=== PATIENT | female | born 1955 | race Caucasian/White ===

== ENCOUNTER 2020-07-21 15:11 | Outpatient (REF) | payer MEDICARE, SELFPAY ==
--- NOTE | 2020-07-21 | US_ITS ---
EXAMINATION: US RETROPERITONEAL LIMITED (RENAL ONLY) CLINICAL INFORMATION: Renal stone. COMPARISON: None TECHNIQUE: Real-time imaging of the kidneys. FINDINGS: RIGHT KIDNEY: 10.3 x 4.6 x 4.4 cm (SAG x AP x TRV). The kidney is normal in size, contour, and echogenicity. Renal cortical thickness is normal. No focal parenchymal lesions or hydronephrosis. There is a nonobstructing calculus mid to lower pole measuring 6 mm in greatest dimension. LEFT KIDNEY: 9.4 x 5.0 x 5.4 cm (SAG x AP x TRV). The kidney is normal in size, contour, and echogenicity. Renal cortical thickness is normal. No focal parenchymal lesions or hydronephrosis. There is a nonobstructing calculus mid to lower pole measuring 5 mm in greatest dimension. IMPRESSION: 1. Bilateral solitary nonobstructing calculi, right 6 mm, left 5 mm. 2. No hydronephrosis or caliectasis.
== END 2020-07-21 15:12 | disposition home or self-care (01) ==
LOC: HO.US 15:11
PROVIDERS: Visit Provider Urology
DX: N20.0 Calculus of kidney (principal)
CPT/HCPCS: 76775

== ENCOUNTER → 2020-08-12 09:36 | Outpatient (BNVA) | payer MEDICARE, SELFPAY | PROVIDERS: Visit Provider Urology | DX: N20.0 Calculus of kidney (principal) | CPT/HCPCS: 99212 ==

== ENCOUNTER 2020-08-24 06:25 | Day surgery (SDC) | payer MEDICARE, SELFPAY ==
[2020-08-19 14:24] VITALS: BMI 29.8
--- NOTE | 2020-08-24 | XR_ITS ---
EXAMINATION: XR ABDOMEN KUB CLINICAL INDICATION: Stones COMPARISON: 07/21/2020 TECHNIQUE: AP view of the abdomen. FINDINGS: There is a 7 mm calcification overlying the expected region of the right renal pelvis. A 4 mm calcification overlies the lower left kidney. Bowel gas pattern is nonobstructive. Catheter tubing extends over the abdomen to the upper pelvis. Suture line noted overlying the stomach. Included lung bases are well-aerated. Degenerative changes are noted in the spine. XR/XR KUB IMPRESSION: 7 mm calcification overlying the expected region of the right renal pelvis. 4 mm calcification overlies the lower left kidney.
[2020-08-24 06:43] VITALS: BP 132/66; PULSE 68; RESP 18; TEMP 36.1; O2SAT 96
--- NOTE | 2020-08-24 08:30 | HO.ANESPROP2 ---
[facility] Past Medical History Medical History Arthritis Back pain Fibromyalgia History of traumatic head injury Hx of spinal stenosis Hydrocephalus in adult Peptic ulcer Surgical History Surgical History H/O colonoscopy Hx of cholecystectomy Hx of excision of lamina of cervical vertebra for decompression of spinal cord Hx of gastric bypass Hx of tubal ligation [employer]TING [employer] (ventriculoperitoneal) shunt status Social History Social History Are you a primary lead care manager to a significant other at home: No Do you presently have visiting nurse or other home services: No Smoking Status: Former smoker Smoking Quit Date: 2012 Use of substances other than those prescribed or required for medical reasons: No Have you been hit, kicked, punched, or otherwise hurt by someone within the past year? If so, by whom?: No Advance Directives Information Provided: No Recently lost weight without trying: No Meds Allergies Allergy/AdvReac Type Severity Reaction Status Date / Time aspartame Allergy Severe severe Verified 08/19/20 14:34 dehydration Flexeril Allergy Intermediate Shortness Uncoded 08/19/20 14:34 of Breath Home Medications Medication Instructions Recorded Confirmed Type naproxen 500 mg tablet 500 mg PO BID 08/12/20 08/19/20 History acetaminophen [Tylenol Extra 1,000 mg PO BID 08/19/20 08/19/20 History Strength] omeprazole magnesium [Prilosec OTC] 20 mg PO BEDTIME 08/19/20 08/19/20 History Exam Exam Date and Time: August 24, 2020 0830 Height,Weight and Vital Signs: Height 5 ft 4 in Weight 78.925 kg Last Vital Signs Temp 97.0 F 08/24/20 06:43 Pulse 68 08/24/20 06:43 Resp 18 08/24/20 06:43 BP 132/66 08/24/20 06:43 Pulse Ox 96 08/24/20 06:43 Airway Mallampati Class: II TM Dist: >3cm Neck ROM: Limited Heart: RRR Lungs: CTA Assessment and Plan Assessment Anesthesia Assessment: Anesthesia Plan Discussed and Chart Reviewed Final Anesthetic Review NPO: Yes ASA Class: II Final Preanesthetic Review: Consent Obtained/Reviewed and Anes Risks/Benef Reviewed Patient Risk: Intermediate Procedure Risk: Low Anesthetic Plan Anesthetic Plan: MAC: Disposition: Standard PACU
[2020-08-24] MEDS: Lactated Ringers 1,000 ML 100 ML IVCONT (08:36)
--- NOTE | 2020-08-24 09:09 | MHC.SHP ---
Pre-Procedural Eval Section B Chief Complaint: calculus of kidney Details of Present Illness: right renal stone Relevant Family History (Specify if Yes): No Relevant Social History: None Present Medications: see Short Stay Collaborative assessment Medical History: Significant History History of Previous Operations: Relevant previous surgery/procedure and date(s) Allergies: Allergies Allergy/AdvReac Type Severity Reaction Status Date / Time aspartame Allergy Severe severe Verified 08/19/20 14:34 dehydration Flexeril Allergy Intermediate Shortness Uncoded 08/19/20 14:34 of Breath Review of Systems Sugical H&P ROS: Negative: Constitution, Cardiovascular, Respiratory, Neurological, Psychiatric, Hem-Onc, Allergic/Immunologic, Gastrointestinal, Genitourinary, Musculoskeletal, Integumentary, Endocrine and Eyes/Ears/Nose/Throat Exam Surgical H&P Exam: Normal: HEENT, Normal: Heart, Normal: Lungs, Normal: Extremities, Normal: Abdomen, Normal: Skin and Normal: Neurological Plan Diagnosis/Plan: Unchanged Patient has been examined and remains a candidate for the planned procedure
--- NOTE | 2020-08-24 09:30 | PM.OP ---
Brief Operative Note Date of Service: 08/24/20 Pre-op diagnosis: right UPJ stone Post-op diagnosis: same Procedure: right ESWL Surgeon: Johnny Kyle MD Anesthesia: MAC Estimated blood loss (mL): 0 Pathology: none sent Condition: stable Disposition: same day
--- NOTE | 2020-08-24 09:31 | W.PM.OPN ---
Operative Note Operative Note Date of Service: 08/24/20 Narrative: PreOperative Diagnosis: Renal stones - RUPJ Post Operative Diagnosis: Renal stones - RUPJ Procedure: ESWL Surgeon: Dr Johnny Kyle Anesthesia: mac/sedation Indications for procedure: They understand ESWL may be a staged procedure and subsequent intervention may be required based on imaging after ESWL. They also understand there is a risk of bleeding, infection, damage to adjacent organs. Imaging is reviewed Procedure: After informed consent was verified the patient was brought to the operating room and placed in a supine position. Anesthesia was performed per protocol. Safety pause time-out was performed. Imaging was in the room and laterality confirmed. ESWL was performed. The 1st 500 shocks were performed at 60 hertz. These were performed with increasing power. Once maximum power was reached the rate was increased to 180 hertz. A total of 2500 shocks were given. Fluoroscopy showed stone disintegration. They tolerated procedure well and was transferred to the recovery area upon completion.
[2020-08-24 10:00] VITALS: BP 112/70; PULSE 69; RESP 16; TEMP 36.7; O2SAT 97
[2020-08-24 10:15] VITALS: BP 116/74; PULSE 78; RESP 20; O2SAT 99
--- NOTE | 2020-08-24 10:39 | HO.POSTANES ---
Post Anesthesia Evaluation Post Anesthesia Evaluation Vital Signs: Vital Signs Temp Pulse Resp BP Pulse Ox 08/24/20 10:15 98.1 F 78 20 116/74 99 08/24/20 10:00 98.1 F 69 16 112/70 97 08/24/20 06:43 97.0 F 68 18 132/66 96 Anesthesia: Monitored Mental Status: Awake Pain Control: Satisfactory Nausea/Vomiting: None Hydration: Adequate Anesthesia-Related Issues: No Anes. Related Issues
== END 2020-08-24 10:55 | disposition home or self-care (01) ==
PROVIDERS: PCP Internal Medicine; Visit Provider Urology
PROC: (CPT 50590; principal; 2020-08-24 08:30)
DX: N20.1 Calculus of ureter (principal); Z98.2 Presence of cerebrospinal fluid drainage device; Z87.828 Personal history of other (healed) physical injury and trauma; Z98.84 Bariatric surgery status; Z90.49 Acquired absence of other specified parts of digestive tract; Z87.891 Personal history of nicotine dependence
CPT/HCPCS: 50590; 74018; J2250; J3010

== ENCOUNTER → 2020-10-19 10:42 | Outpatient (BNVA) | payer MEDICARE, SELFPAY | PROVIDERS: PCP Internal Medicine; Visit Provider Urology | DX: Z13.89 Encounter for screening for other disorder (principal) | CPT/HCPCS: 99212; Q3014 ==

== ENCOUNTER 2020-12-21 15:11 | Outpatient (REF) | payer MEDICARE, SELFPAY ==
--- NOTE | ~2020-12-21 | US_ITS ---
EXAMINATION: US RETROPERITONEAL LIMITED (RENAL ONLY) CLINICAL INFORMATION: Renal stones. COMPARISON: Previous renal ultrasound July 2020 and KUB August 2020 TECHNIQUE: Grayscale and color imaging of the kidneys FINDINGS: RIGHT KIDNEY: 9.2 x 4 x 4.1 cm (SAG x AP x TRV). The kidney is normal in size, contour, and echogenicity. Renal cortical thickness is normal. There is a 4 mm stone in the lower pole. No focal parenchymal lesions. No hydronephrosis. LEFT KIDNEY: 10.2 x 5.2 x 5 cm (SAG x AP x TRV). The kidney is normal in size, contour, and echogenicity. Renal cortical thickness is normal. There are 3 small 3 mm stones in the mid and lower pole. There is a 1.5 cm cyst in the midpole. No hydronephrosis. US/US renal BI IMPRESSION: Bilateral renal stones. Small left renal cyst..
== END 2020-12-21 15:12 | disposition home or self-care (01) ==
LOC: HO.US 15:11
PROVIDERS: Visit Provider Urology
DX: N20.0 Calculus of kidney (principal)
CPT/HCPCS: 76775

== ENCOUNTER 2021-08-03 10:39 | Outpatient (REF) | payer MEDICARE, SELFPAY ==
[2021-08-03 12:12] LABS: Blood Urea Nitrogen 8 mg/dL (9-16); Estimated Glomerular Filt Rate > 60
== END 2021-08-03 10:40 | disposition home or self-care (01) ==
LOC: HO.LAB 10:39
PROVIDERS: PCP Internal Medicine; Visit Provider Psychiatry & Neurology Neurology
DX: G81.90 Hemiplegia, unspecified affecting unspecified side (principal); G91.9 Hydrocephalus, unspecified
CPT/HCPCS: 36415; 82565; 84520

== ENCOUNTER 2021-08-23 09:53 | Outpatient (REF) | payer MEDICARE, OTHER, SELFPAY ==
--- NOTE | ~2021-08-23 | MR_ITS ---
MRI OF THE BRAIN WITH AND WITHOUT IV CONTRAST MRI LUMBAR SPINE WITHOUT CONTRAST INDICATION: Brain shunt. Right hemisphere lesion with progressive left hemiparesis. Bilateral lower extremity radicular symptoms. COMPARISON: Lumbar spine CT 06/21/2020. TECHNIQUE: Multiplanar multisequence MR imaging of the brain was obtained without and following the administration of 8 mL of Gadavist without complication. Additionally, a noncontrast MRI of the lumbar spine is performed. FINDINGS: BRAIN MRI: Diffuse linear dural enhancement throughout the supratentorial and infratentorial compartments which can be seen in the setting of over shunting which can be clinically correlated. A right lateral approach shunt catheter terminates within the posterior aspect of the third ventricle, traversing a nonenhancing multicystic lesion extending from the right thalamus into the right midbrain. This lesion measures up to 2.5 cm AP by 2.5 cm TV by 3 cm CC. There are no parenchymal signal changes immediately adjacent to the lesion. There is an additional more posteriorly positioned ventricular shunt catheter that terminates within the posterior aspect of the lateral ventricles. There is an old right frontal approach ventricular shunt catheter tract. No pathologic enhancement intracranially. 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 There is no hydrocephalus, extra-axial surface collection, or herniation. The major flow voids at the skull base are preserved. There is no acute infarct on diffusion-weighted imaging. There is no intracranial hemorrhage on the gradient recalled echo acquisition. The craniocervical junction is normal. Osseous marrow signal intensity is homogenous. The visualized soft tissues are unremarkable. LUMBAR SPINE MRI: There is transitional anatomy. For the purposes of this report S1 is partially lumbarized, shares a rudimentary disc with S2, and is incorporated into the sacrum on the right side. There are 5 nonrib-bearing lumbar-type vertebral bodies. Please correlate with plain films prior to any percutaneous or surgical intervention. There is a rightward convex scoliotic curvature of the lumbar spine with the apex at L2. There is grade 1 anterolisthesis of L4 on L5. The vertebral body heights are maintained. There is moderate disc volume loss at L1-L2 and T12-L1. Mild disc volume loss at L3-L4. There is disc desiccation at all lumbar levels. Modic type I endplate signal changes at L3-L4. There is no additional bone marrow edema. There are no acute fractures. Conus terminates at the L1-L2 level. There is a left renal cyst. There is paraspinal muscular atrophy bilaterally. Stable appearing adrenal adenomas bilaterally. There is a fibroid uterus. L1-L2: There is an inferiorly migrating left paracentral disc extrusion that results in mass effect on the traversing left L2 nerve root within the left subarticular zone on image 9 of series 6. Background annular disc bulge and left greater than right facet arthropathy. Mild left-sided foraminal encroachment. No central canal stenosis. L2-L3: Diffuse annular disc bulge and severe bilateral facet arthropathy. No central canal stenosis. There is mild foraminal encroachment bilaterally. L3-L4: Epidural lipomatosis results in moderate to severe thecal sac effacement. A left lateral disc protrusion and facet arthropathy result in moderate to severe left foraminal stenosis with mass effect on the exiting left L3 nerve root. L4-L5: Diffuse annular disc bulge and severe bilateral facet arthropathy and ligamentum flavum thickening. Epidural lipomatosis mildly narrows the central canal. Disc osteophyte and facet arthropathy result in mild bilateral foraminal encroachment. L5-S1: Grade 1 anterolisthesis. Severe bilateral facet arthropathy. No central canal stenosis and no foraminal stenosis. MR/MR head/brain wo/w con IMPRESSION: BRAIN MRI: - Shunted ventricular system with no hydrocephalus. The more anterior shunt catheter traverses a large up to 3 cm multiloculated cystic lesion that extends from the right thalamus into the midbrain, partially effacing the upper cerebral aqueduct. Comparison to any prior studies recommended if available. There is no associated pathologic intra-axial enhancement. - Diffuse linear dural enhancement throughout the supratentorial and infratentorial compartments which can be seen in the setting of over shunting which can be clinically correlated. LUMBAR SPINE MRI: - There is transitional anatomy. For the purposes of this report S1 is partially lumbarized, shares a rudimentary disc with S2, and is incorporated into the sacrum on the right side. There are 5 nonrib-bearing lumbar-type vertebral bodies. Please correlate with plain films prior to any percutaneous or surgical intervention. - Using this counting system, at L1-L2 there is an inferiorly migrating left paracentral disc extrusion extrusion that results in mass effect on the traversing left L2 nerve root within the left subarticular zone on image 9 of series 6. - At L3-L4, epidural lipomatosis results in moderate to severe thecal sac effacement and a left lateral disc protrusion and advanced facet arthropathy result in moderate to severe left foraminal stenosis with mass effect on the exiting left L3 nerve root. - Additional degenerative changes throughout the lumbar spine as described. At L5-S1, there is grade 1 degenerative anterolisthesis in the setting of severe bilateral facet arthropathy. - Rightward convex scoliotic curvature of the lumbar spine. - There is a fibroid uterus.
--- NOTE | ~2021-08-23 | XR_ITS ---
EXAMINATION: PRE-MRI SKULL. CLINICAL INFORMATION: Evaluation 3 MRI COMPARISON: None TECHNIQUE: AP and lateral views. FINDINGS: AP and lateral views of the skull reveal there is a ventriculostomy catheter with a nonprogrammable shunt visualized. Visualized Para nasal sinuses and mastoid air cells are well-aerated. XR/XR pre mri screening IMPRESSION: There is right ventriculostomy technique catheter with a shunt placement. A nonprogrammable shunt is noted. Unremarkable calvarial appearance. The paranasal sinuses and mastoid sinuses are clear.
== END 2021-08-23 09:54 | disposition home or self-care (01) ==
LOC: HO.MRI 09:53
PROVIDERS: Visit Provider Physical Medicine & Rehabilitation
DX: G81.90 Hemiplegia, unspecified affecting unspecified side (principal); M54.16 Radiculopathy, lumbar region
CPT/HCPCS: 70553; 72148; A9585

== ENCOUNTER 2021-10-25 09:50 | Observation (INO) | payer MEDICARE, SELFPAY ==
[2021-10-25] VITALS (11 sets, daily range): BP systolic 101–129; BP diastolic 60–77; PULSE 55–80; RESP 15–20; TEMP 36.6–37; O2SAT 95–100; BMI 28.2
--- NOTE | ~2021-10-25 | CT_ITS ---
EXAMINATION: CT CHEST, ABDOMEN AND PELVIS WITH CONTRAST CLINICAL INFORMATION: Fall with with chest and abdominal pain COMPARISON: No pertinent prior studies are available for comparison. TECHNIQUE: Multidetector volumetric imaging was performed from the thoracic inlet through the pubic symphysis following administration of 85 mL of Omnipaque 350 intravenous contrast. Sagittal and coronal reformatted images were obtained on the technologist workstation. This CT examination was performed using dose optimization techniques as appropriate, variously including the following: *Automated exposure control *Adjustment of mA and/or kV according to patient size (this includes techniques or standardized protocols for targeted exams where dose is matched to indication/reason for exam; i.e. extremities or head) *Use of iterative reconstruction technique DLP: 1173 mGy-cm. FINDINGS: CHEST: Lungs: Central airways are patent. No confluent parenchymal disease is seen. No bronchial wall thickening or bronchiectasis. There are some scattered sub-4 mm densities present. Mediastinum: Heart normal size. No pericardial effusion. No thoracic aortic aneurysm or dissection. There is some mild coronary artery calcification present. No mediastinal or hilar lymphadenopathy. There is question of a subcentimeter right thyroid nodule versus streak artifact. Pleura: There is no significant effusion. No pleural mass or thickening. Chest Wall/Axilla: Unremarkable. ABDOMEN/PELVIS: Liver, Gallbladder, Biliary Tree: The liver is normal in size, shape, and attenuation. No focal hepatic lesion or biliary ductal dilatation is present. Patient appears be status post cholecystectomy. Pancreas: Unremarkable. Spleen: Unremarkable. Adrenal Glands: There is an approximately 1.7 cm maximum dimension right adrenal gland nodule. There are 2 adjacent left adrenal nodules largest measuring 1.2 x 1.5 x 1.7 cm in size. Kidneys and Ureters: There are numerous bilateral nonobstructing renal calculi present the largest within the lower pole of the left kidney measuring 1 cm in diameter with Hounsfield unit measurements of approximately 500 and lying approximately 11 cm from the posterior axillary line. No hydronephrosis or hydroureter identified. There are numerous left renal low-density lesions present consistent with cysts. Bladder: About the right bladder wall there is a 1.4 x 1.2 x 1.9 cm soft tissue mass. Gastrointestinal Tract: No dilated loops of large or small bowel are evident. No free air. There is trace free fluid seen about the pelvis. Patient status post gastric surgery. A ventriculoperitoneal shunt is noted. There is a transition in bowel loop size within the sigmoid colon and an apple core type lesion cannot be excluded versus peristalsis.. No pericolonic inflammatory change. The appendix is visualized and appears unremarkable. Abdominal Wall: No hernia is demonstrated. Lymph Nodes: Normal. Vascular: There is mild aortoiliac calcified plaque present without evidence to suggest hemodynamically significant stenosis. Portal vein present. No abdominal aortic aneurysm. Pelvic Viscera: No suspicious uterine or adnexal mass appreciated. Osseous Structures: No suspicious destructive bony lesions identified. There is scoliosis of the thoracic spine convex left and of the lumbar spine convex right to mild degree. Multilevel degenerative disc disease is present. There is facet arthropathy seen L3-S1. CT/CT abdomen pelvis w con IMPRESSION: 1.9 cm right bladder wall mass. Nephrolithiasis without evidence of obstructive uropathy as described. Left renal cyst. Bilateral adrenal gland nodules.
--- NOTE | ~2021-10-25 | CT_ITS ---
EXAMINATION: CT HEAD WITHOUT CONTRAST CLINICAL INFORMATION: Syncope and loss of consciousness. Trauma to the head and neck. COMPARISON: Previous brain MRI August 2021. TECHNIQUE: Contiguous axial imaging was performed from the skull base to vertex without intravenous administration of contrast. This CT examination was performed using dose optimization techniques as appropriate, variously including the following: *Automated exposure control *Adjustment of mA and/or kV according to patient size (this includes techniques or standardized protocols for targeted exams where dose is matched to indication/reason for exam; i.e. extremities or head) *Use of iterative reconstruction technique DLP: 685 mGy-cm FINDINGS: There is no evidence of an extra-axial collection. There is no evidence of intra-axial or extra-axial hemorrhage. There is a cystic lesion in the right thalamus. This is unchanged from previous MRI. There are 2 right-sided shunt catheters. There is a shunt catheter coursing through the right parietal lobe with tip in the posterior right lateral ventricle. There is a more anterior shunt catheter in the right frontal parietal lobe with tip projecting over the posterior third ventricle. Shunt catheters appear intact and unchanged in position from previous brain MRI. The ventricles and extra-axial CSF spaces are appropriate. No evidence of hydrocephalus and no change from previous MRI. There may be a small lacunar infarct in the right basal ganglia. There is nonspecific periventricular white matter disease. No mass, mass effect or acute infarct is seen. No skull fracture is seen. There is inflammatory change in the left maxillary sinus. The remainder of the paranasal sinuses, mastoid air cells and middle ears are clear. CT/CT head/brain wo con IMPRESSION: No acute findings. Stable position of the 2 right CUSTOMER QUALITY SPECIALIST shunt catheters. Stable appearance to the cystic lesion in the right thalamus.
--- NOTE | ~2021-10-25 | CT_ITS ---
EXAMINATION: CT CERVICAL SPINE WITHOUT CONTRAST CLINICAL INFORMATION: Syncope and loss of consciousness. Trauma to the head and neck. COMPARISON: None. TECHNIQUE: Axial images through the cervical spine without contrast. This CT examination was performed using dose optimization techniques as appropriate, variously including the following: *Automated exposure control *Adjustment of mA and/or kV according to patient size (this includes techniques or standardized protocols for targeted exams where dose is matched to indication/reason for exam; i.e. extremities or head) *Use of iterative reconstruction technique DLP: 409 mGy-cm FINDINGS: There is mild curvature of the mid cervical spine to the right. Bone alignment is otherwise normal. No acute fracture or dislocation is seen. There are right-sided C3, C4 and C5 laminotomy defects. There is postsurgical change with surgical hardware in the left C3, C4 and C5 posterior facets/anterior lamina. There is multilevel degenerative spondylosis and degenerative disc disease from C2-C3 to C6-C7. There are degenerative changes at the C1 dens articulation. Prevertebral soft tissues are normal. There are calcifications in the inferior left thyroid gland. I size criteria, imaging follow-up not indicated. There is a 5 x 10 mm nodule in the inferior right thyroid gland. There is left-sided carotid calcification. There is a right-sided SOIL SCIENTIST shunt catheter. Visualized lung apices are clear. CT/CT cervical spine wo con IMPRESSION: No acute fracture or dislocation. Postsurgical changes from C3 to C5. Multilevel degenerative changes. Fleischner guidelines were followed.
--- NOTE | 2021-10-25 10:05 | ECG_ITS ---
Test Reason : syncopal episode Blood Pressure : / mmHG Vent. Rate : 063 BPM Atrial Rate : 063 BPM P-R Int : 176 ms QRS Dur : 082 ms QT Int : 458 ms P-R-T Axes : 056 -19 014 degrees QTc Int : 468 ms Normal sinus rhythm Normal ECG No previous ECGs available Referred By: Ana Buchanan Electronically Signed By:Richard Tatum
--- NOTE | 2021-10-25 10:14 | ED.SYNCOPE ---
HPI - Syncope General Chief Complaint: Syncope Stated Complaint: syncope/dizziness Time Seen by Provider: 10/25/21 10:05 Source: patient and EMS Mode of arrival: EMS Limitations: no limitations History of Present Illness HPI narrative: This is a 66-year-old female past medical history significant for lesion in brain,hydrocephalus, fibromyalgia, scoliosis, nephrolithiasis, chronic neck pain, GERD, neuropathy presenting to the emergency department via ambulance, patient is coming from home, she lives with her , she had a syncopal episode this morning. Patient is a poor historian she tells me she does not know how long she was on the ground for, She tells me she remembers waking up in the living room, she fell onto the ground possibly hit her head, she lost consciousness she fell onto a rug. Patient is not on blood thinners. She tells me she is fine and not having any pain and she think she is good to go home. She tells me that her only complaint right now is dizziness and she is always dizzy. According to EMS syncopal episode was witnessed by her who states that patient lost consciousness for a little while, he then called 911. She denies any preceding symptoms. However, it appears as though patient is a poor historian, she is anxious to get out of here. At this time she denies chest pain, shortness of breath, fevers, chills, nausea, vomiting, abdominal pain, weakness, vision changes. MD complaint: loss of consciousness Onset (ago): hour(s) (1) Prodromal symptoms: none Witnessed: Yes - by Other ( who she lives with.) Injuries sustained associated with event: none Current symptoms: none Treatments prior to arrival: none Related Data Home Medications Medication Instructions Recorded Confirmed calcium carbonate 600 mg-vitamin 1 tab PO BID 10/25/21 10/25/21 D3 20 mcg (800 unit) chewable tablet (Caltrate 600 plus D) calcium polycarbophil 625 mg 625 mg PO BID 10/25/21 10/25/21 tablet (FiberCon) ferrous sulfate 324 mg (65 mg 324 mg PO DAILY 10/25/21 10/25/21 iron) tablet,delayed release multivitamin 1 tab PO DAILY 10/25/21 10/25/21 omeprazole magnesium 20 mg 20 mg PO DAILY@1700 10/25/21 10/25/21 tablet,delayed release (Prilosec OTC) Previous Rx's Medication Instructions Recorded naproxen 500 mg tablet 500 mg PO Q12H PRN #60 tab 09/22/21 pregabalin 225 mg capsule (Lyrica) 225 mg PO DAILY 30 Days #90 cap 10/20/21 Allergies Allergy/AdvReac Type Severity Reaction Status Date / Time aspartame Allergy Severe severe Verified 05/22/21 11:00 dehydration cyclobenzaprine Allergy Severe SOB Verified 05/22/21 11:00 [facility] Review of Systems Review of Systems: Constitutional : No Weight loss, No Fever, No Chills, No Fatigue, No Malaise ENT/Mouth : No sore throat, No Rhinorrhea Eyes: No Eye Pain, No Swelling, No Redness Cardiovascular : No Chest Pain, No SOB, No Dyspnea on Exertion, No Orthopnea, No Edema, No Palpitations Respiratory : No Cough, No Sputum, No Wheezing Gastrointestinal : No Nausea, No Vomiting, No Diarrhea, No Constipation, No abdominal Pain, No Hematochezia, No Melena Genitourinary : No Dysuria, No Urinary Frequency, No Hematuria, Musculoskeletal : No joint pain, No Myalgias, No Joint Swelling Skin : No Skin Lesions, No rash Neuro : No Weakness, No Numbness, No Dizziness, No Headache, + syncope All other systems reviewed and are negative Yes all other systems are reviewed and are negative [facility] Past Medical History Attestation statement: The following information was validated with the patient. 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 Brother No problems noted. Sister No problems noted. Son No problems noted. Daughter No problems noted. Social History Social History Housing: Assisted Living Facility Are you a primary progressive care unit registered nurse to a significant other at home: No Do you presently have visiting nurse or other home services: No Alcohol intake: never Patient Tobacco Use Status: Former Tobacco user Use of substances other than those prescribed or required for medical reasons: No Advance Directives: No Advance Directives Information Provided: Yes service: No Current occupational status: retired and disabled Physical Exam Vital Signs: Vital Signs: Last Vital Signs Temp 98.0 F 10/25/21 14:14 Pulse 55 10/25/21 16:01 Resp 19 10/25/21 16:01 BP 107/74 10/25/21 16:01 Pulse Ox 98 10/25/21 16:01 BMI result Body Mass Index 28.2 VSS, however patient noted to be slightly hypotenive. Appearance: Alert.? Oriented X3.? No acute distress.?+patient slow to respond to questions Head: Normocephalic, atraumatic, no step-offs or deformities Eyes: Pupils equal, round and reactive to light.? ENT: Pharynx normal.? Neck: Normal inspection.? Neck supple.? CVS: Normal heart rate and rhythm.? Pulses normal.? Respiratory: No respiratory distress.? Breath sounds normal.? Abdomen: Soft and +diffuse tendernss to palpation.? Skin: Skin warm and dry.? Normal skin color.? Normal skin turgor.? Extremities: No lower extremity edema.? No calf ttp. 5/5 strength to bilateral upper and lower extremities Back: No midline tenderness, no C-spine tenderness, full range of motion, no CVA tenderness bilaterally Neuro: Oriented X 3.? No motor deficit.? No sensory deficit. Course Reevaluation(s) Reevaluation #1: patient's hemoglobin and hematocrit slightly low. D-dimer less than 150 unlikely PE. No acute electrolyte abnormalities. COVID negative. Ortho static vital signs negative. Troponin less than 3.5, EKG normal sinus rhythm without acute ischemia, unlikely ACS. Will hydrate patient. Time: 11:30 Reevaluation #2: Spoke to patient's Amadeotrena in the chart who tells me that he witness this entire episode. He tells me that this occurred around 9:00 a.m., she was sitting at the chair, by the computer when she suddenly stopped responding, she was not responding to verbal or physical stimulation, he called 911. Tells me that she was like this for about 5 minutes. He tells me nothing like this has ever happened to her before. Time: 12:02 Reevaluation #3: Although labs and CT appear normal, there is concern for a cardiac arrhythmia that may have caused a syncopal episode. I discussed this case with my attending who agrees patient should stay the night for further evaluation and may require additional tests such as an echo. Will admit to hospital Time: 14:44 MDM - Syncope MDM Narrative Medical decision making narrative: 1022 66 yo F pmhx lesion in brain,hydrocephalus, fibromyalgia, scoliosis, nephrolithiasis, chronic neck pain, GERD, neuropathy presents to ED s/p syncopal episode this AM. PE patient slow to respond to question and upon abdominal palpation she reports diffuse tenderness Plan- CT chest,c-spine. chest, head/brain, labs, trop, d-dimer, ck, orthostatic vitals Medical Records Attestation: I reviewed the patient's medical records. Lab Data Attestation: I reviewed the patient's lab results. Result diagrams: 10/25/21 10:45 10/25/21 10:45 Labs: Lab Results 10/25/21 10/25/21 10/25/21 Range/Units 10:45 10:45 10:45 WBC 6.8 (4.8-10.8) X10*3/uL RBC 3.87 L (4.20-5.50) X10*6/uL Hgb 11.5 L (12.0-16.0) g/dl Hct 35.6 L (37.0-47.0) % MCV 92.0 (80.0-98.0) fL MCH 29.7 (27.0-33.0) pg MCHC 32.3 (31.0-35.0) g/dl RDW 13.0 (11.0-16.0) % Plt Count 286 (160-400) X10*3/uL MPV 10.2 (9.4-12.3) fL Immature Gran % (Auto) 0.6 H (0.0-0.4) % Neut % (Auto) 66.0 (45-73) % Lymph % (Auto) 21.5 (20-40) % [place] % (Auto) 8.2 (2-11) % Eos % (Auto) 2.7 (0-4) % Baso % (Auto) 1.0 (0-2) % Lymph # (Auto) 1.5 (1.2-4.9) X10*3/uL [place] # (Auto) 0.6 (0.1-1.2) X10*3/uL Eos # (Auto) 0.2 (0.0-0.4) X10*3/uL Baso # (Auto) 0.1 (0.0-0.2) X10*3/uL Abs Immat Gran (auto) 0.04 H (0.00-0.03) X10*3/uL Absolute Neuts (auto) 4.5 (2.0-8.3) x10*3/uL Absolute Nucleated RBC 0.000 (0.0-0.012) X10*3/uL Nucleated RBC % (auto) 0.0 (0.0-0.2) /100WBC D-Dimer High Sensitivty < 150 NG/ML Sodium 141 (135-145) mmol/L Potassium 4.9 (3.3-5.1) mmol/L Chloride 109 H (96-108) mmol/L Carbon Dioxide 26 (22-29) mmol/L Anion Gap 11 L (12-20) BUN 12 (9-16) mg/dL Creatinine 0.77 (0.5-1.4) mg/dL Estim Creat Clear Calc 77.4 Estimated GFR > 60 Random Glucose 146 H (60-115) mg/dL Calcium 9.3 (8.4-10.2) mg/dL Magnesium 1.9 (1.6-2.6) mg/dL Total Bilirubin 0.5 (0.0-1.0) mg/dL AST 12 (5-31) U/L ALT 12 (0-31) U/L Alkaline Phosphatase 84 (39-117) U/L Total Creatine Kinase (26-140) U/L Troponin I High Sens (<3.5-17.0) ng/L Total Protein 6.0 L (6.5-8.0) g/dL Albumin 3.5 (3.5-5.0) g/dL Urine Color Urine Appearance Urine pH (5.0-8.0) Ur Specific Spicer (1.005-1.025) Urine Protein (NEG-TRACE) MG/DL Urine Glucose (UA) (NEG) MG/DL Urine Ketones (NEG) MG/DL Urine Blood (NEG) Urine Nitrite (NEG) Ur Leukocyte Esterase (NEG) Urine RBC (0) /HPF Urine WBC (0-4) /HPF Ur Squamous Epith Cells /LPF Urine Bacteria COVID-19 ([facility]ONICA) (Negative) COVID-19 Clin Com 10/25/21 10/25/21 10/25/21 Range/Units 10:45 10:45 10:45 WBC (4.8-10.8) X10*3/uL RBC (4.20-5.50) X10*6/uL Hgb (12.0-16.0) g/dl Hct (37.0-47.0) % MCV (80.0-98.0) fL MCH (27.0-33.0) pg MCHC (31.0-35.0) g/dl RDW (11.0-16.0) % Plt Count (160-400) X10*3/uL MPV (9.4-12.3) fL Immature Gran % (Auto) (0.0-0.4) % Neut % (Auto) (45-73) % Lymph % (Auto) (20-40) % [place] % (Auto) (2-11) % Eos % (Auto) (0-4) % Baso % (Auto) (0-2) % Lymph # (Auto) (1.2-4.9) X10*3/uL [place] # (Auto) (0.1-1.2) X10*3/uL Eos # (Auto) (0.0-0.4) X10*3/uL Baso # (Auto) (0.0-0.2) X10*3/uL Abs Immat Gran (auto) (0.00-0.03) X10*3/uL Absolute Neuts (auto) (2.0-8.3) x10*3/uL Absolute Nucleated RBC (0.0-0.012) X10*3/uL Nucleated RBC % (auto) (0.0-0.2) /100WBC D-Dimer High Sensitivty NG/ML Sodium (135-145) mmol/L Potassium (3.3-5.1) mmol/L Chloride (96-108) mmol/L Carbon Dioxide (22-29) mmol/L Anion Gap (12-20) BUN (9-16) mg/dL Creatinine (0.5-1.4) mg/dL Estim Creat Clear Calc Estimated GFR Random Glucose (60-115) mg/dL Calcium (8.4-10.2) mg/dL Magnesium (1.6-2.6) mg/dL Total Bilirubin (0.0-1.0) mg/dL AST (5-31) U/L ALT (0-31) U/L Alkaline Phosphatase (39-117) U/L Total Creatine Kinase 22 L (26-140) U/L Troponin I High Sens < 3.5 (<3.5-17.0) ng/L Total Protein (6.5-8.0) g/dL Albumin (3.5-5.0) g/dL Urine Color Urine Appearance Urine pH (5.0-8.0) Ur Specific Sp[place] (1.005-1.025) Urine Protein (NEG-TRACE) MG/DL Urine Glucose (UA) (NEG) MG/DL Urine Ketones (NEG) MG/DL Urine Blood (NEG) Urine Nitrite (NEG) Ur Leukocyte Esterase (NEG) Urine RBC (0) /HPF Urine WBC (0-4) /HPF Ur Squamous Epith Cells /LPF Urine Bacteria COVID-19 ([facility]ONICA) Negative (Negative) COVID-19 Clin Com See Note 10/25/21 Range/Units 12:59 WBC (4.8-10.8) X10*3/uL RBC (4.20-5.50) X10*6/uL Hgb (12.0-16.0) g/dl Hct (37.0-47.0) % MCV (80.0-98.0) fL MCH (27.0-33.0) pg MCHC (31.0-35.0) g/dl RDW (11.0-16.0) % Plt Count (160-400) X10*3/uL MPV (9.4-12.3) fL Immature Gran % (Auto) (0.0-0.4) % Neut % (Auto) (45-73) % Lymph % (Auto) (20-40) % [place] % (Auto) (2-11) % Eos % (Auto) (0-4) % Baso % (Auto) (0-2) % Lymph # (Auto) (1.2-4.9) X10*3/uL [place] # (Auto) (0.1-1.2) X10*3/uL Eos # (Auto) (0.0-0.4) X10*3/uL Baso # (Auto) (0.0-0.2) X10*3/uL Abs Immat Gran (auto) (0.00-0.03) X10*3/uL Absolute Neuts (auto) (2.0-8.3) x10*3/uL Absolute Nucleated RBC (0.0-0.012) X10*3/uL Nucleated RBC % (auto) (0.0-0.2) /100WBC D-Dimer High Sensitivty NG/ML Sodium (135-145) mmol/L Potassium (3.3-5.1) mmol/L Chloride (96-108) mmol/L Carbon Dioxide (22-29) mmol/L Anion Gap (12-20) BUN (9-16) mg/dL Creatinine (0.5-1.4) mg/dL Estim Creat Clear Calc Estimated GFR Random Glucose (60-115) mg/dL Calcium (8.4-10.2) mg/dL Magnesium (1.6-2.6) mg/dL Total Bilirubin (0.0-1.0) mg/dL AST (5-31) U/L ALT (0-31) U/L Alkaline Phosphatase (39-117) U/L Total Creatine Kinase (26-140) U/L Troponin I High Sens (<3.5-17.0) ng/L Total Protein (6.5-8.0) g/dL Albumin (3.5-5.0) g/dL Urine Color YELLOW Urine Appearance CLEAR Urine pH 7.0 (5.0-8.0) Ur Specific [place] <= 1.005 (1.005-1.025) Urine Protein NEG (NEG-TRACE) MG/DL Urine Glucose (UA) NEG (NEG) MG/DL Urine Ketones NEG (NEG) MG/DL Urine Blood 1+ H (NEG) Urine Nitrite NEG (NEG) Ur Leukocyte Esterase 1+ H (NEG) Urine RBC 0-2 (0) /HPF Urine WBC 1-4 (0-4) /HPF Ur Squamous Epith Cells 1+ /LPF Urine Bacteria Not Reportable COVID-19 ([facility]ONICA) (Negative) COVID-19 Clin Com Imaging Data Cervical spine CT: Attestation: I personally reviewed and interpreted this imaging study as follows: Radiologist's impression: FINDINGS: There is mild curvature of the mid cervical spine to the right. Bone alignment is otherwise normal. No acute fracture or dislocation is seen.? There are right-sided C3, C4 and C5 laminotomy defects. There is postsurgical change with surgical hardware in the left C3, C4 and C5 posterior facets/anterior lamina. There is multilevel degenerative spondylosis and degenerative disc disease from C2-C3 to C6-C7. There are degenerative changes at the C1 dens articulation. Prevertebral soft tissues are normal. There are calcifications in the inferior left thyroid gland. I size criteria, imaging follow-up not indicated. There is a 5 x 10 mm nodule in the inferior right thyroid gland. There is left-sided carotid calcification. There is a right-sided COMMERCIAL SPECIALIST shunt catheter. Visualized lung apices are clear. CT/CT cervical spine wo con IMPRESSION: No acute fracture or dislocation. Postsurgical changes from C3 to C5. Multilevel degenerative changes. ? Fleischner guidelines were followed. CT head : Attestation: I personally reviewed and interpreted this imaging study as follows: Radiologist's impression: CT/CT head/brain wo con IMPRESSION: No acute findings. Stable position of the 2 right COMMERCIAL SPECIALIST shunt catheters. Stable appearance to the cystic lesion in the right thalamus. Ct chest abdomen and pelvis : Attestation: I personally reviewed and interpreted this imaging study as follows: Radiologist's impression: CT/CT abdomen pelvis w con IMPRESSION: 1.9 cm right bladder wall mass. ? Nephrolithiasis without evidence of obstructive uropathy as described. Left renal cyst. ? Bilateral adrenal gland nodules. ? ECG Data Attestation: I personally reviewed and interpreted this ECG as follows: ECG interpretation date: 10/25/21 ECG interpretation time: 10:18 Prior ECG tracings: available for review Interpretation: Ventricular rate of 63, OH normal, QRS normal, QT / QTC normal. EKG shows normal sinus rhythm. No ST elevations or inversions. No acute ischemia. No previous EKGs to compare with. Critical Care Time Critical Care Time Critical Care Time: No Discharge Plan Discharge Clinical Impression: Syncope, Nephrolithiasis, Bladder mass, Adrenal gland cyst Patient Disposition: Admitted As Inpatient Additional Instructions: Take your medications as prescribed. If you were prescribed antibiotics today, it is important that you take your medication to their entirety, do not skip any doses, do not finish them early. Follow-up with your primary care provider this week. Your CT scan showed a mass in your bladder, and it showed adrenal cyst which will require further evaluation. Please follow-up with your PCP, and Urology. Return to the emergency department with new or worsening symptoms. In case of emergency call 911
[2021-10-25] MEDS: 0.9 % Sodium Chloride 1,000 ML 999 ML IV (10:35)
[2021-10-25 10:51] LABS: MANUAL DIFF FLAG NO
[2021-10-25 10:55] LABS: Basophils Absolute Auto 0.1 X10*3/uL (0.0-0.2); Eosinophils Absolute Auto 0.2 X10*3/uL (0.0-0.4); Eosinophils Percent Auto 2.7 % (0-4); Hematocrit 35.6 % (37.0-47.0); Hemoglobin 11.5 g/dl (12.0-16.0); Imm Gran Abs Auto 0.04 X10*3/uL (0.00-0.03); Imm Gran Pct Auto 0.6 % (0.0-0.4); Lymphocytes Absolute Auto 1.5 X10*3/uL (1.2-4.9); Lymphocytes Percent Auto 21.5 % (20-40); Mean Corpuscular HGB Conc 32.3 g/dl (31.0-35.0); Mean Corpuscular Hemoglobin 29.7 pg (27.0-33.0); Mean Platelet Volume 10.2 fL (9.4-12.3); Monocytes Absolute Auto 0.6 X10*3/uL (0.1-1.2); Monocytes Percent Auto 8.2 % (2-11); Neutrophils Absolute Auto 4.5 x10*3/uL (2.0-8.3); Platelet Count 286 X10*3/uL (160-400); Red Blood Count 3.87 X10*6/uL (4.20-5.50); White Blood Count 6.8 X10*3/uL (4.8-10.8)
[2021-10-25 11:09] LABS: D Dimer High Sensitivity < 150 NG/ML
[2021-10-25 11:11] LABS: Alanine Aminotransferase 12 U/L (0-31); Albumin Level 3.5 g/dL (3.5-5.0); Alkaline Phosphatase 84 U/L (39-117); Anion Gap 11 (12-20); Aspartate Amino Transferase 12 U/L (5-31); Bilirubin Total 0.5 mg/dL (0.0-1.0); Blood Urea Nitrogen 12 mg/dL (9-16); COVID-19 Test Negative (Negative); Calcium 9.3 mg/dL (8.4-10.2); Carbon Dioxide 26 mmol/L (22-29); Chloride 109 mmol/L (96-108); Creatinine Clr Calc Pharmacy 77.4; Estimated Glomerular Filt Rate > 60; Glucose Random 146 mg/dL (60-115); IDNOW Serial# 9DD0AD1C; Magnesium 1.9 mg/dL (1.6-2.6); Potassium 4.9 mmol/L (3.3-5.1); Sodium 141 mmol/L (135-145)
[2021-10-25 11:27] LABS: Troponin-I High Sensitivity < 3.5 ng/L (<3.5-17.0)
[2021-10-25] MEDS: iohexoL 350 MG/ML 100 ML INFUS..BTL 85 ML IV (11:50)
[2021-10-25 13:07] LABS: Appearance Urine CLEAR; Color Urine YELLOW; Glucose Urine UA NEG (NEG); Leukocyte Esterase Urine 1+ (NEG); Nitrite Urine NEG (NEG); Specific Gravity - Urine <= 1.005 (1.005-1.025); UACC Culture Trigger YES; Urine Blood 1+ (NEG); Urine Ketones NEG (NEG); Urine Protein NEG (NEG-TRACE)
[2021-10-25 13:16] LABS: RBC Urine 0-2 /HPF (0); Squamous Epithelial Cell Urine 1+ /LPF
--- NOTE | 2021-10-25 15:35 | PHA.MEDREC ---
Pharmacy Consult ? Medication Reconciliation Pharmacy has completed the medication reconciliation.
--- NOTE | 2021-10-25 16:16 | PC.NURSE ---
RN assumed care at 1500, pt alert and oriented x4, calm and cooperative. pt denies pain at this time. Pt denies dizziness, chest pain, SOB, headache, or vision changes. IV intact flushing without issues. Vitals remain stable. Pt resting in stretcher without issues, will continue to monitor.
--- NOTE | 2021-10-25 17:06 | PM.IMHP ---
History of Present Illness Date of Service: 10/25/21 Chief Complaint: syncope 66-year-old female with multiple comorbidities including fibromyalgia, arthritis, GERD, history of hydrocephalus hasVP Shunt( follows up with Dr. Melendrez neurology), history of nephrolithiasis- she came to the hospital because of passing out. She said that she more cup this morning and make her some coffee and sit near a computer and was doing some Facebook posts when suddenly she felt everything went phipps and then suddenly she passed out and she does not recall what happened at that time. Her was present during that time, no seizures like activity noted, no tongue bite no incontinence. she was oriented okay after the episode. She denies any chart notes of breath or palpitations before or after the episode. She said that she had an episode of passing out when she was 5-year-old but since then she never had any episodes of syncope. She denies any family history of any cardiac issues or any syncopal episode. 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 Denies any new complaint of chest pain or shortness of breath or abdominal pain or fever or chills or nausea or vomiting Denies any cough Denies any weakness or numbness. ED has given admission - syncopal episode. Patient is orthostasis negative lab imaging reviewed: CBC and BMP seems fine CT head, chest, abdomen: seems like patient has stable LANGUAGE PATH shunt. bladder mass on CT abdomen Review of Systems Review of Systems: as above. [facility] Medical History Arthritis Back pain Chronic neck pain Fibromyalgia GERD without esophagitis History of traumatic head injury Hx of spinal stenosis Hydrocephalus in adult Peptic ulcer Scoliosis of thoracolumbar spine Family History Father Cancer Mother Stroke Brother No problems noted. Brother No problems noted. Sister No problems noted. Son No problems noted. Daughter No problems noted. Surgical History H/O colonoscopy History of adenoidectomy History of cervical spinal surgery Hx of cholecystectomy Hx of excision of lamina of cervical vertebra for decompression of spinal cord Hx of gastric bypass Hx of lithotripsy Hx of tubal ligation LANGUAGE PATH (ventriculoperitoneal) shunt status Social History Housing: Assisted Living Facility Are you a primary critical care physician to a significant other at home: No Do you presently have visiting nurse or other home services: No Alcohol intake: never Patient Tobacco Use Status: Former Tobacco user Use of substances other than those prescribed or required for medical reasons: No Advance Directives: No Advance Directives Information Provided: Yes service: No Current occupational status: retired and disabled Meds Allergies Allergy/AdvReac Type Severity Reaction Status Date / Time aspartame Allergy Severe severe Verified 05/22/21 11:00 dehydration cyclobenzaprine Allergy Severe SOB Verified 05/22/21 11:00 [From Flexeril] Active Medications: Current Medications Calcium Polycarbophil (Calcium Polycarbophil Tablet) tab PO BID [facility] Ferrous Sulfate (Ferrous Sulfate 324 Mg Tablet.) 324 mg PO DAILY [facility] Heparin Sodium (Porcine) (Heparin Sodium,Porcine 5,000 Unit/Ml Vial) 5,000 unit SUBCUT Q8H [facility] Lactated Ringer's (Lr) 1,000 mls @ 80 mls/hr IVCONT .[id number] [facility] Multivitamins/Vitamin C (Multivitamin Tablet) 1 tab PO DAILY [facility] Naproxen (Naproxen 500 Mg Tablet) 500 mg PO Q12H PRN PRN Reason: for pain Non-Formulary Medication (Calcium Carbonate-Vitamin D3 [Caltrate 600 Plus D]) 1 tab PO BID [facility] Omeprazole (Omeprazole 20 Mg Capsule.) 20 mg PO DAILY@1700 [facility] Pharmacy Consult (Consult Rx Perform Med Rec) 1 each MISCELLANE ONCE PRN PRN Reason: Consult order Pregabalin (Pregabalin 75 Mg Capsule) 225 mg PO DAILY [facility] Sodium Chloride (0.9 % Sodium Chloride Flush 3 Ml Syringe) 3 ml IVFLUSH QSHIFT [facility] Home Medications Medication Instructions Recorded Confirmed Last Taken Type calcium carbonate 600 mg-vitamin 1 tab PO BID 10/25/21 10/25/21 10/24/21 History D3 20 mcg (800 unit) chewable tablet (Caltrate 600 plus D) calcium polycarbophil 625 mg 625 mg PO BID 10/25/21 10/25/21 10/24/21 History tablet (FiberCon) ferrous sulfate 324 mg (65 mg 324 mg PO DAILY 0110/25/21 10/24/21 History iron) tablet,delayed release multivitamin 1 tab PO DAILY 10/25/21 10/25/21 10/24/21 History omeprazole magnesium 20 mg 20 mg PO DAILY@1700 10/25/21 10/25/21 10/24/21 History tablet,delayed release (Prilosec OTC) Physical Exam Vital Signs and Narrative: Vital Signs: Last Vital Signs Temp 98.0 F 10/25/21 14:14 Pulse 55 10/25/21 16:01 Resp 19 10/25/21 16:01 BP 107/74 10/25/21 16:01 Pulse Ox 98 10/25/21 16:01 BMI result Body Mass Index 28.2 Appearance: Alert.? Oriented X3.? not in distress.? Eyes: Pupils equal, round and reactive to light.? Sclera nonicteric.? ENT: Pharynx normal.? Moist mucous membranes. cvs: rrr, [id number] , no murmur res: clear to auscultation ,no rhonchii or wheezing abd: no rebound or guarding ,nt, bs present. ext pulses present , no cyanosis. neuro: axo3 , nonfocal, has some numbness on both upper ext(patient say going on for 1-2 years) Results Labs CBC and Chem 7: 10/25/21 10:45 10/25/21 10:45 Labs: Laboratory Results - last 24 hr 10/25/21 10/25/21 10/25/21 10:45 10:45 10:45 MCV 92.0 MCH 29.7 MCHC 32.3 RDW 13.0 Plt Count 286 MPV 10.2 Immature Gran % (Auto) 0.6 H Neut % (Auto) 66.0 Lymph % (Auto) 21.5 [place] % (Auto) 8.2 Eos % (Auto) 2.7 Baso % (Auto) 1.0 Lymph # (Auto) 1.5 [place] # (Auto) 0.6 Eos # (Auto) 0.2 Baso # (Auto) 0.1 Abs Immat Gran (auto) 0.04 H Absolute Neuts (auto) 4.5 Absolute Nucleated RBC 0.000 Nucleated RBC % (auto) 0.0 D-Dimer High Sensitivty < 150 Anion Gap 11 L Estim Creat Clear Calc 77.4 Estimated GFR > 60 Random Glucose 146 H Calcium 9.3 Magnesium 1.9 Total Bilirubin 0.5 AST 12 ALT 12 Alkaline Phosphatase 84 Total Creatine Kinase Troponin I High Sens Total Protein 6.0 L Albumin 3.5 Urine Color Urine Appearance Urine pH Ur Specific [place] Urine Protein Urine Glucose (UA) Urine Ketones Urine Blood Urine Nitrite Ur Leukocyte Esterase Urine RBC Urine WBC Ur Squamous Epith Cells Urine Bacteria COVID-19 ([facility]ONICA) COVID-19 Clin Com 10/25/21 10/25/21 10/25/21 10:45 10:45 10:45 MCV MCH MCHC RDW Plt Count MPV Immature Gran % (Auto) Neut % (Auto) Lymph % (Auto) [place] % (Auto) Eos % (Auto) Baso % (Auto) Lymph # (Auto) [place] # (Auto) Eos # (Auto) Baso # (Auto) Abs Immat Gran (auto) Absolute Neuts (auto) Absolute Nucleated RBC Nucleated RBC % (auto) D-Dimer High Sensitivty Anion Gap Estim Creat Clear Calc Estimated GFR Random Glucose Calcium Magnesium Total Bilirubin AST ALT Alkaline Phosphatase Total Creatine Kinase 22 L Troponin I High Sens < 3.5 Total Protein Albumin Urine Color Urine Appearance Urine pH Ur Specific [place] Urine Protein Urine Glucose (UA) Urine Ketones Urine Blood Urine Nitrite Ur Leukocyte Esterase Urine RBC Urine WBC Ur Squamous Epith Cells Urine Bacteria COVID-19 ([facility]ONICA) Negative COVID-19 Clin Com See Note 10/25/21 12:59 MCV MCH MCHC RDW Plt Count MPV Immature Gran % (Auto) Neut % (Auto) Lymph % (Auto) [place] % (Auto) Eos % (Auto) Baso % (Auto) Lymph # (Auto) [place] # (Auto) Eos # (Auto) Baso # (Auto) Abs Immat Gran (auto) Absolute Neuts (auto) Absolute Nucleated RBC Nucleated RBC % (auto) D-Dimer High Sensitivty Anion Gap Estim Creat Clear Calc Estimated GFR Random Glucose Calcium Magnesium Total Bilirubin AST ALT Alkaline Phosphatase Total Creatine Kinase Troponin I High Sens Total Protein Albumin Urine Color YELLOW Urine Appearance CLEAR Urine pH 7.0 Ur Specific [place] <= 1.005 Urine Protein NEG Urine Glucose (UA) NEG Urine Ketones NEG Urine Blood 1+ H Urine Nitrite NEG Ur Leukocyte Esterase 1+ H Urine RBC 0-2 Urine WBC 1-4 Ur Squamous Epith Cells 1+ Urine Bacteria Not Reportable COVID-19 ([facility]ONICA) COVID-19 Clin Com Imaging Radiologist's Impressions: Impressions Abdomen/Pelvis CT 10/25/21 12:05 IMPRESSION: 1.9 cm right bladder wall mass. Nephrolithiasis without evidence of obstructive uropathy as described. Left renal cyst. Bilateral adrenal gland nodules. Cervical Spine CT 10/25/21 12:05 IMPRESSION: No acute fracture or dislocation. Postsurgical changes from C3 to C5. Multilevel degenerative changes. Fleischner guidelines were followed. Chest CT 10/25/21 12:05 IMPRESSION: 1.9 cm right bladder wall mass. Nephrolithiasis without evidence of obstructive uropathy as described. Left renal cyst. Bilateral adrenal gland nodules. Head CT 10/25/21 12:05 IMPRESSION: No acute findings. Stable position of the 2 right LANGUAGE PATH shunt catheters. Stable appearance to the cystic lesion in the right thalamus. Assessment and Plan (1) Syncope: Status: Acute (2) Neuropathy: Status: Acute (3) GERD without esophagitis: Status: Acute 1. Syncope episode: unclear etiology- possible neurocardiogenic? patient's hemoglobin and hematocrit slightly low.? D-dimer less than 150 unlikely PE.? No acute electrolyte abnormalities.? COVID negative.? Ortho static vital signs negative.? Troponin less than 3.5, EKG normal sinus rhythm Will hydrate patient. added echo Cardio evaluation 2. Fibromyalgia/arthrirtis: continue pregabalin/Naprosyn 3. history of brain hydrocephalus status post LANGUAGE PATH shunt- seems stable shunt on ct head. also possible ch upper ext numbness [place] [facility] melendrez [place] er the patient). 4. GERD: continue omeprazole. 5. bladder mass : patient follows up with Urology for nephrolithiasis out patiently please check in a.m. with Urology patient likely will need outpatient urological workup and management. dvt prophylax: s/c heparin above management discussed with patient in detail length she understand and in agreement with the plan, time spent 70 minute. patient is full code. Quality Stroke Does the patient have a stroke diagnosis?: No VTE Prior VTE?: No VTE Risk Level:: Medical - moderate - high VTE Device Contraindication: N/A - Device Ordered VTE Drug Contraindication: N/A - Med Ordered
[2021-10-25] MEDS: Heparin Sodium,Porcine 5,000 UNIT/ML VIAL 5000 UNIT SUBCUT (17:48)
[2021-10-25] MEDS: Lactated Ringers 1,000 ML 80 ML IVCONT (17:48)
--- NOTE | 2021-10-25 20:02 | PC.NURSE ---
Pt remains alert and oriented x4, calm and cooperative. Pt denies pain. Pt ate diner tonight and tolerated well, denies N/V/D. IV intact in left AC, LR @80ml/hr running at this time without issues. Vitals stable. Report given to YEN Lynch. [facility] orders.
[2021-10-25] MEDS: Calcium + Vitamin D 250 MG TABLET 500 MG PO (20:41)
[2021-10-26 06:18] LABS: Hematocrit 33.1 % (37.0-47.0); Hemoglobin 10.7 g/dl (12.0-16.0); Mean Corpuscular HGB Conc 32.3 g/dl (31.0-35.0); Mean Corpuscular Hemoglobin 29.6 pg (27.0-33.0); Mean Corpuscular Volume 91.4 fL (80.0-98.0); Mean Platelet Volume 10.7 fL (9.4-12.3); Platelet Count 288 X10*3/uL (160-400); Red Blood Count 3.62 X10*6/uL (4.20-5.50); Red Cell Distribution Width 12.8 % (11.0-16.0); White Blood Count 7.1 X10*3/uL (4.8-10.8)
[2021-10-26] MEDS: Heparin Sodium,Porcine 5,000 UNIT/ML VIAL 5000 UNIT SUBCUT ×3 (06:23→21:37)
[2021-10-26 06:27] LABS: Anion Gap 10 (12-20); Blood Urea Nitrogen 10 mg/dL (9-16); Calcium 9.5 mg/dL (8.4-10.2); Carbon Dioxide 28 mmol/L (22-29); Chloride 108 mmol/L (96-108); Creatinine Clr Calc Pharmacy 88.9; Estimated Glomerular Filt Rate > 60; Glucose Random 103 mg/dL (60-115); Potassium 4.1 mmol/L (3.3-5.1); Sodium 142 mmol/L (135-145)
[2021-10-26] MEDS: Lactated Ringers 1,000 ML 80 ML IVCONT (07:08)
[2021-10-26 07:58] VITALS: BP 139/78; PULSE 80; RESP 19; TEMP 36.4; O2SAT 97
--- NOTE | 2021-10-26 08:04 | PC.NURSE ---
Pt A&Ox3, LCA, no complaints of pain at this time. OOB to BR with standby assist. SB on monitor in thr 50's. + pulses, no edema noted. AM care completed, ECHO at bedside at this time. Call plummer within reach, will continue to monitor.
[2021-10-26] MEDS: Pregabalin 75 MG CAPSULE 225 MG PO (09:23)
[2021-10-26] MEDS: calcium polycarbophiL TABLET 1 TAB PO ×2 (09:23→21:36)
[2021-10-26] MEDS: Calcium + Vitamin D 250 MG TABLET 500 MG PO ×2 (09:23→21:35)
[2021-10-26] MEDS: Multivitamin TABLET 1 TAB PO (09:23)
[2021-10-26] MEDS: Ferrous Sulfate 324 MG TABLET.DR PO (09:23)
--- NOTE | 2021-10-26 09:34 | PC.NURSE ---
Pt A&Ox3, no complaints of pain at this time. Pt is ambulatory with no assistance. Pt denies dizziness at this time. Appears to be NSR on the monitor. Fluids running as per MAr orders, will continue to monitor.
--- NOTE | 2021-10-26 10:30 | CA_ITS ---
Transthoracic Echocardiogram Patient (Last, First, Middle): Sudha Lyman S Gender: Female Date of : 1955 Age: 66 Procedure Date: 10/26/2021 Procedure Type: Transthoracic Echocardiogram Location: ER Height: 167.64 cm Weight: 79.38 kg BSA: 1.89 m2 Heart Rate: bpm BP: 112 / 66 mmHg Can Sterilizer: ISAIAH Jurado MD: Mallory Gan MD Symptoms: syncope Study Quality: Fair Conclusions: - Normal left ventricular size, thickness, systolic function, and wall motion. - Normal right ventricular cavity size and systolic function. - No significant valvular or pericardial pathology. Findings Left Ventricle Normal left ventricular size, thickness, systolic function, and wall motion. The visually estimated ejection fraction is between 60-65%. Diastolic function is normal for age. Right Ventricle Normal right ventricular cavity size and systolic function. Atria Both atria are normal in size. Aortic Valve Normal aortic valve structure and function. There is no aortic valve stenosis. There is no aortic valve regurgitation. Mitral Valve Normal mitral valve structure and function. There is no mitral valve regurgitation. There is no mitral valve stenosis. Pulmonic Valve Normal pulmonic valve structure and function. There is trace pulmonic valve regurgitation. Tricuspid Valve Normal tricuspid valve structure and function. There is no tricuspid valve regurgitation. Normal right atrial pressure. There is no evidence of pulmonary hypertension. Great Vessels All visible segments of the aorta are normal in size. The visualized portions of the pulmonary artery and branches are normal. Venous The inferior vena cava is normal in size and collapses greater than 50% with inspiration. Pericardium/Pleural Normal pericardial structure. There is no evidence of pericardial effusion. Prior Study Comparison No prior study available for comparison. Measurements 2D Linear Measurements IVSd: 0.88 0.6-0.9/0.6-1.0 cm LVIDd: 4.86 3.9-5.3/4.2-5.9 cm LVIDd Index: 2.57 2.4-3.2/2.2-3.1 cm/m2 LVIDs: 3.10 2.0-3.6 cm LVPWd: 0.85 0.7-1.1 cm Ao Root: 3.50 2.1-3.5 cm LA Diam: 2.80 2.7-3.8/3.0-4.0 cm LAIDs Index: 1.48 1.5-2.3 cm/m2 LV Mass: 178.26 67-162/88-224 g LV Mass Index: 94.32 43-95/49-115 g/m2 LVOT Diam: 2.20 3.0+(-)1.3 cm 2D Systolic Function EF 4C: 62.60 >55% EF 2C: 65.10 >55% EF BiP: 63.80 >55% Mitral Valve MV Pk E: 0.61 MV PK A: 0.75 MV Decel Time: 245.00 E/A: 0.80 E'Lateral: 7.62 E'Medial: 8.27 E/E' Med: 7.40 E/E' Lat: 8.00 PHT: 72.00 MVA PHT: 3.06 Decel [place]: 2.49 Aortic Valve AoV Pk Carl: 1.36 AoV Mn Carl: 1.03 AoV VTI: 0.33 AoV Pk Grad: 7.00 Aov Mn Grad: 5.00 LAMBERT Cont.VTI: 2.61 LVOT LVOT Pk Carl: 1.01 LVOT Mn Carl: 0.69 LVOT VTI: 0.23 LVOT Pk Grad: 4.00 LVOT Mn Grad: 2.00 LVOT Diam: 2.20 LVOT Area: 3.80 Diastolic Function MV Pk E: 0.61 MV Pk A: 0.75 E/A: 0.80 E'Medial: 8.27 E/E' Med: 7.40 E' Laterial: 7.62 E/E' Lat: 8.00 Right Ventricle TAPSE (mm): 2.28 TVS' Carl: 12.60 Tricuspid Valve TR Pk Carl: 2.36 TR Pk Grad: 22.00 RA Press: 3.00 RVSP: 25.00 Great Vessels Aorta Ao Root-2D: 3.50 2.0-3.7 cm Ao Asc: 3.30 2.1-3.4 cm Updated in Other Vendor System with Status of Final Richard Tatum MD electronically signed on 10/26/2021 4:00:59 PM with status of Final
--- NOTE | 2021-10-26 11:47 | P.DS_ITS ---
DS: Providers Provider Date of Service: 10/27/21 Date of admission: 10/25/21 16:55 Primary care physician: Gregory Gaming MD Consults: 10/25/21 17:04 Consult to Cardiology Routine Consulting Provider: Richard Tatum Reason for consultation: syncope Has provider been notified: No 10/25/21 17:36 Consult to Urology Routine Consulting Provider: Johnny Kyle Reason for consultation: bladder mass Has provider been notified: No DS: Diagnosis Discharge Diagnosis (1) Syncope: Status: Resolved (2) Neuropathy: (3) GERD without esophagitis: DS: Summary Hospital Course Hospital Course: Chief Complaint: syncope ? 66-year-old female with multiple comorbidities including? fibromyalgia, arthritis, GERD, history of hydrocephalus? hasVP? Shunt( follows up with Dr. Melendrez neurology), history of nephrolithiasis- she came to the hospital because of passing out. ? She said that she more cup this morning and make her some coffee and sit near a computer and was doing some Facebook posts when suddenly she felt everything went phipps and then suddenly she passed out and she does not recall what happened at that time.? Her was present during that time,? no seizures like activity noted, no tongue bite no incontinence. ?she was oriented okay after the episode.? She denies any chart notes of breath or palpitations before? or after the episode. ? She said that she had an episode of passing out when she was 5-year-old but since then she never had any episodes of syncope. She denies any family history of any cardiac issues or any syncopal episode.? 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 neurology [facility]. ? Denies any new complaint of chest pain or shortness of breath or abdominal pain or fever or chills or nausea or vomiting Denies any cough Denies any weakness or numbness. ?ED has given admission - syncopal episode. ? Patient is orthostasis negative ?lab imaging reviewed:? CBC and BMP seems fine ?CT head, chest, abdomen: ?seems like patient has stable BOLT CUTTER shunt. ?bladder mass on CT abdomen Hospital course: Patient presented with a syncopal event etiology not clear, has not had arrythmia, doesn't sound like a seziure, cardiac work work up with telemetry monitoring, ECG and cardiac troponins are negative, ortostatic BP is negative, Echo showed no regional wall motion abnormalities and normal EF., No further episodes, noted to have incdiental bladder mass and cierra adrenal nodules on CT. She will need further work up for this but can be pursuit on outpatient basis. Dr. Kyle will arrange outpatient Cystoscopy. 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 New 4d Temperature 98.0 F Career And Technology Education Teacher New 4d Pulse Rate 66 Career And Technology Education Teacher New 4d RespiratoryRespiratory Rate 18 Blood Pressure 134/80 Pulse Oximetry 96 Oxygen Delivery Me thod Room Air Const: Other: General: AO X 3, no acute distress Resp: CTA bilateral CVS: S1,S2,RRR GI: +BS, NT, no distention Skin: No rash Neuro: motor grossly intact Psych: appropriate affect DS: Data Data Completed and Pending Labs on day of discharge: Laboratory Results - last 24 hr 10/25/21 10/26/21 10/26/21 12:59 05:39 05:39 WBC 7.1 RBC 3.62 L Hgb 10.7 L Hct 33.1 L MCV 91.4 MCH 29.6 MCHC 32.3 RDW 12.8 Plt Count 288 MPV 10.7 Absolute Nucleated RBC 0.000 Nucleated RBC % (auto) 0.0 Sodium 142 Potassium 4.1 Chloride 108 Carbon Dioxide 28 Anion Gap 10 L BUN 10 Creatinine 0.67 Estim Creat Clear Calc 88.9 Estimated GFR > 60 Random Glucose 103 Calcium 9.5 Urine Color YELLOW Urine Appearance CLEAR Urine pH 7.0 Ur Specific [place] <= 1.005 Urine Protein NEG Urine Glucose (UA) NEG Urine Ketones NEG Urine Blood 1+ H Urine Nitrite NEG Ur Leukocyte Esterase 1+ H Urine RBC 0-2 Urine WBC 1-4 Ur Squamous Epith Cells 1+ Urine Bacteria Not Reportable Discharge Plan Discharge Anticipated Discharge Date/Time: 10/26/21 11:44 Patient Disposition: Home, Self-Care Discharge Diagnosis: Syncope, Bladder mass Referrals: Gregory Gaming MD [Primary Care Provider] - 1 Week Johnny Kyle MD [Physician] - 2 days Discharge Medications: Continued pregabalin [Lyrica] 225 mg capsule 225 mg PO DAILY 30 Days Qty: 90 0RF multivitamin Tablet 1 tab PO DAILY 0RF ferrous sulfate 324 mg (65 mg iron) Tablet,Delayed Release (Dr/Ec) 324 mg PO DAILY 0RF omeprazole magnesium [Prilosec OTC] 20 mg tablet,delayed release (DR/EC) 20 mg PO DAILY@1700 0RF No Action naproxen 500 mg tablet 500 mg PO Q12H PRN (Reason: for pain) Qty: 60 1RF calcium polycarbophil [FiberCon] 625 mg tablet 625 mg PO BID Qty: 60 2RF Caltrate 600 plus D 600 mg-20 mcg (800 unit) tablet,chewable 1 tab PO BID Qty: 60 2RF Discharge Orders: Discharge Order (Routine); Ordered 10/27/21 Ordered By: Darius Rivas Diet: advance to usual diet Activity on Discharge: As tolerated Stand Alone Forms: Patient Portal Discharge page Care Plan Goals: Full work up for bladder mass, adrenal nodules Health Concerns: Bladder Mass Plan of Treatment: Take your medications as prescribed. If you were prescribed antibiotics today, it is important that you take your medication to their entirety, do not skip any doses, do not finish them early. Follow-up with your primary care provider this week. Your CT scan showed a mass in your bladder, and it showed adrenal cyst which will require further evaluation. Please follow-up with your PCP, and Urology. Return to the emergency department with new or worsening symptoms. In case of emergency call 911 Assessment: As above Patient Instructions: Kidney Stones (ED), Syncope (ED), Syncope in Older Adults (ED), Bladder Biopsy (DC) Discharge Date/Time: 10/27/21 14:31
--- NOTE | 2021-10-26 12:20 | MHC.CM.PN ---
PT REPORTS SHE LIVES WITH HER AND IS INDEPENDENT WITH CARE SHE REPORTS SHE HAS A CANE SHE USES NEEDED AND NO OTHER DME PT DENIES HAVING HOME/COMMUNITY SERVICES PT REPORTS SHE HAS A HCP, COPY REQUESTED PT CONFIRMS HER PCP IS MARIA GODFREY PT REPORTS SHE IS VACCINATED AGAINST COVID-19 AND HAD THE BOOSTER OBSERVATION NOTICE DELIVERED, COPY LEFT AT BEDSIDE, ORIGINAL SENT TO [facility] CURRENT DC PLAN IS HOME WITH NO SERVICES TO TRANSPORT PT IS EXPECTED TO DC TODAY
--- NOTE | 2021-10-26 12:30 | P.CNUR_ITS ---
History of Present Illness Consult details Consult date: 10/26/21 Narrative: Sudha is a 66 yr female b/g of hydrocephalus with shut who fell at home and was admitted with mild confusion. On imaging a small lesion was seen in her bladder No history of gross hematuria Had prior intervention for renal stones CT scan with 1.5 cm right lateral side of bladder images have been reviewed Has prior smoking history Outpatient cystoscopy can be organized Review of Systems Constitutional: Constitutional: Reports as per HPI and Reports no additional constitutional complaints Cardiovascular: Cardiovascular: Reports as per HPI and Reports no additional cardiovascular complaints Respiratory: Respiratory: Reports as per HPI and Reports no additional respiratory complaints Gastrointestinal: Gastrointestinal: Reports as per HPI and Reports no additional gastrointestinal complaints Genitourinary: Genitourinary: Reports as per HPI Musculoskeletal: Musculoskeletal: Reports no additional musculoskeletal complaints and Reports as per HPI Neurologic: Reports system reviewed and no additional complaints, except as documented and Reports as per HPI PMFSH Past Medical History Medical History Arthritis Back pain Chronic neck pain Fibromyalgia GERD without esophagitis History of traumatic head injury Hx of spinal stenosis Hydrocephalus in adult Peptic ulcer Scoliosis of thoracolumbar spine Family History Family History Father Cancer Mother Stroke Brother No problems noted. Brother No problems noted. Sister No problems noted. Son No problems noted. Daughter No problems noted. 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 status Social History Social History Housing: Assisted Living Facility Are you a primary palliative care physician to a significant other at home: No Do you presently have visiting nurse or other home services: No Alcohol intake: never Patient Tobacco Use Status: Former Tobacco user Use of substances other than those prescribed or required for medical reasons: No Advance Directives: No Advance Directives Information Provided: Yes service: No Current occupational status: retired and disabled Meds Allergies Allergy/AdvReac Type Severity Reaction Status Date / Time aspartame Allergy Severe severe Verified 05/22/21 11:00 dehydration cyclobenzaprine Allergy Severe SOB Verified 05/22/21 11:00 [From Flexeril] Active Medications: Current Medications Calcium Carbonate/Cholecalciferol (Calcium + Vitamin D 250 Mg Tablet) 500 mg PO BID [facility] Last Admin: 10/26/21 09:23 Dose: 500 mg Documented by: Calcium Polycarbophil (Calcium Polycarbophil Tablet) 1 tab PO BID [facility] Last Admin: 10/26/21 09:23 Dose: 1 tab Documented by: Ferrous Sulfate (Ferrous Sulfate 324 Mg Tablet.) 324 mg PO DAILY [facility] Last Admin: 10/26/21 09:23 Dose: 324 mg Documented by: Heparin Sodium (Porcine) (Heparin Sodium,Porcine 5,000 Unit/Ml Vial) 5,000 unit SUBCUT Q8H [facility] Last Admin: 10/26/21 06:23 Dose: 5,000 unit Documented by: Lactated Ringer's (Lr) 1,000 mls @ 80 mls/hr IVCONT .[id number] [facility] Last Admin: 10/26/21 07:08 Dose: 80 mls/hr Documented by: Multivitamins/Vitamin C (Multivitamin Tablet) 1 tab PO DAILY [facility] Last Admin: 10/26/21 09:23 Dose: 1 tab Documented by: Naproxen (Naproxen 500 Mg Tablet) 500 mg PO Q12H PRN PRN Reason: for pain Omeprazole (Omeprazole 20 Mg Capsule.) 20 mg PO DAILY@1700 [facility] Pharmacy Consult (Consult Rx Perform Med Rec) 1 each MISCELLANE ONCE PRN PRN Reason: Consult order Pregabalin (Pregabalin 75 Mg Capsule) 225 mg PO DAILY [facility] Last Admin: 10/26/21 09:23 Dose: 225 mg Documented by: Sodium Chloride (0.9 % Sodium Chloride Flush 3 Ml Syringe) 3 ml IVFLUSH QSHIFT [facility] Last Admin: 10/26/21 08:04 Dose: Not Given Documented by: Home Medications Medication Instructions Recorded Confirmed Last Taken Type calcium carbonate 600 mg-vitamin 1 tab PO BID 10/25/21 10/25/21 10/24/21 History D3 20 mcg (800 unit) chewable tablet (Caltrate 600 plus D) calcium polycarbophil 625 mg 625 mg PO BID 10/25/21 10/25/2110/24/22 History tablet (FiberCon) ferrous sulfate 324 mg (65 mg 324 mg PO DAILY 10/25/21 10/25/21 10/24/21 History iron) tablet,delayed release multivitamin 1 tab PO DAILY 10/25/21 10/25/21 10/24/21 History omeprazole magnesium 20 mg 20 mg PO DAILY@1700 10/25/21 10/25/21 10/24/21 History tablet,delayed release (Prilosec OTC) Physical Exam Vital Signs: Vital Signs: Last Vital Signs Temp 97.6 F 10/26/21 07:58 Pulse 80 10/26/21 07:58 Resp 19 10/26/21 07:58 BP 139/78 10/26/21 07:58 Pulse Ox 97 10/26/21 07:58 BMI result Body Mass Index 28.2 Const: General: cooperative, healthy appearing, comfortable and no acute distress Orientation/consciousness: patient oriented x3 HENMT: Face and sinus: Yes normal facial exam Mouth: moist mucous membranes Neck: Neck: Yes normal visual inspection, Yes full ROM and Yes trachea midline Chest: Chest palpation & inspection: normal inspection of the chest Resp: Effort & Inspection: normal respiratory effort, able to speak in complete sentences and no respiratory distress GI: Inspection: Yes normal to inspection Back/Spine/Pelvis: Cervical Spine: normal cervical lordosis Thoracic/Lumbar Spine: thoracic and lumbar spine normal to inspection Skin: General skin exam: no rashes or lesions noted Neuro: General: patient oriented x3, tone normal and moves all extremities Extrem: General: Yes normal to inspection and Yes capillary refill normal Results Labs Result diagrams: 10/26/21 05:39 10/26/21 05:39 Labs: Abnormal lab results 10/25/21 10/26/21 10/26/21 Range/Units 12:59 05:39 05:39 RBC 3.62 L (4.20-5.50) X10*6/uL Hgb 10.7 L (12.0-16.0) g/dl Hct 33.1 L (37.0-47.0) % Anion Gap 10 L (12-20) Urine Blood 1+ H (NEG) Ur Leukocyte Esterase 1+ H (NEG) Short CBC 10/26/21 Range/Units 05:39 WBC 7.1 (4.8-10.8) X10*3/uL Hgb 10.7 L (12.0-16.0) g/dl Hct 33.1 L (37.0-47.0) % Plt Count 288 (160-400) X10*3/uL BMP 10/26/21 05:39 Sodium 142 Potassium 4.1 Chloride 108 Carbon Dioxide 28 BUN 10 Creatinine 0.67 Calcium 9.5 Urine 10/25/21 Range/Units 12:59 Urine Color YELLOW Urine Appearance CLEAR Urine pH 7.0 (5.0-8.0) Ur Specific [place] <= 1.005 (1.005-1.025) Urine Protein NEG (NEG-TRACE) MG/DL Urine Glucose (UA) NEG (NEG) MG/DL All other labs normal. Assessment and Plan (1) Bladder mass: Status: Acute Outpatient cystoscopy Discussed with patient Will be organized Procedures Date of Service Date of Service: 10/26/21
[2021-10-26 12:55] VITALS: BP 133/50; PULSE 64; RESP 16; TEMP 36.4; O2SAT 98
--- NOTE | 2021-10-26 14:14 | P.CONCA_ITS ---
History of Present Illness History of Present Illness Date of Service: 10/26/21 Requesting physician: Darius Rivas Chief complaint: Syncope Narrative: Pleasant 66 year female who is here for syncope. She has background history of nephrolithiasis, fibromyalgia and chronic neck pain. She was working on her computer when she started noticing which will changes and then passed out. She did not have any hot and flushed feeling before but afterwards she was feeling quite hot. No chest pain or shortness of breath. She is saying she had similar episode when she was really young. With these symptoms she came to the hospital and was admitted. Her D-dimer was negative. She said she did not eat or drink the day he passed out. PMFSH Past Medical History Medical History Arthritis Back pain Chronic neck pain Fibromyalgia GERD without esophagitis History of traumatic head injury Hx of spinal stenosis Hydrocephalus in adult Peptic ulcer Scoliosis of thoracolumbar spine Family History Family History Father Cancer Mother Stroke Brother No problems noted. Brother No problems noted. Sister No problems noted. Son No problems noted. Daughter No problems noted. 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) shunt status Social History Social History Housing: Assisted Living Facility Are you a primary director of health care marketing to a significant other at home: No Do you presently have visiting nurse or other home services: No Alcohol intake: never Patient Tobacco Use Status: Former Tobacco user Use of substances other than those prescribed or required for medical reasons: No Advance Directives: No Advance Directives Information Provided: Yes service: No Current occupational status: retired and disabled Meds Allergies Allergy/AdvReac Type Severity Reaction Status Date / Time aspartame Allergy Severe severe Verified 05/22/21 11:00 dehydration cyclobenzaprine Allergy Severe SOB Verified 05/22/21 11:00 [From Flexeril] Active Medications: Current Medications Calcium Carbonate/Cholecalciferol (Calcium + Vitamin D 250 Mg Tablet) 500 mg PO BID [facility] Last Admin: 10/26/21 09:23 Dose: 500 mg Documented by: Calcium Polycarbophil (Calcium Polycarbophil Tablet) 1 tab PO BID [facility] Last Admin: 10/26/21 09:23 Dose: 1 tab Documented by: Ferrous Sulfate (Ferrous Sulfate 324 Mg Tablet.) 324 mg PO DAILY [facility] Last Admin: 10/26/21 09:23 Dose: 324 mg Documented by: Heparin Sodium (Porcine) (Heparin Sodium,Porcine 5,000 Unit/Ml Vial) 5,000 unit SUBCUT Q8H [facility] Last Admin: 10/26/21 06:23 Dose: 5,000 unit Documented by: Lactated Ringer's (Lr) 1,000 mls @ 80 mls/hr IVCONT .[id number] [facility] Last Admin: 10/26/21 07:08 Dose: 80 mls/hr Documented by: Multivitamins/Vitamin C (Multivitamin Tablet) 1 tab PO DAILY [facility] Last Admin: 10/26/21 09:23 Dose: 1 tab Documented by: Naproxen (Naproxen 500 Mg Tablet) 500 mg PO Q12H PRN PRN Reason: for pain Omeprazole (Omeprazole 20 Mg Capsule.) 20 mg PO DAILY@1700 [facility] Pharmacy Consult (Consult Rx Perform Med Rec) 1 each MISCELLANE ONCE PRN PRN Reason: Consult order Pregabalin (Pregabalin 75 Mg Capsule) 225 mg PO DAILY [facility] Last Admin: 10/26/21 09:23 Dose: 225 mg Documented by: Sodium Chloride (0.9 % Sodium Chloride Flush 3 Ml Syringe) 3 ml IVFLUSH QSHIFT [facility] Last Admin: 10/26/21 08:04 Dose: Not Given Documented by: Home Medications Medication Instructions Recorded Confirmed Last Taken Type calcium carbonate 600 mg-vitamin 1 tab PO BID 10/25/21 10/25/21 10/24/21 History D3 20 mcg (800 unit) chewable tablet (Caltrate 600 plus D) calcium polycarbophil 625 mg 625 mg PO BID 10/25/21 10/25/21 10/24/21 History tablet (FiberCon) ferrous sulfate 324 mg (65 mg 324 mg PO DAILY 10/25/21 10/25/21 10/24/21 History iron) tablet,delayed release multivitamin 1 tab PO DAILY 10/25/21 10/25/21 10/24/21 History omeprazole magnesium 20 mg 20 mg PO DAILY@1700 10/25/21 10/25/21 10/24/21 History tablet,delayed release (Prilosec OTC) Physical Exam Vital Signs: Vital Signs: Last Vital Signs Temp 97.5 F 10/26/21 12:55 Pulse 64 10/26/21 12:55 Resp 16 10/26/21 12:55 BP 133/50 L 10/26/21 12:55 Pulse Ox 98 10/26/21 12:55 BMI result Body Mass Index 28.2 GENERAL APPEARANCE: in no acute distress, pleasant. NECK: no carotid bruit, no jugular venous distention. SKIN: no suspicious lesions, warm and dry. HEART: no murmurs, regular rate and rhythm. LUNGS: clear to auscultation bilaterally. ABDOMEN: soft, nontender. EXTREMITIES: no edema. PERIPHERAL PULSES: equal. NEUROLOGIC: No gross deficits, AAO X 3 Objective Labs and Meds Result diagrams: 10/26/21 05:39 10/26/21 05:39 Lab results: Laboratory Results - last 24 hr 10/26/21 10/26/21 05:39 05:39 WBC 7.1 RBC 3.62 L Hgb 10.7 L Hct 33.1 L MCV 91.4 MCH 29.6 MCHC 32.3 RDW 12.8 Plt Count 288 MPV 10.7 Absolute Nucleated RBC 0.000 Nucleated RBC % (auto) 0.0 Sodium 142 Potassium 4.1 Chloride 108 Carbon Dioxide 28 Anion Gap 10 L BUN 10 Creatinine 0.67 Estim Creat Clear Calc 88.9 Estimated GFR > 60 Random Glucose 103 Calcium 9.5 Assessment and Plan (1) Syncope: Status: Acute Pleasant 66 year female here for syncope. Etiology is unclear but she did not eat or drink the day she passed out. It can be related to hypovolemia and vasovagal syncope. Also she felt hot after the event. Monitor on telemetry for now. Check orthostatic vital signs. Will review echocardiogram to see if there is any obvious clinician for her presentation. Her troponin levels are normal. Thank you for allowing me to participate in the care of your patient. Please feel free to contact me if you have any questions. Procedures Date of Service Date of Service: 10/26/21
[2021-10-26 16:06] VITALS: BP 132/73; PULSE 60; RESP 18; TEMP 37.3; O2SAT 97
[2021-10-26 16:09] VITALS: BP 133/86; PULSE 65
[2021-10-26 16:10] VITALS: BP 132/89; PULSE 88
[2021-10-26] MEDS: Omeprazole 20 MG CAPSULE.DR PO (17:01)
--- NOTE | 2021-10-26 17:56 | HO.PM.IMPN ---
Subjective Subjective Date of Service: 10/27/21 Interval History: late entry note for 10/26 seen in f/u for syncope, bladder mass.. No arrythmia Review of Systems no BELL, no sob, no diszziness Physical Exam Vital Signs: Vital Signs: Selected Entries 10/26/21 12:55 Temperature 97.5 F Pulse Rate 64 Respiratory Rate 16 Blood Pressure 133/50 L Pulse Oximetry 98 Oxygen Delivery Me thod Room Air Const: Other: General: AO X 3, no acute distress Resp: CTA bilateral CVS: S1,S2,RRR GI: +BS, NT, no distention Skin: No rash Neuro: motor grossly intact Psych: appropriate affect Objective Data Active Medications Calcium Carbonate/Cholecalciferol (Calcium + Vitamin D 250 Mg Tablet) 500 mg PO BID [facility] Last Admin: 10/27/21 08:45 Dose: 500 mg Documented by: JOSEFINA Calcium Polycarbophil (Calcium Polycarbophil Tablet) 1 tab PO BID [facility] Last Admin: 10/27/21 08:53 Dose: Not Given Documented by: JOSEFINA Non-Admin Reason: pt claims she already got it. Ferrous Sulfate (Ferrous Sulfate 324 Mg Tablet.) 324 mg PO DAILY [facility] Last Admin: 10/27/21 08:44 Dose: 324 mg Documented by: JOSEFINA Heparin Sodium (Porcine) (Heparin Sodium,Porcine 5,000 Unit/Ml Vial) 5,000 unit SUBCUT Q8H [facility] Last Admin: 10/27/21 06:21 Dose: 5,000 unit Documented by: MARTÍNEZ Lactated Ringer's (Lr) 1,000 mls @ 80 mls/hr IVCONT .[id number] [facility] Last Admin: 10/27/21 06:21 Dose: 80 mls/hr Documented by: MARTÍNEZ Multivitamins/Vitamin C (Multivitamin Tablet) 1 tab PO DAILY [facility] Last Admin: 10/27/21 08:44 Dose: 1 tab Documented by: JOSEFINA Naproxen (Naproxen 500 Mg Tablet) 500 mg PO Q12H PRN PRN Reason: for pain Omeprazole (Omeprazole 20 Mg Capsule.) 20 mg PO DAILY@1700 [facility] Last Admin: 10/26/21 17:01 Dose: 20 mg Documented by: GEGE Pharmacy Consult (Consult Rx Perform Med Rec) 1 each MISCELLANE ONCE PRN PRN Reason: Consult order Pregabalin (Pregabalin 75 Mg Capsule) 225 mg PO DAILY [facility] Last Admin: 10/27/21 08:45 Dose: 225 mg Documented by: JOSEFINA Sodium Chloride (0.9 % Sodium Chloride Flush 3 Ml Syringe) 3 ml IVFLUSH QSHIFT [facility] Last Admin: 10/27/21 08:44 Dose: 3 ml Documented by: JOSEFINA Labs CBC & Chem 7: 10/26/21 05:39 10/26/21 05:39 Microbiology Microbiology Results: Microbiology 10/25/21 Unknown Urine Culture - Final Urine clean catch - Urine phipps top Assessment and Plan (1) Syncope: Status: Acute (2) Bladder mass: Status: Acute Assessment and Plan: 1. ?Syncope episode:? vasovagal vs other, no evidence of seizure, cardiac work up is negative. Orthostatic BPis negative. Echo show is unremarkable. 2.? Fibromyalgia/arthrirtis: continue pregabalin/Naprosyn 3. history of brain hydrocephalus? status post MEDICAL APPARATUS MODEL MAKER shunt- seems stable shunt on ct head. also possible ch upper ext numbness she fu with [facility]( Dr hanley as er the patient). 4. GERD: continue omeprazole. 5. bladder mass :Urology recommends outpatient work up with cysto. dvt prophylax: s/c heparin ?? a Late entry note for 10/26 Quality Stroke Does the patient have a stroke diagnosis?: No VTE Prior VTE?: No VTE Risk Level:: Medical - moderate - high VTE Device Contraindication: N/A - Device Ordered VTE Drug Contraindication: N/A - Med Ordered
--- NOTE | 2021-10-26 18:11 | PC.NURSE ---
Pt orthostatics negative. States has occasional dizziness but is only what she typically experiences at home due to her fibromyalgia. Denies pain. Oriented x4.
[2021-10-26 20:17] VITALS: BP 137/81; PULSE 65; RESP 16; TEMP 36.6; O2SAT 97
[2021-10-26] MEDS: 0.9 % Sodium Chloride Flush 3 ML SYRINGE IVFLUSH (21:44)
[2021-10-27 00:07] VITALS: BP 130/77; PULSE 65; RESP 16; TEMP 36.7; O2SAT 98
[2021-10-27] MEDS: Heparin Sodium,Porcine 5,000 UNIT/ML VIAL 5000 UNIT SUBCUT (06:21)
[2021-10-27] MEDS: Lactated Ringers 1,000 ML 80 ML IVCONT (06:21)
[2021-10-27 07:40] VITALS: BP 134/80; PULSE 66; RESP 18; TEMP 36.7; O2SAT 96
[2021-10-27] MEDS: Multivitamin TABLET 1 TAB PO (08:44)
[2021-10-27] MEDS: Ferrous Sulfate 324 MG TABLET.DR PO (08:44)
[2021-10-27] MEDS: 0.9 % Sodium Chloride Flush 3 ML SYRINGE IVFLUSH (08:44)
[2021-10-27] MEDS: Calcium + Vitamin D 250 MG TABLET 500 MG PO (08:45)
[2021-10-27] MEDS: Pregabalin 75 MG CAPSULE 225 MG PO (08:45)
--- NOTE | 2021-10-27 11:28 | PM.PNCARD ---
Subjective Subjective Date of Service: 10/27/21 <CHARISSA Jacques - Last Filed: 10/27/21 11:38> 10/27/21 <Richard Tatum MD - Last Filed: 10/27/21 19:34> Principal diagnosis: syncope <CHARISSA Jacques - Last Filed: 10/27/21 11:38> Interval history: Cardiology follow up for syncope. Seen at 0930. Today she reports feeling well. No concerning symptoms. Ambulating in room and steady on feet. Denies dizziness. No CP or sob. No heart palpitations. Hoping to go home today. <CHARISSA Jacques - Last Filed: 10/27/21 11:38> Review of Systems Review of Systems as above <CHARISSA Jacques - Last Filed: 10/27/21 11:38> Yes all other systems are reviewed and are negative <CHARISSA Jacques - Last Filed: 10/27/21 11:38> Physical Exam Vital Signs: Last Vital Signs Temp 98.0 F 10/27/21 07:40 Pulse 66 10/27/21 07:40 Resp 18 10/27/21 07:40 BP 134/80 10/27/21 07:40 Pulse Ox 96 10/27/21 07:40 BMI result Body Mass Index 28.2 <CHARISSA Jacques - Last Filed: 10/27/21 11:38> Const General: cooperative, no acute distress, alert and awake <CHARISSA Jacques - Last Filed: 10/27/21 11:38> Orientation/consciousness: patient oriented x3 <CHARISSA Jacques - Last Filed: 10/27/21 11:38> Eyes Conjunctivae: conjunctivae normal <CHARISSA Jacques - Last Filed: 10/27/21 11:38> Neck Neck: Yes normal visual inspection and Yes no JVD <CHARISSA Jacques Last Filed: 10/27/21 11:38> Carotids: carotid upstroke abnormal <CHARISSA Jacques - Last Filed: 10/27/21 11:38> Resp Effort & Inspection: normal respiratory effort, able to speak in complete sentences and not labored <Rebeca Iglesias NPC - Last Filed: 10/27/21 11:38> Auscultation: clear to auscultation bilaterally, no crackles, no rales, no rhonchi and no wheezes <Rebeca Iglesias NP-C - Last Filed: 10/27/21 11:38> Cardio Rate: regular rate <Rebeca EVONNE IglesiasC - Last Filed: 10/27/21 11:38> Rhythm: regular rhythm <Rebeca VAISHNAVI IglesiasC - Last Filed: 10/27/21 11:38> Heart sounds: S1 normal heart sound present and S2 normal heart sound present <Rebeca VAISHNAVI Iglesias - Last Filed: 10/27/21 11:38> Peripheral pulses: Peripheral pulses 2+ throughout <Rebeca VAISHNAVI IglesiasC - Last Filed: 10/27/21 11:38> GI Inspection: Yes normal to inspection <Rebeca VAISHNAVI Iglesias-C - Last Filed: 10/27/21 11:38> Neuro General: patient oriented x3 <Rebeca VAISHNAVI IglesiasC - Last Filed: 10/27/21 11:38> Extrem General: Yes normal to inspection and No edema <Rebeca VAISHNAVI Iglesias- - Last Filed: 10/27/21 11:38> Objective Labs and Meds Result diagrams: : 10/26/21 05:39 10/26/21 05:39 <Rebeca Iglesias NP- - Last Filed: 10/27/21 11:38> Progress Note: A&P Assessment and plan (1) Syncope: Status: Acute <Rebeca Iglesias NP-C - Last Filed: 10/27/21 11:38> Assessment and Plan: Admit following syncopal event. Occurred while sitting at computer. Tells me she felt it coming on . Was diaphoretic and hot afterwards. No witness seizure type activity. No hx of seizures. Does have hx of hydrocephalus and has ROOFER APPLICATOR shunts in place. CT scan of head shows stable position of 2 right ROOFER APPLICATOR shunts, no acute findings. Syncope once as child. Troponins normal. D dimer normal. Echo shows EF 60-65%, normal diastolic function, no valve abnormalities. EKG shows SR, normal ID, QRS, QTc 468ms. Labs show no significant abnormalities. Tele shows stable SR without arrythmia, pauses or significant [place], rates 50-90s. No hypotension noted. No carotid bruit on exam. This admit, has been tx with IV fluids. Event may have been vasovagal in nature. Can be discharged. We will arrange for outpt holter and cardiology follow up. <CHARISSA Jacques - Last Filed: 10/27/21 11:38> Assessment and Plan: Patient seen examined at bedside. Feeling better. No obvious cause for syncope from. Echocardiography was normal. We will arrange a Holter monitor for her as outpatient to rule out any arrhythmia. Likely diagnosis is vasovagal syncope. Thank you for allowing me to participate in the care of your patient. Please feel free to contact me if you have any questions. <Richard Tatum MD - Last Filed: 10/27/21 19:34> Fall Risk Details Current Medications: Current Medications Calcium Carbonate/Cholecalciferol (Calcium + Vitamin D 250 Mg Tablet) 500 mg PO BID [facility] Last Admin: 10/27/21 08:45 Dose: 500 mg Documented by: Calcium Polycarbophil (Calcium Polycarbophil Tablet) 1 tab PO BID [facility] Last Admin: 10/27/21 08:53 Dose: Not Given Documented by: Ferrous Sulfate (Ferrous Sulfate 324 Mg Tablet.) 324 mg PO DAILY [facility] Last Admin: 10/27/21 08:44 Dose: 324 mg Documented by: Heparin Sodium (Porcine) (Heparin Sodium,Porcine 5,000 Unit/Ml Vial) 5,000 unit SUBCUT Q8H [facility] Last Admin: 10/27/21 06:21 Dose: 5,000 unit Documented by: Lactated Ringer's (Lr) 1,000 mls @ 80 mls/hr IVCONT .[id number] [facility] Last Admin: 10/27/21 06:21 Dose: 80 mls/hr Documented by: Multivitamins/Vitamin C (Multivitamin Tablet) 1 tab PO DAILY [facility] Last Admin: 10/27/21 08:44 Dose: 1 tab Documented by: Naproxen (Naproxen 500 Mg Tablet) 500 mg PO Q12H PRN PRN Reason: for pain Omeprazole (Omeprazole 20 Mg Capsule.) 20 mg PO DAILY@1700 [facility] Last Admin: 10/26/21 17:01 Dose: 20 mg Documented by: Pharmacy Consult (Consult Rx Perform Med Rec) 1 each MISCELLANE ONCE PRN PRN Reason: Consult order Pregabalin (Pregabalin 75 Mg Capsule) 225 mg PO DAILY [facility] Last Admin: 10/27/21 08:45 Dose: 225 mg Documented by: Sodium Chloride (0.9 % Sodium Chloride Flush 3 Ml Syringe) 3 ml IVFLUSH QSHIFT [facility] Last Admin: 10/27/21 08:44 Dose: 3 ml Documented by: <CHARISSA Jacques - Last Filed: 10/27/21 11:38> Time Spent With Patient Time: Total time spent is greater than 50% in coordination of care (as documented) at patient's floor/unit and/or counseling patient: <CHARISSA Jacques - Last Filed: 10/27/21 11:38> Time with patient: 15 - 24 minutes <CHARISSA Jacques - Last Filed: 10/27/21 11:38> Progress Note: Quality Stroke Does the patient have a stroke diagnosis?: No <CHARISSA Jacques Last Filed: 10/27/21 11:38> Procedures Date of Service Date of Service: 10/27/21 <CHARISSA Jacques - Last Filed: 10/27/21 11:38>
--- NOTE | 2021-10-27 11:34 | MHC.CM.PN ---
Plan dc home today, no services needed. Lives with , needs ride home. [place] [facility] [place]. Patient and RN aware and agreeable to dc time and transportation.
[2021-10-27 12:00] VITALS: TEMP 36.6
== END 2021-10-27 14:31 | disposition home or self-care (01) ==
LOC: HO.ED 14:45 → HO.EDOVER 17:00 → HO.S3 10-26 19:29
PROVIDERS: Physician Assistant; Admitting Provider Internal Medicine; Emergency Provider Emergency Medicine Emergency Medical Services; PCP Internal Medicine; Visit Provider Internal Medicine
DX: R55 Syncope and collapse (principal); G62.9 Polyneuropathy, unspecified; K21.9 Gastro-esophageal reflux disease without esophagitis; N20.0 Calculus of kidney; N28.1 Cyst of kidney, acquired; N32.89 Other specified disorders of bladder; E27.8 Other specified disorders of adrenal gland; M79.7 Fibromyalgia; G89.29 Other chronic pain; M54.2 Cervicalgia; M41.35 Thoracogenic scoliosis, thoracolumbar region; G91.9 Hydrocephalus, unspecified; Z20.822 Contact with and (suspected) exposure to COVID-19; Z87.891 Personal history of nicotine dependence; Z98.2 Presence of cerebrospinal fluid drainage device; Z98.84 Bariatric surgery status; Z91.49 Other personal history of psychological trauma, not elsewhere classified; Z98.890 Other specified postprocedural states; Z88.8 Allergy status to other drugs, medicaments and biological substances; Z91.02 Food additives allergy status; Z79.899 Other long term (current) drug therapy
CPT/HCPCS: 36415; 70450; 71260; 72125; 74177; 80048; 80053; 81001; 82550; 83735; 84484; 85025; 85027; 85379; 87086; 87635; 93005; 93306; 96360; 96361; 96372; 99218; 99285; Q9967

== ENCOUNTER → 2021-11-15 10:57 | Outpatient (REF) | payer MEDICARE, SELFPAY ==
--- NOTE | 2021-11-15 11:02 | HM_ITS ---
Total monitoring time 3 days. Underlying rhythm is sinus. Minimum heart rate 44/Min. Maximum 135/Min. Average 66/Min. No atrial fibrillation or flutter or AV blocks or pauses. Rare supraventricular and ventricular ectopy with minimal burden. No patient events. MTDD
== END ==
LOC: HO.CARD 10:57
PROVIDERS: PCP Internal Medicine; Visit Provider Nurse Practitioner Family
DX: R55 Syncope and collapse (principal)
CPT/HCPCS: 93242

== ENCOUNTER 2021-12-01 10:53 | Outpatient (REF) | payer MEDICARE, OTHER, SELFPAY ==
[2021-12-01 15:44] LABS: Urine Cytology See Pathology rpt
== END 2021-12-01 10:54 | disposition home or self-care (01) ==
LOC: HO.LAB 10:53
PROVIDERS: PCP Internal Medicine; Visit Provider Urology
DX: N32.89 Other specified disorders of bladder (principal); C67.9 Malignant neoplasm of bladder, unspecified
CPT/HCPCS: 52000; 88112; 99202

== ENCOUNTER 2021-12-25 10:58 | Day surgery (SDC) | payer MEDICARE, SELFPAY ==
--- NOTE | 2021-12-22 13:09 | P.CONAN_ITS ---
Documented by User: Phylicia Moseley NP 12/22/21 13:17 HPI - Anesthesia Eval Consult details Narrative: 66yo F for TUR Bladder Tumor bilateral retrograde with gemcitabine DECORATING INSPECTOR shunt in situ [facility] [place] admit 10/2021 for syncope - all testing wnl, tx with fluids, thought to be vasovagal PMFSH Active Problems Active Problems: All Active Problems (Updated 12/21/21 @ 15:36 by Viji eKnt RN) Adrenal gland cyst (Acute) Syncope (Acute) Bladder cancer (Acute) Chronic neck pain (Acute) Fibromyalgia (Acute) Scoliosis of thoracolumbar spine (Acute) Past Medical History Medical History (Updated 12/21/21 @ 15:36 by Viji Kent RN) Arthritis Back pain Traylor's palsy Chronic neck pain Fibromyalgia GERD without esophagitis History of traumatic head injury Hx of spinal stenosis Hydrocephalus in adult Nephrolithiasis Neuropathy Peptic ulcer Scoliosis of thoracolumbar spine Family History Family History Father Cancer Mother Stroke Brother No problems noted. Brother No problems noted. Sister No problems noted. Son No problems noted. Daughter No problems noted. Surgical History Surgical History (Updated 12/21/21 @ 10:12 by Viji Kent RN) H/O colonoscopy History of adenoidectomy History of cervical spinal surgery Hx of cholecystectomy Hx of excision of lamina of cervical vertebra for decompression of spinal cord Hx of gastric bypass Hx of lithotripsy Hx of tubal ligation DECORATING INSPECTOR (ventriculoperitoneal) shunt status Social History Social History Housing: Assisted Living Facility Are you a primary ostomy care nurse to a significant other at home: No Do you presently have visiting nurse or other home services: No Alcohol intake: never Patient Tobacco Use Status: Former Tobacco user Tobacco use type: Cigarette Second Hand Smoke Exposure: Yes Use of substances other than those prescribed or required for medical reasons: No Are you DNR?: No Advance Directives: No Advance Directives Information Provided: Yes Recently lost weight without trying: No Nutrition Risks: No Nutritional Risk service: No Current occupational status: retired and disabled Meds Allergies Allergy/AdvReac Type Severity Reaction Status Date / Time aspartame Allergy Severe severe Verified 12/01/21 10:56 dehydration cyclobenzaprine Allergy Severe SOB Verified 12/01/21 10:56 [From Flexeril] Home Medications Medication Instructions Recorded Confirmed Last Taken Type ferrous sulfate 324 mg (65 mg 324 mg PO DAILY 10/25/21 12/21/21 10/24/21 History iron) tablet,delayed release multivitamin 1 tab PO DAILY 10/25/21 12/21/21 10/24/21 History omeprazole magnesium 20 mg 20 mg PO DAILY@1700 10/25/21 12/21/21 10/24/21 History tablet,delayed release (Prilosec OTC) Exam Exam Date and Time: December 22, 2021 1309 Pertinent Lab Results Pertinent Lab Results: Laboratory Tests 10/26/21 10/26/21 05:39 05:39 WBC 7.1 Hgb 10.7 L Hct 33.1 L Plt Count 288 Sodium 142 Potassium 4.1 Chloride 108 Carbon Dioxide 28 BUN 10 Creatinine 0.67 Narrative Narrative: CT head/brain wo con 10/2021 IMPRESSION: No acute findings. Stable position of the 2 right DECORATING INSPECTOR shunt catheters. Stable appearance to the cystic lesion in the right thalamus. Holter 11/2021 Total monitoring time 3 days.? Underlying rhythm is sinus.? Minimum heart rate 44/Min.? Maximum 135/Min.? Average 66/Min.? No atrial fibrillation or flutter or AV blocks or pauses.? Rare supraventricular and ventricular ectopy with minimal burden.? No patient events. ECHO 10/2021 Conclusions: - Normal left ventricular size, thickness, systolic function, and wall motion. ? - Normal right ventricular cavity size and systolic function.? ? - No significant valvular or pericardial pathology.? EKG 10/2021 Vent. Rate : 063 BPM ? ? Atrial Rate : 063 BPM ?? P-R Int : 176 ms? QRS Dur : 082 ms ? ? QT Int : 458 ms ? ? ? P-R-T Axes : 056 -19 014 degrees ?? QTc Int : 468 ms ? Normal sinus rhythm Normal ECG No previous ECGs available Assessment and Plan Assessment Anesthesia Assessment: Chart Reviewed Documented by User: Morgan Ho MD 12/25/21 17:08 HPI - Anesthesia Eval Consult details Narrative: 66yo F for TUR Bladder Tumor bilateral retrograde with gemcitabine DECORATING INSPECTOR shunt in situ lumbar back pain with radiation to b/l LE , LUE tingling numbness [facility] [place] admit 10/2021 for syncope - all testing wnl, tx with fluids, thought to be vasovagal PMFSH Past Medical History Medical History (Updated 12/21/21 @ 15:36 by Viji Kent, YEN) Arthritis Back pain Traylor's palsy Chronic neck pain Fibromyalgia GERD without esophagitis History of traumatic head injury Hx of spinal stenosis Hydrocephalus in adult Nephrolithiasis Neuropathy Peptic ulcer Scoliosis of thoracolumbar spine Family History Family History Father Cancer Mother Stroke Brother No problems noted. Brother No problems noted. Sister No problems noted. Son No problems noted. Daughter No problems noted. Family history of problems with anesthesia: No Surgical History Surgical History (Updated 12/21/21 @ 10:12 by Viji Kent RN) H/O colonoscopy History of adenoidectomy History of cervical spinal surgery Hx of cholecystectomy Hx of excision of lamina of cervical vertebra for decompression of spinal cord Hx of gastric bypass Hx of lithotripsy Hx of tubal ligation DECORATING INSPECTOR (ventriculoperitoneal) shunt status History of Problems with Anesthesia: No Social History Social History Housing: Assisted Living Facility Are you a primary ostomy care nurse to a significant other at home: No Do you presently have visiting nurse or other home services: No Alcohol intake: never Patient Tobacco Use Status: Former Tobacco user Tobacco use type: Cigarette Second Hand Smoke Exposure: Yes Use of substances other than those prescribed or required for medical reasons: No Are you DNR?: No Advance Directives: No Advance Directives Information Provided: Yes Recently lost weight without trying: No Nutrition Risks: No Nutritional Risk service: No Current occupational status: retired and disabled Meds Allergies Allergy/AdvReac Type Severity Reaction Status Date / Time aspartame Allergy Severe severe Verified 12/01/21 10:56 dehydration cyclobenzaprine Allergy Severe SOB Verified 12/01/21 10:56 [From Flexeril] Home Medications Medication Instructions Recorded Confirmed Last Taken Type ferrous sulfate 324 mg (65 mg 324 mg PO DAILY 10/25/21 12/21/21 10/24/21 History iron) tablet,delayed release multivitamin 1 tab PO DAILY 10/25/21 12/21/21 10/24/21 History omeprazole magnesium 20 mg 20 mg PO DAILY@1700 10/25/21 12/21/21 10/24/21 History tablet,delayed release (Prilosec OTC) Exam Airway Mallampati Class: II TM Dist: >3cm Neck ROM: Limited Loose/Missing/Broken Teeth: Yes (Chipped , poor dentation ) Heart: rrr Lungs: bl breath sounds Assessment and Plan Assessment Anesthesia Assessment: Anesthesia Plan Discussed Final Anesthetic Review Family History of Problems with Anesthesia: No History of Problems with Anesthesia: No NPO: Yes ASA Class: III Final Preanesthetic Review: Meds/Allgs Chart Reviewed, Consent Obtained/Reviewed and Anes Risks/Benef Reviewed Patient Risk: Intermediate Procedure Risk: Intermediate Anesthetic Plan Anesthetic Plan: GA Disposition: Standard PACU
[2021-12-25] VITALS (11 sets, daily range): BP systolic 111–141; BP diastolic 59–76; PULSE 53–71; RESP 16; TEMP 36.4–37.2; O2SAT 96–100; BMI 30.8
--- NOTE | ~2021-12-25 | FL_ITS ---
EXAMINATION: XR FLUOROSCOPY WITH IMAGES CLINICAL INFORMATION: Bilateral retrogrades. COMPARISON: None. TECHNIQUE: Fluoroscopy performed by Dr. Saroj Turner. Fluoroscopy time: 5.5 seconds DAP: 1.62 mGy-cm2 Images: 2 FINDINGS: Two images of bilateral retrograde pyelogram reveals contrast opacifying the kidney pelvis without any intraluminal filling defect. There is a catheter visualized within the left kidney pelvis. FL/FL guidance in OR IMPRESSION: Unremarkable right and left pyelograms performed in the OR.
[2021-12-25] MEDS: Lactated Ringers 1,000 ML 100 ML IVCONT (12:29)
--- NOTE | 2021-12-25 13:32 | MHC.SHP ---
Pre-Procedural Eval Section A Date of Service: 12/25/21 The patient is an INPATIENT: No Changes since office visit: No Cold of Flu in the past 2 weeks, No New Medical Problems, No Changes in Medication and No Patient answered all questions The History & Physical has been completed within 30 days and I have reviewed it.: Yes Section B Chief Complaint: malignant neoplasm of bladder Allergies: Allergies Allergy/AdvReac Type Severity Reaction Status Date / Time aspartame Allergy Severe severe Verified 12/01/21 10:56 dehydration cyclobenzaprine Allergy Severe SOB Verified 12/01/21 10:56 [From Flexeril] Plan Diagnosis/Plan: Unchanged ( TURBT with bilateral retrogrades and gemcitabine) I have reviewed the history and physical and performed a pertinent physical examination on my patient. No changes have occurred unless specified.
--- NOTE | 2021-12-25 14:55 | P.OP_ITS ---
Operative Note Operative Note Date of Service: 12/25/21 Narrative: PreOperative Diagnosis: bladder cancer Post Operative Diagnosis: bladder cancer Procedure: TURBT and Gemcitabine installation Surgeon: Dr Johnny Kyle Anesthesia: general Indications for procedure: presented with hematuria and CT scan showing lesion of bladder. Lesions seen during office cystoscopy. Left hand wall. Recommendation for resection, gemcitabine due to area covered and bilateral retrograde Procedure: After informed consent was verified the patient was brought to the operating room and placed in a supine position. anesthesia was administered per protocol. the patient was placed in a modified dorsal lithotomy position and prepped and draped in a sterile fashion. Safety pause time-out was performed. Antibiotics were confirmed. A 26 [place] continuous flow resectoscope was inserted per urethra. The visual obturator was used in order to minimize potential for urethral damage. both ureteric orifices seen in normal position. Cystoscope been placed. Using an open-ended catheter retrograde performed both sides. No filling defects seen. Using the resectoscope and bipolar element the lesion on the left sidewall was removed. This was approximately 5 cm in diameter. Large area of ramona vascular changes on the bladder sidewall. These were fulgurated and covered quite a large area on the left lateral sidewall by the time this was complete. Fragments were removed in be sent for pathology. At the completion of the procedure the bladder was irrigated. The cystoscope was removed. A [address]ilo catheter was inserted into the bladder. 10 cc was placed in the balloon. 2 g of gemcitabine in 100 cc of normal saline was instilled into the bladder. the flow from the catheter was left clamped. The inflow to the catheter was attached to a 3 L normal saline bag. The patient Tolerated the procedure well. They were extubated in the operating room and transferred in stable condition to the recovery area. Gemcitabine will remain in the bladder for 1 hour. At the completion of 1 hour the clamp will be removed. The gemcitabine will be allowed to egress to the urine collection bag. The 3 L bag of normal saline will be run at maximum rate through the bladder in order to dilute any residual gemcitabine. The Camilo c atheter will then be removed. Pathology: Bladder tumor Drains: Camilo catheter for drainage should to be removed
== END 2021-12-25 18:22 | disposition home or self-care (01) ==
PROVIDERS: PCP Internal Medicine; Visit Provider Urology
PROC: 0TBB8ZZ Excision of Bladder, Via Natural or Artificial Opening Endoscopic (ICD-10-PCS; CPT 52235; principal; 2021-12-25 13:10)
DX: C67.9 Malignant neoplasm of bladder, unspecified (principal); N20.0 Calculus of kidney; K27.9 Peptic ulcer, site unspecified, unspecified as acute or chronic, without hemorrhage or perforation; G91.2 (Idiopathic) normal pressure hydrocephalus; Z98.2 Presence of cerebrospinal fluid drainage device; Z79.899 Other long term (current) drug therapy; Z98.84 Bariatric surgery status; Z90.49 Acquired absence of other specified parts of digestive tract; Z98.890 Other specified postprocedural states; Z88.8 Allergy status to other drugs, medicaments and biological substances; Z87.891 Personal history of nicotine dependence
CPT/HCPCS: 52235; 51720; 88307; J1956; J2405; J3010; J9201; Q9967

== ENCOUNTER → 2022-01-03 10:38 | Outpatient (BNVA) | payer MEDICARE, SELFPAY | PROVIDERS: PCP Internal Medicine; Visit Provider Urology | DX: C67.9 Malignant neoplasm of bladder, unspecified (principal) | CPT/HCPCS: Q3014 ==

== ENCOUNTER 2022-02-05 08:34 | Outpatient (RCR) | payer MEDICARE, OTHER, SELFPAY | END 2022-04-12 14:37 | disposition home or self-care (01) | LOC: HO.WCC 08:34 | PROVIDERS: PCP Internal Medicine; Visit Provider Physician Assistant | DX: S71.101D Unspecified open wound, right thigh, subsequent encounter (principal); S31.104D Unspecified open wound of abdominal wall, left lower quadrant without penetration into peritoneal cavity, subsequent encounter; S31.819D Unspecified open wound of right buttock, subsequent encounter; L73.2 Hidradenitis suppurativa; Z79.2 Long term (current) use of antibiotics; Z79.899 Other long term (current) drug therapy | CPT/HCPCS: 99212; 99213; 99214 ==

== ENCOUNTER → 2022-03-22 09:36 | Outpatient (BNVA) | payer MEDICARE, OTHER, SELFPAY | PROVIDERS: PCP Internal Medicine; Visit Provider Urology | DX: C67.9 Malignant neoplasm of bladder, unspecified (principal) | CPT/HCPCS: Q3014 ==

== ENCOUNTER 2022-03-27 11:29 | Outpatient (REF) | payer MEDICARE, OTHER, SELFPAY ==
[2022-03-27 11:51] LABS: MANUAL DIFF FLAG NO
[2022-03-27 12:11] LABS: Basophils Absolute Auto 0.1 X10*3/uL (0.0-0.2); Basophils Percent Auto 1.1 % (0-2); Eosinophils Absolute Auto 0.3 X10*3/uL (0.0-0.4); Hematocrit 40.5 % (37.0-47.0); Hemoglobin 13.4 g/dl (12.0-16.0); Imm Gran Abs Auto 0.03 X10*3/uL (0.00-0.03); Imm Gran Pct Auto 0.4 % (0.0-0.4); Lymphocytes Absolute Auto 2.8 X10*3/uL (1.2-4.9); Lymphocytes Percent Auto 33.7 % (20-40); Mean Corpuscular HGB Conc 33.1 g/dl (31.0-35.0); Mean Corpuscular Hemoglobin 31.2 pg (27.0-33.0); Mean Corpuscular Volume 94.2 fL (80.0-98.0); Mean Platelet Volume 10.5 fL (9.4-12.3); Monocytes Absolute Auto 0.8 X10*3/uL (0.1-1.2); Monocytes Percent Auto 9.6 % (2-11); Neutrophils Absolute Auto 4.3 x10*3/uL (2.0-8.3); Neutrophils Percent Auto 51.2 % (45-73); Platelet Count 324 X10*3/uL (160-400); Red Cell Distribution Width 16.1 % (11.0-16.0); White Blood Count 8.3 X10*3/uL (4.8-10.8)
[2022-03-27 12:25] LABS: Appearance Urine CLEAR; Color Urine YELLOW; Glucose Urine UA NEG (NEG); Leukocyte Esterase Urine 3+ (NEG); Nitrite Urine NEG (NEG); Specific Gravity - Urine <= 1.005 (1.005-1.025); UACC Culture Trigger YES; Urine Blood 3+ (NEG); Urine Ketones NEG (NEG); Urine Protein NEG (NEG-TRACE)
[2022-03-27 12:44] LABS: Bacteria Urine 1+ /LPF; Squamous Epithelial Cell Urine 2+ /LPF
[2022-03-27 13:00] LABS: Erythrocyte Sedimentation Rate 14 MM/HR (0-20); TSH reflex Free T4 2.26 uIU/mL (0.32-4.0); Vitamin D 25-OH Total 48.5 ng/mL (>30)
[2022-03-27 13:44] LABS: Alanine Aminotransferase 9 U/L (0-31); Albumin Level 4.5 g/dL (3.5-5.0); Alkaline Phosphatase 78 U/L (39-117); Anion Gap 16 (12-20); Aspartate Amino Transferase 12 U/L (5-31); Bilirubin Total 0.5 mg/dL (0.0-1.0); Blood Urea Nitrogen 12 mg/dL (9-16); C Reactive Protein 0.07 mg/dL (< or = 0.50); Calcium 10.1 mg/dL (8.4-10.2); Carbon Dioxide 24 mmol/L (22-29); Chloride 105 mmol/L (96-108); Estimated Glomerular Filt Rate > 60; Glucose Random 97 mg/dL (60-115); Potassium 4.3 mmol/L (3.3-5.1); Sodium 141 mmol/L (135-145); Total Protein 7.4 g/dL (6.5-8.0)
[2022-03-27 13:46] LABS: Estimated Average Glucose 114 mg/dL; Hemoglobin A1c % 5.6 %
== END 2022-03-27 11:30 | disposition home or self-care (01) ==
LOC: HO.LAB 11:29
PROVIDERS: PCP Internal Medicine; Visit Provider Internal Medicine
DX: L02.215 Cutaneous abscess of perineum (principal); E55.9 Vitamin D deficiency, unspecified; R73.9 Hyperglycemia, unspecified; R82.71 Bacteriuria; B95.2 Enterococcus as the cause of diseases classified elsewhere
CPT/HCPCS: 36415; 80053; 81001; 82306; 83036; 84443; 85025; 85652; 86140; 87086; 87088; 87186

== ENCOUNTER 2022-06-15 13:06 | Outpatient (REF) | payer MEDICARE, SELFPAY ==
--- NOTE | ~2022-06-15 | MM_ITS ---
EXAMINATION: MM SCREENING DIGITAL BREAST TOMOSYNTHESIS, BILATERAL CLINICAL INFORMATION: Screening. Asymptomatic. The lifetime risk of breast cancer based on the Tyrer-Cuzick Model is 8%. COMPARISON: Outside mammography: 04/15/2020, 09/06/2015, 08/20/2014 ([facility]) TECHNIQUE: Digital breast tomosynthesis is performed in both the craniocaudal and mediolateral oblique views along with computer-aided detection (CAD). Synthesized 2D images are generated from the tomosynthesis. FINDINGS: There are scattered areas of fibroglandular density (ACR BI-RADS breast composition Category b). There are no significant masses, abnormal calcifications, or other abnormalities. No developing density or architectural abnormality. Again, there are numerous bilateral scattered punctate round calcifications in each breast, more numerous on the left. The number and distribution is similar to prior studies. Incidental benign coarse rim calcifications again seen mid lower inner right breast. The axilla and skin contours are unremarkable. MM/MM tomosynthesis screening BI IMPRESSION: No significant changes from prior outside studies. ASSESSMENT: BI-RADS 2: Benign RECOMMENDATION: Routine annual mammography screening. This patient's information was entered into a reminder system with a target due date for their next mammogram.
--- NOTE | ~2022-06-15 | MM_ITS ---
EXAMINATION: BONE DENSITOMETRY CLINICAL INDICATION: Menopause. COMPARISON: None (current study represents initial baseline exam). TECHNIQUE: Using a [employer] DXA System (software version: 13.1) manufactured by [employer], dual-energy x-ray absorptiometry was performed of the lumbar spine and left hip. The images are of good technical quality. Summary results are attached. FINDINGS: AP SPINE L1-L4: BMD 1.166 g/cm2, Z-score 1.0, T-score -0.1, normal. LEFT FEMUR, NECK: BMD 0.602 g/cm2, Z-score -1.9, T-score -3.1, osteoporosis. LEFT FEMUR, TOTAL: BMD 0.689 g/cm2, Z-score -1.6, T-score -2.5, osteoporosis. IDENTIFIED RISK FACTORS: Menopause. HISTORY OF FRACTURE: None listed. MEDICATIONS: Calcium supplements or multivitamin, vitamin D. MM/XR DEXA axial skeleton IMPRESSION: 1. DIAGNOSIS: Osteoporosis based on the lowest T-score value of -3.1 in the femoral neck applying World Health Organization criteria. 2. 10-YEAR FRACTURE RISK PREDICTION, FRAX: According to the guidelines, FRAX calculation should only be performed on patients in the osteopenia bone density category. Therefore, FRAX was not performed on this patient. 3. Treatment Recommendations: NOF guidelines recommend consideration for treatment in postmenopausal women and men age 50 and older presenting with the following: -A hip or vertebral (clinical or morphometric) fracture. -T-score less than or equal to -2.5 at the femoral neck or spine after appropriate evaluation to exclude secondary causes. -Low bone mass at the hip or spine and a 10-year fracture probability by FRAX of greater than or equal to 3% for hip fracture or greater than or equal to 20% for major osteoporotic fracture based on the [place] adapted WHO algorithm. 4. Other Recommendations: All treatment decisions require clinical judgment and consideration of individual patient factors, including patient preferences, comorbidities, previous drug use, risk factors not captured in the FRAX model (e.g. frailty, falls, vitamin D deficiency, increased bone turnover, interval significant decline in bone density) and possible under or overestimation of fracture risk by FRAX. Additional medical evaluation for secondary cause of low bone mineral density may be appropriate. FUTURE SCAN RECOMMENDATION: People with diagnosed cases of osteoporosis or at high risk for fracture should have regular bone mineral density tests. For patients eligible for Medicare, routine testing is allowed once every 2 years. The testing frequency can be increased to one year for patients who have rapidly progressing disease, those who are receiving or discontinuing medical therapy to restore bone mass, or have additional risk factors.
== END 2022-06-15 13:07 | disposition home or self-care (01) ==
LOC: HO.MAMMO 13:06
PROVIDERS: PCP Internal Medicine; Visit Provider Obstetrics & Gynecology
DX: Z12.31 Encounter for screening mammogram for malignant neoplasm of breast (principal); Z13.820 Encounter for screening for osteoporosis; Z78.0 Asymptomatic menopausal state
CPT/HCPCS: 77063; 77067; 77080

== ENCOUNTER 2022-06-26 14:26 | Outpatient (REF) | payer MEDICARE, SELFPAY ==
[2022-06-26 16:06] LABS: Urine Cytology See Pathology rpt
== END 2022-06-26 14:27 | disposition home or self-care (01) ==
LOC: HO.LAB 14:26
PROVIDERS: Visit Provider Urology
DX: C67.9 Malignant neoplasm of bladder, unspecified (principal); R32 Unspecified urinary incontinence
CPT/HCPCS: 52000; 88112; 99212

== ENCOUNTER → 2022-07-11 09:41 | Outpatient (BNVA) | payer MEDICARE, SELFPAY | PROVIDERS: PCP Internal Medicine; Visit Provider Obstetrics & Gynecology | DX: M81.0 Age-related osteoporosis without current pathological fracture (principal) | CPT/HCPCS: 99212 ==

== ENCOUNTER 2022-07-19 12:04 | Outpatient (REF) | payer MEDICARE, SELFPAY ==
[2022-07-19 12:18] LABS: MANUAL DIFF FLAG NO
[2022-07-19 12:50] LABS: Basophils Absolute Auto 0.1 X10*3/uL (0.0-0.2); Basophils Percent Auto 0.9 % (0-2); Eosinophils Absolute Auto 0.3 X10*3/uL (0.0-0.4); Eosinophils Percent Auto 3.5 % (0-4); Hematocrit 38.1 % (37.0-47.0); Hemoglobin 12.5 g/dl (12.0-16.0); Imm Gran Abs Auto 0.03 X10*3/uL (0.00-0.03); Imm Gran Pct Auto 0.3 % (0.0-0.4); Lymphocytes Absolute Auto 2.6 X10*3/uL (1.2-4.9); Lymphocytes Percent Auto 28.9 % (20-40); Mean Corpuscular HGB Conc 32.8 g/dl (31.0-35.0); Mean Corpuscular Hemoglobin 30.5 pg (27.0-33.0); Mean Corpuscular Volume 92.9 fL (80.0-98.0); Mean Platelet Volume 10.1 fL (9.4-12.3); Monocytes Absolute Auto 0.8 X10*3/uL (0.1-1.2); Monocytes Percent Auto 9.4 % (2-11); Neutrophils Absolute Auto 5.1 x10*3/uL (2.0-8.3); Platelet Count 353 X10*3/uL (160-400); Red Cell Distribution Width 12.9 % (11.0-16.0); White Blood Count 8.9 X10*3/uL (4.8-10.8)
[2022-07-19 13:02] LABS: INTERNATIONAL NORM RATIO 1.1 (0.9-1.1); Prothrombin Time 12.5 SEC (10.0-13.1)
[2022-07-19 13:04] LABS: Partial Thromboplastin Time 31.9 SEC (26.0-36.4)
[2022-07-19 13:31] LABS: Appearance Urine Cloudy; Color Urine Dark Yellow; Glucose Urine UA Negative (Negative); Leukocyte Esterase Urine Moderate (2+) (Negative); Nitrite Urine Negative (Negative); PH 5.5 (5.0-9.0); UMIC TRIGGER UACC YES; Urine Blood Large (3+) (Negative); Urine Ketones Negative (Negative); Urine Protein 30 (1+) mg/dL (Neg-Trace)
[2022-07-19 13:34] LABS: Alanine Aminotransferase 9 U/L (0-31); Alkaline Phosphatase 87 U/L (39-117); Anion Gap 15 (12-20); Aspartate Amino Transferase 13 U/L (5-31); Bilirubin Total 0.3 mg/dL (0.0-1.0); Blood Urea Nitrogen 12 mg/dL (9-16); Calcium 8.8 mg/dL (8.4-10.2); Carbon Dioxide 24 mmol/L (22-29); Chloride 105 mmol/L (96-108); Estimated Glomerular Filt Rate > 60; Glucose Random 80 mg/dL (60-115); Potassium 4.4 mmol/L (3.3-5.1); Sodium 140 mmol/L (135-145); Total Protein 6.7 g/dL (6.5-8.0)
[2022-07-19 13:35] LABS: Bacteria Urine 2+ (None Seen); Hyaline Casts Urine 0-2 /LPF (0-2); RBC Urine >20 /HPF (0-2); Squamous Epithelial Cell Urine >20 /HPF (0-2); UACC Culture Trigger YES; WBC Urine >50 /HPF (0-5)
[2022-07-19 13:47] LABS: TSH reflex Free T4 1.56 uIU/mL (0.32-4.0); Vitamin D 25-OH Total 43.8 ng/mL (>30)
== END 2022-07-19 12:05 | disposition home or self-care (01) ==
LOC: HO.LAB 12:04
PROVIDERS: PCP Internal Medicine; Visit Provider Internal Medicine
DX: Z01.818 Encounter for other preprocedural examination (principal); E78.00 Pure hypercholesterolemia, unspecified; E55.9 Vitamin D deficiency, unspecified
CPT/HCPCS: 36415; 80053; 81001; 82306; 84443; 85025; 85610; 85730; 87086

== ENCOUNTER 2022-08-06 07:10 | Day surgery (SDC) | payer MEDICARE, SELFPAY ==
[2022-07-31 20:03] VITALS: BMI 32.2
[2022-08-06 08:03] VITALS: BP 147/77; PULSE 72; RESP 18; TEMP 36.8; O2SAT 97; BMI 32.2
[2022-08-06] MEDS: levoFLOXacin 500 MG TABLET PO (08:37)
--- NOTE | 2022-08-06 08:37 | P.CONAN_ITS ---
HPI - Anesthesia Eval Consult details Narrative: Bladder cyst PMFSH Active Problems Active Problems: All Active Problems (Updated 07/31/22 @ 20:02 by Nita Leos RN) Adrenal gland cyst (Acute) Syncope (Acute) Bladder cancer (Acute) Suppurative hidradenitis (Acute) Perineal abscess (Acute) Pruritus (Acute) Well woman exam (Acute) Menopause (Acute) Osteoporosis (Acute) Preoperative examination (Acute) Obesity (BMI 30-39.9) (Acute) Chronic neck pain (Acute) Fibromyalgia (Acute) Scoliosis of thoracolumbar spine (Acute) Past Medical History Medical History Arthritis Back pain Traylor's palsy Bladder cancer Chronic neck pain Fibromyalgia GERD without esophagitis History of traumatic head injury Hx of spinal stenosis Hydrocephalus in adult Nephrolithiasis Neuropathy Obesity (BMI 30-39.9) Peptic ulcer Scoliosis of thoracolumbar spine Family History Family History Father Cancer Mother Stroke Brother No problems noted. Brother No problems noted. Sister No problems noted. Son No problems noted. Daughter No problems noted. 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 History of Problems with Anesthesia: No Social History Social History Housing: Assisted Living Facility Are you a primary home care provider to a significant other at home: No Do you presently have visiting nurse or other home services: No Alcohol intake: never Patient Tobacco Use Status: Former Tobacco user Tobacco use type: Cigarette Second Hand Smoke Exposure: Yes Use of substances other than those prescribed or required for medical reasons: No Are you DNR?: No Advance Directives: No Advance Directives Information Provided: Yes Advance Directives on File: No Recently lost weight without trying: No Nutrition Risks: No Nutritional Risk service: No Current occupational status: retired and disabled Cognitive needs: Yes (cane) Hearing needs: Yes Vision needs: Yes Meds Allergies Allergy/AdvReac Type Severity Reaction Status Date / Time aspartame Allergy Severe severe Verified 07/19/22 11:44 dehydration cyclobenzaprine Allergy Severe SOB Verified 07/19/22 11:44 [From Flexeril] Home Medications Medication Instructions Recorded Confirmed Last Taken Type ferrous sulfate 324 mg (65 mg 324 mg PO BID 10/25/21 07/31/22 10/24/21 History iron) tablet,delayed release multivitamin 1 tab PO DAILY 10/25/21 07/31/22 10/24/21 History omeprazole 20 mg capsule,delayed 20 mg PO DAILY 06/26/22 07/31/22 Unknown History release Exam Exam Date and Time: August 06, 2022 0837 Height,Weight and Vital Signs: Height 5 ft 4 in Weight 85.275 kg Last Vital Signs Temp 98.3 F 08/06/22 08:03 Pulse 72 08/06/22 08:03 Resp 18 08/06/22 08:03 BP 147/77 H 08/06/22 08:03 Pulse Ox 97 08/06/22 08:03 O2 Del Method 08/06/22 08:03 Airway Mallampati Class: II TM Dist: >3cm Neck ROM: Full Loose/Missing/Broken Teeth: No (poor dentition) Heart: [id number] Lungs: cta b/l Assessment and Plan Assessment Anesthesia Assessment: Anesthesia Plan Discussed and Chart Reviewed Final Anesthetic Review Family History of Problems with Anesthesia: No History of Problems with Anesthesia: No NPO: Yes ASA Class: III Final Preanesthetic Review: No Changes in Pt Med Stat, Meds/Allgs Chart Reviewed, Consent Obtained/Reviewed and Anes Risks/Benef Reviewed Patient Risk: Intermediate Procedure Risk: Intermediate Assessment/Block/Sedation in SS: Assess/Block/Sedation-SS Anesthetic Plan Anesthetic Plan: GA, MAC: and Agree w/ Assess. and Plan Disposition: Standard PACU
--- NOTE | 2022-08-06 09:01 | MHC.SHP ---
Pre-Procedural Eval Section A Date of Service: 08/06/22 The patient is an INPATIENT: No Changes since office visit: No Cold of Flu in the past 2 weeks, No New Medical Problems, No Changes in Medication and No Patient answered all questions The History & Physical has been completed within 30 days and I have reviewed it.: No Section B Chief Complaint: Malignant neoplasm of bladder, unspecified Details of Present Illness: Nonhealing area within bladder needs fulguration and biopsy Relevant Social History: None Present Medications: see Short Stay Collaborative assessment Medical History: No relevant PMH History of Previous Operations: Relevant previous surgery/procedure and date(s) Allergies: Allergies Allergy/AdvReac Type Severity Reaction Status Date / Time aspartame Allergy Severe severe Verified 07/19/22 11:44 dehydration cyclobenzaprine Allergy Severe SOB Verified 07/19/22 11:44 [From Flexeril] Review of Systems Sugical H&P ROS: Negative: Constitution, Cardiovascular, Respiratory, Neurological, Psychiatric, Hem-Onc, Allergic/Immunologic, Gastrointestinal, Genitourinary, Musculoskeletal, Integumentary, Endocrine and Eyes/Ears/Nose/Throat Exam Surgical H&P Exam: Normal: HEENT, Normal: Heart, Normal: Lungs, Normal: Extremities, Normal: Abdomen, Normal: Skin and Normal: Neurological Plan Diagnosis/Plan: Unchanged (cysto, bladder biopsy, fulgeration with gemcitabine) I have reviewed the history and physical and performed a pertinent physical examination on my patient. No changes have occurred unless specified.
--- NOTE | 2022-08-06 10:00 | P.OP_ITS ---
Operative Note Operative Note Date of Service: 08/06/22 Narrative: PreOperative Diagnosis: bladder cancer Post Operative Diagnosis: bladder cancer Procedure: Bladder biopsy and fulguration with Gemcitabine installation Surgeon: Dr Johnny Kyle Anesthesia: general Indications for procedure: Nonhealing area on right side bladder wall during follow-up cystoscopy in office Procedure: After informed consent was verified the patient was brought to the operating room and placed in a supine position. Anesthesia was administered per protocol. The patient was placed in a modified dorsal lithotomy position and prepped and draped in a sterile fashion. Safety pause time-out was performed. Antibiotics were confirmed. A 24 Faroese cystoscope was inserted per urethra. A nonhealing area on the right bladder sidewall was seen. Biopsy was attempted however scarring meant that mucosa was not easy to retrieved. The area was fulgurated +1 cm around. At the completion of the procedure the bladder was irrigated. The cystoscope was removed. A [address] Camilo catheter was inserted into the bladder. 10 cc was placed in the balloon. 2 g of gemcitabine in 100 cc of normal saline was instilled into the bladder. The flow from the catheter was left clamped. The inflow to the catheter was attached to a 3 L normal saline bag. The patient tolerated the procedure well. They were extubated in the operating room and transferred in stable condition to the recovery area. Gemcitabine will remain in the bladder for 1 hour. At the completion of 1 hour the clamp will be removed. The gemcitabine will be allowed to egress to the urine collection bag. The 3 L bag of normal saline will be run at maximum rate through the bladder in order to dilute any residual gemcitabine. The Camilo catheter will then be removed. Pathology: None Drains: As above 3 way Camilo catheter
[2022-08-06 10:10] VITALS: BP 114/71; PULSE 55; RESP 16; TEMP 36.7; O2SAT 97
[2022-08-06 10:25] VITALS: BP 145/74; PULSE 51; RESP 16; O2SAT 98
[2022-08-06] MEDS: Phenazopyridine HCL 100 MG TABLET PO (10:34)
[2022-08-06] MEDS: Acetaminophen 325 MG TABLET 650 MG PO (10:35)
[2022-08-06 10:40] VITALS: BP 134/72; PULSE 52; RESP 16; O2SAT 98
[2022-08-06 10:55] VITALS: BP 129/73; PULSE 55; RESP 18; O2SAT 98
[2022-08-06 12:00] VITALS: BP 137/61; PULSE 59; RESP 16; TEMP 36.5; O2SAT 99
== END 2022-08-06 13:15 | disposition home or self-care (01) ==
PROVIDERS: PCP Internal Medicine; Visit Provider Urology
PROC: (CPT 52204; principal; 2022-08-06 09:00)
DX: C67.9 Malignant neoplasm of bladder, unspecified (principal); G91.2 (Idiopathic) normal pressure hydrocephalus; M79.7 Fibromyalgia; Z87.820 Personal history of traumatic brain injury; Z79.899 Other long term (current) drug therapy; Z79.1 Long term (current) use of non-steroidal anti-inflammatories (NSAID); Z88.8 Allergy status to other drugs, medicaments and biological substances; Z87.442 Personal history of urinary calculi; Z90.49 Acquired absence of other specified parts of digestive tract; Z98.84 Bariatric surgery status; Z98.2 Presence of cerebrospinal fluid drainage device; Z87.891 Personal history of nicotine dependence
CPT/HCPCS: 52204; 51720; J9201

== ENCOUNTER 2022-08-21 10:32 | Outpatient (AMB) | payer MEDICARE, SELFPAY ==
--- NOTE | 2022-08-20 09:33 | MHC.OFFVIS ---
Intake Intake Visit Reasons: Bladder biopsy results Intake Note: Patient is Present for Telephone Bladder biopsy Follow Up Urology Medication: none Blood Thinner: none Service Advocate Contact Required: No Allergies aspartame Allergy (Severe, Verified 08/13/23 13:43) severe dehydration cyclobenzaprine [From Flexeril] Allergy (Severe, Verified 08/13/23 13:43) SOB nickel Adverse Reaction (Verified 08/13/23 13:43) Blister HPI HPI Comments History of Present Illness Details Sudha is a pleasant female. She is a patient of Dr. Bermudez. She is seen for the following urologic conditions - bladder cancer Follow-up from bladder biopsy Stable Planned cystoscopy followup Bladder Cancer TURBT 12/26 high-grade T1 Bladder mass seen on CT imaging November 2021 History of hematuria Significant smoking history greater than 40 year pack per day No exposure to chemicals Interventions - 12/26 TURBT high-grade T1, 07/28 bladder biopsy fulguration with gemcitabine Immunotherapy - 12/26 induction 6 weeks - Boost 03/28, Urinary incontinence Background of normal pressure hydrocephalus Shunt in place She needs to contact her treating neurologist as the shunt appears to be ineffective at this point in time [facility] Medical History Constipation Sleep apnea Abscess Bladder cancer Obesity (BMI 30-39.9) Traylor's palsy Neuropathy GERD without esophagitis Chronic neck pain Scoliosis of thoracolumbar spine Arthritis Back pain Hx of spinal stenosis Peptic ulcer Fibromyalgia Hydrocephalus in adult History of traumatic head injury Nephrolithiasis Surgical History Hx of cystoscopy History of cervical spinal surgery History of adenoidectomy Hx of lithotripsy Hx of tubal ligation Hx of excision of lamina of cervical vertebra for decompression of spinal cord Hx of cholecystectomy H/O colonoscopy Hx of gastric bypass 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 Brother No problems noted. Sister No problems noted. Son No problems noted. Daughter No problems noted. Paternal Grandmother Colon cancer Social History Housing: Assisted Living Facility Are you a primary child care lead teacher to a significant other at home: No Do you presently have visiting nurse or other home services: No Alcohol intake: never Patient Tobacco Use Status: Former Tobacco user Tobacco use type: Cigarette Second Hand Smoke Exposure: Yes Advance Directives Date on File: 06/04/23 service: No Current occupational status: retired and disabled Cognitive needs: Yes (cane) Hearing needs: Yes Vision needs: Yes Female Reproductive History Menstrual Age of Menarche: 15 Review of Systems Const Denies chills and Denies fever(s) Card Reports no additional complaints and Denies syncope Resp Denies cough GI Denies abdominal pain and Denies heartburn Reports as per HPI and Denies change in libido Neuro Denies syncope Psych Denies change in libido Endo Denies change in libido Physical Exam Const General: cooperative, healthy appearing, comfortable and no acute distress Orientation/consciousness: patient oriented x3 HEENT Face and sinus: Yes normal facial exam Mouth: moist mucous membranes Neck Neck: Yes normal visual inspection, Yes full ROM and Yes trachea midline Chest Chest palpation & inspection: normal inspection of the chest Resp Effort & Inspection: normal respiratory effort, able to speak in complete sentences and no respiratory distress GI Inspection: Yes normal to inspection Back/Spine/Pelvis Cervical Spine: normal cervical lordosis Thoracic/Lumbar Spine: thoracic and lumbar spine normal to inspection Skin General skin exam: no rashes or lesions noted Neuro General: patient oriented x3, gait normal, tone normal and moves all extremities Extrem General: Yes normal to inspection and Yes capillary refill normal Assessment & Plan Assessment & Plan (1) Overactive bladder: Code(s): N32.81 - Overactive bladder (2) Bladder cancer: Comment: TURBT 12/26 high-grade superficial bladder cancer; started immunotherapy induction 6 weeks in 12/2021; immunotherapy boost in 03/2022 Code(s): C67.9 - Malignant neoplasm of bladder, unspecified Qualifiers: Bladder location: lateral wall Qualified Code(s): C67.2 - Malignant neoplasm of lateral wall of bladder Plan 6m f/u Patient Instructions: Imaging studies, laboratory and physical exam results were discussed and reviewed in detail. No major barriers to patient understanding were identified. An opportunity to ask questions regarding the treatment plan was provided. All questions were answered. The patient expressed understanding and agreement with the above treatment plan. The patient is aware they should contact our office by phone for worsening of their current condition or the appearance of new urologic symptoms. Compliance is encouraged with any medications and followup testing that is ordered. It is a privilege to participate in the urologic care of your patient. If you have any questions or concerns regarding treatment for the above conditions, or other urologic issues, please do not hesitate to contact me. The office telephone contact is [phone]. This note is constructed using voice recognition software. While every effort has been made to ensure accuracy professional application designer errors may have been included. Yours sincerely, Dr Johnny Kyle MD, [facility] - Urology Providers of Expert, Compassionate Care for the Genitourinary System Telehealth Telehealth Location of provider rendering services: practice address Location of patient: address on file Patient Identification confirmed using: Name, : Yes Telehealth method: voice only Patient verbally consented to treatment: Yes Patient verbally consented to billing insurance company: Yes Patient informed of any privacy concerns related to visit: Yes Coding Level of Care Code Est Pt Level 3 (81034) Diagnoses Overactive bladder N32.81 Malignant neoplasm of lateral wall of urinary bladder C67.2 Bladder location: lateral wall
== END 2022-08-21 11:56 | disposition home or self-care (01) ==
LOC: HO.HUSH 10:32
PROVIDERS: PCP Internal Medicine; Visit Provider Urology
DX: N32.81 Overactive bladder (principal); C67.2 Malignant neoplasm of lateral wall of bladder
CPT/HCPCS: 99213; 99499

== ENCOUNTER → 2022-08-21 10:32 | Outpatient (BNVA) | payer MEDICARE, SELFPAY | PROVIDERS: PCP Internal Medicine; Visit Provider Urology | DX: N32.81 Overactive bladder (principal); C67.2 Malignant neoplasm of lateral wall of bladder | CPT/HCPCS: 99212 ==

== ENCOUNTER 2022-11-22 11:15 | Outpatient (REF) | payer MEDICARE, SELFPAY | END 2022-11-22 11:16 | disposition home or self-care (01) | LOC: HO.LAB 11:15 | PROVIDERS: PCP Internal Medicine; Visit Provider Urology | DX: C67.2 Malignant neoplasm of lateral wall of bladder (principal); R32 Unspecified urinary incontinence | CPT/HCPCS: 52000; 99212 ==

== ENCOUNTER 2022-11-28 09:40 | Outpatient (REF) | payer MEDICARE, SELFPAY | END 2022-11-28 09:41 | disposition home or self-care (01) | LOC: HO.10HDL 09:40 | PROVIDERS: Visit Provider Urology | DX: Z13.89 Encounter for screening for other disorder (principal) ==

== ENCOUNTER 2022-12-05 09:01 | Outpatient (REF) | payer MEDICARE, SELFPAY | END 2022-12-05 09:02 | disposition home or self-care (01) | LOC: HO.10HDLNP 09:01 | PROVIDERS: Visit Provider Urology | DX: Z13.89 Encounter for screening for other disorder (principal) ==

== ENCOUNTER 2022-12-14 12:35 | Outpatient (REF) | payer MEDICARE, SELFPAY ==
--- NOTE | ~2022-12-14 | US_ITS ---
EXAMINATION: US RETROPERITONEAL LIMITED (RENAL ONLY) CLINICAL INFORMATION: Malignant neoplasm of the lateral wall of bladder. COMPARISON: CT chest, abdomen and pelvis with contrast 10/25/2021. Ultrasound retroperitoneal limited (renal only) 12/21/2020. X-ray abdomen KUB 08/24/2020. Ultrasound retroperitoneal limited (renal only) 07/21/2020. TECHNIQUE: Real-time imaging of the kidneys. FINDINGS: RIGHT KIDNEY: 9.6 x 3.5 x 4.4 cm (SAG x AP x TRV). The kidney is normal in size, contour, and echogenicity. Renal cortical thickness is normal. No focal parenchymal lesions or hydronephrosis. Nonobstructing stones measuring up to 4 mm. LEFT KIDNEY: 9.7 x 5.2 x 4.4 cm (SAG x AP x TRV). The kidney is normal in size, contour, and echogenicity. Renal cortical thickness is normal. No hydronephrosis. Nonobstructing stones measuring up to 5 mm. Benign-appearing 1.0 cm cyst. Followup imaging is not routinely recommended for benign appearing cysts. US/US renal BI IMPRESSION: Bilateral nonobstructing nephrolithiasis. No hydronephrosis.
== END 2022-12-14 12:36 | disposition home or self-care (01) ==
LOC: HO.US 12:35
PROVIDERS: PCP Internal Medicine; Visit Provider Urology
DX: C67.2 Malignant neoplasm of lateral wall of bladder (principal)
CPT/HCPCS: 76775

== ENCOUNTER 2022-12-17 10:19 | Outpatient (REF) | payer MEDICARE, SELFPAY | END 2022-12-17 10:20 | disposition home or self-care (01) | LOC: HO.10HDL 10:19 | PROVIDERS: Visit Provider Urology | DX: Z13.89 Encounter for screening for other disorder (principal) ==

== ENCOUNTER 2022-12-20 11:24 | Outpatient (REF) | payer MEDICARE, SELFPAY | END 2022-12-20 11:25 | disposition home or self-care (01) | LOC: HO.10HDLNP 11:24 | PROVIDERS: Visit Provider Urology | DX: C67.9 Malignant neoplasm of bladder, unspecified (principal) | CPT/HCPCS: 88121 ==

== ENCOUNTER → 2022-12-24 12:50 | Outpatient (BNVA) | payer MEDICARE, SELFPAY | PROVIDERS: PCP Internal Medicine; Visit Provider Nurse Practitioner Family | DX: M47.816 Spondylosis without myelopathy or radiculopathy, lumbar region (principal); M54.50 Low back pain, unspecified; M79.605 Pain in left leg; M81.0 Age-related osteoporosis without current pathological fracture; M79.7 Fibromyalgia; M41.9 Scoliosis, unspecified; M53.3 Sacrococcygeal disorders, not elsewhere classified | CPT/HCPCS: 99202 ==

== ENCOUNTER 2022-12-25 10:29 | Outpatient (REF) | payer MEDICARE, SELFPAY ==
--- NOTE | ~2022-12-25 | XR_ITS ---
EXAMINATION: XR HIP BILATERAL WITH PELVIS XR LUMBAR SPINE CLINICAL INFORMATION: Sacrococcygeal disorder and pain. COMPARISON: CT abdomen/pelvis from 10/25/2021. TECHNIQUE: Lumbar spine, 6 views (including lateral flexion and extension views) Pelvis AP view Left hip 2 views and right hip 2 views FINDINGS: LUMBAR SPINE: Chronic dextroscoliosis of the visualized degenerated lower thoracic and lumbar spine with apex of curvature at L3. The lumbar vertebral body heights are maintained. No acute compression fractures. No evidence of pars interarticularis defects. No instability on flexion or extension. There is multilevel facet osteoarthritis and 0.3 cm of chronic grade 1 anterolisthesis of L4 on L5. Also, findings include chronic mild degenerative right lateral listhesis of L3 with respect to L4 within the scoliotic spine. Mild and moderate multilevel discovertebral degenerative change of the lumbar spine. The visualized distal ventriculoperitoneal shunt tubing is intact with its tip located in the pelvis. Bowel gas pattern is normal. Atherosclerotic calcification of the abdominal aorta without radiographic evidence of aneurysm. PELVIS AND HIPS: Pelvic bones and proximal femurs are intact. The articular cartilage space of each hip is maintained. Mild subchondral cystic change of the superolateral right acetabulum. No evidence of any significant degenerative or inflammatory arthropathy at either hip. No focal lytic or osteoblastic lesion. XR/XR hip BI w PEL1V IMPRESSION: * No acute abnormalities in the lumbosacral spine or pelvis compared to 10/25/2021. * No evidence of lumbar spine instability on flexion and extension views. No fractures within the dextroscoliotic, degenerated lumbar spine.
--- NOTE | ~2022-12-25 | XR_ITS ---
EXAMINATION: XR HIP BILATERAL WITH PELVIS XR LUMBAR SPINE CLINICAL INFORMATION: Sacrococcygeal disorder and pain. COMPARISON: CT abdomen/pelvis from 10/25/2021. TECHNIQUE: Lumbar spine, 6 views (including lateral flexion and extension views) Pelvis AP view Left hip 2 views and right hip 2 views FINDINGS: LUMBAR SPINE: Chronic dextroscoliosis of the visualized degenerated lower thoracic and lumbar spine with apex of curvature at L3. The lumbar vertebral body heights are maintained. No acute compression fractures. No evidence of pars interarticularis defects. No instability on flexion or extension. There is multilevel facet osteoarthritis and 0.3 cm of chronic grade 1 anterolisthesis of L4 on L5. Also, findings include chronic mild degenerative right lateral listhesis of L3 with respect to L4 within the scoliotic spine. Mild and moderate multilevel discovertebral degenerative change of the lumbar spine. The visualized distal ventriculoperitoneal shunt tubing is intact with its tip located in the pelvis. Bowel gas pattern is normal. Atherosclerotic calcification of the abdominal aorta without radiographic evidence of aneurysm. PELVIS AND HIPS: Pelvic bones and proximal femurs are intact. The articular cartilage space of each hip is maintained. Mild subchondral cystic change of the superolateral right acetabulum. No evidence of any significant degenerative or inflammatory arthropathy at either hip. No focal lytic or osteoblastic lesion. XR/XR lumbar spine 6V w bending IMPRESSION: * No acute abnormalities in the lumbosacral spine or pelvis compared to 10/25/2021. * No evidence of lumbar spine instability on flexion and extension views. No fractures within the dextroscoliotic, degenerated lumbar spine.
== END 2022-12-25 10:30 | disposition home or self-care (01) ==
LOC: HO.XRAY 10:29
PROVIDERS: PCP Internal Medicine; Visit Provider Nurse Practitioner Family
DX: M53.3 Sacrococcygeal disorders, not elsewhere classified (principal); M54.50 Low back pain, unspecified; M79.605 Pain in left leg; M47.816 Spondylosis without myelopathy or radiculopathy, lumbar region; M81.0 Age-related osteoporosis without current pathological fracture; M41.9 Scoliosis, unspecified
CPT/HCPCS: 72114; 73521

== ENCOUNTER 2022-12-31 09:57 | Outpatient (REF) | payer MEDICARE, SELFPAY ==
--- NOTE | ~2022-12-31 | XR_ITS ---
EXAMINATION: XR ABDOMEN KUB CLINICAL INDICATION: Follow-up renal stones. COMPARISON: None available. TECHNIQUE: AP view of the abdomen. FINDINGS: There is scattered stool and gas seen throughout the colon without any significant distention. There is no organomegaly. There are punctate radiopaque density in the upper pole right kidney question stones or calcification. There is a ventriculoperitoneal shunt with its tip in the right lower quadrant. There is mild S-shaped scoliosis of thoracolumbar spine.. XR/XR KUB IMPRESSION: 1. Mild constipation. 2. Punctate radiopaque density upper pole right kidney likely stones or calcification. 3. Mild S-shaped scoliosis of thoracolumbar spine.
== END 2022-12-31 09:58 | disposition home or self-care (01) ==
LOC: HO.XRAY 09:57
PROVIDERS: Visit Provider Urology
DX: N20.0 Calculus of kidney (principal)
CPT/HCPCS: 74018

== ENCOUNTER → 2023-01-03 12:35 | Outpatient (BNVA) | payer MEDICARE, SELFPAY | PROVIDERS: PCP Internal Medicine; Visit Provider Urology | DX: Z71.2 Person consulting for explanation of examination or test findings (principal); N20.0 Calculus of kidney; C67.2 Malignant neoplasm of lateral wall of bladder | CPT/HCPCS: 51798; 99212 ==

== ENCOUNTER 2023-02-05 06:01 | Outpatient (REF) | payer MEDICARE, SELFPAY ==
--- NOTE | ~2023-02-05 | FL_ITS ---
EXAMINATION: XR FLUOROSCOPY WITH IMAGES CLINICAL INFORMATION: Spondylosis without myelopathy or radiculopathy, lumbar region COMPARISON: None available. TECHNIQUE: Fluoroscopy Supervised By: Dr. Félix Barbour. Fluoroscopy Time: 0.5. Cumulative Dose: 7.4 mGy. DAP: 0.1 mGycm2. Images: 2. FINDINGS: Images demonstrate contrast injection adjacent to 2 bilateral lower vertebral bodies and needle on the right. FL/FL guidance in treatment room IMPRESSION: Fluoroscopy guidance for pain management procedure.
== END 2023-02-05 06:02 | disposition home or self-care (01) ==
LOC: CF 06:01
PROVIDERS: Visit Provider Anesthesiology
DX: M47.816 Spondylosis without myelopathy or radiculopathy, lumbar region (principal); M41.9 Scoliosis, unspecified; M54.50 Low back pain, unspecified; M53.3 Sacrococcygeal disorders, not elsewhere classified; M79.605 Pain in left leg; M81.0 Age-related osteoporosis without current pathological fracture; M79.7 Fibromyalgia
CPT/HCPCS: 64493; 64494; J2795

== ENCOUNTER → 2023-02-12 10:15 | Outpatient (BNVA) | payer MEDICARE, SELFPAY | PROVIDERS: PCP Internal Medicine; Visit Provider Nurse Practitioner Family | DX: M47.816 Spondylosis without myelopathy or radiculopathy, lumbar region (principal); M54.50 Low back pain, unspecified; M81.0 Age-related osteoporosis without current pathological fracture; M79.7 Fibromyalgia; M41.35 Thoracogenic scoliosis, thoracolumbar region; M53.3 Sacrococcygeal disorders, not elsewhere classified; M51.36 Other intervertebral disc degeneration, lumbar region; G91.3 Post-traumatic hydrocephalus, unspecified; Z98.2 Presence of cerebrospinal fluid drainage device | CPT/HCPCS: 99212 ==

== ENCOUNTER 2023-02-27 12:46 | Outpatient (AMB) | payer MEDICARE, SELFPAY ==
--- NOTE | 2023-02-27 12:52 | MHC.OFFVIS ---
Intake Intake Visit Reasons: 3 month follow up stones Intake Note: Patient is present for Cysto Urology Medications: Vitamin B6 Blood Thinner: none Director Of Slot Operations Required: No Accompanied by: Self / Same As Patient Allergies aspartame Allergy (Severe, Verified 05/06/23 15:28) severe dehydration cyclobenzaprine [From Flexeril] Allergy (Severe, Verified 05/06/23 15:28) SOB HPI HPI Comments History of Present Illness Details Sudha is a 67-year-old female who is here for three month cystoscopy surveillance for her history of bladder cancer and is also followed for kidney stone. 02/27/23-- Sudha is a 67 year old female. Significant smoking history greater than 40 year pack per day. PMH - normal pressure hydrocephalus, prior shunt followed by neurologist. h/o Kidney stones. She is seen for h/o bladder cancer, s/p cysto/TURBT 12/25/2021; path: superficial high grade urothelial carcinoma, no muscularis propria identified. Last outpatient cystoscopy fulguration was with Dr. Kyle 08/06/2022, I reviewed operative note, gemcitabine was administered. The patient has right kidney stone about 4 mm and left kidney stone about 5 mm. Denies taking aspirin or any blood thinners. Evaluation today-- blood: negative, leukocytes:?15 Christina/uL. Consent to perform cystoscopy procedure was obtained. Cystoscopy findings-- Mild trabeculations. No suspicious bladder lesion visualized. --------LV--01/03/2023--Sudha is a 67-year-old female who presents to the clinic for discussion of KUB and renal US results ordered for kidney stones. -----Office visit?11/22/2022-- here for surveillance office cystoscopy. Findings: no recurrent bladder lesions visualized. Previous Interventions: 12/25/21 cysto-TURBT high-grade T1, 08/06/22 bladder fulguration with gemcitabine Immunotherapy Bladder instillations- 12/2021 induction 6 weeks; - Boost 03/2022. Renal US results reviewed?12/14/2022-- Bilateral nonobstructing nephrolithiasis. Right kidney: largest stone is of 4 mm, Left kidney: largest stone is of 5 mm. Kidneys: WNL. Plan: b/L renal calcuil h/o Superficial high grade urothelial carcinoma, s/p Intravesical immunotherapy. Cont surveillance cystoscopy in 3 months Left ESWL discussed I have discussed treatment with Left ESWL, discussed risks including but not limited to, blood in the urine, bruising to the skin, bleeding, possible need for another procedure if a stone fragment obstructs the ureter while passing, possible need to repeat procedure if stone is not completely fragmented. 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 Brother No problems noted. Sister No problems noted. Son No problems noted. Daughter No problems noted. Social History Housing: Assisted Living Facility Are you a primary nurse behavioral health care to a significant other at home: No Do you presently have visiting nurse or other home services: No Alcohol intake: never Patient Tobacco Use Status: Former Tobacco user Tobacco use type: Cigarette Second Hand Smoke Exposure: Yes service: No Current occupational status: retired and disabled Cognitive needs: Yes (cane) Hearing needs: Yes Vision needs: Yes Female Reproductive History Menstrual Age of Menarche: 15 Review of Systems Const Reports no additional complaints Eyes Reports no additional complaints ENT Reports no additional complaints Card Denies dyspnea Resp Denies cough and Denies dyspnea GI Reports no additional complaints Reports no additional complaints Musc Reports no additional complaints Skin/Breast Denies rash and Denies unusual bruising Neuro Reports no additional complaints Psych Reports no additional complaints Endo Reports no additional complaints Aleksandar/Lymph Reports no additional complaints Aller/Immun Reports no additional complaints Physical Exam Const General: cooperative and no acute distress Orientation/consciousness: patient oriented x3 Limitations: ambulation with cane HEENT Head: Yes normal to inspection, Yes normocephalic and Yes atraumatic Eyes Conjunctivae: conjunctivae normal Neck Neck: Yes normal visual inspection and Yes trachea midline Chest Chest palpation & inspection: normal inspection of the chest Resp Effort & Inspection: normal respiratory effort Cardio Rate: regular rate GI Inspection: Yes normal to inspection Skin General skin exam: no rashes or lesions noted Neuro General: patient oriented x3 Psych Appearance: grossly normal Office Procedures Cystoscopy Consent Discussed risk and benefit or proposed procedure with the patient. Information consent for procedure given to the patient. Discussed technical aspects, risks, benefits and alternatives in full. Addressed all of the patient's questions and concerns regarding the procedure. The patient demonstrated knowledge and understanding. They wish to proceed with this procedure. Preparation The patient was prepped in the usual manner. A sales engineer account manager was present and in the room. Genitalia was prepped with betadine solution in a sterile manner. Lidocaine Jelly 2% was placed into the urethra and 16Fr flexible Olympus cystoscope was inserted into the meatus after adequate lubrication. Procedure Time out per protocol performed. Bladder Inspection Bladder Inspection: The bladder was inspected in its entirety with utilization retroflexion displaying: Tumor(s): no recurrent bladder lesions visualized Trabeculation: Mild Mucosal Erthema: N/A Orifices: normal shape and position Urethra: normal Cystoscopy findings: WNL, no suspicious bladder lesions visualized [id number] Procedure code (CPT) selection complete Office Meds lidocaine HCl Performing Provider: Jamie Garcia MD Administered by: Mari Dunbar RN on 02/27/23 13:26 Dose Route Admin Location Lot Number Expiration Date [employer] 10 mL intra-urethral naproxen Performing Provider: Jamie Garcia MD Administered by: Mari Dunbar RN on 02/27/23 13:26 Dose Route Admin Location Lot Number Expiration Date [employer] 500 mg PO ciprofloxacin HCl Performing Provider: Jamie Garcia MD Administered by: Mari Dunbar RN on 02/27/23 13:26 Dose Route Admin Location Lot Number Expiration Date [employer] 500 mg PO Results AMB Urinalysis, Automated UA Leukoctes 15 Christina/uL Last Edit by Meseret Price on 02/27/23 13:23 UA Nitrite Negative Last Edit by Meseret Price on 02/27/23 13:23 UA Urobilinogen 0.2 mg/dL Last Edit by Meseret Price on 02/27/23 13:23 UA Protein 0 mg/dL Last Edit by Meseret Price on 02/27/23 13:23 UA pH 6.0 Last Edit by Meseret Price on 02/27/23 13:23 UA Blood 0 Daron/uL Last Edit by Meseret Price on 02/27/23 13:23 UA Specific [place] 1.015 Last Edit by Meseret Price on 02/27/23 13:23 UA Ketone Negative Last Edit by Meseret Price on 02/27/23 13:23 UA Bilirubin 0 mg/dL Last Edit by Meseret Price on 02/27/23 13:23 UA Glucose 0 mg/dL Last Edit by Meseret Price on 02/27/23 13:23 Results Reviewed Results Reviewed: Laboratory Last Values Urine pH (Auto) 6.0 02/27/23 13:11 Specific [place] (Auto) 1.015 02/27/23 13:11 Urine Protein (Auto) 0 mg/dL 02/27/23 13:11 Glucose (UA)(Auto) 0 mg/dL 02/27/23 13:11 Urine Ketones (Auto) Negative 02/27/23 13:11 Urine Blood (Auto) 0 Daron/uL 02/27/23 13:11 Urine Nitrite (Auto) Negative 02/27/23 13:11 Urine Bilirubin (Auto) 0 mg/dL 02/27/23 13:11 Urine Urobilinogen (Auto) 0.2 mg/dL 02/27/23 13:11 Leukocyte Esterase (Auto) 15 Christina/uL 02/27/23 13:11 Assessment & Plan Assessment & Plan (1) Bilateral kidney stones: Code(s): N20.0 - Calculus of kidney (2) Bladder cancer: Code(s): C67.9 - Malignant neoplasm of bladder, unspecified Plan Left ESWL discussed to be scheduled. Follow-up after 3 months for surveillance cystoscopy. Orders: Orders FISH Bladder Cancer 02/27/23 C67.9 - Malignant neoplasm of bladder, unspecified AMB Cystoscopy 02/27/23 C67.9 - Malignant neoplasm of bladder, unspecified AMB Urinalysis Automated 02/27/23 Z13.9 - Encounter for screening, unspecified Patient Instructions: The patient had an opportunity to ask questions regarding treatment plan. All questions were answered. Imaging, Laboratory studies and physical exam results were discussed and reviewed in detail. No major barriers to understanding were identified. The patient expressed understanding and agreement with the above treatment plan. The patient is aware they should contact our office by phone for worsening of their current condition or the appearance of new symptoms. Compliance is encouraged with any medications and followup testing that is ordered. It is a privilege to be allowed the opportunity to participate in the urologic care of your patient. If you have any questions or concerns regarding treatment for the above conditions please do not hesitate to contact me. The office telephone contact is [phone]. This note is constructed in part using voice recognition software. While every effort has been made to ensure accuracy porter sample case errors may have been included. Yours sincerely, Jamie Garcia MD Coding Level of Care Code Est Pt Level 3 (85866) Diagnoses Bilateral kidney stones N20.0 Bladder cancer C67.9 CPT Codes Cystoscopy - CPT: 19393-[id number] ([id number])
== END 2023-02-27 13:56 | disposition home or self-care (01) ==
PROVIDERS: PCP Internal Medicine; Visit Provider Urology
DX: N20.0 Calculus of kidney (principal); C67.9 Malignant neoplasm of bladder, unspecified
CPT/HCPCS: 52000; 99213

== ENCOUNTER 2023-02-27 12:46 | Outpatient (REF) | payer MEDICARE, SELFPAY | END 2023-02-27 12:47 | disposition home or self-care (01) | LOC: HO.LAB 12:46 | PROVIDERS: PCP Internal Medicine; Visit Provider Urology | DX: C67.9 Malignant neoplasm of bladder, unspecified (principal); N20.0 Calculus of kidney | CPT/HCPCS: 52000; 88121; 99212 ==

== ENCOUNTER 2023-03-15 13:24 | Outpatient (REF) | payer MEDICARE, SELFPAY ==
--- NOTE | ~2023-03-15 | MR_ITS ---
MR LUMBAR SPINE WITHOUT CONTRAST CLINICAL INFORMATION: Low back pain. COMPARISON: Lumbar spine MRI 08/23/2021. TECHNIQUE: MRI of the lumbar spine was obtained using routine sequences without contrast. FINDINGS: There is transitional anatomy. Same counting system is used as the prior report. For the purposes of this report S1 is partially lumbarized, shares a rudimentary disc with S2, and is incorporated into the sacrum on the right side. There are 5 nonrib-bearing lumbar-type vertebral bodies. Please correlate with plain films prior to any percutaneous or surgical intervention. There is a stable appearing rightward convex scoliotic curvature of the lumbar spine with the apex at L2 and the partially imaged leftward convex scoliotic curvature of the thoracic spine. Grade 1 retrolisthesis of L1 on L2 and L2 on L3. There is grade 1 anterolisthesis of L5 and S1. The vertebral body heights are maintained. There is moderate disc volume loss at L1-L2 and T12-L1. Mild disc volume loss at L3-L4. There is disc desiccation at all lumbar levels. Modic type I endplate signal changes at L2-L3 and L3-L4. There is no additional bone marrow edema. There are no acute fractures. Conus terminates at the L1-L2 level. There is a left renal cyst. There is paraspinal muscular atrophy bilaterally. Stable appearing adrenal adenomas bilaterally. There is a fibroid uterus. L1-L2: Grade 1 retrolisthesis. Stable left paracentral disc extrusion resulting in mass effect on the traversing left L2 nerve root within the left subarticular zone. Background annular disc bulge and left greater then right facet arthropathy. Stable mild left-sided foraminal encroachment. No central canal nor right foraminal stenosis. L2-L3: Diffuse annular disc bulge the superimposed shallow central disc protrusion and a right lateral disc osteophyte protrusion. The central canal remains patent and there is mild foraminal encroachment bilaterally. L3-L4: Significant epidural lipomatosis resulting in similar moderate to severe thecal sac effacement. Left lateral disc protrusion and facet arthropathy result in similar moderate to severe left foraminal stenosis with mass effect on the exiting left L3 nerve root. L4-L5: Diffuse annular disc bulge and severe bilateral facet arthropathy and ligamentum flavum thickening. Epidural lipomatosis results in mild narrowing of the central canal. Disc osteophyte and facet arthropathy result in mild bilateral foraminal encroachment. Findings unchanged. L5-S1: Slight grade 1 anterolisthesis. Diffuse annular disc bulge and severe bilateral facet arthropathy and ligamentum flavum thickening. Mild bilateral foraminal encroachment. MR/MR lumbar spine wo con IMPRESSION: - There is transitional anatomy. For the purposes of this report S1 is partially lumbarized, shares a rudimentary disc with S2, and is incorporated into the sacrum on the right side. There are 5 nonrib-bearing lumbar-type vertebral bodies. Please correlate with plain films prior to any percutaneous or surgical intervention. - At L1-L2 there is a stable inferiorly migrating left paracentral disc extrusion extrusion that results in mass effect on the traversing left L2 nerve root within the left subarticular zone on image 9 of series 6. - At L3-L4, epidural lipomatosis results in stable moderate to severe thecal sac effacement and a left lateral disc protrusion and advanced facet arthropathy result in moderate to severe left foraminal stenosis with unchanged mass effect on the exiting left L3 nerve root. - Additional degenerative changes throughout the lumbar spine remain stable as described. At L5-S1, there is grade 1 degenerative anterolisthesis in the setting of severe bilateral facet arthropathy. - Rightward convex scoliotic curvature of the lumbar spine and partially imaged leftward convex scoliotic curvature of the lumbar spine.
== END 2023-03-15 13:25 | disposition home or self-care (01) ==
LOC: HO.MRI 13:24
PROVIDERS: PCP Internal Medicine; Visit Provider Nurse Practitioner Family
DX: M41.9 Scoliosis, unspecified (principal); M47.816 Spondylosis without myelopathy or radiculopathy, lumbar region; M51.36 Other intervertebral disc degeneration, lumbar region
CPT/HCPCS: 72148

== ENCOUNTER 2023-03-19 14:21 | Emergency (ER) | payer MEDICARE, SELFPAY ==
--- NOTE | ~2023-03-19 | XR_ITS ---
EXAMINATION: XR LUMBOSACRAL SPINE CLINICAL INFORMATION: Lower back pain COMPARISON: Lumbar spine 03/15/2023 TECHNIQUE: Three views of the lumbosacral spine. FINDINGS: There is transitional anatomy. Same counting system as used on MRI scan of 03/15/2023. For the purposes of this report, S1 is partially lumbarized, shows a right ovarian disc with S2 and is incorporated into the sacrum on the right side. There are 5 nonrib-bearing lumbar-type vertebral bodies. There is a stable appearing rightward convex scoliotic curve with the apex at L2 and partially imaged leftward convex scoliotic curve of the thoracic spine. The height of vertebral bodies is well-maintained. There is grade 1 retrolisthesis of L1 on L2 and L2 on L3. There is grade 1 anterolisthesis of L5 on S1. There is moderate disc space narrowing at L1-L2 and T12-L1. There is left-sided disc height loss seen at L1-L2, L2-L3 and L3-L4. There is marked degenerative facet joint disease at L4-L5 and L5-S1. Tubing projects over the abdomen. XR/XR lumbar spine 2-3V IMPRESSION: 1. Transitional anatomy. For the purposes of this report, S1 is partially lumbarized. 2. Stable appearing scoliosis. 3. Multilevel degenerative disc disease and marked degenerative facet joint disease. 4. Multilevel spondylolisthesis.
--- NOTE | ~2023-03-19 | CT_ITS ---
Examination: CT brain and CT cervical spine without IV contrast. CLINICAL INDICATION: Head strike and neck pain. COMPARISON: CT brain 10/25/2021 and MRI brain 08/23/2021. TECHNIQUE: 5 mm thin axial and reformatted 2 minutes thin sagittal and coronal images of brain were obtained without contrast. Subsequently axial 3 mm thin and reformatted 2 mm thin sagittal and coronal images of cervical spine were obtained. DLP 1011. This CT examination was performed using dose optimization technique as appropriate, variously including the following: Automated exposure control Adjustment of MA and/or KV according to patient size(this includes techniques or standardized protocols for targeted exams where dose is matched to indication/reason for exam; extremities or head. Use of iterative reconstruction techniques. FINDINGS: BRAIN: There is no acute intra-axial, extra-axial bleed, masses or midline shift shift. There is no acute infarction in evolution or edema. There is bilobed cyst in the right thalamus at the entry point of the ventricular peritoneal shunt with its tip in the left lateral ventricle. A second slightly posterior and cephalad located shunt catheter from the right parietal region extends barely into the right lateral ventricle. Bone windows reveal no calvarial abnormality. There are 2 right calvarial shunt catheters. Bilateral frontal sinuses and mastoid air cells are well-aerated. No scalp soft tissue abnormality seen. CERVICAL SPINE: There is reversal of cervical lordosis. The vertebral heights and alignment is normal. There is loss of C3-C4, C4-C5, C5-C6, C6/C7 and C7-T1 disc heights with large bridging osteophytes at the C4-C5 and a C5-C6 disc levels. The craniovertebral junction and the C1-C2 alignment is normal. There is moderate left C4-C5 facet joint arthropathy and hypertrophy. Right laminectomy changes are seen at C3, C4 and C5 vertebra. No spinal canal stenosis, underlying disc bulge or herniation seen. Small radiopaque metallic foreign body seen within the left C5 and, C4 and C3 facet joint. The prevertebral and paravertebral soft tissues are normal. The airways widely patent. Thyroid lobes are symmetric and normal. The lung apices are clear. CT/CT cervical spine wo IV con IMPRESSION: No acute intracranial process seen. The findings are stable compared to CT brain 10/25/2021. Mild straightening of cervical lordosis with degenerative disc changes and moderate bridging osteophytes are described above. No visible acute fracture, dislocation or subluxation seen. No aggressive lytic or sclerotic process seen.
[2023-03-19 14:31] VITALS: BP 127/68; PULSE 66; RESP 14; TEMP 36.9; O2SAT 96; BMI 30.8
--- NOTE | 2023-03-19 14:51 | ED.FALL ---
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 She states that she has had left-sided weakness since 2006 and that sometimes her left leg gives out . She states that this occurred today and caused her to fall onto her hands and knees. She denies head strike or loss of consciousness. She states that after her fall she has had 6/10 pain in her neck as well as her left lower back. She denies additional symptoms including headache, dizziness, lightheadedness, numbness or tingling, confusion, fever, chills, chest pain, palpitations, shortness of breath, abdominal pain, nausea, vomiting , urinary/ bowel incontinence/retention, saddle paresthesias, weakness. Related Data Home Medications Medication Instructions Recorded Confirmed multivitamin 1 tab PO DAILY 10/25/21 01/03/23 mecobalamin (vitamin B12) 1,000 1,000 mcg sublingual DAILY 02/27/23 mcg disintegrating tablet,sublingual Previous Rx's Medication Instructions Recorded calcium carbonate 600 mg-vitamin 1 tab PO BID #60 tabs 11/03/21 D3 20 mcg (800 unit) chewable tablet (Caltrate 600 plus D) alendronate 70 mg tablet 70 mg PO QWEEK #14 tabs 07/11/22 lidocaine 5 % topical patch 1 patch topical DAILY pain 30 days 12/24/22 #30 ea pyridoxine (vitamin B6) 100 mg 100 mg PO DAILY #90 tabs 01/03/23 tablet gabapentin 600 mg tablet 600 mg PO BEDTIME back pain 90 02/13/23 days #90 tabs trazodone 100 mg tablet 100 mg PO BEDTIME PRN sleep 30 02/25/23 days #30 tabs lidocaine 5 % topical patch 1 patch topical DAILY PRN pain #15 03/19/23 ea Allergies Allergy/AdvReac Type Severity Reaction Status Date / Time aspartame Allergy Severe severe Verified 02/27/23 12:57 dehydration cyclobenzaprine Allergy Severe SOB Verified 02/27/23 12:57 [From Flexeril] Review of Systems Review of Systems: Constitutional : No Weight loss, No Fever, No Chills, No Fatigue, No Malaise Cardiovascular : No Chest Pain, No SOB, No Dyspnea on Exertion, No Orthopnea, No Edema, No Palpitations Respiratory : No Cough, No Sputum, No Wheezing Gastrointestinal : No Nausea, No Vomiting, No Diarrhea, No Constipation, No abdominal Pain, No Hematochezia, No Melena Genitourinary : No Dysuria, No Urinary Frequency, No Hematuria, Musculoskeletal : + joint pain, + Myalgias, No Joint Swelling, + back pain Skin : No Skin Lesions, No rash Neuro : + Weakness, No Numbness, No Dizziness, No Headache Psych : No Anxiety/Panic, No Depression All other systems reviewed and are negative Yes all other systems are reviewed and are negative COUNT INCLUDES [facility] Past Medical History Attestation statement: The following information was validated with the patient. Source: old records reviewed and nursing notes reviewed Medical History Arthritis Back pain Traylor's palsy Bladder cancer Chronic neck pain Fibromyalgia GERD without esophagitis History of traumatic head injury Hx of spinal stenosis Hydrocephalus Hydrocephalus in adult Nephrolithiasis Neuropathy Obesity (BMI 30-39.9) Peptic ulcer Scoliosis of thoracolumbar spine Surgical History H/O colonoscopy History of adenoidectomy History of cervical spinal surgery Hx of cholecystectomy Hx of excision of lamina of cervical vertebra for decompression of spinal cord Hx of gastric bypass Hx of lithotripsy Hx of tubal ligation 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 Brother No problems noted. Sister No problems noted. Son No problems noted. Daughter No problems noted. Social History Social History Housing: Assisted Living Facility Are you a primary critical care specialist to a significant other at home: No Do you presently have visiting nurse or other home services: No Alcohol intake: never Patient Tobacco Use Status: Former Tobacco user Tobacco use type: Cigarette Second Hand Smoke Exposure: Yes Advance Directives: No service: No Current occupational status: retired and disabled Cognitive needs: Yes (cane) Hearing needs: Yes Vision needs: Yes Physical Exam Vital Signs: Vital Signs: Last Vital Signs Temp 98.5 F 03/19/23 14:31 Pulse 66 03/19/23 14:31 Resp 14 03/19/23 14:31 BP 127/68 03/19/23 14:31 Pulse Ox 96 03/19/23 14:31 O2 Del Method Room Air 03/19/23 14:31 BMI result Body Mass Index 30.8 vital signs stable Appearance: Alert.? Oriented X3.? No acute distress.? Head: Normocephalic, atraumatic, no step-offs or deformities Eyes: Pupils equal, round and reactive to light.? Neck: Surgical incision site present. No midline tenderness. Mild tenderness to palpation of paraspinous muscles in cervical spine.? Neck supple.? CVS: Normal heart rate and rhythm.? Pulses normal.? Respiratory: No respiratory distress.? Breath sounds normal.? Abdomen: Soft and nontender.? Skin: Skin warm and dry.? Normal skin color.? Normal skin turgor.? Extremities: No lower extremity edema.? No calf ttp. 5/5 strength to bilateral upper and lower extremities Back: No midline tenderness, full range of motion, no CVA tenderness bilaterally. Minor tenderness to palpation of left-sided lumbar paraspinous muscles. Neuro: Oriented X 3.? No motor deficit.? No sensory deficit. CN 2-12 intact . Ambulating with steady gait normal coordination. No saddle paresthesias. Normal [id number], [id number], negative Romberg and pronator drift Course Reevaluation(s) Reevaluation #1: x-rays of lumbar spine with S1 partially lumbar eyes, stable appearing scoliosis. Multilevel degenerative disc disease and marked degenerative facet joint disease. Spondylolisthesis. Head CT and cervical spine pending. Patient is feeling better she is ambulatory she says the pain medication really helped. Time: 16:16 Reevaluation #2: no acute intracranial process seen. Mild straightening of cervical lordosis with degenerative disc disease and moderate bridging osteophytes . No acute fractures or dislocations. Patient feels much better will be discharged home. Educated patient on diagnosis and treatment plan, answered all question, patient verbalizes understanding. At this time patient will be discharged home, advised to return with new or worsening symptoms. Educated on worrisome signs and symptoms and when to return. At this time I feel comfortable discharge home. Time: 16:49 Medications Administered Discontinued Medications Generic Name Dose Route Start Last Admin Trade Name Yenifer PRN Reason Stop Dose Admin Acetaminophen 975 mg 03/19/23 15:12 03/19/23 15:26 Acetaminophen 325 Mg Tablet PO 03/19/23 15:13 975 mg ONCE ONE Administration Lidocaine 2 patch 03/19/23 15:12 03/19/23 15:25 Lidocaine 4 % Patch Adh..Patch TRANSDERMA 03/19/23 15:13 2 patch ONCE ONE Administration Protocol Medical Decision Making Medical Decision Making [facility] Narrative: 1535 Patient is a 68 year old female presenting with pain in her neck and left lower back 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 Physical exam significant for mild tenderness to palpation of cervical paraspinous muscles as well as tenderness to palpation of left lumbar paraspinous muscles. No midline tenderness. No focal neuro deficits. Differential diagnosis includes most likely musculoskeletal sprain/strain of cervical and lumbar paraspinous muscles. Unlikely fracture, compression fracture, dislocation as patient has no midline tenderness. Low concern for cauda equina, disc herniation, stroke, posterior stroke, intracranial hemorrhage or lesions. Plan imaging. Differential Diagnosis Differential Diagnoses: The differential diagnosis associated with the presentation includes Differential diagnosis includes most likely musculoskeletal sprain/strain of cervical and lumbar paraspinous muscles. Unlikely fracture, compression fracture, dislocation as patient has no midline tenderness. Low concern for cauda equina, disc herniation, stroke, posterior stroke, intracranial hemorrhage or lesions. Admission/Observation Consideration of admission/observation: Escalation of care including admission/observation considered unlikely Independent Interpretation I performed an independent interpretation of an: Plain X-Ray and CT Scan Radiology Impression Discussion of test interpretation with radiology: I have reviewed the radiologist's reading. External Record Review External record reviewed: Inpatient record, Office record, Outpatient record, Prior outpatient labs, Prior outpatient radiology, Primary care record and Outside ED record Core Measures AMI core measures followed: Yes Measure exclusions: not indicated Critical Care Time Critical Care Time Critical Care Time: No Discharge Plan Discharge Clinical Impression: Neck pain, Lumbar back pain Patient Disposition: Home, Self-Care Instructions: Low Back Strain (ED), Acute Low Back Pain (ED), Acute Neck Pain (ED) Additional Instructions: Take your medications as prescribed. If you were prescribed antibiotics today, it is important that you take your medication to their entirety, do not skip any doses, do not finish them early. Follow-up with your primary care provider this week. Return to the emergency department with new or worsening symptoms. Such as fevers, chills, chest pain, shortness of breath, nausea, vomiting, dizziness, headache, vision changes, lethargy In case of emergency call 911 XR/XR lumbar spine 2-3V IMPRESSION: 1.? Transitional anatomy. For the purposes of this report, S1 is partially lumbarized. 2.? Stable appearing scoliosis. 3.? Multilevel degenerative disc disease and marked degenerative facet joint disease. 4.? Multilevel spondylolisthesis. CT/CT cervical spine wo IV con IMPRESSION: No acute intracranial process seen. ? The findings are stable compared to CT brain 10/25/2021. ? Mild straightening of cervical lordosis with degenerative disc changes and moderate bridging osteophytes are described above. No visible acute fracture, dislocation or subluxation seen. No aggressive lytic or sclerotic process seen. ? ? Prescriptions: New lidocaine 5 % adhesive patch,medicated 1 patch topical DAILY PRN (Reason: pain) Qty: 15 0RF Rx Instructions: leave on most painful area for up to 12 hrs No Action Caltrate 600 plus D 600 mg-20 mcg (800 unit) tablet,chewable 1 tab PO BID Qty: 60 2RF gabapentin 600 mg tablet 600 mg PO BEDTIME 90 Days Qty: 90 0RF trazodone 100 mg tablet 100 mg PO BEDTIME PRN (Reason: sleep) 30 Days Qty: 30 1RF multivitamin Tablet 1 tab PO DAILY lidocaine 5 % adhesive patch,medicated 1 patch topical DAILY 30 Days Qty: 30 0RF mecobalamin (vitamin B12) 1,000 mcg tablet,disintegrating 1,000 mcg sublingual DAILY Rx Instructions: place tablet under tongue and allow to dissolve for at least30 secs before swallowing alendronate 70 mg tablet 70 mg PO QWEEK Qty: 14 3RF pyridoxine (vitamin B6) 100 mg tablet 100 mg PO DAILY Qty: 90 3RF Referrals: [facility] [Provider Group] - 2 days Gregory Gaming MD [Primary Care Provider] - 2 days
[2023-03-19] MEDS: Lidocaine 4 % Patch ADH..PATCH 2 PATCH TRANSDERMA (15:25)
[2023-03-19] MEDS: Acetaminophen 325 MG TABLET 975 MG PO (15:26)
--- NOTE | 2023-03-19 16:13 | MHC.EDTECH ---
patient ambulated to the bathroom with no difficulties
== END 2023-03-19 17:04 | disposition home or self-care (01) ==
PROVIDERS: Emergency Provider Emergency Medicine; PCP Internal Medicine
DX: M54.2 Cervicalgia (principal); M54.50 Low back pain, unspecified; R51.9 Headache, unspecified; Z79.899 Other long term (current) drug therapy
CPT/HCPCS: 70450; 72100; 72125; 99284

== ENCOUNTER → 2023-03-21 13:15 | Outpatient (BNVA) | payer MEDICARE, SELFPAY | PROVIDERS: PCP Internal Medicine; Visit Provider Nurse Practitioner Family | DX: M51.36 Other intervertebral disc degeneration, lumbar region (principal); M54.50 Low back pain, unspecified; M79.605 Pain in left leg; M48.062 Spinal stenosis, lumbar region with neurogenic claudication; M79.7 Fibromyalgia; M41.9 Scoliosis, unspecified; M53.3 Sacrococcygeal disorders, not elsewhere classified; G91.3 Post-traumatic hydrocephalus, unspecified | CPT/HCPCS: 99212 ==

== ENCOUNTER → 2023-03-22 14:11 | Outpatient (BNVA) | payer MEDICARE, SELFPAY | PROVIDERS: PCP Internal Medicine; Visit Provider Physician Assistant | DX: M48.062 Spinal stenosis, lumbar region with neurogenic claudication (principal) | CPT/HCPCS: 99202 ==

== ENCOUNTER 2023-03-26 12:41 | Outpatient (REF) | payer MEDICARE, SELFPAY ==
--- NOTE | ~2023-03-26 | CT_ITS ---
EXAMINATION: CT HEAD WITHOUT CONTRAST CLINICAL INFORMATION: Follow up hydrocephalus. COMPARISON: 03/19/2023 CT brain. TECHNIQUE: Contiguous axial imaging was performed from the skull base to vertex without intravenous administration of contrast. This CT examination was performed using dose optimization techniques as appropriate, variously including the following: *Automated exposure control *Adjustment of mA and/or kV according to patient size (this includes techniques or standardized protocols for targeted exams where dose is matched to indication/reason for exam; i.e. extremities or head) *Use of iterative reconstruction technique DLP: 751 mGy-cm FINDINGS: Followup study demonstrating no significant overall change in the appearance of the ventricular system since the previous exam. No hydrocephalus. Shunt tubes traversing the right cerebral hemisphere are unchanged in position and appearance. Previously noted bilobed cystic structure in the region of the right thalamus is again noted measuring 3.1 x 1.6 x 2.5 cm maximum dimensions similar in appearance to the previous study. Cystic lesion appears to partially involve the superior tectum and sylvian aqueduct. No intracranial hemorrhage, extra-axial fluid collection, significant space-occupying process or mass effect. Small focus of right frontal encephalomalacia near the convexity adjacent to a alfonso hole craniostomy unchanged in appearance. Small focus of cavitation anterior to the right caudate head is similar to the previous exam. No acute intracranial process. Maloney-white matter interface is preserved. Multiple right-sided alfonso hole craniostomies are unchanged in appearance. The visualized airspaces are unopacified. CT/CT head/brain wo IV con IMPRESSION: 1. No significant change in the appearance of the ventricular system since the previous exam. No hydrocephalus. 2. Stable appearance to the cystic lesion in the region of the right thalamus. 3. Small foci of encephalomalacia in the right frontal lobe and anterior to the right caudate head unchanged in appearance. 4. Multiple right-sided alfonso hole craniostomies unchanged in appearance. 5. No intracranial hemorrhage or extra-axial fluid collection.
== END 2023-03-26 12:42 | disposition home or self-care (01) ==
LOC: HO.CT 12:41
PROVIDERS: PCP Internal Medicine; Visit Provider Psychiatry & Neurology Neurology
DX: G91.9 Hydrocephalus, unspecified (principal)
CPT/HCPCS: 70450

== ENCOUNTER → 2023-04-04 13:01 | Outpatient (BNVA) | payer MEDICARE, SELFPAY | PROVIDERS: PCP Internal Medicine; Visit Provider Nurse Practitioner Family | DX: M48.062 Spinal stenosis, lumbar region with neurogenic claudication (principal); M51.36 Other intervertebral disc degeneration, lumbar region; M47.816 Spondylosis without myelopathy or radiculopathy, lumbar region; M81.0 Age-related osteoporosis without current pathological fracture; M79.7 Fibromyalgia; M41.35 Thoracogenic scoliosis, thoracolumbar region; M96.1 Postlaminectomy syndrome, not elsewhere classified; D17.79 Benign lipomatous neoplasm of other sites; C67.9 Malignant neoplasm of bladder, unspecified | CPT/HCPCS: 99212 ==

== ENCOUNTER 2023-04-12 14:11 | Outpatient (AMB) | payer MEDICARE, SELFPAY ==
--- NOTE | 2023-04-12 14:16 | MHC.PC.OV ---
Vital Signs 04/12/23 14:17 Height 5 ft 4 in Weight 175 lb BMI 30.0 BP 110/68 Blood Pressure Location Lt brachial Position Sitting Pulse 68 Pulse Source Pulse Oximeter Temp Source Skin Pulse Oximetry (%) 97 Oxygen Delivery Method Room Air Intake Visit Reasons: 4M. F/U-Back Pain/Osteoporosis/Bladder/Neuropathy Intake Note: Patient is here to follow up on 4 months Drum Puller Required: No Allergies aspartame Allergy (Severe, Verified 04/12/23 14:27) severe dehydration cyclobenzaprine [From Flexeril] Allergy (Severe, Verified 04/12/23 14:27) SOB Medication List - Last Reconciled 04/12/23 by KAYODE Eric alendronate 70 mg PO QWEEK back brace As directed calcium carbonate-vitamin D3 600 mg-20 mcg (800 unit) (Caltrate 600 plus D) 1 tab PO BID gabapentin 600 mg PO BEDTIME 90 days lidocaine 5% 1 patch topical DAILY PRN lidocaine 5% 1 patch topical DAILY 30 days mecobalamin (vitamin B12) 1,000 mcg sublingual DAILY multivitamin 1 tab PO DAILY pyridoxine (vitamin B6) 100 mg PO DAILY trazodone 100 mg PO BEDTIME PRN 30 days Tobacco use date assessed: 04/12/23 Fall risk assessment: 1 Fall in past year Last assessed Fall Risk: 04/12/23 HPI 4M. F/U-Back Pain/Osteoporosis/Bladder/Neuropathy HPI Details Patient is a 68-year-old female who presents today for a routine follow-up. Patient of Dr. Gaming. Medical history significant for scoliosis of thoracolumbar spine, fibromyalgia, chronic neck pain, obesity, osteoporosis, bladder cancer-followed by [facility], low back pain, bilateral kidney stones-followed by [facility], spinal stenosis lumbar region with neurogenic claudication-followed by [facility]. Patient reports that she will be possibly having a surgery on her lower back by Neurosurgery. Patient reports chronic numbness and tingling in her hands. She reports that low back pain radiate to bilateral lower extremity. Patient reports that she is on gabapentin 600 mg at bedtime for her pain, she also reports that she has been increasing her gabapentin by herself and she takes extra 300 mg in the morning half tablet of 600 mg tablet - reports this somewhat manages her pain better. She reports that Tylenol is not helping her at all. Patient denies shortness of breath or chest pain. No changes in bowel/bladder. She ambulates with a cane. 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 Brother No problems noted. Sister No problems noted. Son No problems noted. Daughter No problems noted. Social History Housing: Assisted Living Facility Are you a primary acute care nurse practitioner to a significant other at home: No Do you presently have visiting nurse or other home services: No Alcohol intake: never Patient Tobacco Use Status: Former Tobacco user Tobacco use type: Cigarette Second Hand Smoke Exposure: Yes service: No Current occupational status: retired and disabled Cognitive needs: Yes (cane) Hearing needs: Yes Vision needs: Yes Female Reproductive History Menstrual Age of Menarche: 15 Questionnaire Thrive Questionnaire Date Thrive assessed: 11/19/22 AUDIT C Alcohol Use Questionnaire (AUDIT-C) 1. How often do you have a drink containing alcohol?: Never 3. How often do you have six or more drinks on one occasion?: Never Total Score: 0 Score Reviewed/Action Taken: No ALEX-7 AMB Questionnaire ALEX-7 Date ALEX - 7 assessed: 11/19/22 Source: Developed by Drs. Moe Arnold, Vernell Martinez, Skyler Moyer and colleagues, with an educational kindra from [employer]. Review of Systems Const Denies body aches, Denies chills, Denies fever(s) and Denies headache(s) Eyes Denies change in vision ENT Denies dizziness, Denies otalgia, Denies headache(s), Denies nasal discharge, Denies sinus pain and Denies sore throat Card Denies chest pain, Denies edema, Denies lightheadedness and Denies dyspnea Resp Denies cough and Denies dyspnea GI Denies constipation, Denies diarrhea, Denies nausea and Denies vomiting Denies dysuria Musc Reports as per HPI, Reports back pain, Denies myalgias, Reports numbness and Reports tingling Skin/Breast Denies rash Neuro Denies dizziness, Denies headache(s), Reports numbness and Reports tingling Physical exam (Primary Care) Vital Signs: Last Vital Signs Pulse 68 04/12/23 14:17 BP 110/68 04/12/23 14:17 Pulse Ox 97 04/12/23 14:17 Oxygen Delivery Method Room Air 04/12/23 14:17 BMI result Body Mass Index 30.0 Tobacco/Smoking Status: Tobacco use Status Tobacco use date assessed 04/12/23 04/12/23 14:21 Patient Tobacco Use Status Former Tobacco user 04/12/23 14:21 Tobacco use type Cigarette 04/12/23 14:21 Thrive Assessment: Date of Thrive Assessment Date Thrive assessed 11/19/22 04/12/23 14:21 Const Other: Ambulates with a cane General: cooperative and no acute distress Orientation/consciousness: patient oriented x3 HENMT Head: Yes normocephalic and Yes atraumatic Face and sinus: Yes sinuses nontender Mouth: oropharynx normal and moist mucous membranes Throat: Yes posterior oropharynx normal Eyes General: appearance normal, both eyes and all related structures Pupils: Equal, round and reactive pupils present Neck Neck: Yes normal visual inspection and Yes full ROM Resp Effort & Inspection: normal respiratory effort and able to speak in complete sentences Auscultation: clear to auscultation bilaterally, no crackles, no rales, no rhonchi and no wheezes Cardio Rate: regular rate Rhythm: regular rhythm Heart sounds: S1 normal heart sound present and S2 normal heart sound present GI Palpation (GI): Soft to palpation, not firm, nontender, no guarding and not rigid Auscultation: normal bowel sounds General: No CVA tenderness Back/Spine/Pelvis Back: No CVA tenderness Thoracic/Lumbar Spine: pain with thoraco-lumbar ROM, paraspinal muscle tenderness (Bilateral lumbar aspect), No thoracic spinal tenderness and No lumbar spinal tenderness Skin General skin exam: no rashes or lesions noted Neuro General: patient oriented x3 Cranial nerves: Yes Equal, round and reactive pupils present Gait exam (Neuro): Normal gait present Extrem General: Yes full ROM and No edema Assessment and Plan Assessment & Plan (1) Spinal stenosis, lumbar region with neurogenic claudication: Code(s): M48.062 - Spinal stenosis, lumbar region with neurogenic claudication Plan: Continue to follow-up with [facility] Patient is to continue gabapentin 600 mg at bedtime, also will provide patient with gabapentin 300 mg in the in morning for better management of back pain Continue lidocaine patch daily as needed (2) Bilateral kidney stones: Code(s): N20.0 - Calculus of kidney Plan: Continue to follow-up with [facility] as scheduled (3) Hydrocephalus: Code(s): G91.9 - Hydrocephalus, unspecified Qualifiers: Hydrocephalus type: post-traumatic Qualified Code(s): G91.3 - Post-traumatic hydrocephalus, unspecified Plan: Continue to follow-up with neurology Dr. Melendrez, status post AV shunt (4) Bladder cancer: Comment: TURBT 12/26 high-grade superficial bladder cancer; started immunotherapy induction 6 weeks in 12/2021; immunotherapy boost in 03/2022 Code(s): C67.9 - Malignant neoplasm of bladder, unspecified Qualifiers: Bladder location: lateral wall Qualified Code(s): C67.2 - Malignant neoplasm of lateral wall of bladder Plan: Continue to follow-up with [facility] as scheduled (5) Osteoporosis: Code(s): M81.0 - Age-related osteoporosis without current pathological fracture Plan: Patient is on alendronate weekly which is prescribed by gynecology, also she is on calcium and vitamin-D (6) Fibromyalgia: Code(s): M79.7 - Fibromyalgia Plan: Patient is to continue gabapentin 600 mg at bedtime, also will provide patient with gabapentin 300 mg in the in morning for better management of back pain (7) Insomnia: Code(s): G47.00 - Insomnia, unspecified Plan: Reinforced sleep hygiene Continue trazodone 100 mg at bedtime as needed Plan Follow-up with PCP in 4 months or sooner as needed Medications: New gabapentin 300 mg PO DAILY 30 caps 0RF M51.36 - Other intervertebral disc degeneration, lumbar region, M79.7 - Fibromyalgia Refilled trazodone 100 mg PO BEDTIME 30 days PRN 30 tabs 1RF sleep Coding Level of Care Code Est Pt Level 4 (14597) Diagnoses Spinal stenosis, lumbar region with neurogenic claudication M48.062 Bilateral kidney stones N20.0 Hydrocephalus G91.3 Hydrocephalus type: post-traumatic Bladder cancer C67.2 Bladder location: lateral wall Osteoporosis M81.0 Fibromyalgia M79.7 Insomnia G47.00
[2023-04-12 14:17] VITALS: BP 110/68; PULSE 68; O2SAT 97
== END 2023-04-12 14:43 | disposition home or self-care (01) ==
PROVIDERS: PCP Internal Medicine; Visit Provider Nurse Practitioner Family
DX: M48.062 Spinal stenosis, lumbar region with neurogenic claudication (principal); N20.0 Calculus of kidney; G91.3 Post-traumatic hydrocephalus, unspecified; C67.2 Malignant neoplasm of lateral wall of bladder; M81.0 Age-related osteoporosis without current pathological fracture; M79.7 Fibromyalgia; G47.00 Insomnia, unspecified
CPT/HCPCS: 99214

== ENCOUNTER 2023-05-01 12:46 | Outpatient (AMB) | payer MEDICARE, SELFPAY ==
--- NOTE | 2023-05-01 13:24 | A.SPINEOV_ITS ---
Intake Intake Visit Reasons: follow up to discuss sx Intake Note: Ms. Lyman is here today to discuss surgery. MRI done @ [facility] [place]. Wire Spiral Binder Required: No Allergies aspartame Allergy (Severe, Verified 04/12/23 14:27) severe dehydration cyclobenzaprine [From Flexeril] Allergy (Severe, Verified 04/12/23 14:27) SOB Assessment & Plan Assessment & Plan (1) Spinal stenosis, lumbar region with neurogenic claudication: Code(s): M48.062 - Spinal stenosis, lumbar region with neurogenic claudication (2) Scoliosis of thoracolumbar spine: Code(s): M41.9 - Scoliosis, unspecified Qualifiers: Scoliosis type: unspecified scoliosis Qualified Code(s): M41.9 - Scoliosis, unspecified Plan Dear colleague, On May 01, 2023, I saw for a preoperative evaluation Sudha Lyman. She was previously seen by beck Barajas and complaining of severe right-sided back pain. Imaging reviewed a lumbar degenerative scoliosis. She is treated for osteopenia/osteoporosis. She comes in today to discuss surgery. Looking at her x-ray, I think a minimally invasive correction of the scoliosis is possible as far as her bone quality concerns. Preferably, I would do an three-level oblique lateral lumbar interbody fusion to correct scoliosis. 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 She will call my office with the result. I spent 20 minutes in this consult to describe the surgery and explained possible complications, including hardware failure. Do not hesitate to call me with any questions or concerns. Darrion yS MD, PhD Spine Fellowship Trained Neurosurgeon Director, [facility] Coding Level of Care Code Est Pt Level 2 (71380) Diagnoses Spinal stenosis, lumbar region with neurogenic claudication M48.062 Scoliosis of thoracolumbar spine M41.9 Scoliosis type: unspecified scoliosis
== END 2023-05-01 13:41 | disposition home or self-care (01) ==
PROVIDERS: PCP Internal Medicine; Visit Provider Neurological Surgery
DX: M48.062 Spinal stenosis, lumbar region with neurogenic claudication (principal); M41.9 Scoliosis, unspecified
CPT/HCPCS: 99212

== ENCOUNTER → 2023-05-01 12:46 | Outpatient (BNVA) | payer MEDICARE, SELFPAY | PROVIDERS: PCP Internal Medicine; Visit Provider Neurological Surgery | DX: M48.062 Spinal stenosis, lumbar region with neurogenic claudication (principal); M41.9 Scoliosis, unspecified | CPT/HCPCS: 99212 ==

== ENCOUNTER 2023-05-06 15:14 | Outpatient (AMB) | payer MEDICARE, SELFPAY ==
--- NOTE | 2023-05-06 15:16 | MHC.OFFVIS ---
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 No complaints. Last Pap/HPV? 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 q.d. was calcium/vitamin 1200 mg/600 international inuits PFS Medical History Arthritis Back pain Traylor's palsy Bladder cancer Chronic neck pain Fibromyalgia GERD without esophagitis History of traumatic head injury Hx of spinal stenosis Hydrocephalus Hydrocephalus in adult Nephrolithiasis Neuropathy Obesity (BMI 30-39.9) Peptic ulcer Scoliosis of thoracolumbar spine Surgical History H/O colonoscopy History of adenoidectomy History of cervical spinal surgery Hx of cholecystectomy Hx of excision of lamina of cervical vertebra for decompression of spinal cord Hx of gastric bypass Hx of lithotripsy Hx of tubal ligation 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 Brother No problems noted. Sister No problems noted. Son No problems noted. Daughter No problems noted. Social History Housing: Assisted Living Facility Are you a primary primary care sales representative to a significant other at home: No Do you presently have visiting nurse or other home services: No Alcohol intake: never Patient Tobacco Use Status: Former Tobacco user Tobacco use type: Cigarette Second Hand Smoke Exposure: Yes service: No Current occupational status: retired and disabled Cognitive needs: Yes (cane) Hearing needs: Yes Vision needs: Yes Female Reproductive History Menstrual Age of Menarche: 15 control method: permanent sterilization Permanent Sterilization: BTL Total pregnancies: 3 Full term: 2 Number of Living Children: 2 Ab induced: 1 Date of Mammogram: 06/15/22 Review of Systems Const All systems reviewed & are unremarkable except as noted in HPI and below Card Reports as per HPI Resp Reports as per HPI GI Reports as per HPI and Reports no additional complaints Reports as per HPI Physical Exam Vital Signs: Last Vital Signs BP 102/60 05/06/23 15:23 BMI result Body Mass Index 30.6 Const General: cooperative, healthy appearing and comfortable Chest Chest palpation & inspection: normal inspection of the chest and normal palpation of entire chest wall Breast/axilla inspection: normal inspection of the breasts and normal inspection of the axillae Breast/axilla palpation: normal palpation of the breasts, normal palpation of the axillae and no axillary lymphadenopathy Resp Effort & Inspection: normal respiratory effort Auscultation: clear to auscultation bilaterally Percussion: percussion normal Cardio Palpation: normal PMI Rate: regular rate Rhythm: regular rhythm Heart sounds: no murmurs and no rubs Peripheral pulses: Peripheral pulses 2+ throughout GI Inspection: Yes normal to inspection Palpation (GI): Soft to palpation, nontender, no guarding, not rigid and No hepatosplenomegaly present Percussion: Yes normal to percussion Auscultation: normal bowel sounds Rectal Exam - Female: deferred General: Yes bladder normal to palpation External Female Exam: No lesion Speculum Exam - Vagina: normal appearance of the vagina, normal palpation, normal vaginal discharge and not erythematous Speculum Exam - Cervix: normal appearance of the cervix and normal palpation Bimanual exam- vagina & uterus: normal bimanual exam, normal palpation, uterine size normal, bladder normal to palpation, consistency normal and normal palpation Bimanual Exam- Adnexa, other: normal adnexae, no masses and no tenderness Assessment & Plan Assessment & Plan (1) Well woman exam: Code(s): Z01.419 - Encounter for gynecological examination (general) (routine) without abnormal findings Plan: Co testing done since that is not a recent core testing results available. Counseled the patient about the recommended dietary allowance of 1200 mg of Calcium & 800 IU of vitamin D, recommend to stay on alendronate 70 mg p.o. q.week. Mammogram ordered, referred her for screening colonoscopy done. Will order DEXA scan next year . The patient was instructed to perform monthly self-breast exams and to schedule an annual exam in a year; all questions answered and the patient verbalized understanding. Orders: Referrals Gastroenterology Referral Z12.11 - Encounter for screening for malignant neoplasm of colon Coding Level of Care Code Est Pt Prev Care >65y(62913) Diagnoses Well woman exam Z01.419
[2023-05-06 15:23] VITALS: BP 102/60; BMI 30.6
== END 2023-05-06 15:52 | disposition home or self-care (01) ==
LOC: HO.HWS 15:14
PROVIDERS: PCP Internal Medicine; Visit Provider Obstetrics & Gynecology
DX: Z01.419 Encounter for gynecological examination (general) (routine) without abnormal findings (principal)
CPT/HCPCS: 99397

== ENCOUNTER 2023-05-06 15:14 | Outpatient (REF) | payer MEDICARE, SELFPAY ==
[2023-05-14 06:34] LABS: HPV mRNA E6/E7 rflx Not Detected (Not Detected)
== END 2023-05-06 15:15 | disposition home or self-care (01) ==
LOC: HO.LNP 15:14
PROVIDERS: Advanced Practice Midwife; PCP Internal Medicine; Visit Provider Obstetrics & Gynecology
DX: Z01.419 Encounter for gynecological examination (general) (routine) without abnormal findings (principal); Z11.51 Encounter for screening for human papillomavirus (HPV)
CPT/HCPCS: 87624; 88142

== ENCOUNTER 2023-05-31 12:37 | Outpatient (AMB) | payer MEDICARE, SELFPAY ==
--- NOTE | 2023-05-31 12:33 | A.OFFVIS_ITS ---
Intake Intake Visit Reasons: 3 month cysto/H&P Intake Note: Patient presents today for a CYSTOSCOPY Procedure: Meds: Vitamin B6 Allergies to Antibiotic: No Known Allergies Blood Thinner: None Urinalysis test clear for Cysto Disposible Uro-G Cystoscope Cannula: Lot: [id number] Exp: 02/08/2025 Special Delivery Clerk Required: No Accompanied by: Significant Other Allergies aspartame Allergy (Severe, Verified 05/31/23 12:44) severe dehydration cyclobenzaprine [From Flexeril] Allergy (Severe, Verified 05/31/23 12:44) SOB nickel Adverse Reaction (Verified 06/12/23 06:50) Blister HPI HPI Comments History of Present Illness Details Sudha is a 68-year-old female who presents today to the office for a cystoscopy procedure. 05/31/2023? Sudha is followed for history of bladder cancer and presents today for cyst oscopy. She was last seen by me on 02/27/2023 for bilateral kidney stones. She was advised to continue vitamin B6 100 mg daily at that time. Left ESWL was discussed to be scheduled, and was advised to follow-up after 3 months for surveillance Cystoscopy at that time. She has a history of bladder cancer. She is a status post Cystoscopy/TURBT done on 12/25/2021. She is not taking any medications for bladder control. She states that she was diagnosed with bladder infection when she was a kid. She denies any hematuria. I needed to catheterize to obtain urine, as she was not able to collect urine specimen when she voided. Cystoscopy procedure: Consent was obtained to perform cystoscopy procedure. Office cystoscopy was performed today. The patient was provided naproxen 500 mg, 2 % lidocaine jelly, and Macrobid 100 mg x 1 dose pre-procedure today. Cystoscopy findings: within normal limits; no suspicious bladder lesions were visualized. Review of charts: Last visit: 02/27/2023? PMH - normal pressure hydrocephalus, prior shunt followed by neurologist. h/o Kidney stones. She is seen for h/o bladder cancer, s/p cysto/TURBT 12/25/2021; path: superficial high grade urothelial carcinoma, no muscularis propria identified. Last outpatient cystoscopy fulguration was with Dr. Kyle 08/06/2022, I reviewed operative note, gemcitabine was administered. The patient has right kidney stone about 4 mm and left kidney stone about 5 mm. Denies taking aspirin or any blood thinners. Evaluation today-- blood: negative, leukocytes: 15 Christina/uL. Consent to perform cystoscopy procedure was obtained. Cystoscopy findings-- Mild trabeculations. No suspicious bladder lesion visualized.? --------LV--01/03/2023--Sudha is a 67-year -old female who presents to the clinic for discussion of KUB and renal US results ordered for kidney stones. ?-----Office visit?11/22/2022-- here for surveillance office cystoscopy.? Findings:? no recurrent bladder lesions visualized. Previous Interventions: 12/25/21? cysto-TURBT high-grade T1, 08/06/22 bladder? fulguration with gemci tabine Immunotherapy Bladder instillations- 12/2021 induction 6 weeks; - Boost 03/2022. Renal US results reviewed?12/14/2022-- Bilateral nonobstructing nephrolithiasis. Right kidney: largest stone is of 4 mm, Left kidney: largest stone is of 5 mm. Kidneys: WNL. 05/31/2023: Plan: CAT scan of the abdomen/pelvis stone protocol prior was ordered. Will try her on Myrbetriq 25 mg daily. Cont vit b 6 Follow up office Cystoscopy in 4 months. [facility] Medical History (Updated 06/12/23 @ 09:17 by Jamie Garcia MD) Sleep apnea Abscess Bladder cancer Obesity (BMI 30-39.9) Traylor's palsy Neuropathy GERD without esophagitis Chronic neck pain Scoliosis of thoracolumbar spine Arthritis Back pain Hx of spinal stenosis Peptic ulcer Fibromyalgia Hydrocephalus in adult History of traumatic head injury Nephrolithiasis Surgical History (Updated 06/07/23 @ 13:54 by Viji Kent RN) Hx of cystoscopy History of cervical spinal surgery History of adenoidectomy Hx of lithotripsy Hx of tubal ligation Hx of excision of lamina of cervical vertebra for decompression of spinal cord Hx of cholecystectomy H/O colonoscopy Hx of gastric bypass 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 Brother No problems noted. Sister No problems noted. Son No problems noted. Daughter No problems noted. Social History Housing: Assisted Living Facility Are you a primary care analyst to a significant other at home: No Do you presently have visiting nurse or other home services: No Alcohol intake: never Patient Tobacco Use Status: Former Tobacco user Tobacco use type: Cigarette Second Hand Smoke Exposure: Yes Advance Directives Date on File: 06/04/23 service: No Current occupational status: retired and disabled Cognitive needs: Yes (cane) Hearing needs: Yes Vision needs: Yes Female Reproductive History Menstrual Age of Menarche: 15 Office Procedures Bladder/Catheter Procedure Details: Under sterile technique a 14 [place] catheter was passed transurethrally, 25 mL urine drained [id number] Bladder Catheter Procedure code (CPT) selection complete Results AMB Urinalysis, Automated UA Leukoctes 0 Christina/uL Last Edit by Fannie Lema CMA on 05/31/23 13:20 UA Nitrite Negative Last Edit by Fannie Lema CMA on 05/31/23 13:20 UA Urobilinogen 0.2 mg/dL Last Edit by Fannie Lema CMA on 05/31/23 13:2 0 UA Protein 0 mg/dL Last Edit by Fannie Lema CMA on 05/31/23 13:20 UA pH 6.0 Last Edit by Fannie Lema CMA on 05/31/23 13:20 UA Blood 0 Daron/uL Last Edit by Fannie Lema CMA on 05/31/23 13:20 UA Specific [place] 1.010 Last Edit by Fanine Lema CMA on 05/31/23 13: 20 UA Ketone Negative Last Edit by Fannie Lema CMA on 05/31/23 13:20 UA Bilirubin 0 mg/dL Last Edit by Fannie Lema, RACHEL on 05/31/23 13:20 UA Glucose 0 mg/dL Last Edit by Fannie Lema, RACHEL on 05/31/23 13:20 Results Reviewed Results Reviewed: Laboratory Last Values Urine pH (Auto) 6.0 05/31/23 12:45 Specific [place] (Auto) 1.010 05/31/23 12:45 Urine Protein (Auto) 0 mg/dL 05/31/23 12:45 Glucose (UA)(Auto) 0 mg/dL 05/31/23 12:45 Urine Ketones (Auto) Negative 05/31/23 12:45 Urine Blood (Auto) 0 Daron/uL 05/31/23 12:45 Urine Nitrite (Auto) Negative 05/31/23 12:45 Urine Bilirubin (Auto) 0 mg/dL 05/31/23 12:45 Urine Urobilinogen (Auto) 0.2 mg/dL 05/31/23 12:45 Leukocyte Esterase (Auto) 0 Christina/uL 05/31/23 12:45 Assessment & Plan Assessment & Plan (1) Bilateral kidney stones: Code(s): N20.0 - Calculus of kidney (2) Bladder cancer: Code(s): C67.9 - Malignant neoplasm of bladder, unspecified (3) Urge incontinence of urine: Code(s): N39.41 - Urge incontinence (4) Personal history of bladder cancer: Code(s): Z85.51 - Personal history of malignant neoplasm of bladder Plan CAT scan of the abdomen/pelvis stone protocol prior was ordered. Will try her on Myrbetriq 25 mg daily. Cont Vit b6 Follow up office Cystoscopy in 4 months. Orders: Orders AMB Bladder/Catheter Procedure 05/31/23 R39.15 - Urgency of urination, Z85.51 - Personal history of malignant neoplasm of bladder Urine Cytology 05/31/23 N39.41 - Urge incontinence, Z85.51 - Personal history of malignant neoplasm of bladder AMB Urinalysis Automated 05/31/23 Z13.9 - Encounter for screening, unspecified Medications: New mirabegron ER (Myrbetriq) 25 mg PO DAILY 90 tabs 1RF Patient Instructions: The patient had an opportunity to ask questions regarding treatment plan. All questions were answered. Imaging, Laboratory studies and physical exam results were discussed and reviewed in detail. No major barriers to understanding were identified. The patient expressed understanding and agreement with the above treatment plan.? ? ? The patient is aware they should contact our office by phone for worsening of their current condition or the appearance of new symptoms. Compliance is encouraged with any medications and followup testing that is ordered.? ? ? It is a privilege to be allowed the opportunity to participate in the urologic care of your patient. If you have any questions or concerns regarding treatment for the above conditions please do not hesitate to contact me. The office telephone contact is [phone].? ? ? This note is constructed in part using voice recognition software. While every effort has been made to ensure accuracy computational biologist errors may have been included.? ? ? Yours sincerely,? ? ? Jamie Garcia MD? Coding Level of Care Code Est Pt Level 3 (71377) Diagnoses Bilateral kidney stones N20.0 Bladder cancer C67.9 Urge incontinence of urine N39.41 Personal history of bladder cancer Z85.51 CPT Codes Cystoscopy - CPT: 40205-Jphrmazdwa ([id number]) Bladder/Catheter Procedure - CPT: 02265-Wqrtuv Bladder Catheter ([id number]) Cystoscopy Consent Discussed risk and benefit or proposed procedure with the patient. Information consent for procedure given to the patient. Discussed technical aspects, risks, benefits and alternatives in full. Addressed all of the patient's questions and concerns regarding the procedure. The patient demonstrated knowledge and understanding. They wish to proceed with this procedure. Preparation The patient was prepped in the usual manner. A market research assistant was present and in the room. Genitalia was prepped with betadine solution in a sterile manner. Lidocaine Jelly 2% was placed into the urethra and 16Fr flexible Olympus cystoscope was inserted into the meatus after adequate lubrication. Procedure Time out per protocol performed. Bladder Inspection Bladder Inspection: The bladder was inspected in its entirety with utilization retroflexion displaying: Tumor(s): none visualized Trabeculation: N/A Mucosal Erthema: N/A Orifices: normal shape and position Urethra: normal Cystoscopy findings: WNL, no suspicious bladder lesions visualized [id number] DISPOSABLE SCOPE URO-G FLEXIBLE SCOPE Procedure code (CPT) selection complete
== END 2023-05-31 13:39 | disposition home or self-care (01) ==
PROVIDERS: PCP Internal Medicine; Visit Provider Urology
DX: N39.41 Urge incontinence (principal); N20.0 Calculus of kidney; Z85.51 Personal history of malignant neoplasm of bladder
CPT/HCPCS: 52000; 99213

== ENCOUNTER 2023-05-31 12:37 | Outpatient (REF) | payer MEDICARE, SELFPAY ==
[2023-05-31 16:28] LABS: Urine Cytology See Pathology rpt
== END 2023-05-31 12:38 | disposition home or self-care (01) ==
LOC: HO.LAB 12:37
PROVIDERS: Visit Provider Urology
DX: N39.41 Urge incontinence (principal); N20.0 Calculus of kidney; C67.9 Malignant neoplasm of bladder, unspecified; Z85.51 Personal history of malignant neoplasm of bladder
CPT/HCPCS: 52000; 81003; 88112; 99212

== ENCOUNTER 2023-06-04 10:10 | Emergency (ER) | payer MEDICARE, SELFPAY ==
--- NOTE | ~2023-06-04 | XR_ITS ---
EXAMINATION: XR KNEE, LEFT CLINICAL INFORMATION: Left knee pain. COMPARISON: None available. TECHNIQUE: 4 views of the left knee. FINDINGS: Mild medial compartment joint space narrowing. Small tricompartmental marginal osteophytes. No osseous erosion. No fracture or dislocation. No significant joint effusion. No abnormal soft tissue calcification. XR/XR knee LT 4V IMPRESSION: Mild tricompartmental osteoarthritis.
[2023-06-04 10:20] VITALS: BP 113/63; PULSE 67; RESP 16; TEMP 37.3; O2SAT 99; BMI 30.1
--- NOTE | 2023-06-04 12:24 | ED.LOWEXIN ---
HPI - Extremity Injury (Lower) General Chief Complaint: Extremity Injury, Lower Stated Complaint: L knee pain Time Seen by Provider: 06/04/23 11:26 Source: patient and RN notes reviewed Mode of arrival: ambulatory Limitations: no limitations History of Present Illness HPI Narrative: This is a 68-year-old female, with a past medical history of chronic neck pain, fibromyalgia, scoliosis, arthritis, spinal stenosis presenting to the emergency department with complaints of left knee pain since yesterday. Patient denies any recent trauma injury or falls. She states that while she has ambulating her left knee feels like it is going to give out on her. She reports that she is not feeling safe at home given her unsteadiness on her feet. She denies history of left knee pain. Of note, patient has had left-sided weakness since 2006 and often times her left leg gives out her medical records. Patient denies any fevers, chills, headaches, dizziness, lightheadedness, numbness or tingling, fevers, chills, chest pain, shortness breath, palpitations, abdominal pain, nausea vomiting or diarrhea. She has chronic back inner also unchanged. No other complaints or concerns at this time. Onset (ago): day(s) Place: home Severity: moderate Relieving factors: nothing Exacerbating factors: weight bearing and movement Associated symptoms: able to partially bear weight Other symptoms: none Related Data Home Medications Medication Instructions Recorded Confirmed multivitamin 1 tab PO DAILY 10/25/21 04/12/23 mecobalamin (vitamin B12) 1,000 1,000 mcg sublingual DAILY 02/27/23 04/12/23 mcg disintegrating tablet,sublingual Previous Rx's Medication Instructions Recorded calcium carbonate 600 mg-vitamin 1 tab PO BID #60 tabs 11/03/21 D3 20 mcg (800 unit) chewable tablet (Caltrate 600 plus D) alendronate 70 mg tablet 70 mg PO QWEEK #14 tabs 07/11/22 lidocaine 5 % topical patch 1 patch topical DAILY pain 30 days 12/24/22 #30 ea pyridoxine (vitamin B6) 100 mg 100 mg PO DAILY #90 tabs 01/03/23 tablet lidocaine 5 % topical patch 1 patch topical DAILY PRN pain #15 03/19/23 ea back brace #1 ea 03/21/23 trazodone 100 mg tablet 100 mg PO BEDTIME PRN sleep 30 04/30/23 days #30 tabs gabapentin 300 mg capsule 300 mg PO TID 30 days #90 caps 05/06/23 gabapentin 600 mg tablet 600 mg PO BEDTIME back pain 90 05/06/23 days #90 tabs mirabegron 25 mg tablet,extended 25 mg PO DAILY #90 tabs 05/31/23 release 24 hr (Myrbetriq) Allergies Allergy/AdvReac Type Severity Reaction Status Date / Time aspartame Allergy Severe severe Verified 05/31/23 12:44 dehydration cyclobenzaprine Allergy Severe SOB Verified 05/31/23 12:44 [From Flexeril] Review of Systems Review of Systems: Yes all other systems are reviewed and are negative Constitutional: Constitutional: Reports as per [facility] Past Medical History Medical History Arthritis Back pain Traylor's palsy Bladder cancer Chronic neck pain Fibromyalgia GERD without esophagitis History of traumatic head injury Hx of spinal stenosis Hydrocephalus Hydrocephalus in adult Nephrolithiasis Neuropathy Obesity (BMI 30-39.9) Peptic ulcer Scoliosis of thoracolumbar spine Surgical History H/O colonoscopy History of adenoidectomy History of cervical spinal surgery Hx of cholecystectomy Hx of excision of lamina of cervical vertebra for decompression of spinal cord Hx of gastric bypass Hx of lithotripsy Hx of tubal ligation 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 Brother No problems noted. Sister No problems noted. Son No problems noted. Daughter No problems noted. Social History Social History Housing: Assisted Living Facility Are you a primary reproductive healthcare assistant to a significant other at home: No Do you presently have visiting nurse or other home services: No Alcohol intake: never Patient Tobacco Use Status: Former Tobacco user Tobacco use type: Cigarette Second Hand Smoke Exposure: Yes Advance Directives: No Advance Directives Information Provided: Yes service: No Current occupational status: retired and disabled Cognitive needs: Yes (cane) Hearing needs: Yes Vision needs: Yes Physical Exam Vital Signs: Vital Signs: Last Vital Signs Temp 99.1 F 06/04/23 10:20 Pulse 67 06/04/23 13:11 Resp 16 06/04/23 10:20 BP 113/63 06/04/23 13:11 Pulse Ox 99 06/04/23 13:11 O2 Del Method Room Air 06/04/23 10:20 BMI result Body Mass Index 30.1 Const: General: cooperative, comfortable and no acute distress Orientation/consciousness: patient oriented x3 Limitations: no limitations HEENT: Head: Yes normal to inspection, Yes normocephalic and Yes atraumatic Ears: hearing grossly normal bilaterally General nose exam: Normal external nose present Face and sinus: Yes normal facial exam Mouth: Normal oral and palatal mucosa present, oropharynx normal and moist mucous membranes Throat: Yes posterior oropharynx normal Eyes: General: appearance normal, both eyes and all related structures Eyelids: Yes eyelids normal Conjunctivae: conjunctivae normal Sclerae: sclerae normal Pupils: Equal, round and reactive pupils present EOM: EOMs intact bilaterally Neck: Neck: Yes normal visual inspection, Yes full ROM and Yes no lymphadenopathy Lymphatic: no lymphadenopathy noted Chest: Chest palpation & inspection: normal inspection of the chest Resp: Effort & Inspection: normal respiratory effort and able to speak in complete sentences Auscultation: clear to auscultation bilaterally, no crackles, no rales, no rhonchi and no wheezes Cardio: Rate: regular rate Rhythm: regular rhythm Heart sounds: S1 normal heart sound present and S2 normal heart sound present GI: Inspection: Yes normal to inspection Skin: General skin exam: no rashes or lesions noted Trauma: no lacerations or abrasions Wounds: no wounds Neuro: General: patient oriented x3 and moves all extremities Cranial nerves: Yes Equal, round and reactive pupils present Extrem: Other: Left knee without any tenderness palpation throughout entire knee joint. No calf pain or swelling. Tenderness to palpation with varus and valgus strain. Negative anterior drawer test. No crepitus or overlying erythema or edema noted. General: Yes normal to inspection Right upper extremity: normal to inspection Left upper extremity: normal to inspection Right lower extremity: normal to inspection Left lower extremity: normal to inspection Course Reevaluation(s) Reevaluation #1: X-ray reveals mild tri compartmental osteoarthritis. There is no fractures noted. Patient was seen and evaluated by Physical therapy and recommends at home physical therapy. This was arranged with the assistance of Case Management. Discussed today's visit with patient and at bedside. Answered all questions. Patient understands and agrees with plan. I also gave her a referral to Orthopedics for follow-up. Given return precautions if any new or worsening symptoms occur. Patient understands and agrees with plan. Patient stable for discharge. Time: 13:47 Medical Decision Making Medical Decision Making MDM Narrative: This is a 68-year-old female presenting to the emergency department with complaints of left knee pain since yesterday. No trauma or injury. Reports that she is feeling very unstable and feels as though her knees going to give out on her. She is feeling unsafe at home given the symptoms. On arrival, all vital signs within normal limits. Patient has full range of motion of the knee, mild tenderness with varus and valgus strain. Differential diagnosis these include septic arthritis-unlikely given full range of motion, osteoarthritis, knee strain, ligamentous injury. Plan: Left knee x-ray, patient requesting physical therapy evaluation given unsteadiness on her feet. Differential Diagnosis Differential Diagnoses: The differential diagnosis associated with the presentation includes See above Independent Interpretation I performed an independent interpretation of an: Plain X-Ray Interpretation: EXAMINATION: XR KNEE, LEFT CLINICAL INFORMATION: Left knee pain.? COMPARISON: None available.? TECHNIQUE: 4 views of the left knee. FINDINGS: Mild medial compartment joint space narrowing. Small tricompartmental marginal osteophytes. No osseous erosion. No fracture or dislocation. No significant joint effusion. No abnormal soft tissue calcification.? XR/XR knee LT 4V IMPRESSION: Mild tricompartmental osteoarthritis. Dictated By: Perez Davies MD Discharge Plan Discharge Clinical Impression: Arthritis of knee, left Patient Disposition: Home, Self-Care Instructions: Osteoarthritis (ED) Additional Instructions: Your left knee x-ray shows arthritis. Please follow-up with case management and physical therapy as advised today. You may rest, use ice, or heat, gentle range of motion may also help with your symptoms. Tylenol can help with pain if you have any pain. If any new or worsening symptoms occur please return for re-evaluation. You may follow-up with Orthopedics, I am leaving your referral. You have to call to make an appointment. Prescriptions: No Action Caltrate 600 plus D 600 mg-20 mcg (800 unit) tablet,chewable 1 tab PO BID Qty: 60 2RF trazodone 100 mg tablet 100 mg PO BEDTIME PRN (Reason: sleep) 30 Days Qty: 30 1RF gabapentin 600 mg tablet 600 mg PO BEDTIME 90 Days Qty: 90 0RF gabapentin 300 mg capsule 300 mg PO TID 30 Days Qty: 90 0RF multivitamin Tablet 1 tab PO DAILY lidocaine 5 % adhesive patch,medicated 1 patch topical DAILY PRN (Reason: pain) Qty: 15 0RF Rx Instructions: leave on most painful area for up to 12 hrs lidocaine 5 % adhesive patch,medicated 1 patch topical DAILY 30 Days Qty: 30 0RF mecobalamin (vitamin B12) 1,000 mcg tablet,disintegrating 1,000 mcg sublingual DAILY Rx Instructions: place tablet under tongue and allow to dissolve for at least30 secs before swallowing alendronate 70 mg tablet 70 mg PO QWEEK Qty: 14 3RF pyridoxine (vitamin B6) 100 mg tablet 100 mg PO DAILY Qty: 90 3RF Myrbetriq 25 mg tablet extended release 24 hr 25 mg PO DAILY Qty: 90 1RF (DME) back brace Misc See Rx Instructions .Route Qty: 1 0RF Rx Instructions: As directed Referrals: [facility] [place] [facility] [Provider Group]
[2023-06-04 13:11] VITALS: BP 113/63; PULSE 67; O2SAT 99
--- NOTE | 2023-06-04 13:40 | PC.NURSE ---
aox4. wheelchair-standby pivot assist x1 well. l knee pain. no other sx noted at this time. pt saw PT. no distress. +CSM
--- NOTE | 2023-06-04 13:54 | MHC.CM.ED ---
Recevied case management consult from [facility]. Patient came to the ER with knee pain. Work up essentially negative. Physical therapy eval completed. Home therapy is recommended. Met with patient in regards to discharge planning. Patient lives with her , Amadeo, ambulates with a cane and had no services prior to coming to the hospital. PCP verified. HCP completed, signed and witnessed. Original given to patient. Copy placed in chart. Original given to patient. Patient agreeable to referral to [facility]. Referral made via [facility]. [facility] will transport patient home. Lia SHORT aware. Continue to monitor for d/c needs.
== END 2023-06-04 13:58 | disposition home or self-care (01) ==
PROVIDERS: Emergency Provider Student in an Organized Health Care Education/Training Program; PCP Internal Medicine
DX: M17.12 Unilateral primary osteoarthritis, left knee (principal); R26.81 Unsteadiness on feet
CPT/HCPCS: 73564; 97161; 99284

== ENCOUNTER 2023-06-12 06:32 | Day surgery (SDC) | payer MEDICARE, SELFPAY ==
[2023-06-07 14:00] VITALS: BMI 30.6
--- NOTE | 2023-06-11 09:08 | HO.ANESPROP2 ---
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1997 [facility] Active Problems Active Problems: All Active Problems (Updated 06/07/23 @ 13:48 by Viji Kent, RN) Adrenal gland cyst (Acute) Syncope (Acute) Bladder cancer (Acute) Suppurative hidradenitis (Acute) Perineal abscess (Acute) Pruritus (Acute) Well woman exam (Acute) Menopause (Acute) Osteoporosis (Acute) Preoperative examination (Acute) Low back pain (Acute) Hydrocephalus (Acute) Lumbar spondylosis (Acute) Low back pain radiating to left lower extremity (Acute) Sacroiliac joint pain (Acute) Bilateral kidney stones (Acute) Lumbar degenerative disc disease (Acute) Spinal stenosis, lumbar region with neurogenic claudication (Acute) Cerumen impaction (Acute) Epidural lipomatosis (Acute) Insomnia (Acute) Well woman exam (Acute) Urgency of urination (Acute) Personal history of bladder cancer (Acute) Urge incontinence of urine (Acute) Bladder cancer (Acute) Obesity (BMI 30-39.9) (Acute) Chronic neck pain (Acute) Fibromyalgia (Acute) Scoliosis of thoracolumbar spine (Acute) Past Medical History Medical History (Updated 06/12/23 @ 06:54 by Brianna Ireland RN) Abscess Arthritis Back pain Traylor's palsy Bladder cancer Chronic neck pain Fibromyalgia GERD without esophagitis History of traumatic head injury Hx of spinal stenosis Hydrocephalus in adult Nephrolithiasis Neuropathy Obesity (BMI 30-39.9) Peptic ulcer Scoliosis of thoracolumbar spine Sleep apnea Family History Family History Father Cancer Mother Stroke Brother No problems noted. Brother No problems noted. Sister No problems noted. Son No problems noted. Daughter No problems noted. 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 History of Problems with Anesthesia: No Social History Social History Housing: Assisted Living Facility Are you a primary child care centre manager to a significant other at home: No Do you presently have visiting nurse or other home services: No Alcohol intake: never Patient Tobacco Use Status: Former Tobacco user Tobacco use type: Cigarette Second Hand Smoke Exposure: Yes Use of substances other than those prescribed or required for medical reasons: No Advance Directives: No Advance Directives Information Provided: Yes Advance Directives Date on File: 06/04/23 service: No Current occupational status: retired and disabled Cognitive needs: Yes (cane) Hearing needs: Yes Vision needs: Yes Meds Allergies Allergy/AdvReac Type Severity Reaction Status Date / Time aspartame Allergy Severe severe Verified 05/31/23 12:44 dehydration cyclobenzaprine Allergy Severe SOB Verified 05/31/23 12:44 [From Flexeril] nickel AdvReac Blister Verified 06/12/23 06:50 Home Medications Medication Instructions Recorded Confirmed Last Taken Type multivitamin 1 tab PO DAILY 10/25/21 06/07/23 06/12/23 History mecobalamin (vitamin B12) 1,000 1,000 mcg sublingual DAILY 02/27/23 06/07/23 Unknown History mcg disintegrating tablet,sublingual Exam Exam Date and Time: June 11, 2023 0908 Height,Weight and Vital Signs: Height 5 ft 4 in Weight 80.739 kg Narrative Narrative: ECHO 2021 Conclusions: - Normal left ventricular size, thickness, systolic function, and wall motion. ? - Normal right ventricular cavity size and systolic function.? ? - No significant valvular or pericardial pathology.? ?? Assessment and Plan Assessment Anesthesia Assessment: Chart Reviewed Final Anesthetic Review Family History of Problems with Anesthesia: No History of Problems with Anesthesia: No Documented by User: Thomas Martin MD 06/12/23 07:45 [facility] Active Problems Active Problems: [place] Active Problems (Updated 06/07/23 @ 13:48 by Viji Kent, RN) Adrenal gland cyst (Acute) Syncope (Acute) Bladder cancer (Acute) Suppurative hidradenitis (Acute) Perineal abscess (Acute) Pruritus (Acute) Well woman exam (Acute) Menopause (Acute) Osteoporosis (Acute) Preoperative examination (Acute) Low back pain (Acute) Hydrocephalus (Acute) Lumbar spondylosis (Acute) Low back pain radiating to left lower extremity (Acute) Sacroiliac joint pain (Acute) Bilateral kidney stones (Acute) Lumbar degenerative disc disease (Acute) Spinal stenosis, lumbar region with neurogenic claudication (Acute) Cerumen impaction (Acute) Epidural lipomatosis (Acute) Insomnia (Acute) Well woman exam (Acute) Urgency of urination (Acute) Personal history of bladder cancer (Acute) Urge incontinence of urine (Acute) Bladder cancer (Acute) Obesity (BMI 30-39.9) (Acute) Chronic neck pain (Acute) Fibromyalgia (Acute) Scoliosis of thoracolumbar spine (Acute) Past Medical History Medical History (Updated 06/12/23 @ 06:54 by Brianna Ireland RN) Abscess Arthritis Back pain Traylor's palsy Bladder cancer Chronic neck pain Fibromyalgia GERD without esophagitis History of traumatic head injury Hx of spinal stenosis Hydrocephalus in adult Nephrolithiasis Neuropathy Obesity (BMI 30-39.9) Peptic ulcer Scoliosis of thoracolumbar spine Sleep apnea Functional capacity: uses cane/walker Family History Family History Father Cancer Mother Stroke Brother No problems noted. Brother No problems noted. Sister No problems noted. Son No problems noted. Daughter No problems noted. 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 Social History Social History Housing: Assisted Living Facility Are you a primary child care centre manager to a significant other at home: No Do you presently have visiting nurse or other home services: No Alcohol intake: never Patient Tobacco Use Status: Former Tobacco user Tobacco use type: Cigarette Second Hand Smoke Exposure: Yes Use of substances other than those prescribed or required for medical reasons: No Advance Directives: No Advance Directives Information Provided: Yes Advance Directives Date on File: 06/04/23 service: No Current occupational status: retired and disabled Cognitive needs: Yes (cane) Hearing needs: Yes Vision needs: Yes Meds Allergies Allergy/AdvReac Type Severity Reaction Status Date / Time aspartame Allergy Severe severe Verified 05/31/23 12:44 dehydration cyclobenzaprine Allergy Severe SOB Verified 05/31/23 12:44 [From Flexeril] nickel AdvReac Blister Verified 06/12/23 06:50 Home Medications Medication Instructions Recorded Confirmed Last Taken Type multivitamin 1 tab PO DAILY 10/25/21 06/07/23 06/12/23 History mecobalamin (vitamin B12) 1,000 1,000 mcg sublingual DAILY 02/27/23 06/07/23 Unknown History mcg disintegrating tablet,sublingual Exam Airway Mallampati Class: II TM Dist: <=3cm Neck ROM: Full Loose/Missing/Broken Teeth: No Heart: ok Lungs: ok Assessment and Plan Assessment Anesthesia Assessment: Anesthesia Plan Discussed Final Anesthetic Review NPO: Yes ASA Class: III Final Preanesthetic Review: No Changes in Pt Med Stat, Meds/Allgs Chart Reviewed, Consent Obtained/Reviewed and Anes Risks/Benef Reviewed Patient Risk: Intermediate Procedure Risk: Low Anesthetic Plan Anesthetic Plan: MAC: and Agree w/ Assess. and Plan Disposition: Standard PACU
--- NOTE | ~2023-06-12 | XR_ITS ---
EXAMINATION: XR ABDOMEN KUB CLINICAL INDICATION: Left kidney stone. Pre-ESWL. COMPARISON: None available. TECHNIQUE: AP view of the abdomen. FINDINGS: The bowel gas pattern is nonspecific without any evidence of obstruction. There are small radiopaque calculi seen overlying the midpole left kidney. However, the visualization of kidneys is suboptimal due to overlying gas. There is a ventriculoperitoneal shunt catheter with its tip in mid abdomen. There is no organomegaly. There is a moderate S-shaped scoliosis of the dorsolumbar spine. There is moderate L5-S1 facet joint arthropathy. The SI joints are symmetrical. The soft tissues are normal. XR/XR KUB IMPRESSION: Moderate S-shaped scoliosis of the dorsolumbar spine.
[2023-06-12 07:07] VITALS: BP 124/83; PULSE 67; RESP 16; TEMP 36.6; O2SAT 97
[2023-06-12] MEDS: Lactated Ringers 1,000 ML 100 ML IVCONT (07:14)
[2023-06-12 09:06] VITALS: BP 120/62; PULSE 55; RESP 16; TEMP 36.6; O2SAT 97
--- NOTE | 2023-06-12 09:08 | W.PM.OPN ---
Operative Note Operative Note Date of Service: 06/12/23 Narrative: PreOperative Diagnosis:? ? Left Renal calculi Post Operative Diagnosis:? Left Renal calculi Procedure:?Left? ESWL Surgeon:?Dr Jamie Garcia Anesthesia:? MAC Indications for procedure: The patient understands ESWL may be a staged procedure and subsequent intervention may be required based on imaging after ESWL.? They also understand? there is a risk of bleeding to the kidney, infection, damage to adjacent organs, and stone migration following the procedure. On Fluoroscopy there were multiple left kidney stones visualized the largest noted in the left renal pelvis - Imaging 13 mm left renal pelvis stone Procedure: After informed consent was verified the patient was brought to the operating room and placed in a supine position.? IV sedation was performed per protocol. Safety pause time-out was performed. Imaging was displayed in the room and laterality confirmed. ESWL was performed.?The stone was visualized on both fluoroscopy and ultrasound.? Shockwave lithotripsy was performed, the first 300 shocks at 60 hertz.? A pause for 3 minutes.? A total of 2500 shocks to a maximum of power of 18 with a maximum rate of 120 hertz.? Some fragmentation of the stone was appreciated. The patient tolerated the procedure well and was transferred to the recovery area upon completion. Complications: None
[2023-06-12 09:29] VITALS: BP 136/73; PULSE 52; RESP 16; TEMP 36.7; O2SAT 99
== END 2023-06-12 09:45 | disposition home or self-care (01) ==
PROVIDERS: PCP Internal Medicine; Visit Provider Urology
PROC: (CPT 50590; principal; 2023-06-12 08:20)
DX: N20.0 Calculus of kidney (principal); Z87.442 Personal history of urinary calculi; Z85.51 Personal history of malignant neoplasm of bladder; N32.89 Other specified disorders of bladder; G51.0 Bell's palsy; G62.9 Polyneuropathy, unspecified; G91.9 Hydrocephalus, unspecified; Z87.828 Personal history of other (healed) physical injury and trauma; Z98.2 Presence of cerebrospinal fluid drainage device; Z79.899 Other long term (current) drug therapy; Z88.8 Allergy status to other drugs, medicaments and biological substances; Z98.84 Bariatric surgery status; Z98.890 Other specified postprocedural states; Z90.49 Acquired absence of other specified parts of digestive tract; Z87.891 Personal history of nicotine dependence
CPT/HCPCS: 50590; 74018; J0131; J0690; J1940; J3010

== ENCOUNTER → 2023-06-12 06:32 | Outpatient (BNV) | payer MEDICARE, SELFPAY | PROVIDERS: PCP Internal Medicine; Visit Provider Urology | DX: N20.0 Calculus of kidney (principal) | CPT/HCPCS: 50590 ==

== ENCOUNTER 2023-06-20 12:25 | Outpatient (REF) | payer MEDICARE, SELFPAY ==
--- NOTE | ~2023-06-20 | MM_ITS ---
EXAMINATION: MM SCREENING DIGITAL BREAST TOMOSYNTHESIS, BILATERAL CLINICAL INFORMATION: Screening. Asymptomatic. COMPARISON: Mammography: This study is compared with prior exams dating back to 2015. TECHNIQUE: Digital breast tomosynthesis is performed in both the craniocaudal and mediolateral oblique views along with computer-aided detection (CAD). Synthesized 2D images are generated from the tomosynthesis. FINDINGS: There are scattered areas of fibroglandular density (ACR BI-RADS breast composition Category b). There are no significant masses, abnormal calcifications, or other abnormalities. There are 2, coarse, benign calcifications at the lower inner quadrant of the right breast. MM/MM tomosynthesis screening BI IMPRESSION: No mammographic evidence of malignancy. ASSESSMENT: BI-RADS BI-RADS 2 - Benign Findings RECOMMENDATION: Routine annual mammography screening. 1 year F/U This examination should not preclude the clinical evaluation of a suspicious palpable abnormality. This patient's information was entered into a reminder system with a target due date for their next mammogram.
== END 2023-06-20 12:26 | disposition home or self-care (01) ==
LOC: HO.MAMMO 12:25
PROVIDERS: PCP Internal Medicine; Visit Provider Internal Medicine
DX: Z12.31 Encounter for screening mammogram for malignant neoplasm of breast (principal)
CPT/HCPCS: 77063; 77067

== ENCOUNTER → 2023-06-20 12:45 | Outpatient (BNV) | payer MEDICARE, SELFPAY | PROVIDERS: PCP Internal Medicine; Visit Provider Radiology Diagnostic Radiology | DX: Z12.31 Encounter for screening mammogram for malignant neoplasm of breast (principal) | CPT/HCPCS: 77063; 77067 ==

== ENCOUNTER → 2023-07-09 11:19 | Outpatient (BNVA) | payer MEDICARE, SELFPAY | PROVIDERS: PCP Internal Medicine; Visit Provider Nurse Practitioner Family ==

== ENCOUNTER 2023-08-05 10:57 | Outpatient (REF) | payer MEDICARE, SELFPAY ==
--- NOTE | ~2023-08-05 | CT_ITS ---
EXAMINATION: CT ABDOMEN AND PELVIS WITHOUT CONTRAST CLINICAL INFORMATION: Malignant neoplasm of bladder COMPARISON: CT abdomen from 10/25/2021 TECHNIQUE: Multidetector volumetric imaging was performed from the superior aspect of the liver through the pubic symphysis. Sagittal and coronal reformatted images were obtained on the technologist's workstation. This CT examination was performed using dose optimization techniques as appropriate, variously including the following: *Automated exposure control *Adjustment of mA and/or kV according to patient size (this includes techniques or standardized protocols for targeted exams where dose is matched to indication/reason for exam; i.e. extremities or head) *Use of iterative reconstruction technique DLP: 572 mGy-cm FINDINGS: LUNG BASES: The visualized lung bases are unremarkable. LIVER, GALLBLADDER, AND BILIARY TREE: The liver is normal in size, shape, and attenuation. No focal hepatic lesion or biliary ductal dilatation is present. The gallbladder is surgically absent PANCREAS: Mild atrophy of the pancreas. SPLEEN: Unremarkable. ADRENAL GLANDS: Redemonstration of fat attenuating nodular focus in the right adrenal glands measuring up to 1.6 cm, stable. Nodular focus in the lateral limb of the left adrenal gland demonstrating fat attenuation measuring up to 1.2 cm. Adrenal nodules of any size exhibiting a CT density of =<10 HU are overwhelmingly likely to represent lipid rich benign adenomas for which no follow-up imaging is recommended. KIDNEYS AND URETERS: Right-sided nephrolithiasis measuring up to 5 mm without hydronephrosis. Left-sided nephrolithiasis measuring up to 7 mm without hydronephrosis. Left renal cystic focus along the anterior aspect of the interpolar/upper pole region measuring up to 1.7 cm, not requiring follow-up. BLADDER: Urinary bladder is decompressed. Previously identified soft tissue mass along the right intraluminal urinary bladder is not definitively visualized though evaluation is limited without intravenous contrast. GASTROINTESTINAL TRACT: Small to moderate hiatal hernia with postsurgical changes of the gastroesophageal junction and stomach. The small and large bowel are unremarkable. The appendix is unremarkable. ABDOMINAL WALL: No significant hernia is appreciated. Ventriculoperitoneal shunt catheter redemonstrated. LYMPH NODES: Normal. VASCULAR: Unremarkable. PELVIC VISCERA: Unremarkable. Trace free fluid in the pelvis potentially secondary to OVEN PRESS TENDER shunt catheter. OSSEOUS STRUCTURES: S-shaped rotatory curvature of the thoracolumbar spine. Osteopenia. Multilevel degenerative changes of the thoracolumbar spine. CT/CT abdomen pelvis wo IV con IMPRESSION: 1. No acute process of the abdomen or pelvis identified. 2. Previously identified soft tissue mass along the right intraluminal urinary bladder is not definitively visualized though evaluation is limited without intravenous contrast. 3. Redemonstration of fat attenuating nodular focus in the right adrenal gland measuring up to 1.6 cm, stable. Nodular focus in the lateral limb of the left adrenal gland demonstrating fat attenuation measuring up to 1.2 cm. Adrenal nodules of any size exhibiting a CT density of = <10 HU are overwhelmingly likely to represent lipid rich benign adenomas for which no follow-up imaging is recommended. 4. Bilateral nephrolithiasis without hydronephrosis. 5. Small to moderate hiatal hernia with postsurgical changes of the gastroesophageal junction and stomach. 6. Osteopenia.
== END 2023-08-05 10:58 | disposition home or self-care (01) ==
LOC: HO.CT 10:57
PROVIDERS: PCP Internal Medicine; Visit Provider Urology
DX: Z85.51 Personal history of malignant neoplasm of bladder (principal)
CPT/HCPCS: 74176

== ENCOUNTER 2023-08-13 13:12 | Outpatient (AMB) | payer MEDICARE, SELFPAY ==
[2023-08-13 13:20] VITALS: BP 138/88; PULSE 50; O2SAT 98; BMI 30.9
--- NOTE | 2023-08-13 13:20 | A.OFFPC_ITS ---
Vital Signs 08/13/23 13:20 Height 5 ft 4 in Weight 180 lb 2 oz BMI 30.9 BP 138/88 Blood Pressure Location Lt brachial Position Sitting Pulse 50 Pulse Source Pulse Oximeter Pulse Oximetry (%) 98 Oxygen Delivery Method Room Air Intake Visit Reasons: back pain Replenishment Buyer Required: No Accompanied by: Self / Same As Patient Allergies aspartame Allergy (Severe, Verified 08/13/23 13:43) severe dehydration cyclobenzaprine [From Flexeril] Allergy (Severe, Verified 08/13/23 13:43) SOB nickel Adverse Reaction (Verified 08/13/23 13:43) Blister Medication List - Last Reconciled 08/13/23 by Gregory Gaming MD alendronate 70 mg PO QWEEK back brace As directed calcium carbonate-vitamin D3 600 mg-20 mcg (800 unit) (Caltrate 600 plus D) 1 tab PO BID gabapentin 300 mg PO TID 30 days mecobalamin (vitamin B12) 1,000 mcg sublingual DAILY mirabegron ER (Myrbetriq) 25 mg PO DAILY multivitamin 1 tab PO DAILY polyethylene glycol 3350 (Miralax) 238 grams PO ONCE pyridoxine (vitamin B6) 100 mg PO DAILY trazodone 100 mg PO BEDTIME PRN 30 days Tobacco use date assessed: 04/12/23 Fall risk assessment: No Falls in past year Last assessed Fall Risk: 08/13/23 Dental Screening Dental Screen Date: 08/13/23 Did you have a dental visit in the last 12 months?: Yes Did you have a dental problem in the last 6 months where you did not have access to dental care?: No Was dental information given to patient?: Patient has dentist HPI back pain HPI Details Patient comes in today for her follow up visit States that she has been feeling very wobbly lately and has been using her walker often when she is moving around - finds that this is helping a lot Relates some loss of appetite lately but states that she is now again eating okay Was seen by GI last month for consultation and is currently just awaiting scheduling for colonoscopy Still has chronic low back pain but states that her current Rx, especially her Gabapentin, is helping a lot States that she also continues to experience recurrent dizziness but otherwise, she feels okay; denies any headaches Denies any chest pains, no increased SOB No nausea/vomiting, no abdominal pain No change in bowel habits noted [facility], [facility] Medical History (Updated 08/14/23 @ 04:12 by Gregory Gaming MD) Constipation Sleep apnea Abscess Bladder cancer Obesity (BMI 30-39.9) Traylor's palsy Neuropathy GERD without esophagitis Chronic neck pain Scoliosis of thoracolumbar spine Arthritis Back pain Hx of spinal stenosis Peptic ulcer Fibromyalgia Hydrocephalus in adult History of traumatic head injury Nephrolithiasis Surgical History Hx of cystoscopy History of cervical spinal surgery History of adenoidectomy Hx of lithotripsy Hx of tubal ligation Hx of excision of lamina of cervical vertebra for decompression of spinal cord Hx of cholecystectomy H/O colonoscopy 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 Brother No problems noted. Sister No problems noted. Son No problems noted. Daughter No problems noted. Paternal Grandmother Colon cancer Social History Housing: Assisted Living Facility Are you a primary rn managed care to a significant other at home: No Do you presently have visiting nurse or other home services: No Alcohol intake: never Patient Tobacco Use Status: Former Tobacco user Tobacco use type: Cigarette Second Hand Smoke Exposure: Yes Advance Directives Date on File: 06/04/23 service: No Current occupational status: retired and disabled Cognitive needs: Yes (cane) Hearing needs: Yes Vision needs: Yes Female Reproductive History Menstrual Age of Menarche: 15 Questionnaire Thrive Questionnaire Date Thrive assessed: 11/19/22 ALEX-7 AMB Questionnaire ALEX-7 Date ALEX - 7 assessed: 11/19/22 Source: Developed by Drs. Moe Arnold, Vernell Martinez, Skyler Moyer and colleagues, with an educational kindra from [employer]. Review of Systems Const Reports fatigue, Denies fever(s) and Denies headache(s) ENT Denies dysphagia, Reports dizziness (recurrent), Denies otalgia, Denies headache(s), Denies odynophagia and Denies sore throat Card Denies chest pain, Denies palpitations and Denies dyspnea Resp Denies cough and Denies dyspnea GI Denies abdominal pain, Denies constipation, Denies dysphagia, Denies heartburn, Denies diarrhea, Denies nausea, Denies odynophagia and Denies vomiting Denies hematuria, Denies difficulty voiding, Denies nocturia, Denies dysuria and Reports urinary urgency (at times) Musc Reports back pain (over the lower back - chronic) Skin/Breast Denies rash Neuro Reports dizziness (recurrent) and Denies headache(s) Endo Reports fatigue and Denies palpitations Physical exam (Primary Care) Vital Signs: Last Vital Signs Pulse 50 08/13/23 13:20 BP 138/88 08/13/23 13:20 Pulse Ox 98 08/13/23 13:20 Oxygen Delivery Method Room Air 08/13/23 13:20 BMI result Body Mass Index 30.9 Tobacco/Smoking Status: Tobacco use Status Tobacco use date assessed 04/12/23 08/13/23 13:28 Patient Tobacco Use Status Former Tobacco user 08/13/23 13:28 Tobacco use type Cigarette 08/13/23 13:28 Thrive Assessment: Date of Thrive Assessment Date Thrive assessed 11/19/22 08/13/23 13:28 Const General: no acute distress and alert Limitations: ambulation with walker HENMT Ears: TM's normal bilaterally and EAC's normal Throat: Yes posterior oropharynx normal and Yes tonsils normal (no TP congestion) Neck Neck: Yes no lymphadenopathy Thyroid: Thyroid normal Resp Auscultation: clear to auscultation bilaterally, no rales and no wheezes Cardio Rate: regular rate Rhythm: regular rhythm Heart sounds: no murmurs GI Palpation (GI): Soft to palpation and nontender Auscultation: normal bowel sounds Back/Spine/Pelvis Cervical Spine: Cervical spine tenderness Thoracic/Lumbar Spine: lumbar spinal tenderness Extrem General: Yes no clubbing, cyanosis or edema Assessment and Plan Assessment & Plan (1) Bladder cancer: Comment: TURBT 12/26 high-grade superficial bladder cancer; started immunotherapy induction 6 weeks in 12/2021; immunotherapy boost in 03/2022 Code(s): C67.9 - Malignant neoplasm of bladder, unspecified Qualifiers: Bladder location: lateral wall Qualified Code(s): C67.2 - Malignant neoplasm of lateral wall of bladder Plan: S/P repeat cystoscopy and biopsy with fulguration and intravesical Gemcitabine instillation on 08/06/2022 after cystoscopy done in 06/2022 revealed a poorly healing area with some evidence of superficial recurrence of bladder cancer on the right side bladder wall Follow up with urology as scheduled for continuing surveillance (2) Chronic neck pain: Comment: S/P TBI and whiplash injury in the early ; Tx w/fluid drainage in 1993 & [employer] shunt in 1998 Code(s): M54.2 - Cervicalgia; G89.29 - Other chronic pain Plan: Continues to experience chronic neck pain - was reportedly advised by neurosurgery a couple of years ago that there is nothing else to offer her in terms of surgical Tx or management (3) Low back pain: Code(s): M54.50 - Low back pain, unspecified Qualifiers: Chronicity: chronic Back pain laterality: midline Sciatica presence: unspecified whether sciatica present Qualified Code(s): M54.50 - Low back pain, unspecified; G89.29 - Other chronic pain Plan: Reinforced activity and weight-lifting restrictions Continue Gabapentin 300 mg TID Follow up with pain management as scheduled (4) Fibromyalgia: Code(s): M79.7 - Fibromyalgia Plan: Was on Pregabalin (switched from Gabapentin by [facility] a few years ago) but has weaned herself off the medication recently and has not noticed any change in her symptoms since coming off the medication Went back on Gabapentin and felt that it is helping better - is currently on Gabapentin 100 mg TID Follow up with [facility] as scheduled Encouraged again to try to stay active and exercise regularly to help manage her symptoms better but patient's activity level is significantly limited by her chronic neck and lower back issue (5) Scoliosis of thoracolumbar spine: Code(s): M41.9 - Scoliosis, unspecified Qualifiers: Scoliosis type: unspecified scoliosis Qualified Code(s): M41.9 - Scoliosis, unspecified Plan: Continue Naproxen 500 mg BID with food PRN for pain (6) Hydrocephalus: Code(s): G91.9 - Hydrocephalus, unspecified Qualifiers: Hydrocephalus type: post-traumatic Qualified Code(s): G91.3 - Post- traumatic hydrocephalus, unspecified Plan: S/P [employer]IST[employer] shunting Follow up with neurology (Dr. Melendrez) as scheduled (7) Osteoporosis: Code(s): M81.0 - Age-related osteoporosis without current pathological fracture Qualifiers: Osteoporosis type: age-related Presence of current pathological fracture: without current pathological fracture Qualified Code(s): M81.0 - Age- related osteoporosis without current pathological fracture Plan: Continue Alendronate 70 mg once a week Continue Caltrate 600 plus D BID Fall precautions reinforced Will repeat BMD for follow up Will also have patient recheck her labs DEE for follow-up as it has been over 2 years now since she had any labs done (8) GERD without esophagitis: Code(s): K21.9 - Gastro-esophageal reflux disease without esophagitis Plan: Dietary restrictions reinforced Continue Omeprazole 20 mg QD PRN (9) Constipation: Code(s): K59.00 - Constipation, unspecified Qualifiers: Constipation type: unspecified constipation type Qualified Code(s): K59.00 - Constipation, unspecified Plan: Reinforced increased oral fluids and dietary fiber Continue Miralax 17 gm QD (10) Renal calculi: Code(s): N20.0 - Calculus of kidney Plan: Follow up with urology as scheduled (11) Overactive bladder: Code(s): N32.81 - Overactive bladder Plan: Continue Myrbetriq ER 25 mg QD Follow up with urology as scheduled (12) Insomnia: Code(s): G47.00 - Insomnia, unspecified Qualifiers: Insomnia type: unspecified Qualified Code(s): G47.00 - Insomnia, unspecified Plan: Reinforced sleep hygiene Continue Trazodone 100 mg Q HS PRN (13) Obesity (BMI 30-39.9): Code(s): E66.9 - Obesity, unspecified Plan: Reinforced diet/lose weight; exercise is not realistic given her chronic pain - states that her activity tolerance is very limited Plan Follow-up in 4 months Orders: Orders Complete Blood Count Auto Diff 08/13/23 M51.36 - Other intervertebral disc degeneration, lumbar region, R55 - Syncope and collapse Comprehensive [place]. Panel Fast 08/13/23 E78.00 - Pure hypercholesterolemia, unspecified, M51.36 - Other intervertebral disc degeneration, lumbar region, R55 - Syncope and collapse UA CC w/rflx Micro + Cult 08/13/23 R30.0 - Dysuria Vitamin D 25-OH Total 08/13/23 E55.9 - Vitamin D deficiency, unspecified Vitamin B12 and Folate 08/13/23 E53.8 - Deficiency of other specified B group vitamins Erythrocyte Sedimentation Rate 08/13/23 M51.36 - Other intervertebral disc degeneration, lumbar region, M79.7 - Fibromyalgia XR DEXA axial skeleton 08/13/23 Z78.0 - Asymptomatic menopausal state Lipid Panel 08/13/23 E78.00 - Pure hypercholesterolemia, unspecified TSH reflex Free T4 08/13/23 E78.00 - Pure hypercholesterolemia, unspecified, M51.36 - Other intervertebral disc degeneration, lumbar region, R55 - Syncope and collapse Medications: Refilled trazodone 100 mg PO BEDTIME 30 days PRN 30 tabs 1RF sleep Coding Level of Care Code Est Pt Level 4 (22748) Diagnoses Malignant neoplasm of lateral wall of urinary bladder C67.2 Bladder location: lateral wall Chronic neck pain M54.2; G89.29 Chronic midline low back pain, unspecified whether sciatica present M54.50; G89.29 Chronicity: chronic Back pain laterality: midline Sciatica presence: unspecified whether sciatica present Fibromyalgia M79.7 Scoliosis of thoracolumbar spine, unspecified scoliosis type M41.9 Scoliosis type: unspecified scoliosis 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
== END 2023-08-13 13:55 | disposition home or self-care (01) ==
PROVIDERS: PCP Internal Medicine; Visit Provider Internal Medicine
DX: C67.2 Malignant neoplasm of lateral wall of bladder (principal); G91.3 Post-traumatic hydrocephalus, unspecified; M54.2 Cervicalgia; G89.29 Other chronic pain; M54.50 Low back pain, unspecified; M79.7 Fibromyalgia; M41.9 Scoliosis, unspecified; M81.0 Age-related osteoporosis without current pathological fracture; K21.9 Gastro-esophageal reflux disease without esophagitis; K59.00 Constipation, unspecified; N20.0 Calculus of kidney; E66.9 Obesity, unspecified
CPT/HCPCS: 99214

== ENCOUNTER 2023-08-23 09:21 | Outpatient (REF) | payer MEDICARE, SELFPAY ==
[2023-08-23 10:38] LABS: MANUAL DIFF FLAG NO
[2023-08-23 10:40] LABS: Appearance Urine Clear; Color Urine Yellow; Glucose Urine UA Negative (Negative); Leukocyte Esterase Urine Moderate (2+) (Negative); Nitrite Urine Negative (Negative); Specific Gravity - Urine 1.015 (1.005-1.025); UMIC TRIGGER UACC YES; Urine Blood Negative (Negative); Urine Ketones Negative (Negative); Urine Protein Negative (Neg-Trace)
[2023-08-23 10:43] LABS: Basophils Absolute Auto 0.1 X10*3/uL (0.0-0.2); Basophils Percent Auto 1.3 % (0-2); Eosinophils Absolute Auto 0.4 X10*3/uL (0.0-0.4); Eosinophils Percent Auto 4.5 % (0-4); Hematocrit 39.5 % (37.0-47.0); Hemoglobin 12.7 g/dl (12.0-16.0); Imm Gran Abs Auto 0.03 X10*3/uL (0.00-0.03); Imm Gran Pct Auto 0.4 % (0.0-0.4); Lymphocytes Absolute Auto 2.4 X10*3/uL (1.2-4.9); Lymphocytes Percent Auto 30.3 % (20-40); Mean Corpuscular HGB Conc 32.2 g/dl (31.0-35.0); Mean Corpuscular Hemoglobin 29.2 pg (27.0-33.0); Mean Corpuscular Volume 90.8 fL (80.0-98.0); Mean Platelet Volume 9.6 fL (9.4-12.3); Monocytes Absolute Auto 0.9 X10*3/uL (0.1-1.2); Neutrophils Absolute Auto 4.1 x10*3/uL (2.0-8.3); Neutrophils Percent Auto 52.5 % (45-73); Platelet Count 342 X10*3/uL (160-400); Red Blood Count 4.35 X10*6/uL (4.20-5.50); White Blood Count 7.8 X10*3/uL (4.8-10.8)
[2023-08-23 10:49] LABS: Bacteria Urine None Seen (None Seen); Hyaline Casts Urine 0-2 /LPF (0-2); RBC Urine 0-2 /HPF (0-2); UACC Culture Trigger YES
[2023-08-23 11:11] LABS: Alanine Aminotransferase 10 U/L (0-31); Albumin Level 3.9 g/dL (3.5-5.0); Alkaline Phosphatase 65 U/L (39-117); Anion Gap 10 (12-20); Aspartate Amino Transferase 13 U/L (5-31); Bilirubin Total 0.4 mg/dL (0.0-1.0); Blood Urea Nitrogen 10 mg/dL (9-16); Calcium 9.3 mg/dL (8.4-10.2); Carbon Dioxide 30 mmol/L (22-29); Chloride 103 mmol/L (96-108); Cholesterol 196 mg/dL (<200); Estimated Glomerular Filt Rate > 60; Glucose Fasting 98 mg/dL (60-99); HDL Cholesterol 48 mg/dL (>40); LDL Cholesterol Calculated 121 mg/dL (<100); Potassium 4.3 mmol/L (3.3-5.1); Sodium 139 mmol/L (135-145); Triglycerides 136 mg/dL (<150)
[2023-08-23 11:16] LABS: Erythrocyte Sedimentation Rate 32 MM/HR (0-20); TSH reflex Free T4 0.85 uIU/mL (0.32-4.0); Vitamin D 25-OH Total 106.1 ng/mL (>30)
[2023-08-23 11:28] LABS: Folate 13.7 ng/mL (> or = 4.0); Vitamin B12 > 2000 pg/mL (200-900)
== END 2023-08-23 09:22 | disposition home or self-care (01) ==
LOC: HO.10HDL 09:21
PROVIDERS: Visit Provider Internal Medicine
DX: E78.00 Pure hypercholesterolemia, unspecified (principal); M51.36 Other intervertebral disc degeneration, lumbar region; E55.9 Vitamin D deficiency, unspecified; M79.7 Fibromyalgia; E53.8 Deficiency of other specified B group vitamins; R55 Syncope and collapse; R82.90 Unspecified abnormal findings in urine
CPT/HCPCS: 36415; 80053; 80061; 81001; 82306; 82607; 82746; 84443; 85025; 85652; 87086

== ENCOUNTER 2023-10-09 10:13 | Outpatient (AMB) | payer MEDICARE, SELFPAY ==
--- NOTE | 2023-10-09 10:43 | MHC.OFFVIS ---
Intake Vital Signs 10/09/23 10:46 Height 5 ft 4 in Weight 178 lb 9.191 oz BMI 30.6 BP 124/82 Intake Visit Reasons: Bone problems Allergies aspartame Allergy (Severe, Verified 08/13/23 13:43) severe dehydration cyclobenzaprine [From Flexeril] Allergy (Severe, Verified 08/13/23 13:43) SOB nickel Adverse Reaction (Verified 08/13/23 13:43) Blister HPI HPI Comments History of Present Illness Details Presenting complaining of decreased libido associated with vaginal dryness and dyspareunia with no other associated problems, no pelvic pain , no urinary or GI symptoms PFSH Medical History Constipation Sleep apnea Abscess Bladder cancer Obesity (BMI 30-39.9) Traylor's palsy Neuropathy GERD without esophagitis Chronic neck pain Scoliosis of thoracolumbar spine Arthritis Back pain Hx of spinal stenosis Peptic ulcer Fibromyalgia Hydrocephalus in adult History of traumatic head injury Nephrolithiasis Surgical History Hx of cystoscopy History of cervical spinal surgery History of adenoidectomy Hx of lithotripsy Hx of tubal ligation Hx of excision of lamina of cervical vertebra for decompression of spinal cord Hx of cholecystectomy H/O colonoscopy Hx of gastric bypass [employer]UR[employer] (ventriculoperitoneal) shunt status Family History Father Cancer Mother Stroke Brother No problems noted. Brother No problems noted. Sister No problems noted. Son No problems noted. Daughter No problems noted. Paternal Grandmother Colon cancer Social History Housing: Assisted Living Facility Are you a primary healthcare management to a significant other at home: No Do you presently have visiting nurse or other home services: No Alcohol intake: never Patient Tobacco Use Status: Former Tobacco user Tobacco use type: Cigarette Second Hand Smoke Exposure: Yes Advance Directives Date on File: 06/04/23 service: No Current occupational status: retired and disabled Cognitive needs: Yes (cane) Hearing needs: Yes Vision needs: Yes Female Reproductive History Menstrual Age of Menarche: 15 Review of Systems Const All systems reviewed & are unremarkable except as noted in HPI and below Physical Exam Vital Signs: Last Vital Signs BP 124/82 10/09/23 10:46 BMI result Body Mass Index 30.6 General: Yes no CVA tenderness External Female Exam: normal external appearance and normal appearance of the urethra Speculum Exam - Vagina: normal palpation, no lesions, no masses and other (Atrophic vaginitis) Speculum Exam - Cervix: normal appearance of the cervix, normal palpation, no lesions, no masses and nontender Bimanual exam- vagina & uterus: normal bimanual exam, normal palpation, uterine size normal, normal palpation, uterine shape normal, No Cervical tenderness present and non-tender Bimanual Exam- Adnexa, other: normal adnexae Back/Spine/Pelvis Back: no CVA tenderness Assessment & Plan Assessment & Plan (1) Atrophic vaginitis: Code(s): N95.2 - Postmenopausal atrophic vaginitis Plan: Discussed with the patient the finding on pelvic exam showing atrophic vaginitis, discussed the patient options of treatment to improve vaginal irritation during intercourse including KY jelly versus estrogen vaginal cream treatment. All pros and cons risks benefits of each were discussed with the patient, the patient would like to proceed with KY jelly. All questions answered, the patient verbalized understanding Coding Level of Care Code Est Pt Level 3 (95256) Diagnoses Atrophic vaginitis N95.2
[2023-10-09 10:46] VITALS: BP 124/82; BMI 30.6
== END 2023-10-09 11:53 | disposition home or self-care (01) ==
LOC: HO.HWS 10:13
PROVIDERS: PCP Internal Medicine; Visit Provider Obstetrics & Gynecology
DX: N95.2 Postmenopausal atrophic vaginitis (principal)
CPT/HCPCS: 99213

== ENCOUNTER → 2023-10-09 10:13 | Outpatient (BNVA) | payer MEDICARE, SELFPAY | PROVIDERS: PCP Internal Medicine; Visit Provider Obstetrics & Gynecology | DX: N95.2 Postmenopausal atrophic vaginitis (principal) | CPT/HCPCS: 99212 ==

== ENCOUNTER 2023-11-22 14:11 | Outpatient (AMB) | payer MEDICARE, SELFPAY ==
--- NOTE | 2023-11-22 14:23 | A.OFFVIS_ITS ---
Intake Intake Visit Reasons: cysto/CT Intake Note: Patient presents today for a CYSTOSCOPY Procedure: Meds: Myrbetriq & Vitamin b6 Allergies to Antibiotic: No Known Allergies Blood Thinner: None Urinalysis test clear for Cysto? YES Disposable Uro-V Cystoscope Cannula: Lot: [id number] Exp: 09/17/2025 Allergies aspartame Allergy (Severe, Verified 12/23/23 12:56) severe dehydration cyclobenzaprine [From Flexeril] Allergy (Severe, Verified 12/23/23 12:56) SOB nickel Adverse Reaction (Verified 12/23/23 12:56) Blister HPI HPI Comments History of Present Illness Details Sudha is a 68-year-old female who presents today to the office for a cystoscopy procedure. She has OAB and was started on Myrbetriq which she states is helping, she is also followed for kidney stones 11/22/23- here for surveillance cystoscop y. Denies any new urinary symptoms Exam- Inner thigh- Hydraadenits, the patient states wound will leak fluid intermittently. She states she was referred to the wound clinic in the past. Cystoscopy findings: within normal limits; no suspicious bladder lesions were visualized. I reviewed CT scan 08/05/23 Right-sided nephrolithiasis measuring up to 5 mm without hydronephrosis. Left-sided nephrolithiasis measuring up to 7 mm Review of chart: 05/31/2023? Sudha is followed for history of bladder cancer and presents today for cystoscopy. She was last seen by me on 02/27/2023 for bilateral kidney stones. She was advised to continue vitamin B6 100 mg daily at that time. Left ESWL was discussed to be scheduled, and was advised to follow-up after 3 months for surveillance Cystoscopy at that time. She has a history of bladder cancer. She is a status post Cystoscopy/TURBT done on 12/25/2021. She is not taking any medications for bladder control. She states that she was diagnosed with bladder infection when she was a kid. She denies any hematuria. I needed to catheterize to obtain urine, as she was not able to collect urine specimen when she voided. Cystoscopy procedure: Consent was obtained to perform cystoscopy procedure. Office cystoscopy was performed today. The patient was provided naproxen 500 mg, 2 % lidocaine jelly, and Macrobid 100 mg x 1 dose pre-procedure today. Cystoscopy findings: within normal limits; no suspicious bladder lesions were visualized. 02/27/2023? PMH - normal pressure hydrocephalus, prior shunt followed by neurologist. h/o Kidney stones. She is seen for h/o bladder cancer, s/p cysto/TURBT 12/25/2021; path: superficial high grade urothelial carcinoma, no muscularis propria identified. Last outpatient cystoscopy fulguration was with Dr. Kyle 08/06/2022, I reviewed operative note, gemcitabine was administered. The patient has right kidney stone about 4 mm and left kidney stone about 5 mm. Denies taking aspirin or any blood thinners. Evaluation today-- blood: negative, leukocytes: 15 Christina/uL. Consent to perform cystoscopy procedure was obtained. Cystoscopy findings-- Mild trabeculations. No suspicious bladder lesion visualized.? --------LV--01/03/2023--Sudha is a 67-year -old female who presents to the clinic for discussion of KUB and renal US results ordered for kidney stones. ?-----Office visit?11/22/2022-- here for surveillance office cystoscopy.? Findings:? no recurrent bladder lesions visualized. Previous Interventions: 12/25/21? cysto-TURBT high-grade T1, 08/06/22 bladder? fulguration with gemci tabine Immunotherapy Bladder instillations- 12/2021 induction 6 weeks; - Boost 03/2022. Renal US results reviewed?12/14/2022-- Bilateral nonobstructing nephrolithiasis. Right kidney: largest stone is of 4 mm, Left kidney: largest stone is of 5 mm. Kidneys: WNL. 11/22/23: Plan: Cont Myrbetriq 25 mg daily. Cont vit b 6 Monitor kidney stones urine for cytology Follow up office Cystoscopy in 5 months. Referral to wound clinic [facility] Medical History (Updated 12/23/23 @ 13:09 by Jodi Hinkle [facility]) Diverticulosis Constipation Sleep apnea Abscess Bladder cancer Obesity (BMI 30-39.9) Traylro's palsy Neuropathy GERD without esophagitis Chronic neck pain Scoliosis of thoracolumbar spine Arthritis Back pain Hx of spinal stenosis Peptic ulcer Fibromyalgia Hydrocephalus in adult History of traumatic head injury Nephrolithiasis Surgical History Hx of cystoscopy History of cervical spinal surgery History of adenoidectomy Hx of lithotripsy Hx of tubal ligation Hx of excision of lamina of cervical vertebra for decompression of spinal cord Hx of cholecystectomy H/O colonoscopy Hx of gastric bypass 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 Brother No problems noted. Sister No problems noted. Son No problems noted. Daughter No problems noted. Paternal Grandmother Colon cancer Social History Housing: Assisted Living Facility Are you a primary hearing healthcare practitioner to a significant other at home: No Do you presently have visiting nurse or other home services: No Alcohol intake: never Patient Tobacco Use Status: Former Tobacco user Quit Date: 2013 Tobacco use type: Cigarette e-Cigarette/Vaping Use: Never Used Second Hand Smoke Exposure: Yes Advance Directives Date on File: 06/04/23 service: No Current occupational status: retired and disabled Cognitive needs: Yes (cane) Hearing needs: Yes (hearing aide) Vision needs: Yes (glasses) Female Reproductive History Menstrual Age of Menarche: 15 Review of Systems Const Reports no additional complaints Eyes Reports no additional complaints ENT Reports no additional complaints Card Denies dyspnea Resp Denies cough and Denies dyspnea GI Reports no additional complaints Reports no additional complaints Musc Reports no additional complaints Skin/Breast Denies rash and Denies unusual bruising Neuro Reports no additional complaints Psych Reports no additional complaints Endo Reports no additional complaints Aleksandar/Lymph Reports no additional complaints Aller/Immun Reports no additional complaints Physical Exam Const General: cooperative, healthy appearing and no acute distress Orientation/consciousness: patient oriented x3 HEENT Head: Yes normal to inspection, Yes normocephalic and Yes atraumatic Eyes Conjunctivae: conjunctivae normal Neck Neck: Yes normal visual inspection and Yes trachea midline Chest Chest palpation & inspection: normal inspection of the chest Resp Effort & Inspection: normal respiratory effort Cardio Rate: regular rate GI Inspection: Yes normal to inspection Speculum Exam - Vagina: vagina atrophic Skin Other: Inner Thigh skin changes suggestive of hydraadenits Neuro General: patient oriented x3 Psych Appearance: grossly normal Office Procedures Cystoscopy Consent Discussed risk and benefit or proposed procedure with the patient. Information consent for procedure given to the patient. Discussed technical aspects, risks, benefits and alternatives in full. Addressed all of the patient's questions and concerns regarding the procedure. The patient demonstrated knowledge and understanding. They wish to proceed with this procedure. Preparation The patient was prepped in the usual manner. A television production technician was present and in the room. Genitalia was prepped with betadine solution in a sterile manner. Lidocaine Jelly 2% was placed into the urethra and 16Fr flexible Olympus cystoscope was inserted into the meatus after adequate lubrication. Procedure Time out per protocol performed. Bladder Inspection Bladder Inspection: The bladder was inspected in its entirety with utilization retroflexion display ing: Tumor(s): no recurrent lesions visualized Trabeculation: N/A Mucosal Erthema: N/A Orifices: normal shape and position Urethra: normal Cystoscopy findings: no suspicious bladder lesions visualized [id number] DISPOSABLE SCOPE URO-G FLEXIBLE SCOPE Procedure code (CPT) selection complete Office Meds lidocaine HCl 2 % mucosal jelly in applicator Performing Provider: Jamie Garcia MD Performing Location: [facility] [place] [place] [facility] Administered by: Mike Barron LPN on 11/22/23 15:09 Dose Route Admin Location Dispensed Lot Number Expiration Date ND Events Administrative Assistant 10 mL intra-urethral 20 mL naproxen 500 mg tablet Performing Provider: Jamie Garcia MD Performing Location: [facility] [place] [place] [facility] Administered by: Mike Barron LPN on 11/22/23 15:09 Dose Route Admin Location Dispensed Lot Number Expiration Date ND Events Administrative Assistant 500 mg PO 1 tab ciprofloxacin HCl 500 mg tablet Performing Provider: Jamie Garcia MD Performing Location: [facility] [place] [place] [facility] Administered by: Mike Barron LPN on 11/22/23 15:09 Dose Route Admin Location Dispensed Lot Number Expiration Date ND Events Administrative Assistant 500 mg PO 1 tab Results AMB Urinalysis, Automated UA Leukoctes 15 Christina/uL Last Edit by SALLY Williamson on 11/22/23 15:04 UA Nitrite Negative Last Edit by Adore Gomez Stella on 11/22/23 15:04 UA Urobilinogen 0.2 mg/dL Last Edit by Adore Gomez A on 11/22/23 15:0 4 UA Protein 15 mg/dL Last Edit by Adore Gomez Stlela on 11/22/23 15:04 UA pH 5.5 Last Edit by Adore Gomez A on 11/22/23 15:04 UA Blood 200 Daron/uL Last Edit by Adore Gomez Stella on 11/22/23 15:04 3+ Adore Gomez 11/22/23 15:04 UA Specific [place] 1.030 Last Edit by Adore Gomez Stella on 11/22/23 15: 04 UA Ketone Negative Last Edit by Adore Gomez Stella on 11/22/23 15:04 UA Bilirubin 0 mg/dL Last Edit by Adore Gomez Stella on 11/22/23 15:04 UA Glucose 0 mg/dL Last Edit by Adore Gomez Stella on 11/22/23 15:04 Results Reviewed Results Reviewed: Laboratory Last Values Urine pH (Auto) 5.5 11/22/23 14:25 Specific [place] (Auto) 1.030 11/22/23 14:25 Urine Protein (Auto) 15 mg/dL 11/22/23 14:25 Glucose (UA)(Auto) 0 mg/dL 11/22/23 14:25 Urine Ketones (Auto) Negative 11/22/23 14:25 Urine Blood (Auto) 200 Daron/uL 11/22/23 14:25 Urine Nitrite (Auto) Negative 11/22/23 14:25 Urine Bilirubin (Auto) 0 mg/dL 11/22/23 14:25 Urine Urobilinogen (Auto) 0.2 mg/dL 11/22/23 14:25 Leukocyte Esterase (Auto) 15 Christina/uL 11/22/23 14:25 Date of Service: 08/05/23 EXAMINATION: CT ABDOMEN AND PELVIS WITHOUT CONTRAST CLINICAL INFORMATION: Malignant neoplasm of bladder COMPARISON: CT abdomen from 10/25/2021 TECHNIQUE: Multidetector volumetric imaging was performed from the superior aspect of the liver through the pubic symphysis. Sagittal and coronal reformatted images were obtained on the technologist's workstation. This CT examination was performed using dose optimization techniques as appropriate, variously including the following: *Automated exposure control *Adjustment of mA and/or kV according to patient size (this includes techniques or standardized protocols for targeted exams where dose is matched to indication/reason for exam; i.e. extremities or head) *Use of iterative reconstruction technique DLP: 572 mGy-cm FINDINGS: LUNG BASES: The visualized lung bases are unremarkable. LIVER, GALLBLADDER, AND BILIARY TREE: The liver is normal in size, shape, and attenuation. No focal hepatic lesion or biliary ductal dilatation is present. The gallbladder is surgically absent PANCREAS: Mild atrophy of the pancreas. SPLEEN: Unremarkable. ADRENAL GLANDS: Redemonstration of fat attenuating nodular focus in the right adrenal glands measuring up to 1.6 cm, stable. Nodular focus in the lateral limb of the left adrenal gland demonstrating fat attenuation measuring up to 1.2 cm. Adrenal nodules of any size exhibiting a CT density of =<10 HU are overwhelmingly likely to represent lipid rich benign adenomas for which no follow-up imaging is recommended. KIDNEYS AND URETERS: Right-sided nephrolithiasis measuring up to 5 mm without hydronephrosis. Left-sided nephrolithiasis measuring up to 7 mm without hydronephrosis. Left renal cystic focus along the anterior aspect of the interpolar/upper pole region measuring up to 1.7 cm, not requiring follow-up. BLADDER: Urinary bladder is decompressed. Previously identified soft tissue mass along the right intraluminal urinary bladder is not definitively visualized though evaluation is limited without intravenous contrast. GASTROINTESTINAL TRACT: Small to moderate hiatal hernia with postsurgical changes of the gastroesophageal junction and stomach. The small and large bowel are unremarkable. The appendix is unremarkable. ABDOMINAL WALL: No significant hernia is appreciated. Ventriculoperitoneal shunt catheter redemonstrated. LYMPH NODES: Normal. VASCULAR: Unremarkable. PELVIC VISCERA: Unremarkable. Trace free fluid in the pelvis potentially secondary to COMPLAINT ANALYST shunt catheter. OSSEOUS STRUCTURES: S-shaped rotatory curvature of the thoracolumbar spine. Osteopenia. Multilevel degenerative changes of the thoracolumbar spine. IMPRESSION: 1. No acute process of the abdomen or pelvis identified. 2. Previously identified soft tissue mass along the right intraluminal urinary bladder is not definitively visualized though evaluation is limited without intravenous contrast. 3. Redemonstration of fat attenuating nodular focus in the right adrenal gland measuring up to 1.6 cm, stable. Nodular focus in the lateral limb of the left adrenal gland demonstrating fat attenuation measuring up to 1.2 cm. Adrenal nodules of any size exhibiting a CT density of = <10 HU are overwhelmingly likely to represent lipid rich benign adenomas for which no follow-up imaging is recommended. 4. Bilateral nephrolithiasis without hydronephrosis. 5. Small to moderate hiatal hernia with postsurgical changes of the gastroesophageal junction and stomach. 6. Osteopenia. Assessment & Plan Assessment & Plan (1) Bilateral kidney stones: Code(s): N20.0 - Calculus of kidney (2) Bladder cancer: Code(s): C67.9 - Malignant neoplasm of bladder, unspecified (3) Urge incontinence of urine: Code(s): N39.41 - Urge incontinence (4) Personal history of bladder cancer: Code(s): Z85.51 - Personal history of malignant neoplasm of bladder (5) Overactive bladder: Code(s): N32.81 - Overactive bladder (6) Hydradenitis: Code(s): L73.2 - Hidradenitis suppurativa Plan Cont Myrbetriq 25 mg daily. Cont vit b 6 Monitor kidney stones urine for cytology Follow up office Cystoscopy in 5 months. Referral to wound clinic Orders: Orders AMB Urinalysis Automated 11/22/23 Z13.9 - Encounter for screening, unspecified AMB Cystoscopy 11/22/23 N32.81 - Overactive bladder, C67.9 - Malignant neoplasm of bladder, unspecified Urine Cytology 11/22/23 C67.9 - Malignant neoplasm of bladder, unspecified Coding Level of Care Code Est Pt Level 4 (13541) Diagnoses Bilateral kidney stones N20.0 Bladder cancer C67.9 Urge incontinence of urine N39.41 Personal history of bladder cancer Z85.51 Overactive bladder N32.81 Hydradenitis L73.2 CPT Codes Cystoscopy - CPT: 19782-[id number] ([id number])
== END 2023-11-22 15:42 | disposition home or self-care (01) ==
PROVIDERS: PCP Internal Medicine; Visit Provider Urology
DX: N20.0 Calculus of kidney (principal); C67.9 Malignant neoplasm of bladder, unspecified; N39.41 Urge incontinence; Z85.51 Personal history of malignant neoplasm of bladder; N32.81 Overactive bladder; L73.2 Hidradenitis suppurativa
CPT/HCPCS: 52000; 99214

== ENCOUNTER 2023-11-22 14:11 | Outpatient (REF) | payer MEDICARE, SELFPAY ==
[2023-11-22 18:03] LABS: Urine Cytology See Pathology rpt
== END 2023-11-22 14:12 | disposition home or self-care (01) ==
LOC: HO.LAB 14:11
PROVIDERS: PCP Internal Medicine; Visit Provider Urology
DX: C67.9 Malignant neoplasm of bladder, unspecified (principal); N39.41 Urge incontinence; N32.81 Overactive bladder; L73.2 Hidradenitis suppurativa; Z87.442 Personal history of urinary calculi; Z79.899 Other long term (current) drug therapy
CPT/HCPCS: 52000; 81003; 88112; 99212

== ENCOUNTER 2023-12-09 12:04 | Day surgery (SDC) | payer MEDICARE, SELFPAY ==
--- NOTE | 2023-12-06 12:06 | P.CONAN_ITS ---
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 [facility] Active Problems Active Problems: All Active Problems (Updated 11/22/23 @ 15:46 by Jamie Garcia MD) Hydradenitis (Acute) Atrophic vaginitis (Acute) Overactive bladder (Acute) Constipation (Acute) Renal calculi (Acute) Nephrolithiasis (Acute) Kidney stone on left side (Acute) Adrenal gland cyst (Acute) Syncope (Acute) Bladder cancer (Acute) Suppurative hidradenitis (Acute) Perineal abscess (Acute) Pruritus (Acute) Well woman exam (Acute) Menopause (Acute) Osteoporosis (Acute) Preoperative examination (Acute) Low back pain (Acute) Hydrocephalus (Acute) Lumbar spondylosis (Acute) Low back pain radiating to left lower extremity (Acute) Sacroiliac joint pain (Acute) Bilateral kidney stones (Acute) Lumbar degenerative disc disease (Acute) Spinal stenosis, lumbar region with neurogenic claudication (Acute) Cerumen impaction (Acute) Epidural lipomatosis (Acute) Insomnia (Acute) Well woman exam (Acute) Urgency of urination (Acute) Personal history of bladder cancer (Acute) Urge incontinence of urine (Acute) Bladder cancer (Acute) Obesity (BMI 30-39.9) (Acute) Chronic neck pain (Acute) Fibromyalgia (Acute) Scoliosis of thoracolumbar spine (Acute) Past Medical History Medical History Constipation Sleep apnea Abscess Bladder cancer Obesity (BMI 30-39.9) Traylor's palsy Neuropathy GERD without esophagitis Chronic neck pain Scoliosis of thoracolumbar spine Arthritis Back pain Hx of spinal stenosis Peptic ulcer Fibromyalgia Hydrocephalus in adult History of traumatic head injury Nephrolithiasis Family History Family History Father Cancer Mother Stroke Brother No problems noted. Brother No problems noted. Sister No problems noted. Son No problems noted. Daughter No problems noted. 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 TEACHER (ventriculoperitoneal) shunt status History of Problems with Anesthesia: No Social History Social History Housing: Assisted Living Facility Are you a primary career placement services counselor to a significant other at home: No Do you presently have visiting nurse or other home services: No Alcohol intake: never Patient Tobacco Use Status: Former Tobacco user Tobacco use type: Cigarette Second Hand Smoke Exposure: Yes Advance Directives: No Advance Directives Information Provided: Yes Advance Directives Date on File: 06/04/23 service: No Current occupational status: retired and disabled Cognitive needs: Yes (cane) Hearing needs: Yes Vision needs: Yes Meds Allergies Allergy/AdvReac Type Severity Reaction Status Date / Time aspartame Allergy Severe severe Verified 12/09/23 13:23 dehydration cyclobenzaprine Allergy Severe SOB Verified 12/09/23 13:23 [From Flexeril] nickel AdvReac Blister Verified 12/09/23 13:23 Home Medications Medication Instructions Recorded Confirmed Last Taken Type multivitamin 1 tab PO DAILY 10/25/21 08/13/23 06/12/23 History mecobalamin (vitamin B12) 1,000 1,000 mcg sublingual DAILY 02/27/23 08/13/23 Unknown History mcg disintegrating tablet,sublingual Exam Pertinent Lab Results Pertinent Lab Results: Laboratory Tests 08/23/23 09:30 WBC 7.8 Hgb 12.7 Hct 39.5 Plt Count 342 Sodium 139 Potassium 4.3 Chloride 103 Carbon Dioxide 30 H BUN 10 Creatinine 0.72 Assessment and Plan Assessment Anesthesia Assessment: Chart Reviewed Final Anesthetic Review Family History of Problems with Anesthesia: No History of Problems with Anesthesia: No Documented by User: Shahida Bustillo MD 12/09/23 13:40 [facility] Past Medical History Medical History Constipation Sleep apnea Abscess Bladder cancer Obesity (BMI 30-39.9) Traylor's palsy Neuropathy GERD without esophagitis Chronic neck pain Scoliosis of thoracolumbar spine Arthritis Back pain Hx of spinal stenosis Peptic ulcer Fibromyalgia Hydrocephalus in adult History of traumatic head injury Nephrolithiasis Family History Family History Father Cancer Mother Stroke Brother No problems noted. Brother No problems noted. Sister No problems noted. Son No problems noted. Daughter No problems noted. Paternal Grandmother Colon cancer Surgical History Surgical History Hx of cystoscopy History of cervical spinal surgery History of adenoidectomy Hx of lithotripsy Hx of tubal ligation Hx of excision of lamina of cervical vertebra for decompression of spinal cord Hx of cholecystectomy H/O colonoscopy Hx of gastric bypass RECREATION THERAPY AIDES TEACHER (ventriculoperitoneal) shunt status Social History Social History Housing: Assisted Living Facility Are you a primary career placement services counselor to a significant other at home: No Do you presently have visiting nurse or other home services: No Alcohol intake: never Patient Tobacco Use Status: Former Tobacco user Tobacco use type: Cigarette Second Hand Smoke Exposure: Yes Advance Directives: No Advance Directives Information Provided: Yes Advance Directives Date on File: 06/04/23 service: No Current occupational status: retired and disabled Cognitive needs: Yes (cane) Hearing needs: Yes Vision needs: Yes Meds Allergies Allergy/AdvReac Type Severity Reaction Status Date / Time aspartame Allergy Severe severe Verified 12/09/23 13:23 dehydration cyclobenzaprine Allergy Severe SOB Verified 12/09/23 13:23 [From Flexeril] nickel AdvReac Blister Verified 12/09/23 13:23 Home Medications Medication Instructions Recorded Confirmed Last Taken Type multivitamin 1 tab PO DAILY 10/25/21 08/13/23 06/12/23 History mecobalamin (vitamin B12) 1,000 1,000 mcg sublingual DAILY 02/27/23 08/13/23 Unknown History mcg disintegrating tablet,sublingual Exam Airway Mallampati Class: II TM Dist: >3cm Neck ROM: Full Heart: rrr Lungs: cta Assessment and Plan Assessment Anesthesia Assessment: Anesthesia Plan Discussed Final Anesthetic Review NPO: Yes ASA Class: III Final Preanesthetic Review: No Changes in Pt Med Stat, Meds/Allgs Chart Reviewed and Consent Obtained/Reviewed Patient Risk: Low Procedure Risk: Low Anesthetic Plan Anesthetic Plan: MAC: Disposition: Standard PACU
--- NOTE | 2023-12-09 13:03 | MHC.SHP ---
Pre-Procedural Eval Section A - 24 Hr Update-Section A only Date of Service: 12/09/23 The patient is an INPATIENT: No The patient has been examined within 24 hours of the surgical procedure. The History & Physical has been completed within 30 days and I have reviewed it.: No Section B - Complete if H&P > 30 days Chief Complaint: Colon cancer screening Relevant Family History (Specify if Yes): Yes Relevant Social History: Tobacco Use (Former smoker) Present Medications: see Short Stay Collaborative assessment Medical History: Significant History (Bladder cancer Obesity (BMI 30-39.9) Traylor's palsy Neuropathy GERD without esophagitis Chronic neck pain Scoliosis of thoracolumbar spine Arthritis Back pain Hx of spinal stenosis Peptic ulcer Fibromyalgia Hydrocephalus in adult History of traumatic head injury Nephrolithiasis) History of Previous Operations: Relevant previous surgery/procedure and date(s) (Hx of cystoscopy History of cervical spinal surgery History of adenoidectomy Hx of lithotripsy Hx of tubal ligation Hx of excision of lamina of cervical vertebra for decompression of spinal cord Hx of cholecystectomy H/O colonoscopy Hx of gastric bypass CLINICAL THERAPIST (ventriculoperitoneal) shunt status) Allergies: Allergies Allergy/AdvReac Type Severity Reaction Status Date / Time aspartame Allergy Severe severe Verified 08/13/23 13:43 dehydration cyclobenzaprine Allergy Severe SOB Verified 08/13/23 13:43 [From Flexeril] nickel AdvReac Blister Verified 08/13/23 13:43 Review of Systems Sugical H&P ROS: Negative: Constitution, Cardiovascular, Respiratory and Gastrointestinal Exam Surgical H&P Exam: Normal: Heart, Normal: Lungs, Normal: Extremities and Normal: Abdomen Plan Diagnosis/Plan: Unchanged I have reviewed the history and physical and performed a pertinent physical examination on my patient. No changes have occurred unless specified. Time Spent With Patient Time: Total time managing care of this patient today ____ minutes.
[2023-12-09 13:25] VITALS: BP 118/60; PULSE 51; RESP 16; TEMP 37; O2SAT 99; BMI 31.5
[2023-12-09] MEDS: Lactated Ringers 1,000 ML 100 ML IVCONT (13:38)
--- NOTE | 2023-12-09 13:44 | W.PM.OPN ---
Operative Note Operative Note Date of Service: 12/09/23 Narrative: COLONOSCOPY TILL CECUM WITH SNARE POLYPECTOMY Pre-op diagnosis: Surveillance of colon polyps, FH of colon cancer (Paternal GM). Post-op diagnosis:? Colon polyps, Diverticulosis, hemorrhoids Endoscopist:? Pamella Cavanaugh MD Anesthesia:?MAC Consent: Indications for the procedure and potential complications of bleeding, perforation, reaction to medications and missed diagnosis were discussed with the patient and informed consent was obtained. Instrument: Olympus PCF H 190 L variable stiffness pediatric colonoscope Monitoring: Vital signs and clinical assessment, intermittent blood pressure monitoring, continuous EKG monitoring, Pulse oximetry and Carbon Dioxide monitoring were done throughout the procedure. Please see anesthesia flowsheet. Colon withdrawl time was 24 minutes. Procedure: The patient was placed in the left lateral decubitis position and pre-procedure medications were administered. After a digital rectal examination of the ano-rectum, the video colonoscope was inserted into the rectum and advanced through the colon to the cecum. The colonoscope was slowly withdrawn in a retrograde panoramic fashion and the colon mucosa was carefully examined including a retroflexed view of the rectum. Findings and interventions are described below. Procedure Difficulty: Without difficulty Findings: Terminal Ileum: Not evaluated Cecum: Normal Ascending Colon: A 9-10 mm sessile polyp in the distal AC - removed with a cold snare Transverse Colon: Normal Descending Colon: Normal Sigmoid Colon: A 9-10 mm sessile polyp - removed with a cold snare. Moderate diverticulosis Rectum: Normal Ano-rectum: Small internal hemorrhoids Colon preparation: Good after copious irrigation. There was excessive spasm in the colon [place] Bowel Preparation Scale Right colon; 2 Transverse colon: 2 Left colon; 2 (0 = Unprepared colon segment with mucosa not seen due to solid stool that cannot be cleared. 1 = Portion of mucosa of the colon segment seen, but other areas of the colon segment not well seen due to staining, residual stool and/or opaque liquid. 2 = Minor amount of residual staining, small fragments of stool and/or opaque liquid, but mucosa of colon segment seen well. 3 = Entire mucosa of colon segment seen well with no residual staining, small fragments of stool or opaque liquid) Impression and Post Procedure Diagnosis: Colonoscopy Findings: Two medium sized polyps were removed. Moderate diverticulosis seen in the sigmoid colon Small hemorrhoids on retroflexed exam. Plan: Pt has a FU appointment on 12/23/23 with Sharmila Hinkle NP Repeat Colonoscopy in 3 years if polyps are adenomatous and due to a history of adenomatous colon polyps. Colon polyps and diverticulosis handouts were given in the discharge area.
[2023-12-09 14:30] VITALS: BP 138/70; PULSE 54; RESP 16; TEMP 36.1; O2SAT 98
[2023-12-09 14:45] VITALS: BP 127/46; PULSE 58; RESP 14; O2SAT 98
[2023-12-09 15:00] VITALS: BP 127/62; PULSE 60; RESP 16; TEMP 36.1; O2SAT 100
== END 2023-12-09 15:34 | disposition home or self-care (01) ==
PROVIDERS: PCP Internal Medicine; Visit Provider Internal Medicine Gastroenterology
PROC: 0DJD8ZZ Inspection of Lower Intestinal Tract, Via Natural or Artificial Opening Endoscopic (ICD-10-PCS; CPT 45378; principal; 2023-12-09 14:00)
DX: Z12.11 Encounter for screening for malignant neoplasm of colon (principal); D12.2 Benign neoplasm of ascending colon; K57.30 Diverticulosis of large intestine without perforation or abscess without bleeding; K64.8 Other hemorrhoids; Z80.0 Family history of malignant neoplasm of digestive organs; C67.9 Malignant neoplasm of bladder, unspecified; G47.33 Obstructive sleep apnea (adult) (pediatric); Z98.51 Tubal ligation status; Z98.84 Bariatric surgery status; Z90.49 Acquired absence of other specified parts of digestive tract; Z79.899 Other long term (current) drug therapy
CPT/HCPCS: 45385; 88305; J2405; J2704

== ENCOUNTER → 2023-12-09 12:04 | Outpatient (BNV) | payer MEDICARE, SELFPAY | PROVIDERS: PCP Internal Medicine; Visit Provider Internal Medicine Gastroenterology | DX: Z12.11 Encounter for screening for malignant neoplasm of colon (principal); Z86.010 Personal history of colon polyps; Z80.0 Family history of malignant neoplasm of digestive organs; K63.5 Polyp of colon | CPT/HCPCS: 45385 ==

== ENCOUNTER 2023-12-13 13:58 | Outpatient (AMB) | payer MEDICARE, SELFPAY ==
--- NOTE | 2023-12-13 14:09 | MHC.PC.OV ---
Vital Signs 12/13/23 14:14 Height 5 ft 3 in Weight 180 lb BMI 31.9 BP 110/70 Blood Pressure Location Lt brachial Position Sitting Pulse 71 Pulse Source Pulse Oximeter Pulse Oximetry (%) 97 Oxygen Delivery Method Room Air Intake Visit Reasons: 4mth f/u Intake Note: Patient is here to follow up on Chronic neck pain, Fibromyalgia. Senior Support Engineer Required: No Senior Online Marketing Manager: Not Required per policy Accompanied by: Self / Same As Patient Allergies aspartame Allergy (Severe, Verified 12/13/23 14:53) severe dehydration cyclobenzaprine [From Flexeril] Allergy (Severe, Verified 12/13/23 14:53) SOB nickel Adverse Reaction (Verified 12/13/23 14:53) Blister Medication List - Last Reconciled 12/13/23 by Gregory Gaming MD alendronate 70 mg PO QWEEK back brace As directed calcium carbonate-vitamin D3 600 mg-20 mcg (800 unit) (Caltrate 600 plus D) 1 tab PO BID Donut pillow As directed gabapentin 300 mg PO TID 30 days mecobalamin (vitamin B12) 1,000 mcg sublingual DAILY mirabegron ER (Myrbetriq) 25 mg PO DAILY multivitamin 1 tab PO DAILY omeprazole magnesium (Prilosec OTC) 20 mg PO BEDTIME 30 days pyridoxine (vitamin B6) 100 mg PO DAILY [shower head As directed] trazodone 100 mg PO BEDTIME PRN 30 days Tobacco use date assessed: 12/13/23 Fall risk assessment: No Falls in past year Last assessed Fall Risk: 12/13/23 Dental Screening Dental Screen Date: 12/13/23 Did you have a dental visit in the last 12 months?: Yes Did you have a dental problem in the last 6 months where you did not have access to dental care?: No Was dental information given to patient?: Patient has dentist HPI 4mth f/u HPI Details Patient comes in today for her follow up visit States that she feels okay She had her colonoscopy done earlier this week and would like to know if there were any concerning findings Recalls that she was advised that Dr. Cavanaugh took out a couple of polyps but her colonoscopy was otherwise okay Adds that she was started on Myrbetriq by urology recently and it seems to be helping with her urinary issues She denies any headaches; still has occasional dizziness but states that these have not gotten any worse than before Denies any chest pains, no increased SOB No nausea/vomiting, no abdominal pain No change in bowel habits noted Still has chronic low back pain but states that her current Rx are helping to keep her back pains manageable Would like to know how she did on her labs done a couple of weeks after she was last seen here in August 2023 [facility] Medical History (Updated 12/13/23 @ 16:06 by Gregory Gaming MD) Constipation Sleep apnea Abscess Bladder cancer Obesity (BMI 30-39.9) Traylor's palsy Neuropathy GERD without esophagitis Chronic neck pain Scoliosis of thoracolumbar spine Arthritis Back pain Hx of spinal stenosis Peptic ulcer Fibromyalgia Hydrocephalus in adult History of traumatic head injury Nephrolithiasis Surgical History (Updated 12/13/23 @ 16:08 by Gregory Gaming MD) Hx of cystoscopy History of cervical spinal surgery History of adenoidectomy Hx of lithotripsy Hx of tubal ligation Hx of excision of lamina of cervical vertebra for decompression of spinal cord Hx of cholecystectomy H/O colonoscopy Hx of gastric bypass [employer] (ventriculoperitoneal) shunt status Family History Father Cancer Mother Stroke Brother No problems noted. Brother No problems noted. Sister No problems noted. Son No problems noted. Daughter No problems noted. Paternal Grandmother Colon cancer Social History Housing: Assisted Living Facility Are you a primary health care manager to a significant other at home: No Do you presently have visiting nurse or other home services: No Alcohol intake: never Patient Tobacco Use Status: Former Tobacco user Quit Date: 2013 Tobacco use type: Cigarette e-Cigarette/Vaping Use: Never Used Second Hand Smoke Exposure: Yes Advance Directives Date on File: 06/04/23 service: No Current occupational status: retired and disabled Cognitive needs: Yes (cane) Hearing needs: Yes (hearing aide) Vision needs: Yes (glasses) Female Reproductive History Menstrual Age of Menarche: 15 Questionnaire PHQ-9 Over the last 2 weeks, how often have you been bothered by any of the following problems? 1. Little interest or pleasure in doing things: not at all 2. Feeling down, depressed, or hopeless: not at all 3. Trouble falling or staying asleep, or sleeping too much: not at all 4. Feeling tired or having little energy: not at all 5. Poor appetite or overeating: not at all 6. Feeling bad about yourself - or that you are a failure or have let yourself or your family down: not at all 7. Trouble concentrating on things, such as reading the newspaper or watching television: not at all 8. Moving or speaking so slowly that other people could have noticed. Or the opposite - being so fidgety or restless that you have been moving around a lot more than usual: not at all 9. Thoughts that you would be better off or of hurting yourself in some way: not at all Total score: 0 Depression Screening Interpretation: Negative Depression Screening Done: Yes 41641 - PHQ-9 Billing: Yes Source: Developed by Drs. Moe Arnold, Vernell Martinez, Skyler Moyer and colleagues, with an educational kindra from [employer]. Thrive Questionnaire Date Thrive assessed: 12/13/23 I am a: Patient What is your living situation today?: I have a steady place to live Within the past 12 months, did the food you bought not last and you didn't have the money to get more?: Never true Within the past 12 months, did you worry whether your food would run out before you got money to buy more?: Never true Do you have trouble paying for medicines?: No Do you have trouble getting transportation to medical appointments?: No Do you have trouble paying your heating and electricity bill?: No Do you have trouble taking care of your child, family member or friend?: No Do you have trouble with day-to-day activities such as bathing, preparing meals, shopping, managing finances, etc.?: No Are you currently unemployed and looking for a job?: No Are you interested in more education?: No Currently or been in a relationship where the following occur: no concerns reported THRIVE Score: 0 AUDIT C Alcohol Use Questionnaire (AUDIT-C) 1. How often do you have a drink containing alcohol?: Never Total Score: 0 Score Reviewed/Action Taken: Yes ALEX-7 AMB Questionnaire ALEX-7 Date ALEX - 7 assessed: 12/13/23 Feeling nervous, anxious, or on edge: 0 = Not at all Not being able to stop or control worryin = Not at all Worrying too much about different things: 0 = Not at all Trouble relaxin = Not at all Being so restless that it is hard to sit still: 0 = Not at all Becoming easily annoyed or irritable: 0 = Not at all Feeling afraid as if something awful might happen: 0 = Not at all Total ALEX-7 score (0-4 normal; 5-9 mild; 10-14 moderate; 15-21 severe): 0 Source: Developed by Drs. Moe Arnold, Vernell Martinez, Skyler Moyer and colleagues, with an educational kindra from [employer]. Review of Systems Const Reports fatigue, Denies fever(s) and Denies headache(s) ENT Denies dysphagia, Reports dizziness (occasional), Denies otalgia, Denies headache(s), Reports neck pain (chronic), Denies odynophagia and Denies sore throat Card Denies chest pain, Denies palpitations and Denies dyspnea Resp Denies cough and Denies dyspnea GI Denies abdominal pain, Denies constipation, Denies dysphagia, Denies heartburn, Denies diarrhea, Denies nausea, Denies odynophagia and Denies vomiting Denies hematuria, Denies difficulty voiding, Denies nocturia, Denies dysuria and Reports urinary urgency (at times) Musc Reports back pain (over the lower back - chronic) and Reports neck pain (chronic) Skin/Breast Denies rash Neuro Reports dizziness (occasional) and Denies headache(s) Endo Reports fatigue and Denies palpitations Physical exam (Primary Care) Vital Signs: Last Vital Signs Pulse 71 12/13/23 14:14 BP 110/70 12/13/23 14:14 Pulse Ox 97 12/13/23 14:14 Oxygen Delivery Method Room Air 12/13/23 14:14 BMI result Body Mass Index 31.9 Tobacco/Smoking Status: Tobacco use Status Tobacco use date assessed 12/13/23 12/13/23 14:22 Patient Tobacco Use Status Former Tobacco user 12/13/23 14:11 Tobacco use type Cigarette 12/13/23 14:11 e-Cigarette/Vaping Use Never Used 12/13/23 14:22 PHQ-9: PHQ-9 Score PHQ-9: Total score 0 12/13/23 14:54 Depression Screening Interpretation: Negative Thrive Assessment: Date of Thrive Assessment Date Thrive assessed 12/13/23 12/13/23 14:22 Currently or been in a relationship where the following occur: no concerns reported Const General: no acute distress and alert Limitations: ambulation with walker HENMT Ears: TM's normal bilaterally and EAC's normal Throat: Yes posterior oropharynx normal and Yes tonsils normal (no TP congestion) Neck Neck: Yes no lymphadenopathy Thyroid: Thyroid normal Resp Auscultation: clear to auscultation bilaterally, no rales and no wheezes Cardio Rate: regular rate Rhythm: regular rhythm Heart sounds: no murmurs GI Palpation (GI): Soft to palpation and nontender Auscultation: normal bowel sounds General: Yes no CVA tenderness Back/Spine/Pelvis Back: no CVA tenderness Cervical Spine: Cervical spine tenderness Thoracic/Lumbar Spine: lumbar spinal tenderness Skin Rashes: no rashes Extrem General: Yes no clubbing, cyanosis or edema Results Reviewed Results Reviewed: Laboratory Tests 08/23/23 09:30 WBC 7.8 Hgb 12.7 Hct 39.5 Plt Count 342 Sodium 139 Potassium 4.3 Creatinine 0.72 Estimated GFR > 60 Fasting Glucose 98 Calcium 9.3 AST 13 ALT 10 Triglycerides 136 Cholesterol 196 LDL Cholesterol, Calc 121 H HDL Cholesterol 48 Vitamin B12 > 2000 H 25-OH Vitamin D Total 106.1 TSH 0.85 Ur Specific Carr 1.015 Urine Protein Negative Urine Glucose (UA) Negative Urine Blood Negative Urine Nitrite Negative Ur Leukocyte Esterase Moderate (2+) H Assessment and Plan Assessment & Plan (1) Bladder cancer: Comment: TURBT 12/26 high-grade superficial bladder cancer; started immunotherapy induction 6 weeks in 12/2021; immunotherapy boost in 03/2022 Code(s): C67.9 - Malignant neoplasm of bladder, unspecified Qualifiers: Bladder location: lateral wall Qualified Code(s): C67.2 - Malignant neoplasm of lateral wall of bladder Plan: S/P repeat cystoscopy and biopsy with fulguration and intravesical Gemcitabine instillation on 08/06/2022 after cystoscopy done in 06/2022 revealed a poorly healing area with some evidence of superficial recurrence of bladder cancer on the right side bladder wall S/P immunotherapy Follow up with urology as scheduled for continuing surveillance - just had repeat cystoscopy done for surveillance last month (November 2023) (2) Chronic neck pain: Comment: S/P TBI and whiplash injury in the early ; Tx w/fluid drainage in 1993 & [employer] shunt in 1998 Code(s): M54.2 - Cervicalgia; G89.29 - Other chronic pain Plan: Continues to experience chronic neck pain - was reportedly advised by neurosurgery a couple of years ago that there is nothing else to offer her in terms of surgical Tx or management Follow up with pain management as scheduled (3) Low back pain: Code(s): M54.50 - Low back pain, unspecified Qualifiers: Back pain laterality: midline Chronicity: chronic Sciatica presence: unspecified whether sciatica present Qualified Code(s): M54.50 - Low back pain, unspecified; G89.29 - Other chronic pain Plan: Reinforced activity and weight-lifting restrictions Continue Gabapentin 300 mg TID Follow up with pain management as scheduled (4) Scoliosis of thoracolumbar spine: Code(s): M41.9 - Scoliosis, unspecified Qualifiers: Scoliosis type: unspecified scoliosis Qualified Code(s): M41.9 - Scoliosis, unspecified Plan: Continue Naproxen 500 mg BID with food PRN for pain (5) Fibromyalgia: Code(s): M79.7 - Fibromyalgia Plan: Was on Pregabalin (switched from Gabapentin by [facility] a few years ago) but has weaned herself off the medication recently and has not noticed any change in her symptoms since coming off the medication Went back on Gabapentin and felt that it is helping better - is currently on Gabapentin 300 mg TID [facility] She ideally should try to stay active and exercise regularly to help manage her symptoms better but patient's activity level is significantly limited by her chronic neck and lower back issue Results of her labs done back in August 2023 reviewed and discussed with patient (6) Hydrocephalus: Code(s): G91.9 - Hydrocephalus, unspecified Qualifiers: Hydrocephalus type: post-traumatic Qualified Code(s): G91.3 - Post-traumatic hydrocephalus, unspecified Plan: S/P [employer] shunting Follow up with neurology (Dr. Melendrez) as scheduled (7) Osteoporosis: Code(s): M81.0 - Age-related osteoporosis without current pathological fracture Qualifiers: Osteoporosis type: age-related Presence of current pathological fracture: without current pathological fracture Qualified Code(s): M81.0 - Age-related osteoporosis without current pathological fracture Plan: Her BMD done in 06/2022 represents her baseline exam as she has no other BMD available to compare it with BMD came out with the lowest T-score value of -3.1 in the femoral neck Continue Alendronate 70 mg once a week Continue Caltrate 600 plus D BID Fall precautions reinforced Will recheck BMD in 2 to 3 years for follow up - can consider ordering it later this year (2023) (8) GERD without esophagitis: Code(s): K21.9 - Gastro-esophageal reflux disease without esophagitis Plan: Dietary restrictions reinforced Continue Omeprazole 20 mg QD PRN (9) Constipation: Code(s): K59.00 - Constipation, unspecified Qualifiers: Constipation type: unspecified constipation type Qualified Code(s): K59.00 - Constipation, unspecified Plan: Reinforced increased oral fluids and dietary fiber Continue Miralax 17 gm QD (10) Tubular adenoma of colon: Code(s): D12.6 - Benign neoplasm of colon, unspecified Plan: She is advised that one of her 2 polyps removed during her colonoscopy earlier this week was a tubular adenoma and she is recommended to get a repeat colonoscopy in 3 years (2026) Follow up with GI as scheduled (11) Renal calculi: Code(s): N20.0 - Calculus of kidney Plan: Follow up with urology as scheduled (12) Overactive bladder: Code(s): N32.81 - Overactive bladder Plan: Continue Myrbetriq ER 25 mg QD Follow up with urology as scheduled (13) Insomnia: Code(s): G47.00 - Insomnia, unspecified Qualifiers: Insomnia type: unspecified Qualified Code(s): G47.00 - Insomnia, unspecified Plan: Reinforced sleep hygiene Continue Trazodone 100 mg Q HS PRN (14) Obesity (BMI 30-39.9): Code(s): E66.9 - Obesity, unspecified Plan: Reinforced diet/lose weight; exercise is not realistic given her chronic pain - states that her activity tolerance is very limited Plan Follow up in 4 months Coding Level of Care Code Est Pt Level 4 (46970) Diagnoses Malignant neoplasm of lateral wall of urinary bladder C67.2 Bladder location: lateral wall Chronic neck pain M54.2; G89.29 Chronic midline low back pain, unspecified whether sciatica present M54.50; G89.29 Back pain laterality: midline Chronicity: chronic Sciatica presence: unspecified whether sciatica present Scoliosis of thoracolumbar spine, unspecified scoliosis type M41.9 Scoliosis type: unspecified scoliosis Fibromyalgia M79.7 Post-traumatic hydrocephalus G91.3 Hydrocephalus type: post-traumatic Age-related osteoporosis without current pathological fracture M81.0 Osteoporosis type: age-related Presence of current pathological fracture: without current pathological fracture GERD without esophagitis K21.9 Constipation, unspecified constipation type K59.00 Constipation type: unspecified constipation type Tubular adenoma of colon D12.6 Renal calculi N20.0 Overactive bladder N32.81 Insomnia, unspecified type G47.00 Insomnia type: unspecified Obesity (BMI 30-39.9) E66.9
[2023-12-13 14:14] VITALS: BP 110/70; PULSE 71; O2SAT 97; BMI 31.9
== END 2023-12-13 15:08 | disposition home or self-care (01) ==
PROVIDERS: PCP Internal Medicine; Visit Provider Internal Medicine
DX: C67.2 Malignant neoplasm of lateral wall of bladder (principal); G91.3 Post-traumatic hydrocephalus, unspecified; M54.2 Cervicalgia; G89.29 Other chronic pain; M54.50 Low back pain, unspecified; M41.9 Scoliosis, unspecified; M79.7 Fibromyalgia; M81.0 Age-related osteoporosis without current pathological fracture; E66.9 Obesity, unspecified; K21.9 Gastro-esophageal reflux disease without esophagitis; K59.00 Constipation, unspecified
CPT/HCPCS: 99214

== ENCOUNTER 2023-12-23 12:35 | Outpatient (AMB) | payer MEDICARE, SELFPAY ==
[2023-12-23 12:52] VITALS: BP 138/66; PULSE 55; BMI 32.6
--- NOTE | 2023-12-23 12:52 | MHC.OFFVIS ---
Intake Vital Signs 12/23/23 12:52 Height 5 ft 3 in Weight 184 lb 4.903 oz BMI 32.6 BP 138/66 Blood Pressure Location Lt brachial Position Sitting Pulse 55 Pulse Source Pulse Oximeter Intake Visit Reasons: s/p colon Intake Note: Pt presents to the office today for a s/o colo. Pt states she is feeling well and denies any concerns at this point. Allergies aspartame Allergy (Severe, Verified 12/23/23 12:56) severe dehydration cyclobenzaprine [From Flexeril] Allergy (Severe, Verified 12/23/23 12:56) SOB nickel Adverse Reaction (Verified 12/23/23 12:56) Blister HPI s/p colon HPI Details LAST VISIT Screen for colon cancer Patient denies any GI, cardiac or respiratory symptoms.? Denies any issues with anesthesia in the past.? Patient had TURP procedure for bladder CA in 2021 and did well and anesthesia. Patient also had lithotripsy in June and had no issues. History of GARCIA.? No history infectious diseases in the past or present.? Not on any anticoagulation therapy.? No family or personal history of colon cancer.? Patient denies melena, hematochezia, unintentional weight loss or ribbon like stools.? Discussed at length the pre-procedure,? prep, diet & medications as well as what to expect prior, during and after the procedure.?? Stressed the importance of good bowel prep. ?Recommended the use of Vaseline or Calmoseptine OTC & baby wipes with bowel movements to promote comfort.? ?Patient verbalizes understanding and agrees to plan of care.? She was given the opportunity to ask questions and all questions answered.? We will see her after the procedure.? Plan Medications New bisacodyl (Dulcolax (bisacodyl)) take 2 tabs at noon the day before your colonoscopy 10 mg (2 x 5 mg) PO ONCE 1 day 2 tabs 0RF Z12.11 polyethylene glycol 3350 (Miralax) As directed by gastroenterology department at [facility] 238 grams PO ONCE 238 grams 0RF Z12.11 COLONOSCOPY Findings: Terminal Ileum: Not evaluated Cecum: Normal Ascending Colon: A 9-10 mm sessile polyp in the distal AC - removed with a cold snare Transverse Colon: Normal Descending Colon: Normal Sigmoid Colon: A 9-10 mm sessile polyp - removed with a cold snare. Moderate diverticulosis Rectum: Normal Ano-rectum: Small internal hemorrhoids Colon preparation: Good after copious irrigation. There was excessive spasm in the colon [place] Bowel Preparation Scale Right colon; 2 Transverse colon: 2 Left colon; 2 (0 = Unprepared colon segment with mucosa not seen due to solid stool that cannot be cleared. 1 = Portion of mucosa of the colon segment seen, but other areas of the colon segment not well seen due to staining, residual stool and/or opaque liquid. 2 = Minor amount of residual staining, small fragments of stool and/or opaque liquid, but mucosa of colon segment seen well. 3 = Entire mucosa of colon segment seen well with no residual staining, small fragments of stool or opaque liquid) Impression and Post Procedure Diagnosis: Colonoscopy Findings: Two medium sized polyps were removed. Moderate diverticulosis seen in the sigmoid colon Small hemorrhoids on retroflexed exam. Plan: Repeat Colonoscopy in 3 years if polyps are adenomatous and due to a history of adenomatous colon polyps. PATHOLOGY RESULTS Diagnosis A. Colon, ascending, polypectomy: Fragments of tubular adenoma; negative for high-grade dysplasia or carcinoma. B. Colon, sigmoid, polypectomy: Hyperplastic mucosal polyp TODAY'S VISIT Patient is here today for follow-up and to discuss colonoscopy results. Patient denies any ill effects from the prep, anesthesia or procedure itself. Patient states that she has been feeling well. Tubular adenoma found in ascending colon without high-grade dysplasia or carcinoma. Hyperplastic mucosal polyp found in sigmoid colon. Patient denies any abdominal pain or discomfort. Diverticulosis seen in sigmoid colon. Patient was told to increase fiber intake. Patient denies any melena, hematochezia, unintentional weight loss or ribbon like stools. Patient denies any dyspepsia on, dysphagia or odynophagia. Patient reports to be feeling well otherwise. [facility] Medical History (Updated 12/23/23 @ 13:09 by Jodi Hinkle, [facility]-) Diverticulosis Constipation Sleep apnea Abscess Bladder cancer Obesity (BMI 30-39.9) Traylor's palsy Neuropathy GERD without esophagitis Chronic neck pain Scoliosis of thoracolumbar spine Arthritis Back pain Hx of spinal stenosis Peptic ulcer Fibromyalgia Hydrocephalus in adult History of traumatic head injury Nephrolithiasis Surgical History Hx of cystoscopy History of cervical spinal surgery History of adenoidectomy Hx of lithotripsy Hx of tubal ligation Hx of excision of lamina of cervical vertebra for decompression of spinal cord Hx of cholecystectomy H/O colonoscopy Hx 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 Brother No problems noted. Sister No problems noted. Son No problems noted. Daughter No problems noted. Paternal Grandmother Colon cancer Social History Housing: Assisted Living Facility Are you a primary primary care sales representative to a significant other at home: No Do you presently have visiting nurse or other home services: No Alcohol intake: never Patient Tobacco Use Status: Former Tobacco user Quit Date: 2013 Tobacco use type: Cigarette e-Cigarette/Vaping Use: Never Used Second Hand Smoke Exposure: Yes Advance Directives Date on File: 06/04/23 service: No Current occupational status: retired and disabled Cognitive needs: Yes (cane) Hearing needs: Yes (hearing aide) Vision needs: Yes (glasses) Female Reproductive History Menstrual Age of Menarche: 15 Review of Systems Const Denies weight gain and Denies weight loss ENT Reports no additional complaints, Denies dysphagia and Denies odynophagia Card Reports no additional complaints Resp Reports no additional complaints GI Denies abdominal pain, Denies belching, Denies melena, Denies bloating, Denies change in bowel habits, Denies dysphagia, Denies excessive flatus, Denies dyspepsia, Denies heartburn, Denies diarrhea, Denies loose stools, Denies nausea, Denies odynophagia and Denies vomiting Musc Reports no additional complaints Neuro Reports no additional complaints Psych Reports no additional complaints Endo Reports no additional complaints Physical Exam Vital Signs: Last Vital Signs Pulse 55 12/23/23 12:52 BP 138/66 12/23/23 12:52 BMI result Body Mass Index 32.6 Const Other: Patient ambulating using wheeled walker General: healthy appearing, no acute distress and well developed Nutritional Appearance: well nourished and obese Orientation/consciousness: patient oriented x3 Resp Effort & Inspection: normal respiratory effort, able to speak in complete sentences, no tracheal deviation and symmetric chest movement Auscultation: clear to auscultation bilaterally Cardio Rate: regular rate GI Inspection: Yes normal to inspection and No distended Palpation (GI): Soft to palpation, not firm, nontender and No hepatosplenomegaly present Auscultation: normal bowel sounds General: Yes no CVA tenderness Back/Spine/Pelvis Back: no CVA tenderness Skin General skin exam: elasticity normal, turgor normal and dry skin Neuro General: patient oriented x3 Psych Appearance: grossly normal Mental Status: mental status grossly normal Assessment & Plan Assessment & Plan (1) Tubular adenoma of colon: Code(s): D12.6 - Benign neoplasm of colon, unspecified (2) Diverticulosis: Code(s): K57.90 - Diverticulosis of intestine, part unspecified, without perforation or abscess without bleeding Plan Tubular adenoma without high-grade dysplasia or carcinoma found. Patient will repeat colonoscopy in 3 years, sooner if clinically necessary. Patient will increase fiber in her diet. May take [id number] probiotic. List of food high in fiber given to patient. Patient will follow-up in our office on as needed basis. She is agreeable to this plan and verbalizes understanding of instructions. She was given the opportunity to ask questions and all questions answered. Thank you for allowing me to participate in her care Coding Level of Care Code Est Pt Level 3 (15551) Diagnoses Tubular adenoma of colon D12.6 Diverticulosis K57.90 Time Spent (min) 30 Comment 20 minutes spent with patient and additional 10 minutes spent reviewing her records
== END 2023-12-23 13:53 | disposition home or self-care (01) ==
PROVIDERS: PCP Internal Medicine; Visit Provider Nurse Practitioner Family
DX: D12.6 Benign neoplasm of colon, unspecified (principal); K57.90 Diverticulosis of intestine, part unspecified, without perforation or abscess without bleeding
CPT/HCPCS: 99213

== ENCOUNTER → 2023-12-23 12:35 | Outpatient (BNVA) | payer MEDICARE, SELFPAY | PROVIDERS: PCP Internal Medicine; Visit Provider Nurse Practitioner Family | DX: D12.6 Benign neoplasm of colon, unspecified (principal); K57.90 Diverticulosis of intestine, part unspecified, without perforation or abscess without bleeding | CPT/HCPCS: 99212 ==

== ENCOUNTER 2024-04-13 14:16 | Outpatient (AMB) | payer MEDICARE, SELFPAY ==
--- NOTE | 2024-04-13 14:19 | A.OFFPC_ITS ---
Vital Signs 04/13/24 14:20 Height 5 ft 3 in Weight 173 lb 4 oz BMI 30.7 BP 116/68 Blood Pressure Location Lt brachial Position Sitting Pulse 51 Pulse Source Pulse Oximeter Pulse Oximetry (%) 96 Oxygen Delivery Method Room Air Intake Visit Reasons: 4M follow up Intake Note: Patient is here to follow up on LDDD, Insomnia, Bladder Cancer. Education And Training Coordinator Required: No Controls Designer: Not Required per policy Accompanied by: Self / Same As Patient Allergies aspartame Allergy (Severe, Verified 04/13/24 14:53) severe dehydration cyclobenzaprine [From Flexeril] Allergy (Severe, Verified 04/13/24 14:53) SOB nickel Adverse Reaction (Verified 04/13/24 14:53) Blister Medication List - Last Reconciled 04/13/24 by Gregory Gaming MD alendronate 70 mg PO QWEEK back brace As directed calcium carbonate-vitamin D3 600 mg-20 mcg (800 unit) (Caltrate 600 plus D) 1 tab PO BID Donut pillow As directed mecobalamin (vitamin B12) 1,000 mcg sublingual DAILY mirabegron ER (Myrbetriq) 25 mg PO DAILY multivitamin 1 tab PO DAILY omeprazole magnesium (Prilosec OTC) 20 mg PO BEDTIME 30 days pregabalin 50 mg PO TID 30 days pyridoxine (vitamin B6) 100 mg PO DAILY [shower head As directed] trazodone 100 mg PO BEDTIME PRN 30 days Tobacco use date assessed: 04/13/24 Fall risk assessment: No Falls in past year Last assessed Fall Risk: 04/13/24 Dental Screening Dental Screen Date: 12/13/23 HPI 4M follow up HPI Details Patient comes in today for her follow up visit States that she feels okay She has been drinking more protein shakes lately in place of some food / snacks as she is attempting again to lose some weight - would like to know how she is doing so far with regards to weight loss She denies any headaches or dizziness Denies any chest pains, no SOB No nausea/vomiting, no abdominal pain No change in bowel habits noted States that her chronic neck pain and back pain remain adequately controlled on her current Rx Needs her Trazodone Rx refilled PFSH Medical History Diverticulosis Constipation Sleep apnea Abscess Bladder cancer Obesity (BMI 30-39.9) Traylor's palsy Neuropathy GERD without esophagitis Chronic neck pain Scoliosis of thoracolumbar spine Arthritis Back pain Hx of spinal stenosis Peptic ulcer Fibromyalgia Hydrocephalus in adult History of traumatic head injury Nephrolithiasis Surgical History Hx of cystoscopy History of cervical spinal surgery History of adenoidectomy Hx of lithotripsy Hx of tubal ligation Hx of excision of lamina of cervical vertebra for decompression of spinal cord Hx of cholecystectomy H/O colonoscopy Hx of gastric bypass [employer] (ventriculoperitoneal) shunt status Family History Father Cancer Mother Stroke Brother No problems noted. Brother No problems noted. Sister No problems noted. Son No problems noted. Daughter No problems noted. Paternal Grandmother Colon cancer Social History Housing: Assisted Living Facility Are you a primary hospice patient care secretary to a significant other at home: No Do you presently have visiting nurse or other home services: No Alcohol intake: never Patient Tobacco Use Status: Former Tobacco user Tobacco use type: Cigarette e-Cigarette/Vaping Use: Never Used Second Hand Smoke Exposure: Yes Advance Directives Date on File: 06/04/23 service: No Current occupational status: retired and disabled Cognitive needs: Yes (cane) Hearing needs: Yes (hearing aide) Vision needs: Yes (glasses) Female Reproductive History Menstrual Age of Menarche: 15 Questionnaire Thrive Questionnaire Date Thrive assessed: 12/13/23 ALXE-7 AMB Questionnaire ALEX-7 Date ALEX - 7 assessed: 12/13/23 Source: Developed by Drs. Moe Arnold, Vernell Martinez, Skyler Moyer and colleagues, with an educational kindra from [employer]. Review of Systems Const Denies chills, Reports fatigue, Denies fever(s) and Denies headache(s) ENT Denies dysphagia, Denies dizziness, Denies otalgia, Denies headache(s), Reports neck pain (chronic), Denies odynophagia and Denies sore throat Card Denies chest pain, Denies palpitations and Denies dyspnea Resp Denies cough and Denies dyspnea GI Denies abdominal pain, Denies constipation, Denies dysphagia, Denies heartburn, Denies diarrhea, Denies nausea, Denies odynophagia and Denies vomiting Denies hematuria, Denies difficulty voiding, Denies nocturia, Denies dysuria and Reports urinary urgency (at times) Musc Reports back pain (over the lower back - chronic) and Reports neck pain (chronic) Skin/Breast Denies rash Neuro Denies dizziness and Denies headache(s) Endo Reports fatigue and Denies palpitations Physical exam (Primary Care) Vital Signs: Last Vital Signs Pulse 51 04/13/24 14:20 BP 116/68 04/13/24 14:20 Pulse Ox 96 04/13/24 14:20 Oxygen Delivery Method Room Air 04/13/24 14:20 BMI result Body Mass Index 30.7 Tobacco/Smoking Status: Tobacco use Status Tobacco use date assessed 04/13/24 04/13/24 14:25 Patient Tobacco Use Status Former Tobacco user 04/13/24 14:25 Tobacco use type Cigarette 04/13/24 14:25 e-Cigarette/Vaping Use Never Used 04/13/24 14:25 Thrive Assessment: Date of Thrive Assessment Date Thrive assessed 12/13/23 04/13/24 14:25 Const General: no acute distress and alert Limitations: ambulation with walker HENMT Ears: TM's normal bilaterally and EAC's normal Throat: Yes posterior oropharynx normal and Yes tonsils normal (no TP congestion) Neck Neck: Yes no lymphadenopathy Thyroid: Thyroid normal Resp Auscultation: clear to auscultation bilaterally, no rales and no wheezes Cardio Rate: regular rate Rhythm: regular rhythm Heart sounds: no murmurs GI Palpation (GI): Soft to palpation and nontender Auscultation: normal bowel sounds General: Yes no CVA tenderness Back/Spine/Pelvis Back: no CVA tenderness Cervical Spine: Cervical spine tenderness Thoracic/Lumbar Spine: lumbar spinal tenderness Skin Rashes: no rashes Extrem General: Yes no clubbing, cyanosis or edema Assessment and Plan Assessment & Plan (1) Bladder cancer: Comment: TURBT 12/26 high-grade superficial bladder cancer; started immunotherapy induction 6 weeks in 12/2021; immunotherapy boost in 03/2022 Code(s): C67.9 - Malignant neoplasm of bladder, unspecified Qualifiers: Bladder location: lateral wall Qualified Code(s): C67.2 - Malignant neoplasm of lateral wall of bladder Plan: S/P repeat cystoscopy and biopsy with fulguration and intravesical Gemcitabine instillation on 08/06/2022, after cystoscopy done in 06/2022 revealed a poorly healing area with some evidence of superficial recurrence of bladder cancer on the right side bladder wall She is also S/P immunotherapy She had repeat cystoscopy done for surveillance most recently in November 2023 - was negative Follow up with urology as scheduled for continuing surveillance (2) Chronic neck pain: Comment: S/P TBI and whiplash injury in the early ; Tx w/fluid drainage in 1993 & [employer] shunt in 1998 Code(s): M54.2 - Cervicalgia; G89.29 - Other chronic pain Plan: Patient continues to experience chronic neck pain - was reportedly advised by neurosurgery a couple of years ago that there is nothing else to offer her in terms of surgical Tx or management Follow up with pain management as scheduled (3) Low back pain: Code(s): M54.50 - Low back pain, unspecified Qualifiers: Chronicity: chronic Back pain laterality: midline Sciatica presence: unspecified whether sciatica present Qualified Code(s): M54.50 - Low back pain, unspecified; G89.29 - Other chronic pain Plan: Reinforced activity and weight-lifting restrictions Continue Gabapentin 300 mg TID Follow up with pain management as scheduled (4) Scoliosis of thoracolumbar spine: Code(s): M41.9 - Scoliosis, unspecified Qualifiers: Scoliosis type: unspecified scoliosis Qualified Code(s): M41.9 - Scoliosis, unspecified Plan: Continue Naproxen 500 mg BID with food PRN for pain (5) Fibromyalgia: Code(s): M79.7 - Fibromyalgia Plan: She was on Pregabalin (sw[facility] from [facility]ap[facility] a few years ago) but weaned herself off the medication recently and has not noticed any change in her symptoms since coming off the medication She then went back on Gabapentin and felt that it is helping better - is currently on Gabapentin 300 mg TID Follow up with [facility] as scheduled She ideally should try to stay active and exercise regularly to help manage her symptoms better but patient's activity level is significantly limited by her chronic neck and lower back issues (6) Hydrocephalus: Code(s): G91.9 - Hydrocephalus, unspecified Qualifiers: Hydrocephalus type: post-traumatic Qualified Code(s): G91.3 - Post- traumatic hydrocephalus, unspecified Plan: S/P [employer] shunting Follow up with neurology (Dr. Melendrez) as scheduled (7) Osteoporosis: Code(s): M81.0 - Age-related osteoporosis without current pathological fracture Qualifiers: Osteoporosis type: age-related Presence of current pathological fracture: without current pathological fracture Qualified Code(s): M81.0 - Age- related osteoporosis without current pathological fracture Plan: Her BMD done in 06/2022 represents her baseline exam as she has no other BMD available to compare it with BMD came out with the lowest T-score value of -3.1 in the femoral neck Continue Alendronate 70 mg once a week Continue Caltrate 600 plus D BID Fall precautions reinforced Will recheck BMD in 2 to 3 years for follow up - can consider ordering it later this year (2023) (8) GERD without esophagitis: Code(s): K21.9 - Gastro-esophageal reflux disease without esophagitis Plan: Dietary restrictions reinforced Continue Omeprazole 20 mg QD PRN (9) Constipation: Code(s): K59.00 - Constipation, unspecified Qualifiers: Constipation type: unspecified constipation type Qualified Code(s): K59.00 - Constipation, unspecified Plan: Reinforced increased oral fluids and dietary fiber Continue Miralax 17 gm QD (10) Renal calculi: Code(s): N20.0 - Calculus of kidney Plan: Follow up with urology as scheduled (11) Overactive bladder: Code(s): N32.81 - Overactive bladder Plan: Continue Myrbetriq ER 25 mg QD Follow up with urology as scheduled (12) Insomnia: Code(s): G47.00 - Insomnia, unspecified Qualifiers: Insomnia type: unspecified Qualified Code(s): G47.00 - Insomnia, unspecified Plan: Reinforced sleep hygiene Continue Trazodone 100 mg Q HS PRN - Rx refilled (13) Obesity (BMI 30-39.9): Code(s): E66.9 - Obesity, unspecified Plan: Reinforced diet/lose weight; exercise is not realistic given her chronic pain - states that her activity tolerance is very limited Patient, however, has been able to lose about 11 pounds since her last visit - states that she has been drinking again protein shakes and has cut back a lot on the amount of food that she eats Will have her recheck her labs in 4 months for follow up Plan Follow up in 4 months Orders: Orders Lipid Panel 4 Months E78.00 - Pure hypercholesterolemia, unspecified Vitamin B12 and Folate 4 Months E53.8 - Deficiency of other specified B group vitamins Vitamin D 25-OH Total 4 Months E55.9 - Vitamin D deficiency, unspecified Complete Blood Count Auto Diff 4 Months D64.9 - Anemia, unspecified Comprehensive [place]. Panel Fast 4 Months E78.00 - Pure hypercholesterolemia, unspecified TSH reflex Free T4 4 Months E78.00 - Pure hypercholesterolemia, unspecified UA CC w/rflx Micro + Cult 4 Months R30.0 - Dysuria Medications: Refilled trazodone 100 mg PO BEDTIME 30 days PRN 30 tabs 3RF sleep Coding Level of Care Code Est Pt Level 4 (36647) Diagnoses Malignant neoplasm of lateral wall of urinary bladder C67.2 Bladder location: lateral wall Chronic neck pain M54.2; G89.29 Chronic midline low back pain, unspecified whether sciatica present M54.50; G89.29 Chronicity: chronic Back pain laterality: midline Sciatica presence: unspecified whether sciatica present Scoliosis of thoracolumbar spine, unspecified scoliosis type M41.9 Scoliosis type: unspecified scoliosis Fibromyalgia M79.7 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
[2024-04-13 14:20] VITALS: BP 116/68; PULSE 51; O2SAT 96; BMI 30.7
== END 2024-04-13 14:50 | disposition home or self-care (01) ==
PROVIDERS: PCP Internal Medicine; Visit Provider Internal Medicine
DX: M54.2 Cervicalgia (principal); Z85.51 Personal history of malignant neoplasm of bladder; M41.9 Scoliosis, unspecified; M79.7 Fibromyalgia; M81.0 Age-related osteoporosis without current pathological fracture; K21.9 Gastro-esophageal reflux disease without esophagitis; K59.00 Constipation, unspecified; N20.0 Calculus of kidney; N32.81 Overactive bladder; G47.00 Insomnia, unspecified
CPT/HCPCS: 99214

== ENCOUNTER 2024-05-14 14:26 | Outpatient (AMB) | payer MEDICARE, SELFPAY ==
[2024-05-14 14:31] VITALS: BP 130/70; BMI 30.5
--- NOTE | 2024-05-14 14:31 | MHC.OFFVIS ---
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 No complaints. Last Pap/HPV was negative in 05/29 Last Mammogram was BI-RADS 2 in 06/29 Last Colonoscopy was in 12/28, the recommendation was to repeat in 3 years Last DEXA scan was in 06/28 T-score was-3.1 the patient has been on alendronate since then [facility] Medical History Diverticulosis Constipation Sleep apnea Abscess Bladder cancer Obesity (BMI 30-39.9) Traylor's palsy Neuropathy GERD without esophagitis Chronic neck pain Scoliosis of thoracolumbar spine Arthritis Back pain Hx of spinal stenosis Peptic ulcer Fibromyalgia Hydrocephalus in adult History of traumatic head injury Nephrolithiasis Surgical History Hx of cystoscopy History of cervical spinal surgery History of adenoidectomy Hx of lithotripsy Hx of tubal ligation Hx of excision of lamina of cervical vertebra for decompression of spinal cord Hx of cholecystectomy H/O colonoscopy Hx of gastric bypass 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 Brother No problems noted. Sister No problems noted. Son No problems noted. Daughter No problems noted. Paternal Grandmother Colon cancer Social History Housing: Assisted Living Facility Are you a primary care mgr to a significant other at home: No Do you presently have visiting nurse or other home services: No Alcohol intake: never Patient Tobacco Use Status: Former Tobacco user Tobacco use type: Cigarette e-Cigarette/Vaping Use: Never Used Second Hand Smoke Exposure: Yes Advance Directives Date on File: 06/04/23 service: No Current occupational status: retired and disabled Cognitive needs: Yes (cane) Hearing needs: Yes (hearing aide) Vision needs: Yes (glasses) Female Reproductive History Menstrual Age of Menarche: 15 Menopause type: natural Date of last pap smear: 05/08/23 Date of Mammogram: 06/20/23 Review of Systems Const All systems reviewed & are unremarkable except as noted in HPI and below Card Reports as per HPI Resp Reports as per HPI GI Reports as per HPI and Reports no additional complaints Reports as per HPI Physical Exam Vital Signs: BMI result Body Mass Index 30.5 Const General: cooperative, healthy appearing and comfortable Chest Chest palpation & inspection: normal inspection of the chest and normal palpation of entire chest wall Breast/axilla inspection: normal inspection of the breasts and normal inspection of the axillae Breast/axilla palpation: normal palpation of the breasts, normal palpation of the axillae and no axillary lymphadenopathy Resp Effort & Inspection: normal respiratory effort Auscultation: clear to auscultation bilaterally Percussion: percussion normal Cardio Palpation: normal PMI Rate: regular rate Rhythm: regular rhythm Heart sounds: no murmurs and no rubs Peripheral pulses: Peripheral pulses 2+ throughout GI Inspection: Yes normal to inspection Palpation (GI): Soft to palpation, nontender, no guarding, not rigid and No hepatosplenomegaly present Percussion: Yes normal to percussion Auscultation: normal bowel sounds Rectal Exam - Female: deferred General: Yes bladder normal to palpation External Female Exam: No lesion Speculum Exam - Vagina: normal appearance of the vagina, normal palpation, normal vaginal discharge and not erythematous Speculum Exam - Cervix: normal appearance of the cervix and normal palpation Bimanual exam- vagina & uterus: normal bimanual exam, normal palpation, uterine size normal, bladder normal to palpation, consistency normal and normal palpation Bimanual Exam- Adnexa, other: normal adnexae, no masses and no tenderness Assessment & Plan Assessment & Plan (1) Well woman exam: Code(s): Z01.419 - Encounter for gynecological examination (general) (routine) without abnormal findings Category: Medical Plan: Co testing not indicated this year. Counseled the patient about the recommended dietary allowance of 1200 mg of Calcium & 800 IU of vitamin D. Mammogram ordered. Will order DEXA scan . The patient was instructed to perform monthly self-breast exams and to schedule a 2 week DEXA scan follow-up appointment and an annual exam in a year; All questions answered and the patient verbalized understanding. Orders: Orders MM tomosynthesis screening BI Today Z12.31 - Encounter for screening mammogram for malignant neoplasm of breast XR DEXA axial skeleton Today Z78.0 - Asymptomatic menopausal state Coding Level of Care Code Est Pt Prev Care >65y(72304) Diagnoses Well woman exam Z01.419
== END 2024-05-14 15:20 | disposition home or self-care (01) ==
LOC: HO.HWS 14:26
PROVIDERS: PCP Internal Medicine; Visit Provider Obstetrics & Gynecology
DX: Z01.419 Encounter for gynecological examination (general) (routine) without abnormal findings (principal)
CPT/HCPCS: 99397

== ENCOUNTER → 2024-05-14 14:26 | Outpatient (BNVA) | payer MEDICARE, SELFPAY | PROVIDERS: PCP Internal Medicine; Visit Provider Obstetrics & Gynecology ==

== ENCOUNTER 2024-06-16 09:09 | Outpatient (AMB) | payer MEDICARE, SELFPAY ==
--- NOTE | 2024-06-16 09:27 | A.OFFVIS_ITS ---
Intake Visit Reasons: Cysto Intake Note: Patient Is Present for Cystoscopy Urology Med: Antibiotic Allergy:NONE Blood Thinner:NONE URO G-HD Cystoscope LOT:[id number] EXP:01-17-2024 Machine Sorter Required: No Allergies aspartame Allergy (Severe, Verified 06/16/24 10:32) severe dehydration cyclobenzaprine [From Flexeril] Allergy (Severe, Verified 06/16/24 10:32) SOB nickel Adverse Reaction (Verified 06/16/24 10:32) Blister Medication List - Last Reconciled 06/16/24 by Jamie Garcia MD alendronate 70 mg PO QWEEK back brace As directed calcium carbonate-vitamin D3 600 mg-20 mcg (800 unit) (Caltrate 600 plus D) 1 tab PO BID Donut pillow As directed mecobalamin (vitamin B12) 1,000 mcg sublingual DAILY mirabegron ER (Myrbetriq) 25 mg PO DAILY multivitamin 1 tab PO DAILY omeprazole magnesium (Prilosec OTC) 20 mg PO BEDTIME 30 days pregabalin 50 mg PO TID 30 days pyridoxine (vitamin B6) 100 mg PO DAILY [shower head As directed] trazodone 100 mg PO BEDTIME PRN 30 days HPI Comments Details: 06/16/24-- Here for surveillance cystoscopy. Sudha is treated with myrberiq for OAB symptoms, also followed for bilateral renal stones. She denies any new urinary symptoms, denies hematuria or dysuria. Cystoscopy findings: mild mucosal erythema, no suspicious bladder lesions visualized. Will cont to monitor kidneys, myrbetriq, cont surveillance cystoscopy, urine for cytology, fu in 6 months. Review of chart: Sudha is a 68-year-old female who presents today to the office for a cystoscopy procedure. She has OAB and was started on Myrbetriq which she states is helping, she is also followed for kidney stones 11/22/23- here for surveillance cystoscopy. Denies any new urinary symptoms Exam- Inner thigh- Hydraadenits, the patient states wound will leak fluid in termittently. She states she was referred to the wound clinic in the past. Cystoscopy findings: within normal limits; no suspicious bladder lesions were visualized. I reviewed CT scan 08/05/23 Right-sided nephrolithiasis measuring up to 5 mm without hydronephrosis. Left-sided nephrolithiasis measuring up to 7 mm 05/31/2023? Sudha is followed for history of bladder cancer and presents today for cystoscopy. She was last seen by me on 02/27/2023 for bilateral kidney stones. She was advised to continue vitamin B6 100 mg daily at that time. Left ESWL was discussed to be scheduled, and was advised to follow-up after 3 months for surveillance Cystoscopy at that time. She has a history of bladder cancer. She is a status post Cystoscopy/TURBT done on 12/25/2021. She is not taking any medications for bladder control. She states that she was diagnosed with bladder infection when she was a kid. She denies any hematuria. I needed to catheterize to obtain urine, as she was not able to collect urine specimen when she voided. Cystoscopy procedure: Cystoscopy findings: within normal limits; no suspicious bladder lesions were visualized. 02/27/2023? PMH - normal pressure hydrocephalus, prior shunt followed by neurologist. h/o Kidney stones. She is seen for h/o bladder cancer, s/p cysto/TURBT 12/25/2021; path: superficial high grade urothelial carcinoma, no muscularis propria identified. Last outpatient cystoscopy fulguration was with Dr. Kyle 08/06/2022, I reviewed operative note, gemcitabine was administered. The patient has right kidney stone about 4 mm and left kidney stone about 5 mm. Denies taking aspirin or any blood thinners. Evaluation today-- blood: negative, leukocytes: 15 Christina/uL. Consent to perform cystoscopy procedure was obtained. Cystoscopy findings-- Mild trabeculations. No suspicious bladder lesion visualized.? 01/03/2023--Sudha is a 67-year-old female who presents to the clinic for discussion of KUB and renal US results ordered for kidney stones. ?-----Office visit?11/22/2022-- here for surveillance office cystoscopy.? Findings:? no recurrent bladder lesions visualized. Previous Interventions: 12/25/21? cysto-TURBT high-grade T1, 08/06/22 bladder? fulguration with gemcitabine Immunotherapy Bladder instillations- 12/2021 induction 6 weeks; - Boost 03/2022. Renal US results reviewed?12/14/2022-- Bilateral nonobstructing nephrolithiasis. Right kidney: largest stone is of 4 mm, Left kidney: largest stone is of 5 mm. Kidneys: WNL. PFSH Medical History Diverticulosis Constipation Sleep apnea Abscess Bladder cancer Obesity (BMI 30-39.9) Traylor's palsy Neuropathy GERD without esophagitis Chronic neck pain Scoliosis of thoracolumbar spine Arthritis Back pain Hx of spinal stenosis Peptic ulcer Fibromyalgia Hydrocephalus in adult History of traumatic head injury Nephrolithiasis Surgical History Hx of cystoscopy History of cervical spinal surgery History of adenoidectomy Hx of lithotripsy Hx of tubal ligation Hx of excision of lamina of cervical vertebra for decompression of spinal cord Hx of cholecystectomy H/O colonoscopy Hx of gastric bypass 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 Brother No problems noted. Sister No problems noted. Son No problems noted. Daughter No problems noted. Paternal Grandmother Colon cancer Social History Housing: Assisted Living Facility Are you a primary care management associate to a significant other at home: No Do you presently have visiting nurse or other home services: No Alcohol intake: never Patient Tobacco Use Status: Former Tobacco user Tobacco use type: Cigarette e-Cigarette/Vaping Use: Never Used Second Hand Smoke Exposure: Yes Advance Directives Date on File: 06/04/23 service: No Current occupational status: retired and disabled Cognitive needs: Yes (cane) Hearing needs: Yes (hearing aide) Vision needs: Yes (glasses) Female Reproductive History Menstrual Age of Menarche: 15 Review of Systems Const All systems reviewed & are unremarkable except as noted in HPI and below Reports no additional complaints Eyes Reports no additional complaints ENT Reports no additional complaints Card Reports no additional complaints Resp Reports no additional complaints GI Reports no additional complaints Reports as per HPI Musc Reports no additional complaints Skin/Breast Reports system reviewed and no additional complaints, except as documented Neuro Reports no additional complaints Psych Reports no additional complaints Endo Reports no additional complaints Aleksandar/Lymph Reports no additional complaints Aller/Immun Reports no additional complaints Office Procedures Cystoscopy Consent Discussed risk and benefit or proposed procedure with the patient. Information consent for procedure given to the patient. Discussed technical aspects, risks, benefits and alternatives in full. Addressed all of the patient's questions and concerns regarding the procedure. The patient demonstrated knowledge and understanding. They wish to proceed with this procedure. Preparation The patient was prepped in the usual manner. A ip attorney was present and in the room. Genitalia was prepped with betadine solution in a sterile manner. Lido iam Jelly 2% was placed into the urethra and 16Fr flexible Olympus cystoscope was inserted into the meatus after adequate lubrication. Procedure Time out per protocol performed. Bladder Inspection Bladder Inspection: The bladder was inspected in its entirety with utilization retroflexion displaying: Tumor(s): no suspicious bladder lesions visualized Trabeculation: Mac Mucosal Erythema: present/Mild Orifices: normal shape and position Urethra: normal Cystoscopy findings: mild mucosal erythema, no suspicious bladder lesions visual ized [id number] DISPOSABLE SCOPE URO-G FLEXIBLE SCOPE Procedure code (CPT) selection complete Office Meds lidocaine HCl 2 % mucosal jelly in applicator Performing Provider: Jamie Garcia MD [place] [facility] [place] [facility] Administered by: Mike Barron LPN on 06/16/24 10:38 Dose Route Admin Location Dispensed Lot Number Expiration Date ND Supervisor Wet End 10 mL intra-urethral 10 mL naproxen 500 mg tablet Performing Provider: Jamie Garcia MD [place] [facility] [place] [facility] Administered by: Mike Barron LPN on 06/16/24 10:38 Dose Route Admin Location Dispensed Lot Number Expiration Date ND Supervisor Wet End 500 mg PO 1 tab ciprofloxacin HCl 500 mg tablet Performing Provider: Jamie Garcia MD [place] [facility] [facility] Administered by: Mike Barron LPN on 06/16/24 10:38 Dose Route Admin Location Dispensed Lot Number Expiration Date NDC Supervisor Wet End 500 mg PO 1 tab Results AMB Urinalysis, Automated UA Leukoctes 0 Christina/uL Last Edit by Fannie Castellanos on 06/16/24 10:41 UA Nitrite Negative Last Edit by Fannie Castellanos on 06/16/24 10:41 UA Urobilinogen 0 mg/dL Last Edit by Fannie Castellanos on 06/16/24 10:41 UA Protein 0 mg/dL Last Edit by Fannie Castellanos on 06/16/24 10:41 UA pH 6.0 Last Edit by Fannie Castellanos on 06/16/24 10:41 UA Blood 2 Daron/uL Last Edit by Fannie Castellanos on 06/16/24 10:41 UA Specific [place] 1.5 Last Edit by Fannie Castellanos on 06/16/24 10:41 UA Ketone Negative Last Edit by Fannie Castellanos on 06/16/24 10:41 UA Bilirubin 0 mg/dL Last Edit by Fannie Castellanos on 06/16/24 10:41 UA Glucose 0 mg/dL Last Edit by Fannie Castellanos on 06/16/24 10:41 Results Reviewed Results Reviewed: Laboratory Last Values Urine pH (Auto) 6.0 06/16/24 10:33 Specific [place] (Auto) 1.5 06/16/24 10:33 Urine Protein (Auto) 0 mg/dL 06/16/24 10:33 Glucose (UA)(Auto) 0 mg/dL 06/16/24 10:33 Urine Ketones (Auto) Negative 06/16/24 10:33 Urine Blood (Auto) 2 Daron/uL 06/16/24 10:33 Urine Nitrite (Auto) Negative 06/16/24 10:33 Urine Bilirubin (Auto) 0 mg/dL 06/16/24 10:33 Urine Urobilinogen (Auto) 0 mg/dL 06/16/24 10:33 Leukocyte Esterase (Auto) 0 Christina/uL 06/16/24 10:33 Assessment & Plan Assessment & Plan (1) Bilateral kidney stones: Code(s): N20.0 - Calculus of kidney Category: Medical (2) Bladder cancer: Code(s): C67.9 - Malignant neoplasm of bladder, unspecified Category: Medical (3) Urge incontinence of urine: Code(s): N39.41 - Urge incontinence Category: Medical (4) Personal history of bladder cancer: Code(s): Z85.51 - Personal history of malignant neoplasm of bladder Category: Medical (5) Overactive bladder: Code(s): N32.81 - Overactive bladder Category: Medical Plan Cont Myrbetriq 25 mg daily. Cont vit b 6 Monitor kidney stones cont surveillance cystoscopy, urine for cytology Follow up office Cystoscopy in 6 months. Orders: Orders AMB Cystoscopy Today C67.2 - Malignant neoplasm of lateral wall of bladder, N20.0 - Calculus of kidney, N32.81 - Overactive bladder AMB Urinalysis Automated Today Z13.9 - Encounter for screening, unspecified Patient Instructions: The patient had an opportunity to ask questions regarding treatment plan. The patient expressed understanding and agreement with the above treatment plan. The patient is aware they should contact our office by phone for worsening of their current condition or the appearance of new symptoms. Compliance is encouraged with any medications and followup testing that is ordered. It is a privilege to be allowed the opportunity to participate in the urologic care of your patient. If you have any questions or concerns regarding treatment for the above conditions please do not hesitate to contact me. The office telephone contact is [phone]. This note is constructed in part using voice recognition software. While every effort has been made to ensure accuracy supervisor securities vault errors may have been included. Yours sincerely, Jamie Garcia MD Coding Level of Care Code Est Pt Level 3 (01522) Diagnoses Bilateral kidney stones N20.0 Bladder cancer C67.9 Urge incontinence of urine N39.41 Personal history of bladder cancer Z85.51 Overactive bladder N32.81 CPT Codes Cystoscopy - CPT: [id number] ([id number])
== END 2024-06-16 11:13 | disposition home or self-care (01) ==
PROVIDERS: PCP Internal Medicine; Visit Provider Urology
DX: N20.0 Calculus of kidney (principal); C67.9 Malignant neoplasm of bladder, unspecified; N39.41 Urge incontinence; Z85.51 Personal history of malignant neoplasm of bladder; N32.81 Overactive bladder; C67.2 Malignant neoplasm of lateral wall of bladder; Z13.9 Encounter for screening, unspecified
CPT/HCPCS: 52000; 99213

== ENCOUNTER → 2024-06-16 09:09 | Outpatient (BNVA) | payer MEDICARE, SELFPAY | PROVIDERS: PCP Internal Medicine; Visit Provider Urology | DX: N32.81 Overactive bladder (principal); N20.0 Calculus of kidney; N39.41 Urge incontinence; Z85.51 Personal history of malignant neoplasm of bladder; Z79.899 Other long term (current) drug therapy | CPT/HCPCS: 52000; 81003; 99212 ==

== ENCOUNTER 2024-06-23 13:36 | Outpatient (REF) | payer MEDICARE, SELFPAY ==
--- NOTE | ~2024-06-23 | MM_ITS ---
EXAMINATION: BONE DENSITOMETRY CLINICAL INDICATION: Asymptomatic menopausal state. COMPARISON: Baseline BD dated 06/15/2022. TECHNIQUE: Using a [employer] DXA System (software version: 13.1) manufactured by [employer], dual-energy x-ray absorptiometry was performed of the lumbar spine and left hip. The images are of good technical quality. Summary results are attached. FINDINGS: LEFT FEMUR, NECK: Current: BMD 0.746 g/cm2, Z-score -0.8, T-score -2.1, osteopenia. Baseline: BMD 0.602 g/cm2. LEFT FEMUR, TOTAL: Current: BMD 0.771 g/cm2, Z-score -0.8, T-score -1.9, osteopenia, 11.9% increase from baseline (<5% change is not significant). Baseline: BMD 0.689 g/cm2. AP SPINE L1-L4: Current: BMD 1.225 g/cm2, Z-score 1.6, T-score 0.4, normal, 5.1% increase from baseline (<5% change is not significant). Baseline: BMD 1.166 g/cm2. IDENTIFIED RISK FACTORS: Osteoporosis, height loss, menopause. HISTORY OF FRACTURE: None listed. MEDICATIONS: Bisphosphonates, calcium supplements or multivitamin, vitamin D. MM/XR DEXA axial skeleton IMPRESSION: 1. DIAGNOSIS: Osteopenia based on the lowest T-score value of -2.1 in the femoral neck applying World Health Organization criteria. 2. 10-YEAR FRACTURE RISK PREDICTION, FRAX: Not performed in this patient on estrogen or bone building treatments. 3. Treatment Recommendations: NOF guidelines recommend consideration for treatment in postmenopausal women and men age 50 and older presenting with the following: -A hip or vertebral (clinical or morphometric) fracture. -T-score less than or equal to -2.5 at the femoral neck or spine after appropriate evaluation to exclude secondary causes. -Low bone mass at the hip or spine and a 10-year fracture probability by FRAX of greater than or equal to 3% for hip fracture or greater than or equal to 20% for major osteoporotic fracture based on the [place] adapted WHO algorithm. 4. Other Recommendations: All treatment decisions require clinical judgment and consideration of individual patient factors, including patient preferences, comorbidities, previous drug use, risk factors not captured in the FRAX model (e.g. frailty, falls, vitamin D deficiency, increased bone turnover, interval significant decline in bone density) and possible under or overestimation of fracture risk by FRAX. Additional medical evaluation for secondary cause of low bone mineral density may be appropriate. FUTURE SCAN RECOMMENDATION: People with diagnosed cases of osteoporosis or at high risk for fracture should have regular bone mineral density tests. For patients eligible for Medicare, routine testing is allowed once every 2 years. The testing frequency can be increased to one year for patients who have rapidly progressing disease, those who are receiving or discontinuing medical therapy to restore bone mass, or have additional risk factors. Electronically signed by: Jack Roberts MD 06/25/2024 01:25 PM EDT
--- NOTE | ~2024-06-23 | MM_ITS ---
EXAMINATION: MM SCREENING DIGITAL BREAST TOMOSYNTHESIS, BILATERAL CLINICAL INFORMATION: Screening. Asymptomatic. COMPARISON: Mammography: Comparison is made with available priors TECHNIQUE: Digital breast mammography with tomosynthesis is performed in both the craniocaudal and mediolateral oblique views along with computer-aided detection (CAD). FINDINGS: There are scattered areas of fibroglandular density (ACR BI-RADS breast composition Category b). There are no significant masses, abnormal calcifications, or other abnormalities. MM/MM tomosynthesis screening BI IMPRESSION: No mammographic evidence of malignancy. ASSESSMENT: BI-RADS BI-RADS 1 - Negative RECOMMENDATION: Routine annual mammography screening. 1 year F/U This examination should not preclude the clinical evaluation of a suspicious palpable abnormality. This patient's information was entered into a reminder system with a target due date for their next mammogram. Electronically signed by: Ayanna Cordero DO 07/07/2024 10:31 AM EDT
== END 2024-06-23 13:37 | disposition home or self-care (01) ==
LOC: HO.MAMMO 13:36
PROVIDERS: PCP Internal Medicine; Visit Provider Obstetrics & Gynecology
DX: Z12.31 Encounter for screening mammogram for malignant neoplasm of breast (principal); Z13.820 Encounter for screening for osteoporosis; Z78.0 Asymptomatic menopausal state
CPT/HCPCS: 77063; 77067; 77080

== ENCOUNTER → 2024-06-23 14:15 | Outpatient (BNV) | payer MEDICARE, SELFPAY | PROVIDERS: PCP Internal Medicine; Visit Provider Internal Medicine | DX: Z12.31 Encounter for screening mammogram for malignant neoplasm of breast (principal) | CPT/HCPCS: 77063; 77067 ==

== ENCOUNTER 2024-07-07 11:08 | Outpatient (AMB) | payer MEDICARE, SELFPAY ==
[2024-07-07 11:20] VITALS: BMI 30.8
--- NOTE | 2024-07-07 11:20 | A.OFFVIS_ITS ---
Vital Signs 07/07/24 11:20 Height 5 ft 3 in Weight 174 lb 2.643 oz BMI 30.8 Intake Visit Reasons: dexa follow up Allergies aspartame Allergy (Severe, Verified 06/16/24 10:32) severe dehydration cyclobenzaprine [From Flexeril] Allergy (Severe, Verified 06/16/24 10:32) SOB nickel Adverse Reaction (Verified 06/16/24 10:32) Blister HPI Comments Details: The patient is presenting for follow up regarding DEXA scan results. T score @ spine and femoral Neck respectively were=+0.4/-2.1 , bone mineral density has increased 11.9%/5.1% at the spine and femur neck level respectively and 10 year FRAX risk for severe osteoporosis and fracture was not computed. [facility], [facility] Medical History Diverticulosis Constipation Sleep apnea Abscess Bladder cancer Obesity (BMI 30-39.9) Traylor's palsy Neuropathy GERD without esophagitis Chronic neck pain Scoliosis of thoracolumbar spine Arthritis Back pain Hx of spinal stenosis Peptic ulcer Fibromyalgia Hydrocephalus in adult History of traumatic head injury Nephrolithiasis Surgical History Hx of cystoscopy History of cervical spinal surgery History of adenoidectomy Hx of lithotripsy Hx of tubal ligation Hx of excision of lamina of cervical vertebra for decompression of spinal cord Hx of cholecystectomy H/O colonoscopy Hx of gastric bypass PEN TESTER (ventriculoperitoneal) shunt status Family History Father Cancer Mother Stroke Brother No problems noted. Brother No problems noted. Sister No problems noted. Son No problems noted. Daughter No problems noted. Paternal Grandmother Colon cancer Social History Housing: Assisted Living Facility Are you a primary home care and home health aides teacher to a significant other at home: No Do you presently have visiting nurse or other home services: No Alcohol intake: never Patient Tobacco Use Status: Former Tobacco user Tobacco use type: Cigarette e-Cigarette/Vaping Use: Never Used Second Hand Smoke Exposure: Yes Advance Directives Date on File: 06/04/23 service: No Current occupational status: retired and disabled Cognitive needs: Yes (cane) Hearing needs: Yes (hearing aide) Vision needs: Yes (glasses) Female Reproductive History Menstrual Age of Menarche: 15 Review of Systems Const All systems reviewed & are unremarkable except as noted in HPI and below Reports as per HPI and Reports no additional complaints GI Reports no additional complaints Reports no additional complaints Physical Exam Vital Signs: BMI result Body Mass Index 30.8 Assessment & Plan Assessment & Plan (1) Osteoporosis: Code(s): M81.0 - Age-related osteoporosis without current pathological fracture Category: Medical Qualifiers: Osteoporosis type: age-related Presence of current pathological fracture: without current pathological fracture Qualified Code(s): M81.0 - Age- related osteoporosis without current pathological fracture Plan: Discussed with the patient the results of her bone mineral density, increase in bone mineral density at spine and femur neck level, recommended continue on alendronate 70 mg p.o. Q week with calcium/vitamin-D 1200 mg/800 international it p.o. q.d.. All questions answered, the patient verbalized understand Medications: Refilled alendronate 70 mg PO QWEEK 14 tabs 3RF Coding Level of Care Code Est Pt Level 3 (84851) Diagnoses Age-related osteoporosis without current pathological fracture M81.0 Osteoporosis type: age-related Presence of current pathological fracture: without current pathological fracture
== END 2024-07-07 12:06 | disposition home or self-care (01) ==
LOC: HO.HWS 11:08
PROVIDERS: PCP Internal Medicine; Visit Provider Obstetrics & Gynecology
DX: M81.0 Age-related osteoporosis without current pathological fracture (principal)
CPT/HCPCS: 99213

== ENCOUNTER → 2024-07-07 11:08 | Outpatient (BNVA) | payer MEDICARE, SELFPAY | PROVIDERS: PCP Internal Medicine; Visit Provider Obstetrics & Gynecology | DX: M81.0 Age-related osteoporosis without current pathological fracture (principal); Z71.2 Person consulting for explanation of examination or test findings | CPT/HCPCS: 99212 ==

== ENCOUNTER 2024-08-14 07:40 | Outpatient (REF) | payer MEDICARE, SELFPAY ==
[2024-08-14 10:57] LABS: Basophils Absolute Auto 0.1 X10*3/uL (0.0-0.2); Basophils Percent Auto 1.4 % (0-2); Eosinophils Absolute Auto 0.3 X10*3/uL (0.0-0.4); Hematocrit 38.9 % (37.0-47.0); Hemoglobin 13.2 g/dl (12.0-16.0); Imm Gran Abs Auto 0.03 X10*3/uL (0.00-0.03); Imm Gran Pct Auto 0.4 % (0.0-0.4); Lymphocytes Absolute Auto 2.8 X10*3/uL (1.2-4.9); Lymphocytes Percent Auto 34.6 % (20-40); MANUAL DIFF FLAG NO; Mean Corpuscular HGB Conc 33.9 g/dl (31.0-35.0); Mean Corpuscular Hemoglobin 30.6 pg (27.0-33.0); Mean Corpuscular Volume 90.3 fL (80.0-98.0); Mean Platelet Volume 10.6 fL (9.4-12.3); Monocytes Absolute Auto 0.8 X10*3/uL (0.1-1.2); Monocytes Percent Auto 10.1 % (2-11); Neutrophils Percent Auto 49.5 % (45-73); Platelet Count 307 X10*3/uL (160-400); Red Blood Count 4.31 X10*6/uL (4.20-5.50); Red Cell Distribution Width 12.9 % (11.0-16.0)
[2024-08-14 11:03] LABS: Appearance Urine Clear; Color Urine Yellow; Glucose Urine UA Negative (Negative); Leukocyte Esterase Urine Moderate (2+) (Negative); Nitrite Urine Negative (Negative); PH 7.5 (5.0-9.0); UMIC TRIGGER UACC YES; Urine Blood Negative (Negative); Urine Ketones Negative (Negative); Urine Protein Negative (Neg-Trace)
[2024-08-14 11:07] LABS: Bacteria Urine None Seen (None Seen); Hyaline Casts Urine 0-2 /LPF (0-2); RBC Urine 0-2 /HPF (0-2); UACC Culture Trigger YES
[2024-08-14 12:00] LABS: Folate 10.5 ng/mL (> or = 4.0); Vitamin B12 1574 pg/mL (200-900)
[2024-08-14 12:15] LABS: Alanine Aminotransferase 10 U/L (0-31); Alkaline Phosphatase 67 U/L (39-117); Anion Gap 14 (12-20); Aspartate Amino Transferase 19 U/L (5-31); Bilirubin Total 0.6 mg/dL (0.0-1.0); Blood Urea Nitrogen 8 mg/dL (9-16); Calcium 9.7 mg/dL (8.4-10.2); Carbon Dioxide 26 mmol/L (22-29); Chloride 105 mmol/L (96-108); Cholesterol 219 mg/dL (<200); Estimated Glomerular Filt Rate > 60; Glucose Fasting 108 mg/dL (60-99); HDL Cholesterol 46 mg/dL (>40); LDL Cholesterol Calculated 135 mg/dL (<100); Potassium 4.3 mmol/L (3.3-5.1); Sodium 141 mmol/L (135-145); TSH reflex Free T4 3.36 uIU/mL (0.32-4.0); Triglycerides 194 mg/dL (<150); Vitamin D 25-OH Total 150.3 ng/mL (>30)
== END 2024-08-14 07:41 | disposition home or self-care (01) ==
LOC: HO.10HDL 07:40
PROVIDERS: Visit Provider Internal Medicine
DX: D64.9 Anemia, unspecified (principal); E78.00 Pure hypercholesterolemia, unspecified; E53.8 Deficiency of other specified B group vitamins; E55.9 Vitamin D deficiency, unspecified; R30.0 Dysuria
CPT/HCPCS: 36415; 80053; 80061; 81001; 82306; 82607; 82746; 84443; 85025; 87086

== ENCOUNTER 2024-08-17 13:54 | Outpatient (AMB) | payer MEDICARE, SELFPAY ==
--- NOTE | 2024-08-17 14:02 | A.OFFPC_ITS ---
Vital Signs 08/17/24 14:03 Height 5 ft 3 in Weight 173 lb 8 oz BMI 30.7 BP 126/84 Blood Pressure Location Lt brachial Position Sitting Pulse 82 Pulse Source Pulse Oximeter Pulse Oximetry (%) 96 Oxygen Delivery Method Room Air Intake Visit Reasons: 4 MO F/U Nuclear Medicine Chief Technologist Required: No Accompanied by: Self / Same As Patient Allergies aspartame Allergy (Severe, Verified 08/17/24 14:37) severe dehydration cyclobenzaprine [From Flexeril] Allergy (Severe, Verified 08/17/24 14:37) SOB nickel Adverse Reaction (Verified 08/17/24 14:37) Blister Medication List - Last Reconciled 08/17/24 by Gregory Gaming MD alendronate 70 mg PO QWEEK back brace As directed calcium carbonate-vitamin D3 600 mg-20 mcg (800 unit) (Caltrate 600 plus D) 1 tab PO BID Donut pillow As directed mecobalamin (vitamin B12) 1,000 mcg sublingual DAILY mirabegron ER (Myrbetriq) 25 mg PO DAILY multivitamin 1 tab PO DAILY omeprazole magnesium (Prilosec OTC) 20 mg PO BEDTIME 30 days pregabalin 50 mg PO TID 30 days pyridoxine (vitamin B6) 100 mg PO DAILY [shower head As directed] trazodone 100 mg PO BEDTIME PRN 30 days Tobacco use date assessed: 08/17/24 Fall risk assessment: 1 Fall in past year Last assessed Fall Risk: 08/17/24 Dental Screening Dental Screen Date: 08/17/24 Did you have a dental visit in the last 12 months?: No Did you have a dental problem in the last 6 months where you did not have access to dental care?: No Was dental information given to patient?: No HPI 4 MO F/U HPI Details Patient comes in today for her follow up visit States that she has been experiencing a significant increase / worsening of her low back pain over the past few months - feels like her SI joint is giving out on her States that her low back pain has gotten so bad that it is impacting even her basic daily activities such as standing from a seated position States that she's had to take regular 325 mg Aspirin 2 tablets up to 3 times a day lately just to get some relief from her low back pain and is wondering if it is safe for her to continue to do so She has been seen by multiple pain management practices in the past, as recently as last year She has reportedly undergone multiple injections and interventional treatments at [facility] and Dr. Bermudez's offices in the past Patient was also reportedly deemed non-surgical by Dr. Garay back in 2019 Lumbar spine MRIs done between [id number] are significant for severe facet arthropathy, degenerative disc changes, and L4-L5 level ligament hypertrophy with endplate degenerative changes and multilevel epidural lipomatosis Diagnostic lumbar MBB injections were attempted by Dr. Barbour at [facility] last year but multiple spondylotic spurs obscured the view of the delineated targets for injection, per Dr. Barbour Given epidural lipomatosis at multiple levels and osteoporosis, patient was deemed not candidate for therapeutic lumbar injections last year and she was then referred to neurosurgery for further recommendations Her most recent BMD done in June 2024 revealed (+) osteopenia with the lowest T-score value of -2.1 in the femoral neck, an apparent improvement significantly from her previous BMDs presumably due to her Tx with Alendronate Patient states that she feels okay otherwise She denies any headaches or dizziness Denies any chest pains, no increased shortness of breath No nausea/vomiting, no abdominal pain No change in bowel habits noted She had her follow up labs done a few days ago - to discuss her results [facility] Medical History (Updated 08/24/24 @ 02:14 by Gregory Gaming MD) Diverticulosis Constipation Sleep apnea Abscess Bladder cancer Obesity (BMI 30-39.9) Traylor's palsy Neuropathy GERD without esophagitis Chronic neck pain Scoliosis of thoracolumbar spine Arthritis Back pain Hx of spinal stenosis Peptic ulcer Fibromyalgia Hydrocephalus in adult History of traumatic head injury Nephrolithiasis Surgical History Hx of cystoscopy History of cervical spinal surgery History of adenoidectomy Hx of lithotripsy Hx of tubal ligation Hx of excision of lamina of cervical vertebra for decompression of spinal cord Hx of cholecystectomy H/O colonoscopy Hx of gastric bypass 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 Brother No problems noted. Sister No problems noted. Son No problems noted. Daughter No problems noted. Paternal Grandmother Colon cancer Social History Housing: Assisted Living Facility Are you a primary critical care transport nurse to a significant other at home: No Do you presently have visiting nurse or other home services: No Alcohol intake: never Patient Tobacco Use Status: Former Tobacco user Tobacco use type: Cigarette e-Cigarette/Vaping Use: Never Used Second Hand Smoke Exposure: Yes Advance Directives Date on File: 06/04/23 service: No Current occupational status: retired and disabled Cognitive needs: Yes (cane) Hearing needs: Yes (hearing aide) Vision needs: Yes (glasses) Female Reproductive History Menstrual Age of Menarche: 15 Questionnaire PHQ-9 Over the last 2 weeks, how often have you been bothered by any of the following problems? 1. Little interest or pleasure in doing things: not at all 2. Feeling down, depressed, or hopeless: not at all 3. Trouble falling or staying asleep, or sleeping too much: not at all 4. Feeling tired or having little energy: not at all 5. Poor appetite or overeating: not at all 6. Feeling bad about yourself - or that you are a failure or have let yourself or your family down: not at all 7. Trouble concentrating on things, such as reading the newspaper or watching television: not at all 8. Moving or speaking so slowly that other people could have noticed. Or the opposite - being so fidgety or restless that you have been moving around a lot more than usual: not at all 9. Thoughts that you would be better off or of hurting yourself in some way: not at all Total score: 0 Depression Screening Interpretation: Negative Depression Screening Done: Yes 03137 - PHQ-9 Billing: Yes Source: Developed by Drs. Moe Arnold, Vernell Martinez, Skyler Moyer and colleagues, with an educational kindra from [employer]. Thrive Questionnaire Date Thrive assessed: 08/17/24 I am a: Patient What is your living situation today?: I have a steady place to live Within the past 12 months, did the food you bought not last and you didn't have the money to get more?: Never true Within the past 12 months, did you worry whether your food would run out before you got money to buy more?: Never true Do you have trouble paying for medicines?: No Do you have trouble getting transportation to medical appointments?: No Do you have trouble paying your heating and electricity bill?: No Do you have trouble taking care of your child, family member or friend?: No Do you have trouble with day-to-day activities such as bathing, preparing meals, shopping, managing finances, etc.?: No Are you currently unemployed and looking for a job?: No Are you interested in more education?: No Please select the resources that you would like help with: None Currently or been in a relationship where the following occur: No concerns reported THRIVE Score: 0 AUDIT C Alcohol Use Questionnaire (AUDIT-C) 1. How often do you have a drink containing alcohol?: Monthly or less 2. How many drinks containing alcohol do you have on a typical day when you are drinking?: 1 or 2 3. How often do you have six or more drinks on one occasion?: Never Total Score: 1 Score Reviewed/Action Taken: Yes ALEX-7 AMB Questionnaire ALEX-7 Date ALEX - 7 assessed: 08/17/24 Feeling nervous, anxious, or on edge: 0 = Not at all Not being able to stop or control worryin = Not at all Worrying too much about different things: 0 = Not at all Trouble relaxin = Not at all Being so restless that it is hard to sit still: 0 = Not at all Becoming easily annoyed or irritable: 0 = Not at all Feeling afraid as if something awful might happen: 0 = Not at all Total ALEX-7 score (0-4 normal; 5-9 mild; 10-14 moderate; 15-21 severe): 0 Source: Developed by Drs. Moe Arnold, Vernell Martinez, Skyler Moyer and colleagues, with an educational kindra from [employer]. Review of Systems Const Denies chills, Reports fatigue, Denies fever(s) and Denies headache(s) ENT Denies dysphagia, Denies dizziness, Denies otalgia, Denies headache(s), Reports neck pain (chronic), Denies odynophagia and Denies sore throat Card Denies chest pain, Denies palpitations and Denies dyspnea Resp Denies cough and Denies dyspnea GI Denies abdominal pain, Denies constipation, Denies dysphagia, Denies heartburn, Denies diarrhea, Denies nausea, Denies odynophagia and Denies vomiting Denies hematuria, Denies difficulty voiding, Denies nocturia, Denies dysuria and Reports urinary urgency (at times) Musc Reports back pain (over the lower back - chronic) and Reports neck pain (chronic) Skin/Breast Denies rash Neuro Denies dizziness and Denies headache(s) Endo Reports fatigue and Denies palpitations Physical exam (Primary Care) Vital Signs: Last Vital Signs Pulse 82 08/17/24 14:03 BP 126/84 08/17/24 14:03 Pulse Ox 96 08/17/24 14:03 Oxygen Delivery Method Room Air 08/17/24 14:03 BMI result Body Mass Index 30.7 Tobacco/Smoking Status: Tobacco use Status Tobacco use date assessed 08/17/24 08/17/24 14:09 Patient Tobacco Use Status Former Tobacco user 08/17/24 14:05 Tobacco use type Cigarette 08/17/24 14:05 e-Cigarette/Vaping Use Never Used 08/17/24 14:05 PHQ-9: PHQ-9 Score PHQ-9: Total score 0 08/17/24 14:38 Depression Screening Interpretation: Negative Thrive Assessment: Date of Thrive Assessment Date Thrive assessed 08/17/24 08/17/24 14:09 Currently or been in a relationship where the following occur: No concerns reported Const General: no acute distress and alert Limitations: ambulation with walker HENMT Ears: TM's normal bilaterally and EAC's normal Throat: Yes posterior oropharynx normal and Yes tonsils normal (no TP congestion) Neck Neck: Yes no lymphadenopathy Thyroid: Thyroid normal Resp Auscultation: clear to auscultation bilaterally, no rales and no wheezes Cardio Rate: regular rate Rhythm: regular rhythm Heart sounds: no murmurs GI Palpation (GI): Soft to palpation and nontender Auscultation: normal bowel sounds General: Yes no CVA tenderness Back/Spine/Pelvis Back: no CVA tenderness Cervical Spine: Cervical spine tenderness Thoracic/Lumbar Spine: lumbar spinal tenderness Skin Rashes: no rashes Extrem General: Yes no clubbing, cyanosis or edema Results Reviewed Results Reviewed: Laboratory Tests 08/14/24 07:45 WBC 8.0 Hgb 13.2 Hct 38.9 Plt Count 307 Sodium 141 Potassium 4.3 Creatinine 0.84 Estimated GFR > 60 Fasting Glucose 108 H Calcium 9.7 AST 19 ALT 10 Triglycerides 194 H Cholesterol 219 H LDL Cholesterol, Calc 135 H HDL Cholesterol 46 Vitamin B12 1574 H 25-OH Vitamin D Total 150.3 Folate 10.5 TSH 3.36 Ur Specific [place] 1.010 Urine Protein Negative Urine Glucose (UA) Negative Urine Blood Negative Urine Nitrite Negative Ur Leukocyte Esterase Moderate (2+) H Coding Level of Care Code Est Pt Level 4 (21473) Diagnoses Lumbar spondylosis M47.816 Chronic neck pain M54.2; G89.29 Malignant neoplasm of urinary bladder, unspecified site C67.9 Bladder location: unspecified site Scoliosis of thoracolumbar spine, unspecified scoliosis type M41.9 Scoliosis type: unspecified scoliosis Fibromyalgia M79.7 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 Additional Codes PHQ-9 - 01525 - PHQ-9 Billing: Yes ([id number]) Assessment & Plan Assessment & Plan (1) Lumbar spondylosis: Code(s): M47.816 - Spondylosis without myelopathy or radiculopathy, lumbar region Category: Medical Plan: Reinforced activity and weight-lifting restrictions Continue Gabapentin 300 mg TID Follow up with pain management as scheduled Due to her increasing low back pain lately, will refer her to neurosurgery for further evaluation and management (2) Chronic neck pain: Comment: S/P TBI and whiplash injury in the early ; Tx w/fluid drainage in 1993 & TRANSPORT TECHNICIAN shunt in 1998 Code(s): M54.2 - Cervicalgia; G89.29 - Other chronic pain Category: Medical Plan: Patient continues to experience chronic neck pain - was reportedly advised by neurosurgery a couple of years ago that there is nothing else to offer her in terms of surgical Tx or management Follow up with pain management as scheduled (3) Bladder cancer: Code(s): C67.9 - Malignant neoplasm of bladder, unspecified Category: Medical Qualifiers: Bladder location: unspecified site Qualified Code(s): C67.9 - Malignant neoplasm of bladder, unspecified Plan: S/P repeat cystoscopy and biopsy with fulguration and intravesical Gemcitabine instillation on 08/06/2022, after cystoscopy done in 06/2022 revealed a poorly healing area with some evidence of superficial recurrence of bladder cancer on the right side bladder wall She is also S/P immunotherapy She had repeat cystoscopy done for surveillance most recently in November 2023 - was negative Follow up with urology as scheduled for continuing surveillance (4) Scoliosis of thoracolumbar spine: Code(s): M41.9 - Scoliosis, unspecified Category: Medical Qualifiers: Scoliosis type: unspecified scoliosis Qualified Code(s): M41.9 - Scolio sis, unspecified Plan: Continue Celebrex 200 mg QD PRN - she used to take Naproxen (5) Fibromyalgia: Code(s): M79.7 - Fibromyalgia Category: Medical Plan: She was on Pregabalin (switched from Gabapentin by [facility] a few years ago) but she weaned herself off the medication recently and has not noticed any change in her symptoms since coming off the medication She then went back on Gabapentin and felt that it is helping better - is currently on Gabapentin 300 mg TID [facility] as [facility] She ideally should try to stay active and exercise regularly to help manage her symptoms better but patient's activity level is significantly limited by her chronic neck and lower back issues (6) Hydrocephalus: Code(s): G91.9 - Hydrocephalus, unspecified Category: Medical Qualifiers: Hydrocephalus type: post-traumatic Qualified Code(s): G91.3 - Post- traumatic hydrocephalus, unspecified Plan: S/P TRANSPORT TECHNICIAN shunting Follow up with neurology (Dr. Melendrez) as scheduled (7) Osteoporosis: Code(s): M81.0 - Age-related osteoporosis without current pathological fracture Category: Medical Qualifiers: Osteoporosis type: age-related Presence of current pathological fracture: without current pathological fracture Qualified Code(s): M81.0 - Age- related osteoporosis without current pathological fracture Plan: Her BMD done in 06/2022 represents her baseline exam as she has no other BMD available to compare it with BMD came out with the lowest T-score value of -3.1 in the femoral neck Continue Alendronate 70 mg once a week Continue Caltrate 600 plus D BID Fall precautions reinforced She had her repeat BMD done a couple of months ago (ordered by Dr. Mac) and her BMD now shows (+) osteopenia based on the lowest T-score value of -2.1 in the femoral neck She apparently has a 12% improvement in her BMD in the left femur and a 5.1% i ncrease in BMD in the AP spine Will continue to monitor her BMD regularly (8) GERD without esophagitis: Code(s): K21.9 - Gastro-esophageal reflux disease without esophagitis Category: Medical Plan: Dietary restrictions reinforced Continue Omeprazole 20 mg QD PRN (9) Constipation: Code(s): K59.00 - Constipation, unspecified Category: Medical Qualifiers: Constipation type: unspecified constipation type Qualified Code(s): K59.00 - Constipation, unspecified Plan: Reinforced increased oral fluids and dietary fiber Continue Miralax 17 gm QD (10) Renal calculi: Code(s): N20.0 - Calculus of kidney Category: Medical Plan: Follow up with urology as scheduled (11) Overactive bladder: Code(s): N32.81 - Overactive bladder Category: Medical Plan: Continue Myrbetriq ER 25 mg QD Follow up with urology as scheduled (12) Insomnia: Code(s): G47.00 - Insomnia, unspecified Category: Medical Qualifiers: Insomnia type: unspecified Qualified Code(s): G47.00 - Insomnia, unspecified Plan: Reinforced sleep hygiene Continue Trazodone 100 mg Q HS PRN (13) Obesity (BMI 30-39.9): Code(s): E66.9 - Obesity, unspecified Category: Medical Plan: Reinforced diet/lose weight; exercise is not realistic given her chronic pain - states that her activity tolerance is very limited Plan Follow up in 4 months Orders: Orders Complete Blood Count Auto Diff 4 Months D64.9 - Anemia, unspecified Comprehensive [place]. Panel Fast 4 Months E78.00 - Pure hypercholesterolemia, unspecified Lipid Panel 4 Months E78.00 - Pure hypercholesterolemia, unspecified TSH reflex Free T4 4 Months E78.00 - Pure hypercholesterolemia, unspecified UA CC w/rflx Micro + Cult 4 Months R30.0 - Dysuria Vitamin D 25-OH Total 4 Months E55.9 - Vitamin D deficiency, unspecified Referrals Neurosurgery Referral M48.062 - Spinal stenosis, lumbar region with neurogenic claudication Medications: New celecoxib Take with food 200 mg PO DAILY 30 days 30 caps 2RF increased low back pain
[2024-08-17 14:03] VITALS: BP 126/84; PULSE 82; O2SAT 96; BMI 30.7
== END 2024-08-17 14:56 | disposition home or self-care (01) ==
PROVIDERS: PCP Internal Medicine; Visit Provider Internal Medicine
DX: M47.816 Spondylosis without myelopathy or radiculopathy, lumbar region (principal); C67.9 Malignant neoplasm of bladder, unspecified; M54.2 Cervicalgia; G91.3 Post-traumatic hydrocephalus, unspecified; G89.29 Other chronic pain; M41.9 Scoliosis, unspecified; M79.7 Fibromyalgia; M81.0 Age-related osteoporosis without current pathological fracture; K21.9 Gastro-esophageal reflux disease without esophagitis; K59.00 Constipation, unspecified; N20.0 Calculus of kidney; N32.81 Overactive bladder; G47.00 Insomnia, unspecified; E66.9 Obesity, unspecified

== ENCOUNTER → 2024-08-17 13:54 | Outpatient (BNVA) | payer MEDICARE, SELFPAY | PROVIDERS: PCP Internal Medicine; Visit Provider Internal Medicine | DX: M47.816 Spondylosis without myelopathy or radiculopathy, lumbar region (principal); M54.2 Cervicalgia; G89.29 Other chronic pain; C67.9 Malignant neoplasm of bladder, unspecified; M41.9 Scoliosis, unspecified; M79.7 Fibromyalgia; G91.3 Post-traumatic hydrocephalus, unspecified; M81.0 Age-related osteoporosis without current pathological fracture; K21.9 Gastro-esophageal reflux disease without esophagitis; K59.00 Constipation, unspecified; N20.0 Calculus of kidney; N32.81 Overactive bladder; G47.00 Insomnia, unspecified; E66.9 Obesity, unspecified | CPT/HCPCS: 96127; 99212 ==

== ENCOUNTER 2024-08-21 13:13 | Outpatient (AMB) | payer MEDICARE, SELFPAY ==
--- NOTE | 2024-08-21 13:19 | HO.SPINEOV ---
Intake Visit Reasons: willing to explore back surgery option again Intake Note: Mrs. Lyman is here today willing to explore back surgery again Aws Solution Architect Required: No Allergies aspartame Allergy (Severe, Verified 08/17/24 14:37) severe dehydration cyclobenzaprine [From Flexeril] Allergy (Severe, Verified 08/17/24 14:37) SOB nickel Adverse Reaction (Verified 08/17/24 14:37) Blister Assessment & Plan Assessment & Plan (1) Scoliosis of lumbar region due to degenerative disease of spine in adult: Code(s): M41.56 - Other secondary scoliosis, lumbar region Category: Medical (2) Cervical myelopathy: Code(s): G95.9 - Disease of spinal cord, unspecified Category: Medical Plan Dear colleague, On 08/21/2024 saw for follow-up Sudha Lyman. This 69-year-old female is suffering from right-sided back pain where the lumbar spine meets the ribs. She was diagnosis lumbar degenerative scoliosis and we were even planning on correcting this to address her back pain. Today she comes back to discuss surgery. She mentioned that she had severe pain in the read right SI joint region that responded well to Celexocib. However does not help for her back pain. The more serious concern is progressive balance problems. She states that this is getting worse combination with numbness of her left arm and cramping of her left hand. She also has difficulty sitting steady in a chair due to balance problem. She did have a traumatic event in the past and apparently underwent a laminoplasty for cervical myelopathy and has a SPEECH PATHOLOGIST shunt for hydrocephalus. The last MRI of the cervical spine was done in 2016. On exam Romberg is positive with eyes open and closed. No pronator drift. She walks with a wide-based gait. No pathological reflexes. There is mild atrophy of the left hand. I would like to obtain an MRI of the cervical spine to exclude progressive spinal cord compression before even considering performing a lumbar fusion surgery to correct the degenerative scoliosis. This patient is at high fall risk and this potentially will lead to hardware failure. I will follow-up with the patient as soon as the MRI of the neck is done. I spent 35 minutes in his consult. Do not hesitate to call me with any question or concerns. Darrion Sy MD, PhD Spine Fellowship Trained Neurosurgeon Director, [facility] Orders: Orders MR cervical spine wo con Today G95.9 - Disease of spinal cord, unspecified Coding Level of Care Code Est Pt Level 4 (64385) Diagnoses Scoliosis of lumbar region due to degenerative disease of spine in adult M41.56 Cervical myelopathy G95.9
== END 2024-08-21 14:28 | disposition home or self-care (01) ==
PROVIDERS: PCP Internal Medicine; Visit Provider Neurological Surgery
DX: M41.56 Other secondary scoliosis, lumbar region (principal); G95.9 Disease of spinal cord, unspecified
CPT/HCPCS: 99214

== ENCOUNTER → 2024-08-21 13:13 | Outpatient (BNVA) | payer MEDICARE, SELFPAY | PROVIDERS: PCP Internal Medicine; Visit Provider Neurological Surgery | DX: G95.9 Disease of spinal cord, unspecified (principal); M41.56 Other secondary scoliosis, lumbar region | CPT/HCPCS: 99212 ==

== ENCOUNTER 2024-09-25 11:13 | Outpatient (REF) | payer MEDICARE, SELFPAY | END 2024-09-25 11:14 | disposition home or self-care (01) | LOC: HO.MRI 11:13 | PROVIDERS: PCP Internal Medicine; Visit Provider Neurological Surgery | DX: G95.9 Disease of spinal cord, unspecified (principal); M41.56 Other secondary scoliosis, lumbar region | CPT/HCPCS: 72141; 99212 ==

== ENCOUNTER 2024-09-25 12:23 | Outpatient (AMB) | payer MEDICARE, SELFPAY ==
--- NOTE | 2024-09-25 12:59 | HO.SPINEOV ---
Intake Visit Reasons: MRI f/u/MRI @ 11:30am Intake Note: Ms. Lyman is here today to F/u on the results to her MRI. Surgical Product Sales Consultant Required: No Allergies aspartame Allergy (Severe, Verified 08/17/24 14:37) severe dehydration cyclobenzaprine [From Flexeril] Allergy (Severe, Verified 08/17/24 14:37) SOB nickel Adverse Reaction (Verified 08/17/24 14:37) Blister Assessment & Plan Assessment & Plan (1) Scoliosis of lumbar region due to degenerative disease of spine in adult: Code(s): M41.56 - Other secondary scoliosis, lumbar region Category: Medical Plan Dear colleague, On 09/25/2024 I saw for follow-up Sudha Emery to discuss the findings of the MRI of the cervical spine that was done today. 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 We revisited the lumbar spine. A CT of the abdomen shows clear osteoporosis. A bone scan shows osteopenia. I told her there is a high chance for correct the scoliosis that hardware failure may occur. In the end, I do not think she is a good surgical candidate as correction of the scoliosis does not even give her a guarantee that her pain will be gone. She fully understood my explanation. I discharged her from further follow-up. Thank you for allowing me take care of your patient. Darrion Sy MD, PhD Spine Fellowship Trained Neurosurgeon Director, [facility] Coding Level of Care Code Est Pt Level 3 (69943) Diagnoses Scoliosis of lumbar region due to degenerative disease of spine in adult M41.56
== END 2024-09-25 14:51 | disposition home or self-care (01) ==
PROVIDERS: PCP Internal Medicine; Visit Provider Neurological Surgery
DX: M41.56 Other secondary scoliosis, lumbar region (principal)
CPT/HCPCS: 99213

== ENCOUNTER 2024-12-14 13:10 | Outpatient (REF) | payer MEDICARE, SELFPAY ==
[2024-12-14 17:29] LABS: Urine Cytology See Pathology rpt
--- OUTSIDE RECORDS SUMMARY | 2024-12-14 17:31 | XMS_ITS | Clinical Summary ---
Author Organization [employer] [facility] [place] [address] Care Team Providers Care Block Making Machine Operator Name Role Phone Gregory Gaming MD Primary Care Provider Surgical History Surgery Date Site/Laterality Comments TONSILLECTOMY 1960 PROCEDURE: HISTORICAL TONSILLECTOMY CYSTOSCOPY 1963 PROCEDURE: [facility] CYSTOURETHROSCOPY BLADDER SURGERY 1990 PROCEDURE: HISTORICAL BLADDER SURGERY TUBAL LIGATION 1991 PROCEDURE: HISTORICAL TUBAL LIGATION OTHER SURGICAL HISTORY 1994 and 1999 PROCEDURE: [facility] VENTRICULOCISTERNOSTOMY; COMMENT: ? excessive CSF COLONOSCOPY 2011 [...] COMMENT: Moderate, 04/24/2011 Polysomnogram, Total Sleep at [facility] History of stomach ulcers 04/22/2019 DX:His tory of stomach ulcers; COMMENT: Stomach pouch-Ulcer 02/23/2015 Type 2 diabetes mellitus wit hout complication (CMS/HCC) 08/01/2018 DX:Type 2 diabetes mellitus without complication ([facility]) Hypercholesteremia 04/22/2019 DX:Hyperchole steremia Tinnitus 04/22/2019 DX:Tinnitus; COM MENT: Since childhood. [facility] 04/2013 Vertigo 04/22/2019 DX:Vertigo; COMM ENT: Dr. 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 Hx of L skull base injury 1974. [facility] note 04/29/2013 Meniere's disease 04/22/2019 [...] Recently Relevant to Health Maintenance Results * [facility] SCREENING DIGITAL (04/15/2020 5:06 PM EDT) Anatomical Region Laterality Modality Mammography 04/15/2020 3:31 PM EDT Narrative 04/15/2020 5:06 PM EDT [facility] Diagnostic Imaging Department [address] [place] [address] Patient: ??MACIEL RAZO ?/Age/Sex: 1955 - 65 - F Unit#: ??[id number] ? Location/Status: ??SPDIMAM/REG CLI ? Mnemonic/Ordering Site: ??DIGSC/SPMAM Ordering Physician: ??ARIADNE STEELE INFORMATION SYSTEMS SECURITY SPECIALIST [facility] Screening Digital - 04/15/20 - 1548 EXAM: [facility] Screening Digital EXAM DATE AND TIME: 04/15/2020 3:49 PM HISTORY: ??Screening. COMPARISON: ??09/06/15, 08/20/14, 08/27/13 TECHNIQUE: CC and MLO views of both breasts were obtained using full field digital mammography. Bilateral digital breast tomosynthesis was performed in the MLO projection. Computer aided detection with the [employer] 7.2-H was employed. TISSUE DENSITY: b. There [...] Routine screening mammogram BILATERAL in 1 year. 94951, 37548 3342F, 7093F Dictating Physician: ??ENLLY LOYD MD Electronically Signed by: ??NELLY LOYD MD Dic Date/Time: ??04/15/201703 Sign date/Time: ??04/15/201705 Procedure Note Nelly Loyd MD - 09/26/2022 [facility] Diagnostic Imaging Department [address] [place] [address] Patient: MACIEL RAZO D.O.B./Age/Sex: 1955 - 65 - F Unit#: [id number] Location/Status: SPDIMAM/REG CLI Mnemonic/Ordering Site: [facility] Ordering Physician: ARIADNE STEELE INFORMATION SYSTEMS SECURITY SPECIALIST [facility] Screening Digital - 04/15/20 - 1548 EXAM: [facility] Screening Digital EXAM DATE AND TIME: 04/15/2020 3:49 PM HISTORY: Screening. COMPARISON: 09/06/15, 08/20/14, 08/27/13 TECHNIQUE: CC and MLO views of both breasts were obtained using fullfield digital mammography. Bilateral digital breast tomosynthesis was performedin the MLO projection. Computer aided detection with the [employer] employed. TISSUE DENSITY: b. There are scattered [...] Routine screening mammogram BILATERAL in 1 year. 28905, 70909 3342F, 7025F Dictating Physician: NELLY LOYD MD Electronically Signed by: NELLY LOYD MD Dic Date/Time: 04/15/201703 Sign date/Time: 04/15/201705 us Ariadne Steele INFORMATION SYSTEMS SECURITY SPECIALIST IMG BI PROCEDURES Final Res ult from Last 3 Months or Most Recently Relevant to Health Maintenance Care Teams Block Making Machine Operator Relationship Specialty Start Date End Date Gregory Gaming MD [address] [place] [address] Dr [address] MIKI Hollingsworth PCP - General Internal Medicine 07/13/22
--- OUTSIDE RECORDS SUMMARY | 2024-12-14 17:31 | XMS_ITS | Clinical Summary ---
Author Organization [facility] Address [address] [place] [address] Care Team Providers Care Physician Assistant Name Role Phone Gregory Gaming MD Primary Care Provider [phone]- [phone] Allergies Active Allergy Reactions Criticality Noted Date [...] age to complete this topic Care Teams Physician Assistant Relationship Specialty Start Date End Date Gregory Gaming MD [address] [place] [address] [place] [address] PCP - General Internal Medicine 07/13/22
== END 2024-12-14 13:11 | disposition home or self-care (01) ==
LOC: HO.LAB 13:10
PROVIDERS: PCP Internal Medicine; Visit Provider Urology
DX: N39.0 Urinary tract infection, site not specified (principal)
CPT/HCPCS: 88112

== ENCOUNTER 2024-12-14 13:10 | Outpatient (AMB) | payer MEDICARE, SELFPAY ==
--- NOTE | 2024-12-14 13:12 | A.OFFVIS_ITS ---
Intake Visit Reasons: cysto Intake Note: Patient Is Present for Cystoscopy Urology Med: Vitamin B6 Antibiotic Allergy: NONE Blood Thinner: NONE In Store Marketing Representative Required: No Allergies aspartame Allergy (Severe, Verified 12/17/24 14:08) severe dehydration cyclobenzaprine [From Flexeril] Allergy (Severe, Verified 12/17/24 14:08) SOB nickel Adverse Reaction (Verified 12/17/24 14:08) Blister Medication List - Last Reconciled 12/14/24 by Jamie Garcia MD alendronate 70 mg PO QWEEK back brace As directed calcium carbonate-vitamin D3 600 mg-20 mcg (800 unit) (Caltrate plus D) 1 tab PO BID celecoxib 200 mg PO DAILY 30 days cholecalciferol (vitamin D3) 50 mcg PO DAILY 90 days Donut pillow As directed mecobalamin (vitamin B12) 1,000 mcg sublingual DAILY multivitamin 1 tab PO DAILY omeprazole magnesium (Prilosec OTC) 20 mg PO BEDTIME 30 days pregabalin 50 mg PO TID 30 days pyridoxine (vitamin B6) 100 mg PO DAILY [shower head As directed] trazodone 100 mg PO BEDTIME PRN 30 days HPI Comments Details: 12/14/24-- 69-year-old female presenting with surveillance cystoscopy for bladder cancer follow-up. She initially underwent cystoscopy and TURBT on 12/25/2021 for superficial high-grade urothelial carcinoma. She is under ongoing surveillance for bladder cancer recurrence as part of a routine protocol. Her overactive bladder was previously managed with Mirabegron, which she discontinued. The patient denies new symptoms such as hematuria or urinary incontinence. She also has a history of bilateral nephrolithiasis, with stones documented as 5 mm on the right and 7 mm on the left from prior imaging. The next steps include a renal ultrasound to monitor nephrolithiasis, as discussed during the current visit. Current medication includes vitamin B6. Urinary Symptoms Review - Denies hematuria - Denies urinary incontinence - Discontinued Mirabegron - Continues on vitamin B6 Results - Tests: Prior cystoscopy TURBT on 12/25/2021 with pathology showing superficial high-grade urothelial carcinoma 06/16/24-- Here for surveillance cystoscopy. Sudha is treated with myrberiq for OAB symptoms, also followed for bilateral renal stones. She denies any new urinary symptoms, denies hematuria or dysuria. Cystoscopy findings: mild mucosal erythema, no suspicious bladder lesions visualized. Will cont to monitor kidneys, myrbetriq, cont surveillance cystoscopy, urine for cytology, fu in 6 months. Sudha is a 68-year-old female who presents today to the office for a cystoscopy procedure. She has OAB and was started on Myrbetriq which she states is helping, she is also followed for kidney stones 11/22/23- here for surveillance cystoscopy. Denies any new urinary symptoms Exam- Inner thigh- Hydraadenits, the patient states wound will leak fluid intermittently. She states she was referred to the wound clinic in the past. Cystoscopy findings: within normal limits; no suspicious bladder lesions were visualized. I reviewed CT scan 08/05/23 Right-sided nephrolithiasis measuring up to 5 mm without hydronephrosis. Left-sided nephrolithiasis measuring up to 7 mm 05/31/2023?Sudha is followed for history of bladder cancer and presents today for cystoscopy. She was last seen by me on 02/27/2023 for bilateral kidney stones. She was advised to continue vitamin B6 100 mg daily at that time. Left ESWL was discussed to be scheduled, and was advised to follow-up after 3 months for surveillance Cystoscopy at that time. She has a history of bladder cancer. She is a status post Cystoscopy/TURBT done on 12/25/2021. She is not taking any medications for bladder control. She states that she was diagnosed with bladder infection when she was a kid. She denies any hematuria. I needed to catheterize to obtain urine, as she was not able to collect urine specimen when she voided. Cystoscopy procedure: Cystoscopy findings: within normal limits; no suspicious bladder lesions were visualized. 02/27/2023?PMH - normal pressure hydrocephalus, prior shunt followed by neurologist. h/o Kidney stones. She is seen for h/o bladder cancer, s/p cysto/TURBT 12/25/2021; path: superficial high grade urothelial carcinoma, no muscularis propria identified. Last outpatient cystoscopy fulguration was with Dr. Kyle 08/06/2022, I reviewed operative note, gemcitabine was administered. The patient has right kidney stone about 4 mm and left kidney stone about 5 mm. Denies taking aspirin or any blood thinners. Evaluation today-- blood: negative, leukocytes: 15 Christina/uL. Consent to perform cystoscopy procedure was obtained. Cystoscopy findings-- Mild trabeculations. No suspicious bladder lesion visualized.? 01/03/2023--Sudha is a 67-year-old female who presents to the clinic for discussio n of KUB and renal US results ordered for kidney stones. ?-----Office visit?11/22/2022-- here for surveillance office cystoscopy.? Findings:? no recurrent bladder lesions visualized. Previous Interventions: 12/25/21? cysto-TURBT high-grade T1, 08/06/22 bladder? fulguration with gemcitabine Immunotherapy Bladder instillations- 12/2021 induction 6 weeks; - Boost 03/2022. Renal US results reviewed?12/14/2022-- Bilateral nonobstructing nephrolithiasis. Right kidney: largest stone is of 4 mm, Left kidney: largest stone is of 5 mm. Kidneys: WNL. [facility] Medical History Diverticulosis Constipation Sleep apnea Abscess Bladder cancer Obesity (BMI 30-39.9) Traylor's palsy Neuropathy GERD without esophagitis Chronic neck pain Scoliosis of thoracolumbar spine Arthritis Back pain Hx of spinal stenosis Peptic ulcer Fibromyalgia Hydrocephalus in adult History of traumatic head injury Nephrolithiasis Surgical History Hx of cystoscopy History of cervical spinal surgery History of adenoidectomy Hx of lithotripsy Hx of tubal ligation Hx of excision of lamina of cervical vertebra for decompression of spinal cord Hx of cholecystectomy H/O colonoscopy Hx of gastric bypass RETAIL CONSULTANT (ventriculoperitoneal) shunt status Family History Father Cancer Mother Stroke Brother No problems noted. Brother No problems noted. Sister No problems noted. Son No problems noted. Daughter No problems noted. Paternal Grandmother Colon cancer Social History Housing: Assisted Living Facility Are you a primary youth care specialist to a significant other at home: No Do you presently have visiting nurse or other home services: No Alcohol intake: never Patient Tobacco Use Status: Former Tobacco user Tobacco use type: Cigarette e-Cigarette/Vaping Use: Never Used Second Hand Smoke Exposure: Yes Advance Directives Date on File: 06/04/23 service: No Current occupational status: retired and disabled Cognitive needs: Yes (cane) Hearing needs: Yes (hearing aide) Vision needs: Yes (glasses) Female Reproductive History Menstrual Age of Menarche: 15 Review of Systems Const All systems reviewed & are unremarkable except as noted in HPI and below Reports no additional complaints Eyes Reports no additional complaints ENT Reports no additional complaints Card Reports no additional complaints Resp Reports no additional complaints GI Reports no additional complaints Reports as per HPI Musc Reports no additional complaints Skin/Breast Reports system reviewed and no additional complaints, except as documented Neuro Reports no additional complaints Psych Reports no additional complaints Endo Reports no additional complaints Aleksandar/Lymph Reports no additional complaints Aller/Immun Reports no additional complaints Office Procedures Cystoscopy Consent Discussed risk and benefit or proposed procedure with the patient. Information consent for procedure given to the patient. Discussed technical aspects, risks, benefits and alternatives in full. Addressed all of the patient's questions and concerns regarding the procedure. The patient demonstrated knowledge and understanding. They wish to proceed with this procedure. Preparation The patient was prepped in the usual manner. A painting manager was present and in the room. Genitalia was prepped with betadine solution in a sterile manner. Lidocaine Jelly 2% was placed into the urethra and 16Fr flexible Olympus cystoscope was inserted into the meatus after adequate lubrication. Time out per protocol performed. Bladder Inspection Bladder Inspection: The bladder was inspected in its entirety with utilization retroflexion displaying: Tumor(s): no suspicious bladder lesions visualized Trabeculation: Mild - Moderate Mucosal Erthema: mild Orifices: normal shape and position Urethra: normal Cystoscopy findings:no suspicious bladder lesions visualized [id number] DISPOSABLE SCOPE URO-G FLEXIBLE SCOPE Procedure code (CPT) selection complete Office Meds lidocaine HCl 2 % mucosal jelly in applicator Performing Provider: Jamie Garcia MD [place] [facility] Administered by: Viji Chowdhury RN on 12/14/24 13:44 Dose Route Admin Location Dispensed Lot Number Expiration Date [facility] Lining Cutter 10 mL intra-urethral 10 mL ciprofloxacin HCl 500 mg tablet Performing Provider: Jamie Garcia MD [place]forming [place] [facility] Administered by: Viji Chowdhury RN on 12/14/24 13:44 Dose Route Admin Location Dispensed Lot Number Expiration Date NDC Lining Cutter 500 mg PO 1 tab Results AMB Urinalysis, Automated UA Leukoctes 70 Christina/uL Last Edit by Crystal José on 12/14/24 14:04 UA Nitrite Negative Last Edit by Crystal Kumar on 12/14/24 14:04 UA Urobilinogen 3.5 mg/dL Last Edit by Crystal Kumar on 12/14/24 14:04 UA Protein 1 mg/dL Last Edit by Crystal Kumar on 12/14/24 14:04 UA pH 6.0 Last Edit by Crystal Kumar on 12/14/24 14:04 UA Blood 0 Daron/uL Last Edit by Crystal Kumar on 12/14/24 14:04 UA Specific [place] 1.015 Last Edit by Crystal Kumar on 12/14/24 14:04 UA Ketone Negative Last Edit by Crystal Kumar on 12/14/24 14:04 UA Bilirubin 0 mg/dL Last Edit by Crystal Kumar on 12/14/24 14:04 UA Glucose 0 mg/dL Last Edit by Crystal Kumar on 12/14/24 14:04 Results Reviewed Results Reviewed: Laboratory Last Values Urine pH (Auto) 6.0 12/14/24 14:01 Specific [place] (Auto) 1.015 12/14/24 14:01 Urine Protein (Auto) 1 mg/dL 12/14/24 14:01 Glucose (UA)(Auto) 0 mg/dL 12/14/24 14:01 Urine Ketones (Auto) Negative 12/14/24 14:01 Urine Blood (Auto) 0 Daron/uL 12/14/24 14:01 Urine Nitrite (Auto) Negative 12/14/24 14:01 Urine Bilirubin (Auto) 0 mg/dL 12/14/24 14:01 Urine Urobilinogen (Auto) 3.5 mg/dL 12/14/24 14:01 Leukocyte Esterase (Auto) 70 Christina/uL 12/14/24 14:01 Date of Service: 08/05/23 EXAMINATION: CT ABDOMEN AND PELVIS WITHOUT CONTRAST CLINICAL INFORMATION: Malignant neoplasm of bladder COMPARISON: CT abdomen from 10/25/2021 TECHNIQUE: Multidetector volumetric imaging was performed from the superior aspect of the liver through the pubic symphysis. Sagittal and coronal reformatted images were obtained on the technologist's workstation. This CT examination was performed using dose optimization techniques as appropriate, variously including the following: *Automated exposure control *Adjustment of mA and/or kV according to patient size (this includes techniques or standardized protocols for targeted exams where dose is matched to indication/reason for exam; i.e. extremities or head) *Use of iterative reconstruction technique DLP: 572 mGy-cm FINDINGS: LUNG BASES: The visualized lung bases are unremarkable. LIVER, GALLBLADDER, AND BILIARY TREE: The liver is normal in size, shape, and attenuation. No focal hepatic lesion or biliary ductal dilatation is present. The gallbladder is surgically absent PANCREAS: Mild atrophy of the pancreas. SPLEEN: Unremarkable. ADRENAL GLANDS: Redemonstration of fat attenuating nodular focus in the right adrenal glands measuring up to 1.6 cm, stable. Nodular focus in the lateral limb of the left adrenal gland demonstrating fat attenuation measuring up to 1.2 cm. Adrenal nodules of any size exhibiting a CT density of =<10 HU are overwhelmingly likely to represent lipid rich benign adenomas for which no follow-up imaging is recommended. KIDNEYS AND URETERS: Right-sided nephrolithiasis measuring up to 5 mm without hydronephrosis. Left-sided nephrolithiasis measuring up to 7 mm without hydronephrosis. Left renal cystic focus along the anterior aspect of the interpolar/upper pole region measuring up to 1.7 cm, not requiring follow-up. BLADDER: Urinary bladder is decompressed. Previously identified soft tissue mass along the right intraluminal urinary bladder is not definitively visualized though evaluation is limited without intravenous contrast. GASTROINTESTINAL TRACT: Small to moderate hiatal hernia with postsurgical changes of the gastroesophageal junction and stomach. The small and large bowel are unremarkable. The appendix is unremarkable. ABDOMINAL WALL: No significant hernia is appreciated. Ventriculoperitoneal shunt catheter redemonstrated. LYMPH NODES: Normal. VASCULAR: Unremarkable. PELVIC VISCERA: Unremarkable. Trace free fluid in the pelvis potentially secondary to RETAIL CONSULTANT shunt catheter. OSSEOUS STRUCTURES: S-shaped rotatory curvature of the thoracolumbar spine. Osteopenia. Multilevel degenerative changes of the thoracolumbar spine. IMPRESSION: 1. No acute process of the abdomen or pelvis identified. 2. Previously identified soft tissue mass along the right intraluminal urinary bladder is not definitively visualized though evaluation is limited without intravenous contrast. 3. Redemonstration of fat attenuating nodular focus in the right adrenal gland measuring up to 1.6 cm, stable. Nodular focus in the lateral limb of the left adrenal gland demonstrating fat attenuation measuring up to 1.2 cm. Adrenal nodules of any size exhibiting a CT density of = <10 HU are overwhelmingly likely to represent lipid rich benign adenomas for which no follow-up imaging is recommended. 4. Bilateral nephrolithiasis without hydronephrosis. 5. Small to moderate hiatal hernia with postsurgical changes of the gastroesophageal junction and stomach. 6. Osteopenia. Assessment & Plan Assessment & Plan (1) Bilateral kidney stones: Code(s): N20.0 - Calculus of kidney Category: Medical (2) Bladder cancer: Code(s): C67.9 - Malignant neoplasm of bladder, unspecified Category: Medical Qualifiers: Bladder location: unspecified site Qualified Code(s): C67.9 - Malignant neoplasm of bladder, unspecified (3) Urge incontinence of urine: Code(s): N39.41 - Urge incontinence Category: Medical (4) Personal history of bladder cancer: Code(s): Z85.51 - Personal history of malignant neoplasm of bladder Category: Medical (5) Overactive bladder: Code(s): N32.81 - Overactive bladder Category: Medical Plan Plan We will continue surveillance cystoscopy for the history of superficial high- grade urothelial carcinoma, with urine cytology collected to check for any abnormal cells. A follow-up cystoscopy is planned in 6 months, assuming cytology results are normal. A renal ultrasound will be conducted. The patient should continue her current medication of vitamin B6 and remain vigilant for any changes in symptoms. Cont surveillance cystoscopy, urine for cytology Follow up office Cystoscopy in 6 months. Orders: Orders AMB Cystoscopy 12/14/24 C67.2 - Malignant neoplasm of lateral wall of bladder AMB Urinalysis Automated 12/14/24 Z13.9 - Encounter for screening, unspecified Urine Cytology 12/14/24 N39.0 - Urinary tract infection, site not specified Medications: Refilled pyridoxine (vitamin B6) 100 mg PO DAILY 90 tabs 3RF Patient Instructions: The patient had an opportunity to ask questions regarding treatment plan. The patient expressed understanding and agreement with the above treatment plan. The patient is aware they should contact our office by phone for worsening of their current condition or the appearance of new symptoms. Compliance is encouraged with any medications and followup testing that is ordered. It is a privilege to be allowed the opportunity to participate in the urologic care of your patient. If you have any questions or concerns regarding treatment for the above conditions please do not hesitate to contact me. The office telephone contact is [phone]. This note is constructed in part using voice recognition software. While every effort has been made to ensure accuracy forester silviculture errors may have been included. Yours sincerely, Jamie Garcia MD Scribe Plan - Not visible on output: Patient was informed and verbally consented to the use of an ambient scribe for clinic note documentation during this visit. Coding Level of Care Code Est Pt Level 3 (26643) Diagnoses Bilateral kidney stones N20.0 Malignant neoplasm of urinary bladder, unspecified site C67.9 Bladder location: unspecified site Urge incontinence of urine N39.41 Personal history of bladder cancer Z85.51 Overactive bladder N32.81 CPT Codes Cystoscopy - CPT: [id number] ([id number])
--- OUTSIDE RECORDS SUMMARY | 2024-12-14 14:52 | XMS_ITS | Encounter Summary ---
Author Organization [facility] Address [address] [place] [address] Care Team Providers Care Computer Teacher Name Role Phone Carisa Velasco MD Primary Care Provider Yudith Miller MD Primary Care Provider [facility], Pcp Primary Care Provider Unavailabl e Reason for Visit * Reason Comments E-prescribe Rx Request Encounter Details Date Type Department Care Team Description 07/26/2019 Refill Adult Med - [place] [address] [place] [address] Carisa Velasco MD E-prescribe Rx Request Social History Tobacco Use Types Packs/Day Years Used Date Smoking Tobacco: Former Cigarettes 1 20 0 1969 - 10/07/2011 Smokeless Tobacco: Never Alcohol Use Standard Drinks/Week Comments Yes 0 (1 standard drink = 0.6 oz pur e alcohol) 3-4 glasses wine per week Sex Assigned at Date Recorded Not on file documented as of this encounter Miscellaneous Notes * Telephone Encounter - Rebeca Morocho M.A. - 07/27/2019 11:55 AM EDT Meloxicam 15 mgs [place] 07/10/19 Nov 09/22/19 Appointment on 05/07/2017 Component Date Value Ref Range Status ??? WOUND CULTURE 05/07/2017 KLEBSIELLA PNEUMO. SSP PNEUMO. Final ??? WOUND CULTURE 05/07/2017 BETA STREPTOCOCCUS GROUP B Final ??? WOUND CULTURE 05/07/2017 STAPH COAGULASE NEGATIVE Final * Telephone Encounter - Lilo Riley - 07/27/2019 11:53 AM EDT Patient would like script to be: E-PRESCRIBED/FAXED TO PHARMACY WHEN WAS THE PATIENT'S LAST APPOINTMENT IN ADULT MEDICINE? 07/10/19 WHEN WAS THE LAST TIME THE PATIENT SAW THEIR PCP? Same as above Does patient have an upcoming appointment? Yes 09/22/19 w/ Suzanne (THE MEDICATION REQUESTED IS ON THE MED LIST ABOVE) All of the medications requested were on the CURRENT MEDS list Did you check the Pharmacy information above?: YES Patient wants: 30 -day supply Is this a mail order prescription request ? NO If the refill is from a FAXED refill request what is the RX # listed on the fax? N/A Patients current insurance carrier is: Payor: [place] PPO / Plan: [facility] MDCR-ADV PPO $20/$40 [place] / Product Type: MEDICARE [id number] documented in this encounter Plan of Treatment Not on file documented as of this encounter Visit Diagnoses Not on filedocumented in this encounter Care Teams Computer Teacher Relationship Specialty Start Date End Date Carisa Velasco MD PCP - General Internal Medicine 01/21/18 10/11/19 Yudith Medellin MD PCP - General Internal Medicine [facility] 12/28/21 documented as of this encounter
--- OUTSIDE RECORDS SUMMARY | 2024-12-14 14:52 | XMS_ITS | Encounter Summary ---
Author Organization [facility] Address [address] [place] [address] Care Team Providers Care Sample Supervisor Name Role Phone Carisa Velasco MD Primary Care Provider Yudith Miller MD Primary Care Provider Mikey Box, Pcp Primary Care Provider Chip penaloza Encounter Details Date Type Department Care Team Description 12/30/2018 Circuit Designer Report Medical Records [address] [place] [address] Santana Storm I., PH.D Social History Tobacco Use Types Packs/Day Years Used Date Smoking Tobacco: Former Cigarettes 1 20 0 1969 - 10/07/2011 Smokeless Tobacco: Never Alcohol Use Standard Drinks/Week Comments Yes 0 (1 standard drink = 0.6 oz pur e alcohol) 3-4 glasses wine per week Sex Assigned at Date Recorded Not on file documented as of this encounter Plan of Treatment Not on file documented as of this encounter Visit Diagnoses Not on filedocumented in this encounter Care Teams Sample Supervisor Relationship Specialty Start Date End Date Carisa Velasco MD PCP - General Internal Medicine 01/21/18 10/11/19 Yudith Medellin MD PCP - General Internal Medicine 10/12/1912/27 [facility], Pcp PCP - General Internal Medicine 12/28/21 documented as of this encounter
--- OUTSIDE RECORDS SUMMARY | 2024-12-14 14:52 | XMS_ITS | Encounter Summary ---
Author Organization [facility] Address [address] [place] [address] Care Team Providers Care Engineering Associate Name Role Phone Carisa Velasco MD Primary Care Provider Yudith Miller MD Primary Care Provider Mikey Box, Pcp Primary Care Provider Chip penaloza Encounter Details Date Type Department Care Team Description 10/05/2019 [facility] Medical Records [address] [place] [address] Abstract, Provider Social History Tobacco Use Types Packs/Day Years [...] on filedocumented in this encounter Care Teams Engineering Associate Relationship Specialty Start Date End Date Carisa Velasco MD PCP - General Internal Medicine 01/21/18 10/11/19 Yudith Medellin MD PCP - General Internal Medicine 10/12/1912/27 [facility] Include [facility], Pcp PCP - General Internal Medicine 12/28/21 documented as of this encounter
--- OUTSIDE RECORDS SUMMARY | 2024-12-14 14:52 | XMS_ITS | Clinical Summary ---
Author Organization [facility] Address [address] [place] [address] Care Team Providers Care Rn Lab Name Role Phone Gregory Gaming MD Primary Care Provider [phone] Allergies Active Allergy Reactions Criticality Noted Date Comments Aspartame 07/25/2018 Cyclobenzaprine 06/07/2016 Seafood 09/11/2016 Medications Medication Sig Dispensed Refills Start Date End Date Status meloxicam (MOBIC) 15 MG tablet 1 tablet. 0 09/25/2018 Active Omeprazole 20 MG TBEC Take 1 tablet by mouth. 0 Active Ferrous Sulfate (IRON) 325 (65 Fe) MG TABS Take 1 tablet by mouth. 0 10/18/2016 Active vitamin B-12 (CYANOCOBALAMIN) tablet 1000 mcg Take 1 tablet by mouth. 0 10/18/2016 Active Calcium Polycarbophil (FIBER) 625 MG TABS Take 625 mg by mouth. 0 10/18/2016 Active Calcium Carb-Cholecalciferol (CALCIUM-VITAMIN D3) 600-400 MG-UNIT TABS Take 1 tablet by mouth. 0 07/12/2016 Active Multiple Vitamins tablet Take 1 tablet by mouth. 0 07/12/2016 Active baclofen (LIORESAL) 10 MG tablet Take 10-20 mg by mouth. 0 08/19/2017 Active Active Problems Problem Noted Date Diagnosed Date Lumbar back pain 03/11/2019 Labral tear of long head of biceps tendon, left, sequela 12/16/2018 Labral tear of long head of biceps tendon, left, initial encounter 12/04/2018 Incomplete tear of left rotator cuff 12/04/2018 Family History Medical History Relation Name Comments Cancer Father Cancer Mother Diabetes Sister Relation Name Status Comments Father Mother Sister Social History Tobacco Use Types Packs/Day Years Used Date Smoking Tobacco: Never Assessed Sex and Gender Information Value Date Recorded Sex Assigned at Not on file Gender Identity Not on file Sexual Orientation Not on file Last Filed Vital Signs Vital Sign Reading Time Taken Comments Blood Pressure - - Pulse - - Temperature - - Respiratory Rate - - Oxygen Saturation - - Inhaled Oxygen Concentration - - Weight 80.3 kg (177 lb) 03/11/2019 1:46 PM EDT Height 162.6 cm (5' 4 ) 03/11/2019 1:46 PM EDT Body Mass Index 30.38 03/11/2019 1:46 PM EDT Plan of Treatment Health Maintenance Due Date Last Done Comments Hepatitis C Screening 1955 COVID-19 Vaccine (#1) 1955 Depression Screening 1968 BMI Counseling 1974 Preventative Health Evaluation 1974 DTap / Tdap / Td (1 - Tdap) 1975 Colon Cancer Screening (Colonoscopy) 2001 Breast Cancer Screening (Mammogram) 2006 Shingrix-Zoster Vaccine (1 o f 2) 2006 Fall Risk Assessment 2021 Osteoporosis Screening (DEXA Scan) 2021 Pneumococcal Vaccine (1 of 1 - PCV) 2021 Influenza Vaccine (#1) 2024 8, 08/19/2017 RSV Adult > 60+ Yrs or (1 - 1-dose 75+ series) 2031 Hepatitis B Vaccines Aged Out No long er eligible based on patient's age to complete this topic RSV Ped < 20 months Aged Out No longe r eligible based on patient's age to complete this topic Care Teams Rn Lab Relationship Specialty Start Date End Date Gregory Gaming MD [address] [place] [address] [place] [address] PCP - General Internal Medicine 07/13/22
--- OUTSIDE RECORDS SUMMARY | 2024-12-14 14:52 | XMS_ITS | Encounter Summary ---
Author Organization [facility] Address [address] [place] [address] Care Team Providers Care Install Technician Name Role Phone Yudith Medellin MD Primary Care Provider [facility], Pcp Primary Care Provider Unavailabl e Reason for Visit * Reason Comments E-prescribe Rx Request Encounter Details Date Type Department Care Team Description 11/13/2019 Refill Physiatry - [place] [address] [place] [id number] Ramin Singh PA-C E-prescribe Rx Request Social History Tobacco Use [...] encounter Miscellaneous Notes * Telephone Encounter - Yoanna Cosme M.A. - 11/13/2019 1:48 PM EST Last ov 11/09/19 Last refill 10/19/19 No future ov documented in this encounter Plan of Treatment Not on file documented as of this encounter Visit Diagnoses Not on filedocumented in this encounter Care Teams Install Technician Relationship Specialty Start Date End Date Yudith Medellin MD PCP - General Internal Medicine 10/12/1912/27 [facility], [facility]cp PCP - General Internal Medicine 12/28/21 documented as of this encounter
--- OUTSIDE RECORDS SUMMARY | 2024-12-14 14:52 | XMS_ITS | Encounter Summary ---
Author Organization [facility] Address [address] [place] [address] Care Team Providers Care Shank Faker Name Role Phone Rock Teran MD Primary Care Provider Un available Carisa Velasco MD Primary Care Provider Yudith Miller MD Primary Care Provider [facility], Pcp Primary Care Provider [facility] e Encounter Details Date Type Department Care Team Description 05/17/2011 Hospital Medical Records [address] [place] [address] Chung Valentine MD [address] [place] [phone] Social History Tobacco Use Types Packs/Day Years [...] on filedocumented in this encounter Care Teams Shank Faker Relationship Specialty Start Date End Date Rock Teran MD PCP - General Pediatrics 11/13/13 01/20/18 Carisa Velasco MD PCP - General Internal Medicine 01/21/18 10/11/19 Yudith Medellin MD PCP - General Internal Medicine 10/12/1912/27 [facility], Pcp PCP - General Internal Medicine 12/28/21 documented as of this encounter
--- OUTSIDE RECORDS SUMMARY | 2024-12-14 14:52 | XMS_ITS | Encounter Summary ---
Author Organization [facility] Address [address] [place] [address] Care Team Providers Care Furnace Tender Name Role Phone Rock Teran MD Primary Care Provider Un available Carisa Velasco MD Primary Care Provider Yudith Miller MD Primary Care Provider [facility], Pcp Primary Care Provider [facility] Encounter Details Date Type Department Care Team Description 02/23/2015 [facility] Medical Records [address] [place] [address] Vasiliy Welch MD Social History Tobacco Use Types Packs/Day Years [...] on filedocumented in this encounter Care Teams Furnace Tender Relationship Specialty Start Date End Date Rock Teran MD PCP - General Pediatrics 11/13/13 01/20/18 Carisa Velasco MD PCP - General Internal Medicine 01/21/18 10/11/19 Yudith Medellin MD PCP - General Internal Medicine 10/12/1912/27 [facility], Pcp PCP - General Internal Medicine 12/28/21 documented as of this encounter
--- OUTSIDE RECORDS SUMMARY | 2024-12-14 14:52 | XMS_ITS | Encounter Summary ---
Author Organization [facility] Address [address] [place] [address] Care Team Providers Care System Development Manager Name Role Phone Carisa Velasco MD Primary Care Provider Yudith Miller MD Primary Care Provider Mikey Box, Pcp Primary Care Provider Chip penaloza Encounter Details Date Type Department Care Team Description 09/07/2019 [facility] Medical Records [address] [place] [address] Abstract, Provider Social History Tobacco Use Types [...] on filedocumented in this encounter Care Teams System Development Manager Relationship Specialty Start Date End Date Carisa Velasco MD PCP - General Internal Medicine 01/21/18 10/11/19 Yudith Medellin MD PCP - General Internal Medicine 10/12/1912/27 [facility], Pcp PCP - General Internal Medicine 12/28/21 documented as of this encounter
--- OUTSIDE RECORDS SUMMARY | 2024-12-14 14:52 | XMS_ITS | Encounter Summary ---
Author Organization [facility] Address [address] [place] [address] Care Team Providers Care Day Treatment Clinician/Art Therapist Name Role Phone Carisa Velasco MD Primary Care Provider Yudith Miller MD Primary Care Provider [facility], Pcp Primary Care Provider Unavailabl e Reason for Visit * Reason Comments E-prescribe Rx Request Encounter Details Date Type Department Care Team Description 12/21/2018 Refill Adult Med - [place] [address] [place] [address] Carisa Velasco MD E-prescribe Rx Request Social [...] encounter Miscellaneous Notes * Telephone Encounter - Carisa Velasco MD - 12/22/2018 9:13 PM EDT Which dose of the gabapentin is she presently on. Is she at 600 yet and is it helping her or givingher problems. * Telephone Encounter - Bertha Zapata M.A. - 12/22/2018 1:56 PM EDT Home Health Speech Therapist printed. I changed the gabapentin that was requested to reflect the change made recently. documented in this encounter Plan of Treatment Not on file documented as of this encounter Visit Diagnoses Not on filedocumented in this encounter Care Teams Day Treatment Clinician/Art Therapist Relationship Specialty Start Date End Date Carisa Velasco MD PCP - General Internal Medicine 01/21/18 10/11/19 Yudith Medellin MD PCP - General Internal Medicine 10/12/1912/27 [facility], Pcp PCP - General Internal Medicine 12/28/21 documented as of this encounter
--- OUTSIDE RECORDS SUMMARY | 2024-12-14 14:52 | XMS_ITS | Clinical Summary ---
Author Organization [email or web address] [place] [address] Care Team Providers Care Bondactor Machine Operator Name Role Phone Gregory Gaming MD Primary Care Provider Surgical History Surgery Date Site/Laterality Comments TONSILLECTOMY 1960 PROCEDURE: HISTORICAL TONSILLECTOMY CYSTOSCOPY 1963 PROCEDURE: GA CYSTOURETHROSCOPY BLADDER SURGERY 1990 PROCEDURE: HISTORICAL BLADDER SURGERY TUBAL LIGATION 1991 PROCEDURE: HISTORICAL TUBAL LIGATION OTHER SURGICAL HISTORY 1994 and 1999 PROCEDURE: GA VENTRICULOCISTERNOSTOMY; COMMENT: ? excessive CSF COLONOSCOPY 2011 PROCEDURE: HISTORICAL COLONOSCOPY BREAST BIOPSY 2000ish Right PROCEDURE: BX BREAST; PERC NEEDLE CORE W/IMAG GUID; COMMENT: b9 OTHER SURGICAL HISTORY 04/2014 PROCEDURE: ---- OTHER ----; COMMENT: gastric bypass CERVICAL LAMINECTOMY 07/09/2017 PROCEDURE: HISTORICAL CERV LAMINECTOMY; COMMENT: laminectomy and fusion cervical spine CHOLECYSTECTOMY PROCEDURE: HISTORICAL CHOLECYSTECTOMY; COMMENT: open OTHER SURGICAL HISTORY 05/17/2011 Left PROCEDURE: HISTORY OTHER; COMMENT: Excision of extensive L axillary hidradenitis and intermediate level closure 15cm incision. Medical History Medical History Date Comments Fibromyalgia DX:Fibromyalgia Anxiety DX:Anxiety Arthritis DX:Arthritis History of gastric bypass 08/01/2018 DX:His tory of gastric bypass Diverticulosis 04/22/2019 DX:Diverticulosi s GARCIA (obstructive sleep apnea) 04/22/2019 DX :GARCIA (obstructive sleep apnea); COMMENT: Moderate, 04/24/2011 Polysomnogram, Total Sleep at [facility] History of stomach ulcers 04/22/2019 DX:His tory of stomach ulcers; COMMENT: Stomach pouch-Ulcer 02/23/2015 Type 2 diabetes mellitus wit hout complication (CMS/HCC) 08/01/2018 DX:Type 2 diabetes mellitus without complication ([facility]) Hypercholesteremia 04/22/2019 DX:Hyperchole steremia Tinnitus 04/22/2019 DX:Tinnitus; COM MENT: Since childhood. [facility] 04/2013 Vertigo 04/22/2019 DX:Vertigo; COMM ENT: Dr. 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 Hx of L skull base injury 1974. [facility] note 04/29/2013 Meniere's disease 04/22/2019 DX:Meniere's d isease; COMMENT: Dr. Shearer. Chronic low back pain 03/31/2019 DX:Chronic low back pain Obesity (BMI 30.0-34.9) DX:Obesi ty (BMI 30.0-34.9) Family History Medical History Relation Name Comments Bipolar disorder Brother 1 No Known Problems Brother 2 Lung cancer Father Brain cancer, d ied at 57. Other cancer Maternal Grandfather larynx Lung cancer Maternal Grandmother Stroke Mother at 68. Breast cancer Other m gr aunt 70s Coronary artery disease Paternal Grandfather Colon cancer Paternal Grandmother Diabetes Sister Relation Name Status Comments Brother 1 Alive Brother 2 Alive Father Maternal Grandfather Maternal Grandmother Mother Other m gr aunt 70s Paternal Grandfather Paternal Grandmother Sister Social History Tobacco Use Types Packs/Day Years Used Date Smoking Tobacco: Former Cigarettes 1 42.6 0 1969 - 10/07/2011 Smokeless Tobacco: Never Alcohol Use Standard Drinks/Week Comments Yes 0 (1 standard drink = 0.6 oz pur e alcohol) Comments Unknown Sex and Gender Information Value Date Recorded Sex Assigned at Not on file Legal Sex Female 5:38 PM EST Gender Identity Not on file Sexual Orientation Not on file Obstetrics History Last Filed Vital Signs Vital Sign Reading Time Taken Comments Blood Pressure 126/78 09/14/2022 9:41 AM EST Pulse 70 09/14/2022 9:41 AM EST Temperature - - Respiratory Rate - - Oxygen Saturation - - Inhaled Oxygen Concentration - - Weight 50.6 kg (111 lb 8 oz) 09/14/2022 9:41 AM EST Height 162.6 cm (5' 4 ) 09/14/2022 9:41 AM EST Body Mass Index 19.14 09/14/2022 9:41 AM EST Plan of Treatment Health Maintenance Due Date Last Done Comments DTaP,Tdap,and Td Vaccines (1 - Tdap) 1975 Pneumococcal Vaccine: 50+ Years (1 of 1 - PCV) 2006 Zoster Vaccines (1 of 2) 2006 Breast Cancer Screening 04/15/2022 04/15/20 20, 01/12/2019, 01/08/2018 Cholesterol Screening (Lipid Panel) 09/08/2022 Colorectal Cancer Screening: Colonoscopy 09/08/2022 Depression Screening 09/08/2022 Falls Risk Assessment 09/08/2022 Hepatitis C Screening 09/08/2022 Lung Cancer Screening (Low Dose CT) 09/08/2022 Osteoporosis Screening (Bone Density Screening) 09/08/2022 Social Influencers of Health Screening 09/08/2022 COVID-19 Vaccine ( season) 2024 Influenza Vaccine (#1) 2024 9, 08/05/2018, 08/19/2017, Additional history exists RSV Immunization Patients 60+ Years Old (1 - 1-dose 75+ series) 2031 HIB Vaccines Aged Out No longer eligi ble based on patient's age to complete this topic HPV Vaccines Aged Out No longer eligi ble based on patient's age to complete this topic Hepatitis A Vaccines Aged Out No long er eligible based on patient's age to complete this topic Hepatitis B Vaccines Aged Out No long er eligible based on patient's age to complete this topic IPV Vaccines Aged Out No longer eligi ble based on patient's age to complete this topic MMR Vaccines Aged Out No longer eligi ble based on patient's age to complete this topic Meningococcal ACWY Vaccine Aged Out N o longer eligible based on patient's age to complete this topic Meningococcal B Vacine Aged Out No lo nger eligible based on patient's age to complete this topic RSV Immunization Patients Under 20 months Aged Out No longer eligible based on patient's age to complete this topic Varicella Vaccines Aged Out No longer eligible based on patient's age to complete this topic Procedures Procedure Name Priority Date/Time Associated Diagnosis Comments MABEL SCREENING DIGITAL Routine 04/15/2020 5:06 PM EDT Encounter for screening mammogram for malignant neoplasm of breast from Last 3 Months or Most Recently Relevant to Health Maintenance Results * [facility] SCREENING DIGITAL (04/15/2020 5:06 PM EDT) Anatomical Region Laterality Modality Mammography 04/15/2020 3:31 PM EDT Narrative 04/15/2020 5:06 PM EDT [facility] Diagnostic Imaging Department [address] [place] [address] Patient: ??MACIEL RAZO ?/Age/Sex: 1955 - 65 - F Unit#: ??[id number] ? Location/Status: ??SPDIMAM/REG CLI ? Mnemonic/Ordering Site: ??DIGSC/SPMAM Ordering Physician: ??ARIADNE STEELE ASSISTED LIVING DIRECTOR [facility] Screening Digital - 04/15/20 - 1548 EXAM: [facility] Screening Digital EXAM DATE AND TIME: 04/15/2020 3:49 PM HISTORY: ??Screening. COMPARISON: ??09/06/15, 08/20/14, 08/27/13 TECHNIQUE: CC and MLO views of both breasts were obtained using full field digital mammography. Bilateral digital breast tomosynthesis was performed in the MLO projection. Computer aided detection with the [employer] 7.2-H was employed. TISSUE DENSITY: b. There are scattered areas of fibroglandular density. FINDINGS: No suspicious masses, grouped microcalcifications, or areas of architectural distortion are seen. ??Scattered microcalcifications are again seen bilaterally. Large benign rim calcifications are unchanged in the medial right breast. High density material on the skin in the right axilla is consistent with deodorant or powder residue. ??The vascularity is unremarkable. IMPRESSION: Stable mammographic appearance of the breasts. ??No evidence of malignancy is seen. A negative mammogram in the presence of a clinically suspicious palpable abnormality does not preclude the possibility of malignancy or alter the indications for biopsy. BI-RADS: ??Category 2: Benign RECOMMENDATION(S): 1: Routine screening mammogram BILATERAL in 1 year. 56972, 18563 3342F, 7001F Dictating Physician: ??NELLY LOYD MD Electronically Signed by: ??NELLY LOYD MD Dic Date/Time: ??04/15/201703 Sign date/Time: ??04/15/201705 Procedure Note Nelly Loyd MD - 09/26/2022 [facility] Diagnostic Imaging Department [address] [place] [address] Patient: MACIEL RAZO D.O.B./Age/Sex: 1955 - 65 - F Unit#: [id number] Location/Status: SPDIMAM/REG CLI Mnemonic/Ordering Site: [facility] Ordering Physician: ARIADNE STEELE ASSISTED LIVING DIRECTOR [facility] Screening Digital - 04/15/20 - 1548 EXAM: [facility] Screening Digital EXAM DATE AND TIME: 04/15/2020 3:49 PM HISTORY: Screening. COMPARISON: 09/06/15, 08/20/14, 08/27/13 TECHNIQUE: CC and MLO views of both breasts were obtained using fullfield digital mammography. Bilateral digital breast tomosynthesis was performedin the MLO projection. Computer aided detection with the [employer] employed. TISSUE DENSITY: b. There are scattered areas of fibroglandular density. FINDINGS: No suspicious masses, grouped microcalcifications, or areas ofarchitectural distortion are seen. Scattered microcalcifications are again seenbilaterally. Large benign rim calcifications are unchanged in the medial rightbreast. High density material on the skin in the right axilla is consistent with deodorant or powder residue. The vascularity is unremarkable. IMPRESSION: Stable mammographic appearance of the breasts. No evidence of malignancyis seen. A negative mammogram in the presence of a clinically suspicious palpable abnormality does not preclude the possibility of malignancy or alter the indications for biopsy. BI-RADS: Category 2: Benign RECOMMENDATION(S): 1: Routine screening mammogram BILATERAL in 1 year. 05060, 55513 3342F, 7025F Dictating Physician: NELLY LOYD MD Electronically Signed by: NELLY LOYD MD Dic Date/Time: 04/15/201703 Sign date/Time: 04/15/201705 us Ariadne Steele ASSISTED LIVING DIRECTOR IMG BI PROCEDURES Final Res ult from Last 3 Months or Most Recently Relevant to Health Maintenance Care Teams Bondactor Machine Operator Relationship Specialty Start Date End Date Gregory Gaming MD [address] [place] [address] Dr [address] MIKI Hollingsworth PCP - General Internal Medicine 07/13/22
--- OUTSIDE RECORDS SUMMARY | 2024-12-14 14:52 | XMS_ITS | Encounter Summary ---
Author Organization [facility] Address [address] [place] [address] Care Team Providers Care Project Safety Manager Name Role Phone Carisa Velasco MD Primary Care Provider Yudith Miller MD Primary Care Provider Mikey Box, Pcp Primary Care Provider Chip penaloza Encounter Details Date Type Department Care Team Description 08/27/2019 [facility] Medical Records [address] [place] [id number] Abstract, Provider Social History Tobacco Use Types [...] on filedocumented in this encounter Care Teams Project Safety Manager Relationship Specialty Start Date End Date Carisa Velasco MD PCP - General Internal Medicine 01/21/18 10/11/19 Yudith Medellin MD PCP - General Internal Medicine 10/12/1912/27 [facility], Pcp PCP - General Internal Medicine 12/28/21 documented as of this encounter
--- OUTSIDE RECORDS SUMMARY | 2024-12-14 14:52 | XMS_ITS | Encounter Summary ---
Author Organization [facility] Address [address] [place] [address] Care Team Providers Care Skein Yarn Dyer Helper Name Role Phone Carisa Velasco MD Primary Care Provider Yudith Miller MD Primary Care Provider [facility], Pcp Primary Care Provider Unavailabl e Reason for Visit * Reason Onset Date Comments Medication 01/06/2019 Encounter Details Date Type Department Care Team Description 01/06/[address] [facility] [address] [place] [address] Carisa Velasco MD Medication Social History Tobacco Use Types Packs/Day Years Used Date Smoking Tobacco: Former Cigarettes 1 20 0 1969 - 10/07/2011 Smokeless Tobacco: Never Alcohol Use Standard Drinks/Week Comments Yes 0 (1 standard drink = 0.6 oz pur e alcohol) 3-4 glasses wine per week Sex Assigned at Date Recorded Not on file documented as of this encounter Miscellaneous Notes * Telephone Encounter - Carla Lorenz C.M.A. - 01/06/2019 12:08 PM EDT LVM * Telephone Encounter - Carisa Velasco MD - 01/06/2019 10:56 AM EDT Ordered 300mg caps. She can increase to 3 a night or 900mg if she wishes. * Telephone Encounter - Preeti Baker - 01/06/2019 9:20 AM EDT Patient calling to state that she is having more nerve pain and would like to increase the gabapentin to a higher dose capsule. States that she is taking 6 capsules now at bedtime and would like to increase the dose so she will not have to take as many capsules. Please call her to discuss documented in this encounter Plan of Treatment Not on file documented as of this encounter Visit Diagnoses Diagnosis Fibromyalgia- Primary Mylagia and myositis, unspecified documented in this encounter Care Teams Skein Yarn Dyer Helper Relationship Specialty Start Date End Date Carisa Velasco MD PCP - General Internal Medicine 01/21/18 10/11/19 Yudith Medellin MD PCP - General Internal Medicine 10/12/1912/27 [facility], Pcp PCP - General Internal Medicine 12/28/21 documented as of this encounter
--- OUTSIDE RECORDS SUMMARY | 2024-12-14 14:52 | XMS_ITS | Encounter Summary ---
Author Organization [facility] Address [address] [place] [address] Care Team Providers Care Marine Plumber Name Role Phone Yudith Medellin MD Primary Care Provider jose Box, Pcp Primary Care Provider Chip penaloza Encounter Details Date Type Department Care Team Description 12/17/2019 Transfer Records Medical Records [address] [place] [address] Abstract, Provider Social History Tobacco Use Types [...] on filedocumented in this encounter Care Teams Marine Plumber Relationship Specialty Start Date End Date Yudith Medellin MD PCP - General Internal Medicine 10/12/1912/27 [facility], Pcp PCP - General Internal Medicine 12/28/21 documented as of this encounter
--- OUTSIDE RECORDS SUMMARY | 2024-12-14 14:52 | XMS_ITS | Encounter Summary ---
Author Organization [facility] Address [address] [place] [address] Care Team Providers Care Staying Machine Operator Name Role Phone Carisa Velasco MD Primary Care Provider Yudith Miller MD Primary Care Provider Mikey Box, Pcp Primary Care Provider Chip penaloza Encounter Details Date Type Department Care Team Description 09/03/2018 Directional Survey Drafter Report Medical Records [address] [place] [address] Clint Cintron MD Social History Tobacco Use Types Packs/Day [...] on filedocumented in this encounter Care Teams Staying Machine Operator Relationship Specialty Start Date End Date Carisa Velasco MD PCP - General Internal Medicine 01/21/18 10/11/19 Yudith Medellin MD PCP - General Internal Medicine 10/12/1912/27 [facility], Pcp PCP - General Internal Medicine 12/28/21 documented as of this encounter
--- OUTSIDE RECORDS SUMMARY | 2024-12-14 14:52 | XMS_ITS | Encounter Summary ---
Author Organization [facility] Address [address] [place] [address] Care Team Providers Care South Asian History Professor Name Role Phone Carisa Velasco MD Primary Care Provider Yudith Miller MD Primary Care Provider [facility], Pcp Primary Care Provider Unavailabl e Reason for Visit * Reason Comments E-prescribe Rx Request Encounter Details Date Type Department Care Team Description 10/01/2019 Refill Adult Med - [place] [address] [place] [address] Carisa Velasco MD E-prescribe Rx Request Social [...] encounter Miscellaneous Notes * Telephone Encounter - Adriana Mayberry - 10/01/2019 11:41 AM EST [place] 09/25/19 Fov 12/22/[address] Nia Valentin is printed and in the folder Patient not on csc No results found for: URBENZO, UROPIATES, URBARBITUATE, PAINAMPHETAM, URAMPHETAMIN, PAINCOCAINE, URCOCAINE, PAINCANNABIN, URMARIJUANA * Telephone Encounter - Luda Solano - 10/01/2019 8:51 AM EST Patient would like script to be: E-PRESCRIBED/FAXED TO PHARMACY WHEN WAS THE PATIENT'S LAST APPOINTMENT IN ADULT MEDICINE? 09/25/19 WHEN WAS THE LAST TIME THE PATIENT SAW THEIR PCP? Same as above Does patient have an upcoming appointment? Yes 12/22/19 (THE MEDICATION REQUESTED IS ON THE MED [...] N/A Patients current insurance carrier is: [place] / Plan: [facility] MDCR-ADV PPO $20/$40 [place] / Product Type: MEDICARE [id number] documented in this encounter Plan of Treatment Not on file documented as of this encounter Visit Diagnoses Not on filedocumented in this encounter Care Teams South Asian History Professor Relationship Specialty Start Date End Date Carisa Velasco MD PCP - General Internal Medicine 01/21/18 10/11/19 Yudith Medellin MD PCP - General Internal Medicine [facility] - [facility] 12/28/21 documented as of this encounter
--- OUTSIDE RECORDS SUMMARY | 2024-12-14 14:52 | XMS_ITS | Encounter Summary ---
Author Organization [employer] [facility] Address [address] [place] [address] Care Team Providers Care Registrar Assistant Name Role Phone Carisa Velasco MD Primary Care Provider Yudith Miller MD Primary Care Provider Mikey Box, Pcp Primary Care Provider Chip penaloza Encounter Details Date Type Department Care Team Description 10/16/2018 Orders Only Medical Records [address] [place] [address] Abstract, Provider Social History Tobacco Use Types [...] on file documented as of this encounter Procedures Procedure Name Priority Date/Time Associated Diagnosis Comments OUTSIDE COLONOSCOPY Routine 02/23/2015 OUTSIDE SLEEP STUDY Routine 04/24/2011 documented in this encounter Results * OUTSIDE COLONOSCOPY (02/23/2015) Provider Abstract RADIOLOGY * OUTSIDE SLEEP STUDY (04/24/2011) Provider Abstract PULMONOLOGY documented in this encounter Visit Diagnoses Not on filedocumented in this encounter Care Teams Registrar Assistant Relationship Specialty Start Date End Date Carisa Velasco MD PCP - General Internal Medicine 01/21/18 10/11/19 Yudith Medellin MD PCP - General Internal Medicine 10/12/1912/27 [facility], Pcp PCP - General Internal Medicine 12/28/21 documented as of this encounter
--- OUTSIDE RECORDS SUMMARY | 2024-12-14 14:52 | XMS_ITS | Encounter Summary ---
Author Organization [facility] Address [address] [place] [address] Care Team Providers Care R Programmer Name Role Phone Carisa Velasco MD Primary Care Provider Yudith Miller MD Primary Care Provider Mikey Box, Pcp Primary Care Provider Chip penaloza Encounter Details Date Type Department Care Team Description 09/03/2019 Back Shoe Cutter Report Medical Records [address] [place] [address] Clint Cintron MD Social History Tobacco Use [...] on filedocumented in this encounter Care Teams R Programmer Relationship Specialty Start Date End Date Carisa Velasco MD PCP - General Internal Medicine 01/21/18 10/11/19 Yudith Medellin MD PCP - General Internal Medicine 10/12/1912/27 [facility], Pcp PCP - General Internal Medicine 12/28/21 documented as of this encounter
--- OUTSIDE RECORDS SUMMARY | 2024-12-14 14:52 | XMS_ITS | Encounter Summary ---
Author Organization [facility] Address [address] [place] [address] Care Team Providers Care Blind Installer Name Role Phone Carisa Velasco MD Primary Care Provider Yudith Miller MD Primary Care Provider Mikey Box, Pcp Primary Care Provider Chip penaloza Encounter Details Date Type Department Care Team Description 09/25/2019 [facility] Medical Records [address] [place] [address] Abstract, Provider Social History Tobacco Use Types [...] on filedocumented in this encounter Care Teams Blind Installer Relationship Specialty Start Date End Date Carisa Velasco MD PCP - General Internal Medicine 01/21/18 10/11/19 Yudith Medellin MD PCP - General Internal Medicine 10/12/1912/27 [facility], Pcp PCP - General Internal Medicine 12/28/21 documented as of this encounter
== END 2024-12-14 14:31 | disposition home or self-care (01) ==
PROVIDERS: PCP Internal Medicine; Visit Provider Urology
DX: C67.2 Malignant neoplasm of lateral wall of bladder (principal); Z13.9 Encounter for screening, unspecified
CPT/HCPCS: 52000; 99213

== ENCOUNTER 2024-12-17 13:41 | Outpatient (AMB) | payer MEDICARE, SELFPAY ==
--- NOTE | 2024-12-17 13:54 | MHC.PC.OV ---
Vital Signs 12/17/24 13:57 Height 5 ft 3 in Weight 170 lb 2 oz BMI 30.1 BP 124/68 Blood Pressure Location Lt brachial Position Sitting Pulse 66 Pulse Source Pulse Oximeter Temp 97.5 F Temp Source Temporal Artery Scan Pulse Oximetry (%) 96 Oxygen Delivery Method Room Air Intake Visit Reasons: 4mth f/u Intake Note: Patient is here to follow up on GERD, LDDD. Cloth Dyeing Range Tender Required: No Charter Coach Driver: Not Required per policy Accompanied by: Self / Same As Patient Allergies aspartame Allergy (Severe, Verified 12/17/24 14:08) severe dehydration cyclobenzaprine [From Flexeril] Allergy (Severe, Verified 12/17/24 14:08) SOB nickel Adverse Reaction (Verified 12/17/24 14:08) Blister Medication List - Last Reconciled 12/17/24 by BINDU Gallegos alendronate 70 mg PO QWEEK back brace As directed calcium carbonate-vitamin D3 600 mg-20 mcg (800 unit) (Caltrate plus D) 1 tab PO BID celecoxib 200 mg PO DAILY 30 days cholecalciferol (vitamin D3) 50 mcg PO DAILY 90 days Donut pillow As directed mecobalamin (vitamin B12) 1,000 mcg sublingual DAILY multivitamin 1 tab PO DAILY omeprazole magnesium (Prilosec OTC) 20 mg PO BEDTIME 30 days pregabalin 50 mg PO TID 30 days pyridoxine (vitamin B6) 100 mg PO DAILY [shower head As directed] trazodone 100 mg PO BEDTIME PRN 30 days Tobacco use date assessed: 12/17/24 Fall risk assessment: No Falls in past year Last assessed Fall Risk: 12/17/24 Dental Screening Dental Screen Date: 12/17/24 Did you have a dental visit in the last 12 months?: Yes Did you have a dental problem in the last 6 months where you did not have access to dental care?: No Was dental information given to patient?: Patient has dentist HPI 4mth f/u HPI Details The patient is a 69-year-old female with significant past medical history of scoliosis of lumbar region due to degenerative disease of spine in adult, cervical myelopathy, diverticulosis, bladder cancer, menopause, osteoporosis, lumbar spondylosis, insomnia, urge incontinence of urine Patient is presenting today for follow up of chronic conditions Patient reports that she was not able to get her labs done but we will try and complete them as soon as possible She reports chronic hearing problems-but no increasing hearing loss Patient reports that her main concern is her back pain-reports that Dr. Villalobos said that she was not a surgical candidate Reports that the pain is in the lumbar region just below her ribs-reports that celecoxib works for her but makes her tired so she only uses it when the pain is completely unbearable Patient reports that she has itchiness in her throat that seems to only happen around December She denies shortness of breath, chest pain, heart palpitation or dizziness She denies any change in bowel habits and reports that her urinary incontinence is ongoing Denies any other urinary symptoms . [facility] Medical History Diverticulosis Constipation Sleep apnea Abscess Bladder cancer Obesity (BMI 30-39.9) Traylor's palsy Neuropathy GERD without esophagitis Chronic neck pain Scoliosis of thoracolumbar spine Arthritis Back pain Hx of spinal stenosis Peptic ulcer Fibromyalgia Hydrocephalus in adult History of traumatic head injury Nephrolithiasis Surgical History Hx of cystoscopy History of cervical spinal surgery History of adenoidectomy Hx of lithotripsy Hx of tubal ligation Hx of excision of lamina of cervical vertebra for decompression of spinal cord Hx of cholecystectomy H/O colonoscopy Hx of gastric bypass TOP COLLAR BASTER (ventriculoperitoneal) shunt status Family History Father Cancer Mother Stroke Brother No problems noted. Brother No problems noted. Sister No problems noted. Son No problems noted. Daughter No problems noted. Paternal Grandmother Colon cancer Social History Housing: Assisted Living Facility Are you a primary disabilities caregiver to a significant other at home: No Do you presently have visiting nurse or other home services: No Alcohol intake: never Patient Tobacco Use Status: Former Tobacco user Tobacco use type: Cigarette e-Cigarette/Vaping Use: Never Used Second Hand Smoke Exposure: Yes Advance Directives Date on File: 06/04/23 service: No Current occupational status: retired and disabled Cognitive needs: Yes (cane) Hearing needs: Yes (hearing aide) Vision needs: Yes (glasses) Female Reproductive History Menstrual Age of Menarche: 15 Questionnaire PHQ-9 Over the last 2 weeks, how often have you been bothered by any of the following problems? 1. Little interest or pleasure in doing things: not at all 2. Feeling down, depressed, or hopeless: not at all 3. Trouble falling or staying asleep, or sleeping too much: not at all 4. Feeling tired or having little energy: not at all 5. Poor appetite or overeating: not at all 6. Feeling bad about yourself - or that you are a failure or have let yourself or your family down: not at all 7. Trouble concentrating on things, such as reading the newspaper or watching television: not at all 8. Moving or speaking so slowly that other people could have noticed. Or the opposite - being so fidgety or restless that you have been moving around a lot more than usual: not at all 9. Thoughts that you would be better off or of hurting yourself in some way: not at all Total score: 0 Depression Screening Interpretation: Negative Depression Screening Done: Yes Source: Developed by Drs. Moe Arnold, Vernell Martinez, Skyler Moyer and colleagues, with an educational kindra from [employer] Thrive Questionnaire Date Thrive assessed: 12/17/24 What is your living situation today?: I have a steady place to live Within the past 12 months, did the food you bought not last and you didn't have the money to get more?: Never true Within the past 12 months, did you worry whether your food would run out before you got money to buy more?: Never true Do you have trouble paying for medicines?: No Do you have trouble getting transportation to medical appointments?: No Do you have trouble paying your heating and electricity bill?: No Do you have trouble taking care of your child, family member or friend?: No Do you have trouble with day-to-day activities such as bathing, preparing meals, shopping, managing finances, etc.?: No Are you currently unemployed and looking for a job?: No Are you interested in more education?: No Please select the resources that you would like help with: None Currently or been in a relationship where the following occur: No concerns reported THRIVE Score: 0 AUDIT C Alcohol Use Questionnaire (AUDIT-C) 2. How many drinks containing alcohol do you have on a typical day when you are drinking?: 1 or 2 3. How often do you have six or more drinks on one occasion?: Never Total Score: 0 ALEX-7 AMB Questionnaire ALEX-7 Date ALEX - 7 assessed: 12/17/24 Feeling nervous, anxious, or on edge: 0 = Not at all Not being able to stop or control worryin = Not at all Worrying too much about different things: 0 = Not at all Trouble relaxin = Not at all Being so restless that it is hard to sit still: 0 = Not at all Becoming easily annoyed or irritable: 0 = Not at all Feeling afraid as if something awful might happen: 0 = Not at all Total ALEX-7 score (0-4 normal; 5-9 mild; 10-14 moderate; 15-21 severe): 0 Source: Developed by Drs. Moe Arnold, Vernell Martinez, Skyler Moyer and colleagues, with an educational kindra from [employer] ALEX-7 Assessment Billing ALEX-7 Assessment Tool: ALEX-7 Assessment 30274 Review of Systems Const Denies headache(s) Eyes Denies loss of vision ENT Denies vertigo, Denies dizziness, Denies headache(s), Reports hearing loss (Ongoing difficulty hearing), Reports nasal congestion, Reports neck pain, Denies sore throat and Reports other (Itchy throat) Card Denies chest pain, Denies leg edema and Denies lightheadedness Resp Denies cough, Denies hemoptysis and Denies wheezing GI Denies abdominal pain, Denies melena, Denies constipation, Denies diarrhea and Denies vomiting Denies urinary frequency, Denies dysuria, Reports urinary incontinence and Denies urinary urgency Musc Reports back pain, Denies arthralgias, Denies joint swelling, Reports neck pain, Denies numbness and Denies tingling Neuro Denies Abnormal speech present, Denies behavioral changes, Denies vertigo, Denies dizziness, Denies headache(s), Denies loss of vision, Denies memory loss, Denies numbness and Denies tingling Psych Denies anxiety, Denies behavioral changes, Denies depression, Denies memory loss and Denies panic attacks Aleksandar/Lymph Denies easy bleeding and Denies easy bruising Aller/Immun Denies wheezing Physical exam (Primary Care) Vital Signs: Last Vital Signs Temp 97.5 F 12/17/24 13:57 Pulse 66 12/17/24 13:57 BP 124/68 12/17/24 13:57 Pulse Ox 96 12/17/24 13:57 Oxygen Delivery Method Room Air 12/17/24 13:57 BMI result Body Mass Index 30.1 Tobacco/Smoking Status: Tobacco use Status Tobacco use date assessed 12/17/24 12/17/24 14:03 Patient Tobacco Use Status Former Tobacco user 12/17/24 14:03 Tobacco use type Cigarette 12/17/24 14:03 e-Cigarette/Vaping Use Never Used 12/17/24 14:03 PHQ-9: PHQ-9 Score PHQ-9: Total score 0 12/17/24 14:10 Depression Screening Interpretation: Negative Thrive Assessment: Date of Thrive Assessment Date Thrive assessed 12/17/24 12/17/24 14:03 Currently or been in a relationship where the following occur: No concerns reported Const General: healthy appearing, no acute distress, alert and awake Nutritional Appearance: well nourished Orientation/consciousness: oriented to person, oriented to place and oriented to time HENMT Ears: TM's normal bilaterally General nose exam: Abnormal mucous membranes and turbinates present boggy and erythematous Face and sinus: Yes sinuses nontender Mouth: oropharynx normal and moist mucous membranes Eyes Conjunctivae: conjunctivae normal Sclerae: sclerae normal Pupils: Equal, round and reactive pupils present Neck Neck: Yes no lymphadenopathy and Yes no JVD Thyroid: Thyroid normal Carotids: no bruits Resp Effort & Inspection: normal respiratory effort and not tachypneic Auscultation: no crackles, no rales, no rhonchi and no wheezes Cardio Rate: regular rate Rhythm: regular rhythm Heart sounds: no murmurs and normal S1 and S2 GI Palpation (GI): Soft to palpation, nontender, no hepatomegaly and no splenomegaly Auscultation: normal bowel sounds General: Yes no CVA tenderness Back/Spine/Pelvis Back: no CVA tenderness Cervical Spine: Cervical spine tenderness Thoracic/Lumbar Spine: lumbar spinal tenderness Skin General skin exam: no rashes or lesions noted and dry skin Neuro General: oriented to person, oriented to place and oriented to time Cranial nerves: Yes Equal, round and reactive pupils present Speech: No Abnormal speech present Gait exam (Neuro): Normal gait present Motor exam (neuro): no tremor noted Extrem Right upper extremity: full ROM Left upper extremity: full ROM Right lower extremity: full ROM; no edema Left lower extremity: full ROM; no edema Psych Mental Status: mental status grossly normal Speech and movement: Normal speech and movement present Affect: normal affect Attitude: cooperative Thought process: Normal thought process present Coding Level of Care Code Est Pt Level 4 (36786) Diagnoses Lumbar spondylosis M47.816 Chronic neck pain M54.2; G89.29 Malignant neoplasm of urinary bladder, unspecified site C67.9 Bladder location: unspecified site Scoliosis of thoracolumbar spine, unspecified scoliosis type M41.9 Scoliosis type: unspecified scoliosis Fibromyalgia M79.7 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 Allergic rhinitis, unspecified seasonality, unspecified trigger J30.9 Allergic rhinitis trigger: unspecified Allergic rhinitis seasonality: unspecified Mixed hypercholesterolemia and hypertriglyceridemia E78.2 Additional Codes ALEX-7 Assessment Billing - ALEX-7 Assessment Tool: ALEX-7 Assessment 73173 ([id number]) Time Spent (min) 42 Assessment & Plan Assessment & Plan (1) Lumbar spondylosis: Code(s): M47.816 - Spondylosis without myelopathy or radiculopathy, lumbar region Category: Medical Plan: Reinforced activity and weight-lifting restrictions Avoid aggravating activities that worsens symptoms Balance activity with rest to allow the spine to heal Apply heat or cold pack to reduce pain and inflammation Continue pregabalin 50 mg t.i.d., celecoxib 200 mg daily (patient reports that she rarely takes this medication because it makes her sleepy) discussed with patient that she could take it later in the evening The patient was referred to neurosurgery-she reports a Dr. Villalobos said that she was not a surgical candidate Follow up with pain management as scheduled (2) Chronic neck pain: Comment: S/P TBI and whiplash injury in the early ; Tx w/fluid drainage in 1993 & TOP COLLAR BASTER shunt in 1998 Code(s): M54.2 - Cervicalgia; G89.29 - Other chronic pain Category: Medical Plan: Patient continues to experience chronic neck pain - was reportedly advised by neurosurgery a couple of years ago that there is nothing else to offer her in terms of surgical Tx or management Follow up with pain management as scheduled (3) Bladder cancer: Code(s): C67.9 - Malignant neoplasm of bladder, unspecified Category: Medical Qualifiers: Bladder location: unspecified site Qualified Code(s): C67.9 - Malignant neoplasm of bladder, unspecified Plan: S/P repeat cystoscopy and biopsy with fulguration and intravesical Gemcitabine instillation on 08/06/2022, after cystoscopy done in 06/2022 revealed a poorly healing area with some evidence of superficial recurrence of bladder cancer on the right side bladder wall She is also S/P immunotherapy She had repeat cystoscopy done for surveillance most recently in November 2023 -follow up cystoscopy and urine cytology on 12/14/2024 for both negative we will plan to repeat systolic hygiene 3-4 months Follow up with urology as scheduled for continuing surveillance (4) Scoliosis of thoracolumbar spine: Code(s): M41.9 - Scoliosis, unspecified Category: Medical Qualifiers: Scoliosis type: unspecified scoliosis Qualified Code(s): M41.9 - Scoliosis, unspecified Plan: Continue Celebrex 200 mg QD PRN - she used to take Naproxen (5) Fibromyalgia: Code(s): M79.7 - Fibromyalgia Category: Medical Plan: She was on Pregabalin (switched from Gabapentin by [facility] a few years ago) but she weaned herself off the medication recently and has not noticed any change in her symptoms since coming off the medication She then went back on Gabapentin and felt that it is helping better - is currently on Gabapentin 300 mg TID The patient is back on pregabalin 50 mg t.i.d.-medication refilled [facility] She ideally should try to stay active and exercise regularly to help manage her symptoms better but patient's activity level is significantly limited by her chronic neck and lower back issues (6) Hydrocephalus: Code(s): G91.9 - Hydrocephalus, unspecified Category: Medical Qualifiers: Hydrocephalus type: post-traumatic Qualified Code(s): G91.3 - Post-traumatic hydrocephalus, unspecified Plan: S/P TOP COLLAR BASTER shunting Follow up with neurology (Dr. Melendrez) as scheduled (7) Osteoporosis: Code(s): M81.0 - Age-related osteoporosis without current pathological fracture Category: Medical Qualifiers: Osteoporosis type: age-related Presence of current pathological fracture: without current pathological fracture Qualified Code(s): M81.0 - Age-related osteoporosis without current pathological fracture Plan: Her BMD done in 06/2022 represents her baseline exam as she has no other BMD available to compare it with BMD came out with the lowest T-score value of -3.1 in the femoral neck Continue Alendronate 70 mg once a week Continue Caltrate 600 plus D BID The patient most recent BMD shows lowest T-score value of -2.1 in the femoral neck; this with the patient in the osteopenia range Fall precautions reinforced (8) GERD without esophagitis: Code(s): K21.9 - Gastro-esophageal reflux disease without esophagitis Category: Medical Plan: Dietary restrictions reinforced Continue Omeprazole 20 mg QD PRN (9) Constipation: Code(s): K59.00 - Constipation, unspecified Category: Medical Qualifiers: Constipation type: unspecified constipation type Qualified Code(s): K59.00 - Constipation, unspecified Plan: Increase fiber in diet (fruits/vegetables 4-5 servings daily) Increase fluid intake and decrease caffeine/energy drinks (may cause mild dehydration) Reinforced increased oral fluids and dietary fiber Continue Miralax 17 gm OTC QD (10) Renal calculi: Code(s): N20.0 - Calculus of kidney Category: Medical Plan: Non-obstructive bilateral renal stones- urology is planning a follow up renal ultrasound to evaluate her bilateral nephrolithiasis. The patient should continue her current medication of vitamin B6 and remain vigilant for any changes in symptoms Follow up with urology as scheduled (11) Overactive bladder: Code(s): N32.81 - Overactive bladder Category: Medical Plan: Continue Myrbetriq ER 25 mg QD Follow up with urology as scheduled (12) Insomnia: Code(s): G47.00 - Insomnia, unspecified Category: Medical Qualifiers: Insomnia type: unspecified Qualified Code(s): G47.00 - Insomnia, unspecified Plan: Sleep hygiene: Limit fluid intake and avoid large meals in the evening hours. Limit overall caffeine, tobacco, and alcohol intake; no night cap. Maintain a regular sleep-wake cycle without naps in the daytime. Lie down to sleep only when feeling sleepy; leave the bed if unable to fall asleep within 20 minutes; stay in bed for only the hours actually sleeping(but not less than 5 hour in 24 hours). Continue Trazodone 100 mg Q HS PRN (13) Obesity (BMI 30-39.9): Code(s): E66.9 - Obesity, unspecified Category: Medical Plan: Reinforced diet/lose weight; exercise is not realistic given her chronic pain - states that her activity tolerance is very limited (14) Allergic rhinitis: Code(s): J30.9 - Allergic rhinitis, unspecified Category: Medical Qualifiers: Allergic rhinitis trigger: unspecified Allergic rhinitis seasonality: unspecified Qualified Code(s): J30.9 - Allergic rhinitis, unspecified Plan: Fluticasone propionate 50 mcg/actuation 1 spray intranasally b.i.d. (15) Mixed hypercholesterolemia and hypertriglyceridemia: Code(s): E78.2 - Mixed hyperlipidemia Category: Medical Plan: Tri 194, T-chol 219, LDL 135, HDL 46 on 08/14/24 labs-pt did not complete follow up labs; reports she will get this done as soon as possible Poor activity level due to chronic pain Healthy eating discussed. Encouraged to eat fruits/vegetables, protein-fish/baked chicken, and to avoid salty/fried foods, sweets, caffeine and carbohydrates. Encouraged to increase water intake 6-8 glasses a day Plan Follow up in 4 months Orders: Orders Complete Blood Count Auto Diff 4 Months K21.9 - Gastro-esophageal reflux disease without esophagitis, M41.56 - Other secondary scoliosis, lumbar region, K57.90 - Diverticulosis of intestine, part unspecified, without perforation or abscess without bleeding, D12.6 - Benign neoplasm of colon, unspecified, K59.00 - Constipation, unspecified, R55 - Syncope and collapse, L73.2 - Hidradenitis suppurativa, M81.0 - Age-related osteoporosis without current pathological fracture, Z01.818 - Encounter for other preprocedural examination, M79.7 - Fibromyalgia, E66.9 - Obesity, unspecified, M41.9 - Scoliosis, unspecified, E78.00 - Pure hypercholesterolemia, unspecified Vitamin D 25-OH Total 4 Months K21.9 - Gastro-esophageal reflux disease without esophagitis, M41.56 - Other secondary scoliosis, lumbar region, K57.90 - Diverticulosis of intestine, part unspecified, without perforation or abscess without bleeding, D12.6 - Benign neoplasm of colon, unspecified, K59.00 - Constipation, unspecified, R55 - Syncope and collapse, L73.2 - Hidradenitis suppurativa, M81.0 - Age-related osteoporosis without current pathological fracture, Z01.818 - Encounter for other preprocedural examination, M79.7 - Fibromyalgia, E66.9 - Obesity, unspecified, M41.9 - Scoliosis, unspecified, E78.00 - Pure hypercholesterolemia, unspecified UA CC w/rflx Micro + Cult 4 Months K21.9 - Gastro-esophageal reflux disease without esophagitis, M41.56 - Other secondary scoliosis, lumbar region, K57.90 - Diverticulosis of intestine, part unspecified, without perforation or abscess without bleeding, D12.6 - Benign neoplasm of colon, unspecified, K59.00 - Constipation, unspecified, R55 - Syncope and collapse, L73.2 - Hidradenitis suppurativa, M81.0 - Age-related osteoporosis without current pathological fracture, Z01.818 - Encounter for other preprocedural examination, M79.7 - Fibromyalgia, E66.9 - Obesity, unspecified, M41.9 - Scoliosis, unspecified, E78.00 - Pure hypercholesterolemia, unspecified TSH reflex Free T4 4 Months K21.9 - Gastro-esophageal reflux disease without esophagitis, M41.56 - Other secondary scoliosis, lumbar region, K57.90 - Diverticulosis of intestine, part unspecified, without perforation or abscess without bleeding, D12.6 - Benign neoplasm of colon, unspecified, K59.00 - Constipation, unspecified, R55 - Syncope and collapse, L73.2 - Hidradenitis suppurativa, M81.0 - Age-related osteoporosis without current pathological fracture, Z01.818 - Encounter for other preprocedural examination, M79.7 - Fibromyalgia, E66.9 - Obesity, unspecified, M41.9 - Scoliosis, unspecified, E78.00 - Pure hypercholesterolemia, unspecified Comprehensive [place]. Panel Fast 4 Months K21.9 - Gastro-esophageal reflux disease without esophagitis, M41.56 - Other secondary scoliosis, lumbar region, K57.90 - Diverticulosis of intestine, part unspecified, without perforation or abscess without bleeding, D12.6 - Benign neoplasm of colon, unspecified, K59.00 - Constipation, unspecified, R55 - Syncope and collapse, L73.2 - Hidradenitis suppurativa, M81.0 - Age-related osteoporosis without current pathological fracture, Z01.818 - Encounter for other preprocedural examination, M79.7 - Fibromyalgia, E66.9 - Obesity, unspecified, M41.9 - Scoliosis, unspecified, E78.00 - Pure hypercholesterolemia, unspecified Lipid Panel 4 Months K21.9 - Gastro-esophageal reflux disease without esophagitis, M41.56 - Other secondary scoliosis, lumbar region, K57.90 - Diverticulosis of intestine, part unspecified, without perforation or abscess without bleeding, D12.6 - Benign neoplasm of colon, unspecified, K59.00 - Constipation, unspecified, R55 - Syncope and collapse, L73.2 - Hidradenitis suppurativa, M81.0 - Age-related osteoporosis without current pathological fracture, Z01.818 - Encounter for other preprocedural examination, M79.7 - Fibromyalgia, E66.9 - Obesity, unspecified, M41.9 - Scoliosis, unspecified, E78.00 - Pure hypercholesterolemia, unspecified Glucose Fasting 4 Months K21.9 - Gastro-esophageal reflux disease without esophagitis, M41.56 - Other secondary scoliosis, lumbar region, K57.90 - Diverticulosis of intestine, part unspecified, without perforation or abscess without bleeding, D12.6 - Benign neoplasm of colon, unspecified, K59.00 - Constipation, unspecified, R55 - Syncope and collapse, L73.2 - Hidradenitis suppurativa, M81.0 - Age-related osteoporosis without current pathological fracture, Z01.818 - Encounter for other preprocedural examination, M79.7 - Fibromyalgia, E66.9 - Obesity, unspecified, M41.9 - Scoliosis, unspecified, E78.00 - Pure hypercholesterolemia, unspecified Medications: New fluticasone propionate 50 mcg/actuation administer into each nostril 1 spray intranasal BID 16 grams 2RF J30.9 - Allergic rhinitis, unspecified Refilled trazodone 100 mg PO BEDTIME PRN 30 tabs 3RF sleep 30 days pregabalin 50 mg PO TID 90 caps 1RF 30 days G62.9 - Polyneuropathy, unspecified
[2024-12-17 13:57] VITALS: BP 124/68; PULSE 66; TEMP 36.4; O2SAT 96; BMI 30.1
--- OUTSIDE RECORDS SUMMARY | 2024-12-17 17:18 | XMS_ITS | Clinical Summary ---
Author Organization [facility] Address [address] [place] [address] Care Team Providers Care Wholesale Agronomist Name Role Phone Gregory Gaming MD Primary Care Provider [phone] Allergies Active Allergy Reactions Criticality Noted Date [...] age to complete this topic Care Teams Wholesale Agronomist Relationship Specialty Start Date End Date Gregory Gaming MD [address] [place] [address] [place] [address] PCP - General Internal Medicine 07/13/22
--- OUTSIDE RECORDS SUMMARY | 2024-12-17 17:18 | XMS_ITS | Clinical Summary ---
Author Organization [facility] it Address [address] [place] [address] Care Team Providers Care Acid Leveler Name Role Phone Gregory Gaming MD Primary Care Provider [phone] Surgical History Surgery Date Site/Laterality Comments TONSILLECTOMY 1960 PROCEDURE: HISTORICAL TONSILLECTOMY CYSTOSCOPY 1963 PROCEDURE: [place] CYSTOURETHROSCOPY BLADDER SURGERY 1990 PROCEDURE: HISTORICAL BLADDER SURGERY TUBAL LIGATION 1991 PROCEDURE: HISTORICAL TUBAL LIGATION OTHER SURGICAL HISTORY 1994 and 1999 PROCEDURE: [place] VENTRICULOCISTERNOSTOMY; COMMENT: ? excessive CSF COLONOSCOPY 2011 [...] COMMENT: Moderate, 04/24/2011 Polysomnogram, Total Sleep at [facility] History of stomach ulcers 04/22/2019 DX:His tory of stomach ulcers; COMMENT: Stomach pouch-Ulcer 02/23/2015 Type 2 diabetes mellitus wit hout complication (CMS/HCC) 08/01/2018 DX:Type 2 diabetes mellitus without complication ([facility]) Hypercholesteremia 04/22/2019 DX:Hyperchole steremia Tinnitus 04/22/2019 DX:Tinnitus; COM MENT: Since childhood. [facility] 04/2013 Vertigo 04/22/2019 DX:Vertigo; COMM ENT: Dr. 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 Hx of L skull base injury 1974. [facility] note 04/29/2013 Meniere's disease [...] Recently Relevant to Health Maintenance Results * [facility] SCREENING DIGITAL (04/15/2020 5:06 PM EDT) Anatomical Region Laterality Modality Mammography 04/15/2020 3:31 PM EDT Narrative 04/15/2020 5:[address] [facility] Diagnostic Imaging Department [address] [place] [address] Patient: ??MACIEL RAZO ?/Age/Sex: 1955 - 65 - F Unit#: ??[id number] ? Location/Status: ??SPDIMAM/REG CLI ? Mnemonic/Ordering Site: ??DIGSC/SPMAM Ordering Physician: ??ARIADNE STEELE SECURITIES CLERK [facility] Screening Digital - 04/15/20 - 1548 EXAM: [facility] Screening Digital EXAM DATE AND TIME: 04/15/2020 3:49 PM HISTORY: ??Screening. COMPARISON: ??09/06/15, 08/20/14, 08/27/13 TECHNIQUE: CC and MLO views of both breasts were obtained using full field digital mammography. Bilateral digital breast tomosynthesis was performed in the MLO projection. Computer aided detection with the [employer] 7.2-H was employed. TISSUE DENSITY: b. There [...] Routine screening mammogram BILATERAL in 1 year. 21535, 11274 3342F, 7027F Dictating Physician: ??NELLY LOYD MD Electronically Signed by: ??NELLY LOYD MD Dic Date/Time: ??04/15/201703 Sign date/Time: ??04/15/201705 Procedure Note Nelly Loyd MD - 09/26/2022 [facility] Diagnostic Imaging Department [address] [place] [address] Patient: MACIEL RAZO D.O.B./Age/Sex: 1955 - 65 - F Unit#: [id number] Location/Status: SPDIMAM/REG CLI Mnemonic/Ordering Site: [facility] Ordering Physician: ARIADNE STEELE SECURITIES CLERK [facility] Screening Digital - 04/15/20 - 1548 EXAM: [facility] Screening Digital EXAM DATE AND TIME: 04/15/2020 3:49 PM HISTORY: Screening. COMPARISON: 09/06/15, 08/20/14, 08/27/13 TECHNIQUE: CC and MLO views of both breasts were obtained using fullfield digital mammography. Bilateral digital breast tomosynthesis was performedin the MLO projection. Computer aided detection with the [employer] employed. TISSUE DENSITY: b. There are scattered [...] Routine screening mammogram BILATERAL in 1 year. 10816, 17996 3342F, 7025F Dictating Physician: NELLY LOYD MD Electronically Signed by: NELLY LOYD MD Dic Date/Time: 04/15/201703 Sign date/Time: 04/15/201705 us Ariadne Steele SECURITIES CLERK IMG BI PROCEDURES Final Res ult from Last 3 Months or Most Recently Relevant to Health Maintenance Care Teams Acid Leveler Relationship Specialty Start Date End Date Gregory Gaming MD [address] [place] [address] Dr [address] MIKI Hollingsworth PCP - General Internal Medicine 07/13/22
== END 2024-12-17 14:29 | disposition home or self-care (01) ==
LOC: HO.HMCH 13:42
PROVIDERS: PCP Internal Medicine
DX: M47.816 Spondylosis without myelopathy or radiculopathy, lumbar region (principal); C67.9 Malignant neoplasm of bladder, unspecified; G91.3 Post-traumatic hydrocephalus, unspecified; M54.2 Cervicalgia; G89.29 Other chronic pain; M41.9 Scoliosis, unspecified; M79.7 Fibromyalgia; M81.0 Age-related osteoporosis without current pathological fracture; K21.9 Gastro-esophageal reflux disease without esophagitis; K59.00 Constipation, unspecified; N20.0 Calculus of kidney; N32.81 Overactive bladder

== ENCOUNTER → 2024-12-17 13:41 | Outpatient (BNVA) | payer MEDICARE, SELFPAY | PROVIDERS: PCP Internal Medicine | DX: M47.816 Spondylosis without myelopathy or radiculopathy, lumbar region (principal); M54.2 Cervicalgia; G89.29 Other chronic pain; C67.9 Malignant neoplasm of bladder, unspecified; M41.9 Scoliosis, unspecified; M79.7 Fibromyalgia; G91.3 Post-traumatic hydrocephalus, unspecified; M81.0 Age-related osteoporosis without current pathological fracture; K21.9 Gastro-esophageal reflux disease without esophagitis; K59.00 Constipation, unspecified; N20.0 Calculus of kidney; N32.81 Overactive bladder; G47.00 Insomnia, unspecified; J30.9 Allergic rhinitis, unspecified; E78.2 Mixed hyperlipidemia | CPT/HCPCS: 96127; 99212 ==

== ENCOUNTER 2025-05-31 14:09 | Outpatient (REF) | payer MEDICARE, SELFPAY ==
--- NOTE | ~2025-05-31 | US_ITS ---
EXAMINATION: US KIDNEY BILATERAL HISTORY: N32.81 - Overactive bladder TECHNIQUE: Real-time grayscale ultrasound imaging of the kidneys was performed and images were reviewed. COMPARISON: Comparison is made with the prior examination dated 12/14/2022. FINDINGS: Right kidney: The right kidney measures 9.3 x 3.2 x 4.5 cm. Renal parenchymal echotexture and thickness are normal. There are no masses. Multiple nonobstructing calculi are identified including a 4 x 3 x 3 mm calculus in the interpolar region and multiple calculi at the lower pole measuring 5 x 3 x 9 mm, 5 x 4 x 3 mm, and 8 x 5 x 3 mm. There is no hydronephrosis. Left Kidney: The left kidney measures 10.2 x 5.6 x 4.4 cm. Renal parenchymal echotexture and thickness are normal. There is a 2.1 x 1.3 x 1.7 cm upper pole cyst. Multiple nonobstructing calculi are noted including an 11 x 4 x 7 mm upper pole calculus, an 8 x 8 x 5 mm calculus in the interpolar region, and a 4 x 3 x 3 mm calculus at the lower pole. There is no hydronephrosis. US/US renal BI IMPRESSION: Bilateral nephrolithiasis as described. No hydronephrosis. Electronically signed by: Moe Yusuf MD 05/31/2025 03:23 PM EDT
--- OUTSIDE RECORDS SUMMARY | 2025-05-31 15:33 | XMS_ITS | Clinical Summary ---
Author Organization [employer] [facility] it Address [address] [place] [address] Care Team Providers Care Optometrist/Practice Owner Name Role Phone Gregory Gaming MD Primary [...] COMMENT: Moderate, 04/24/2011 Polysomnogram, Total Sleep at [facility] History of stomach ulcers 04/22/2019 DX:His tory of stomach ulcers; COMMENT: Stomach pouch-Ulcer 02/23/2015 Type 2 diabetes mellitus wit hout complication ([facility] V24, [facility] V28) 08/01/2018 DX:Type 2 diab etes mellitus without complication (HCC) Hypercholesteremia 04/22/2019 DX:Hyperchole steremia Tinnitus 04/22/2019 DX:Tinnitus; COM MENT: Since childhood. [facility] 04/2013 Vertigo 04/22/2019 DX:Vertigo; COMM ENT: Dr. 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 Hx of L skull base injury 1974. [facility] note 04/29/2013 Meniere's disease [...] Panel) 09/08/2022 Colorectal Cancer Screening: Colonoscopy 09/08/2022 Falls Risk Assessment 09/08/2022 Hepatitis C Screening 09/08/2022 Lung Cancer Screening (Low Dose CT) 09/08/2022 Osteoporosis Screening (Bone Density Screening) 09/08/2022 Social Influencers of Health Screening 09/08/2022 COVID-19 Vaccine ( season) 2024 Depression Screening 10/07/2024 Influenza Vaccine (#1) 2025 9, 08/05/2018, 08/19/2017, Additional history exists RSV Immunization Adult Patients (1 - 1-dose 75+ series) 2031 HIB [...] age to complete this topic Meningococcal B Vaccine Aged Out No l onger eligible based on patient's age to complete this topic RSV Immunization Patients Under 20 months Aged Out No longer eligible based on patient's age to complete this topic Varicella Vaccines Aged Out No longer eligible based on patient's age to complete this topic Procedures Procedure Name Priority Date/Time Associated Diagnosis Comments [facility] SCREENING DIGITAL Routine 04/15/2020 5:06 PM EDT Encounter for screening mammogram for malignant neoplasm of breast from Last 3 Months or Most Recently Relevant to Health Maintenance Results * [facility] SCREENING DIGITAL (04/15/2020 5:06 PM EDT) Anatomical Region Laterality Modality Mammography 04/15/2020 3:31 PM EDT Narrative 04/15/2020 5:06 PM EDT [facility] Diagnostic Imaging Department [address] [place] [address] Patient: MACIEL RAZOO.B./Age/Sex: 1955 - 65 - F Unit#: [id number] Location/Status: [facility] CLI Mnemonic/Ordering Site: [facility] Ordering Physician: ARIADNE STEELE NP [facility] Screening Digital - 04/15/20 - 1548 EXAM: [facility] Screening Digital EXAM DATE AND TIME: 04/15/2020 3:49 PM HISTORY: Screening. COMPARISON: 09/06/15, 08/20/14, 08/27/13 TECHNIQUE: CC and MLO views of both breasts were obtained using full field digital mammography. Bilateral digital breast tomosynthesis was performed in the MLO projection. Computer aided detection with the [employer] 7.2-H was employed. TISSUE DENSITY: b. There are scattered areas of fibroglandular density. FINDINGS: No suspicious masses, grouped microcalcifications, or areas of architectural distortion are seen. Scattered microcalcifications are again seen bilaterally. Large benign rim calcifications are unchanged in the medial right breast. High density material on the skin in the right axilla is consistent with deodorant or powder residue. The vascularity is unremarkable. IMPRESSION: Stable mammographic appearance of the breasts. No evidence of malignancy is seen. A negative mammogram in the presence of a clinically suspicious palpable abnormality does not preclude the possibility of malignancy or alter the indications for biopsy. BI-RADS: Category 2: Benign RECOMMENDATION(S): 1: Routine screening mammogram BILATERAL in 1 year. 54582, 93544 3342F, 7025F Dictating Physician: NELLY LOYD MD Electronically Signed by: NELLY LOYD MD Dic Date/Time: 04/15/201703 Sign date/Time: 04/15/201705 Procedure Note Nelly Loyd MD - 09/26/2022 [facility] Diagnostic Imaging Department [address] [place] [address] Patient: MACIEL RAZO /Age/Sex: 1955 - 65 - F Unit#: [id number] Location/Status: [facility] Mnemonic/Ordering Site: [facility] Ordering Physician: ARIADNE STEELE TUTORING ASSISTANT [facility] Screening Digital - 04/15/20 - 1548 EXAM: [facility] Screening Digital EXAM DATE AND TIME: 04/15/2020 3:49 PM HISTORY: Screening. COMPARISON: 09/06/15, 08/20/14, 08/27/13 TECHNIQUE: CC and MLO views of both breasts were obtained using fullfield digital mammography. Bilateral digital breast tomosynthesis was performedin the MLO projection. Computer aided detection with the [employer] employed. TISSUE DENSITY: b. There are scattered [...] Routine screening mammogram BILATERAL in 1 year. 43339, 30642 3342F, 7025F Dictating Physician: NELLY LOYD MD Electronically Signed by: NELLY LOYD MD Dic Date/Time: 04/15/201703 Sign date/Time: 04/15/201705 us Ariadne Steele TUTORING ASSISTANT IMG BI PROCEDURES Final Res ult from Last 3 Months or Most Recently Relevant to Health Maintenance Care Teams Optometrist/Practice Owner Relationship Specialty Start Date End Date Gregory Gaming MD [address] [place] [address] Dr [address] [place], [place] PCP - General Internal Medicine 07/13/22
--- OUTSIDE RECORDS SUMMARY | 2025-05-31 15:34 | XMS_ITS | Patient Health Record ---
Author Organization [facility] Address [address] [place] [address] Care Team Providers Care Admissions Rn Name Role Phone Parul PIZARRO, [place] Primary Care Provider Sony Chavez Unavailable [phone] Allergies Allergen (clinical drug ingredient) Drug/Non Drug Allergy documented on EMR Reaction Allergy Type Onset Date Status Aspartame dehydrate Drug Allergy Active Flexeril short of breath Drug Allergy A ctive morphine Morphine lethargy Drug Allergy Active Shrimp/Shell Fish throat tighten Drug Allergy Active Reason For Referral No Information Medications Medication SIG (Take, Route, Frequency, Duration) Notes Start Date End Date Status Vitamin B 12 Active Vitamin D3 Active Meloxicam 15 MG 1 tablet Orally Once a day 015 Active Oscal 500/200 D-3 500-200 MG-UNIT 1 tablet with food Orally Once a day 12/28/2014 Active Centrum Silver Orally 12/28/2014 Acti ve Estrace 0.1 MG/GM Vaginal 12/28/2014 A ctive Social History Tobacco use other than smoking: Question Answer Notes Are you an other tobacco user? 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) Active confirmed Problem Ingrowing nail (684353639) Ingrowing Nail (703.0) Active confirmed Plan Of Treatment Pending Test Test Name Order Date Glucose Fasting 12/28/2014 [id number] NAIL, 6 OR MORE 12/28/2014 [id number] SKIN LESIONS, OVER 4 12/29/19 15 Insurance Providers Payer Name Payer Address Payer Phone Subscriber Number Group Number Insured Name Patient Relationship to Insured Coverage Start Date Coverage End Date [facility] [address] [place] [phone] [id number] Sudha Lyman Self - patient is the insured Medical (General) History Medical History History ICD Code Back,Hip,and Knee pain Diabetic Fibromyalgia Gall bladder problems Menieres disease Measles Mumps Chicken pox Surgical History Surgery Date(Month/Year) tonsillectomy 1960 cystostofy 1964 gall bladder removed 1990 tubal ligation 1991 brain fluid 1994 brain shunt 1999 adenoid removal 2005 colonoscopy 2006, 11/19/11 gastric bypass 04/20/14 sweat glands 05/17/11 Hospitalization History Reason Date(Month/Year) Weight loss surgery 04/19
--- OUTSIDE RECORDS SUMMARY | 2025-05-31 15:34 | XMS_ITS | Clinical Summary ---
Author Organization [facility] Address [address] [place] [address] Care Team Providers Care Automobile And Property Underwriter Name Role Phone Gregory Gaming MD Primary Care Provider +1- [phone] Allergies Active Allergy Reactions Criticality Noted Date [...] 1 - PCV) 2021 Influenza Vaccine (#1) 2025 8, 08/19/2017 RSV Adult > 60+ Yrs or (1 - 1-dose 75+ series) 2031 Hepatitis B Vaccines Aged Out No long er eligible based on patient's age to complete this topic RSV Ped < 20 months Aged Out No longe r eligible based on patient's age to complete this topic Care Teams Automobile And Property Underwriter Relationship Specialty Start Date End Date Gregory Gaming MD [address] [place] [address] [place] [address] PCP - General Internal Medicine 07/13/22
== END 2025-05-31 14:10 | disposition home or self-care (01) ==
LOC: HO.US 14:09
PROVIDERS: PCP Internal Medicine; Visit Provider Urology
DX: N20.0 Calculus of kidney (principal); N32.81 Overactive bladder
CPT/HCPCS: 76775

== ENCOUNTER → 2025-05-31 14:12 | Outpatient (BNV) | payer MEDICARE, SELFPAY | PROVIDERS: PCP Internal Medicine; Visit Provider Radiology Diagnostic Radiology | DX: N32.81 Overactive bladder (principal) | CPT/HCPCS: 76775 ==

== ENCOUNTER 2025-06-14 14:05 | Outpatient (REF) | payer MEDICARE, SELFPAY ==
--- OUTSIDE RECORDS SUMMARY | 2025-06-14 18:55 | XMS_ITS | Encounter Summary ---
Author Organization [facility] Address [address] [place] [address] Care Team Providers Care Power Nut Runner Operator Name Role Phone Carisa Velasco MD Primary Care Provider Yudith Miller MD Primary Care Provider Mikey Box, Pcp Primary Care Provider Chip penaloza Encounter Details Date Type Department Care Team Description 08/27/2019 [facility] Medical Records [address] [place] [id number] Abstract, Provider Social History Tobacco Use Types [...] on filedocumented in this encounter Care Teams Power Nut Runner Operator Relationship Specialty Start Date End Date Carisa Velasco MD PCP - General Internal Medicine 01/21/18 10/11/19 Yudith Medellin MD PCP - General Internal Medicine 10/12/1912/27 [facility], Pcp PCP - General Internal Medicine 12/28/21 documented as of this encounter
--- OUTSIDE RECORDS SUMMARY | 2025-06-14 18:55 | XMS_ITS | Encounter Summary ---
Author Organization [facility] Address [address] [place] [address] Care Team Providers Care Sliding Joint Maker Name Role Phone Yudith Medellin MD Primary Care Provider [facility], Pcp Primary Care Provider Unavailabl e Reason for Visit * Reason Comments E-prescribe Rx Request Encounter Details Date Type Department Care Team Description 11/24/2019 Refill Adult Med - [place] [address] [place] [address] Carisa Velasco MD E-prescribe Rx Request Social [...] encounter Miscellaneous Notes * Telephone Encounter - Johanna Tran M.A. - 11/25/2019 3:18 PM EST Pt notified and does not have an Ob yet * Telephone Encounter - Yudith Walls MD - 11/25/2019 3:12 PM EST Never met patient, does she have a Mechanic provider she can get her refills from? * Telephone Encounter - Adriana Mayberry - 11/25/2019 11:11 AM EST Patient will be seeing You on 12/22/2019. Can you refill her estradiol 0.1mg * Telephone Encounter - Kiley Knox - 11/24/2019 4:25 PM EST Patient would like script to be: E-PRESCRIBED/FAXED TO PHARMACY WHEN WAS THE PATIENT'S LAST APPOINTMENT IN ADULT MEDICINE? 09/25/19 WHEN WAS THE LAST TIME THE PATIENT SAW THEIR PCP? Same as above Does patient have an upcoming appointment? Yes 12/11/2019 (THE MEDICATION REQUESTED IS ON THE MED [...] N/A Patients current insurance carrier is: Payor: -[place]/MEDICARE PPO / Plan: [facility] MDCR-ADV PPO $20/$40 [place] / Product Type: MEDICARE [id number] documented in this encounter Plan of Treatment Not on file documented as of this encounter Visit Diagnoses Not on filedocumented in this encounter Care Teams Sliding Joint Maker Relationship Specialty Start Date End Date Yudith Medellin MD PCP - General Internal Medicine 10/12/1912/27 [facility], Pcp PCP - General Internal Medicine 12/28/21 documented as of this encounter
--- OUTSIDE RECORDS SUMMARY | 2025-06-14 18:55 | XMS_ITS | Encounter Summary ---
Author Organization [facility] Address [address] [place] [address] Care Team Providers Care Fire Controlman Name Role Phone Yudith Medellin MD Primary Care Provider jose Box, Pcp Primary Care Provider Chip penaloza Encounter Details Date Type Department Care Team Description 12/17/2019 Transfer Records Medical Records [address] [place] [address] Abstract, Provider Social History Tobacco Use Types [...] on filedocumented in this encounter Care Teams Fire Controlman Relationship Specialty Start Date End Date Yudith Medellin MD PCP - General Internal Medicine 10/12/1912/27 [facility], Pcp PCP - General Internal Medicine 12/28/21 documented as of this encounter
--- OUTSIDE RECORDS SUMMARY | 2025-06-14 18:55 | XMS_ITS | Encounter Summary ---
Author Organization [facility] Address [address] [place] [address] Care Team Providers Care Front End Loader Operator Name Role Phone Carisa Velasco MD Primary Care Provider Yudith Miller MD Primary Care Provider Mikey Box, Pcp Primary Care Provider Chip penaloza Encounter Details Date Type Department Care Team Description 07/31/2018 Transfer Records Medical Records [address] [place] [address] Abstract, Provider Social History Tobacco Use Types [...] on filedocumented in this encounter Care Teams Front End Loader Operator Relationship Specialty Start Date End Date Carisa Velasco MD PCP - General Internal Medicine 01/21/18 10/11/19 Yudith Medellin MD PCP - General Internal Medicine 10/12/1912/27 Counts Include [facility], Pcp PCP - General Internal Medicine 12/28/21 documented as of this encounter
--- OUTSIDE RECORDS SUMMARY | 2025-06-14 18:55 | XMS_ITS | Encounter Summary ---
Author Organization [facility] Address [address] [place] [address] Care Team Providers Care Flat Bed Knitter Name Role Phone Yudith Medellin MD Primary Care Provider [facility], Pcp Primary Care Provider Unavailabl e Reason for Visit * Reason Comments E-prescribe Rx Request Encounter Details Date Type Department Care Team Description 11/13/2019 Refill Physiatry - [place] [address] [place] [address] Ramin Singh PA-C E-prescribe Rx Request Social [...] on filedocumented in this encounter Care Teams Flat Bed Knitter Relationship Specialty Start Date End Date Yudith Medellin MD PCP - General Internal Medicine 10/12/1912/27 [facility], Pcp PCP - General Internal Medicine 12/28/21 documented as of this encounter
--- OUTSIDE RECORDS SUMMARY | 2025-06-14 18:55 | XMS_ITS | Encounter Summary ---
Author Organization [facility] Address [address] [place] [address] Care Team Providers Care Waste Reduction Coordinator Name Role Phone Carisa Velasco MD Primary Care Provider Yudith Miller MD Primary Care Provider Mikey Box, Pcp Primary Care Provider Chip penaloza Encounter Details Date Type Department Care Team Description 10/05/2019 [facility] Medical Records [address] [place] [address] Abstract, Provider Social History Tobacco Use Types [...] on filedocumented in this encounter Care Teams Waste Reduction Coordinator Relationship Specialty Start Date End Date Carisa Velasco MD PCP - General Internal Medicine 01/21/18 10/11/19 Yudith Medellin MD PCP - General Internal Medicine 10/12/1912/27 [facility], Pcp PCP - General Internal Medicine 12/28/21 documented as of this encounter
--- OUTSIDE RECORDS SUMMARY | 2025-06-14 18:55 | XMS_ITS | Encounter Summary ---
Author Organization [facility] Address [address] [place] [address] Care Team Providers Care Air Conditioning Installer Name Role Phone Carisa Velasco MD Primary Care Provider Yudith Miller MD Primary Care Provider Mikey Box, Pcp Primary Care Provider Chip penaloza Encounter Details Date Type Department Care Team Description 09/07/2019 [facility] Medical Records [address] [place] [address] Abstract, Provider Social History Tobacco Use Types [...] on filedocumented in this encounter Care Teams Air Conditioning Installer Relationship Specialty Start Date End Date Carisa Velasco MD PCP - General Internal Medicine 01/21/18 10/11/19 Yudith Medellin MD PCP - General Internal Medicine 10/12/1912/27 [facility], Pcp PCP - General Internal Medicine 12/28/21 documented as of this encounter
--- OUTSIDE RECORDS SUMMARY | 2025-06-14 18:55 | XMS_ITS | Encounter Summary ---
Author Organization [facility] Address [address] [place] [address] Care Team Providers Care Merchandise Manager Name Role Phone Carisa Velasco MD Primary Care Provider Yudith Miller MD Primary Care Provider [facility], Pcp Primary Care Provider Chip penaloza Encounter Details Date Type Department Care Team Description 08/14/2018 Orders Only Medical Records [address] [place] [address] Abstract, Provider Social History Tobacco Use Types [...] Name Priority Date/Time Associated Diagnosis Comments OUTSIDE LAB Routine 12/24/2017 OUTSIDE EKG Routine 06/28/2016 OUTSIDE EMG Routine 11/25/2015 documented in this encounter Results * OUTSIDE LAB (12/24/2017) Provider Abstract LAB * OUTSIDE EKG (06/28/2016) Provider Abstract CARDIOLOGY * OUTSIDE EMG (11/25/2015) Provider Abstract PERFORMABLES documented in this encounter Visit Diagnoses Not on filedocumented in this encounter Care Teams Merchandise Manager Relationship Specialty Start Date End Date Carisa Velasco MD PCP - General Internal Medicine 01/21/18 10/11/19 Yudith Medellin MD PCP - General Internal Medicine 10/12/1912/27 [facility], Pcp PCP - General Internal Medicine 12/28/21 documented as of this encounter
--- OUTSIDE RECORDS SUMMARY | 2025-06-14 18:55 | XMS_ITS | Encounter Summary ---
Author Organization [facility] Address [address] [place] [address] Care Team Providers Care Teacher Lip Reading Name Role Phone Carisa Velasco MD Primary Care Provider Yudith Miller MD Primary Care Provider [facility], Pcp Primary Care Provider Unavailabl e Reason for Visit * Reason Onset Date Comments Appointment-Internal Referral 11/06/2018 Encounter Details Date Type Department Care Team Description 11/06/2018 Telephone Adult Med - [place] [address] [place] [address] Carisa Velasco MD Appointment-Internal Referral Social History Tobacco Use Types Packs/Day Years [...] Telephone Encounter - Carisa Velasco MD - 11/06/2018 5:06 PM EST There was also a referral to orthophoric her other problems * Telephone Encounter - Santa Cobian - 11/06/2018 10:58 AM EST Patient declined referral for Podiatry, due to her feet not hurting her. Patient wanted to follow up with Orthopedics. Will take patient off referral list. documented in this encounter Plan of Treatment Not on file documented as of this encounter Visit Diagnoses Not on filedocumented in this encounter Care Teams Teacher Lip Reading Relationship Specialty Start Date End Date Carisa Velasco MD PCP - General Internal Medicine 01/21/18 10/11/19 Yudith Medellin MD PCP - General Internal Medicine 10/12/1912/27 [facility], Pcp PCP - General Internal Medicine 12/28/21 documented as of this encounter
--- OUTSIDE RECORDS SUMMARY | 2025-06-14 18:55 | XMS_ITS | Encounter Summary ---
Author Organization [facility] Address [address] [place] [address] Care Team Providers Care Food Safety Field Specialist Name Role Phone Carisa Velasco MD Primary Care Provider Yudith Miller MD Primary Care Provider Mikey garcia [facility], Pcp [facility] Encounter Details Date Type Department Care Team Description 07/06/2019 Orders Only Medical Records [address] [place] [address] Abstract, Provider Social History Tobacco Use Types [...] Name Priority Date/Time Associated Diagnosis Comments OUTSIDE CT Routine 07/05/2019 documented in this encounter Results * OUTSIDE CT (07/05/2019) Provider Abstract RADIOLOGY documented in this encounter Visit Diagnoses Not on filedocumented in this encounter Care Teams Food Safety Field Specialist Relationship Specialty Start Date End Date Carisa Velasco MD PCP - General Internal Medicine 01/21/18 10/11/19 Yudith Medellin MD PCP - General Internal Medicine 10/12/1912/27 [facility], Pcp PCP - General Internal Medicine 12/28/21 documented as of this encounter
--- OUTSIDE RECORDS SUMMARY | 2025-06-14 18:55 | XMS_ITS | Encounter Summary ---
Author Organization [facility] Address [address] [place] [address] Care Team Providers Care Photo Producer Name Role Phone Rock Teran MD Primary Care Provider Un available Carisa Velasco MD Primary Care Provider Yudith Miller MD Primary Care Provider [facility], Pcp Primary Care Provider [facility] e Encounter Details Date Type Department Care Team Description 06/12/2016 Release of Information Medical Records [address] [place] [address] Abstract, Provider Social History Tobacco Use Types Packs/Day Years Used Date Smoking Tobacco: Never Smokeless Tobacco: Never Alcohol Use Standard Drinks/Week Comments No 0 (1 standard drink = 0.6 oz pur e alcohol) Sex Assigned at Date Recorded Not on file documented as of this encounter Plan of Treatment Not on file documented as of this encounter Visit Diagnoses Not on filedocumented in this encounter Care Teams Photo Producer Relationship Specialty Start Date End Date Rock Teran MD PCP - General Pediatrics 11/13/13 01/20/18 Carisa Velasco MD PCP - General Internal Medicine 01/21/18 10/11/19 Yudith Medellin MD PCP - General Internal Medicine 10/12/1912/27 [facility], Pcp PCP - General Internal Medicine 12/28/21 documented as of this encounter
--- OUTSIDE RECORDS SUMMARY | 2025-06-14 18:55 | XMS_ITS | Encounter Summary ---
Author Organization [facility] Address [address] [place] [address] Care Team Providers Care Bedspread Cutter Name Role Phone Carisa Velasco MD Primary Care Provider Yudith Miller MD Primary Care Provider Mikey garcia [facility], Pcp Primary Care Provider Unavailabl e Reason for Visit * Reason Onset Date Comments Medication 09/02/2019 Encounter Details Date Type Department Care Team Description 09/02/2019 Refill Adult [facility] [address] [place] [address] Carisa Velasco MD Medication Social History Tobacco [...] on filedocumented in this encounter Care Teams Bedspread Cutter Relationship Specialty Start Date End Date Carisa Velasco MD PCP - General Internal Medicine 01/21/18 10/11/19 Yudith Medellin MD PCP - General Internal Medicine 10/12/1912/27 [facility], Pcp PCP - General Internal Medicine 12/28/21 documented as of this encounter
--- OUTSIDE RECORDS SUMMARY | 2025-06-14 18:55 | XMS_ITS | Encounter Summary ---
Author Organization [facility] Address [address] [place] [address] Care Team Providers Care Shot Packer Name Role Phone Carisa Velasco MD Primary Care Provider Yudith Miller MD Primary Care Provider [facility], Pcp Primary Care Provider Chip penaloza Encounter Details Date Type Department Care Team Description 09/21/2019 Telephone Adult Medicine [address] [address] Yudith Medellin MD Social History Tobacco Use Types Packs/Day Years Used Date Smoking Tobacco: Former Cigarettes 1 20 0 1969 - 10/07/2011 Smokeless Tobacco: Never Alcohol Use Standard Drinks/Week Comments Yes 0 (1 standard drink = 0.6 oz pur e alcohol) 3-4 glasses wine per week Sex Assigned at Date Recorded Not on file documented as of this encounter Miscellaneous Notes * Telephone Encounter - Afshan Alicia C.M.A. - 09/21/2019 8:53 AM EST Appt changed to 30 min. All set. FYI * Telephone Encounter - Yudith Walls MD - 09/21/2019 7:47 AM EST This patient is scheduled for visit on 12/22/2019 for a 15-minute visit. Patient is a transfer from Dr. Velasco and therefore will need to be a 30-minute visit. documented in this encounter Plan of Treatment Not on file documented as of this encounter Visit Diagnoses Not on filedocumented in this encounter Care Teams Shot Packer Relationship Specialty Start Date End Date Carisa Velasco MD PCP - General Internal Medicine 01/21/18 10/11/19 Yudith Medellin MD PCP - General Internal Medicine 10/12/1912/27 [facility], Pcp PCP - General Internal Medicine 12/28/21 documented as of this encounter
--- OUTSIDE RECORDS SUMMARY | 2025-06-14 18:55 | XMS_ITS | Encounter Summary ---
Author Organization [facility] Address [address] [place] [address] Care Team Providers Care Interior Design Faculty Member Name Role Phone Carisa Velasco MD Primary Care Provider Yudith Miller MD Primary Care Provider Mikey Box, Pcp Primary Care Provider Chip penaloza Encounter Details Date Type Department Care Team Description 09/09/2019 Civil Transportation Engineer Report Medical Records [address] [place] [address] Carmen Solorzano MD Social History Tobacco Use Types Packs/Day [...] on filedocumented in this encounter Care Teams Interior Design Faculty Member Relationship Specialty Start Date End Date Carisa Velasco MD PCP - General Internal Medicine 01/21/18 10/11/19 Yudith Medellin MD PCP - General Internal Medicine 10/12/1912/27 [facility], Pcp PCP - General Internal Medicine 12/28/21 documented as of this encounter
--- OUTSIDE RECORDS SUMMARY | 2025-06-14 18:55 | XMS_ITS | Encounter Summary ---
Author Organization [facility] Address [address] [place] [address] Care Team Providers Care Health Services Director Name Role Phone Carisa Velasco MD Primary Care Provider Yudith Miller MD Primary Care Provider [facility], Pcp Primary Care Provider Unavailabl e Reason for Referral * EXTERNAL (Routine) - Authorized/Booked Specialty Diagnoses / Procedures Referred By Caleb buchanan Referred To Contact Mental Health Procedures REFERRAL TO BEHAVIORAL HEALTH Carisa Velasco MD [address] [place] [address] External B/Health Referral ID Status Reason Start Date Expiration Date V isits Requested Visits Authorized SEE NOTE Authorized/B ooked 01/23/2019 04/24/2019 1 1 Reason for Visit * Reason Onset Date Comments REFERRAL 01/23/2019 Encounter Details Date Type Department Care Team Description 01/23/2019 Telephone Adult [facility] [address] [place] [address] Carisa Velasco MD REFERRAL Social History Tobacco Use Types Packs/Day Years [...] Telephone Encounter - Carla Lorenz C.M.A. - 02/03/2019 3:33 PM EDT Please advise , thank u * Telephone Encounter - Day Clement - 02/03/2019 10:12 AM EDT Patient cannot reach this provider to sched an appointment. Do you suggest another provider? Pleasecontact this patient with this information thank you. * Telephone Encounter - Carisa Velasco MD - 01/23/2019 1:12 PM EDT signed * Telephone Encounter - Marla Stallworth - 01/23/2019 9:56 AM EDT Please review this patients new referral request. The referral has been pended. Please complete thefollowing: If approved> sign order If denied>please give instructions and route to your practice nursing pool. Practice nurse should inform referrals and the patient if denied. * Telephone Encounter - Haley Romo - 01/23/2019 9:45 AM EDT What insurance does the patient have today? BC Effective 07/07/09: [employer] will not retro referral requests over 90 days. If request is for this please instruct patient to call the 800# on their insurance card to appeal. Do not submit a request. Referrals cannot be processed if the insurance is not accurate. If the insurance listed above in red is NO BILLING INFORMATION FOUND FOR THIS ENCOUTNER The patients correct insurance must be obtained and registered in [facility] or their referral can not be processed. Is this a retro request? NO. If yes for what date of service do you need the retro referral? N/A Who is calling to request this referral? patient If the caller is not the patient, what is their name? N/A Ask the patient WHO referred them to this specialty: Patient self referred FIRST and LAST NAME of SPECIALIST PATIENT is seeing: Dr. Marina Ventura What specialty is this? psychology DIAGNOSIS Patient is being seen for (Not a body part or a procedure): PTSD Have you seen this SPECIALIST for this PROBLEM/DX before?NO If YES, when: Have you checked REVIEW or the APPT DESK to see if this referral has already been done or has visits left? YES Is this visit:Initial Visit Address of Specialist: [facility] [address], [place], [place] Phone # of Specialist: [phone] Fax #: (if applicable): Does patient have an appointment scheduled?: no Date of appointment- (including a retro-request): Is this appointment related to: Not MVA, WC or Surgery related documented in this encounter Plan of Treatment Not on file documented as of this encounter Visit Diagnoses Not on filedocumented in this encounter Care Teams Health Services Director Relationship Specialty Start Date End Date Carisa Velasco MD PCP - General Internal Medicine 01/21/18 10/11/19 Yudith Medellin MD PCP - General Internal Medicine 10/12/1912/27 [facility], Pcp PCP - General Internal Medicine 12/28/21 documented as of this encounter
--- OUTSIDE RECORDS SUMMARY | 2025-06-14 18:55 | XMS_ITS | Encounter Summary ---
Author Organization [facility] Address [address] [place] [address] Care Team Providers Care Project Geologist Name Role Phone Carisa Velasco MD Primary Care Provider Yudith Miller MD Primary Care Provider [facility], Pcp Primary Care Provider Unavailabl e Reason for Visit * Reason Comments E-prescribe Rx Request Encounter Details Date Type Department Care Team Description 12/21/2018 Refill Adult Med - [place] [address] [place] [address] Carisa Velasco MD E-prescribe Rx Request Social [...] Zapata M.A. - 12/22/2018 1:56 PM EDT Molder Shoulder Pad printed. I changed the gabapentin that was requested to reflect the change made recently. documented in this encounter Plan of Treatment Not on file documented as of this encounter Visit Diagnoses Not on filedocumented in this encounter Care Teams Project Geologist Relationship Specialty Start Date End Date Carisa Velasco MD PCP - General Internal Medicine 01/21/18 10/11/19 Yudith Medellin MD PCP - General Internal Medicine 10/12/1912/27 [facility], Pcp PCP - General Internal Medicine 12/28/21 documented as of this encounter
--- OUTSIDE RECORDS SUMMARY | 2025-06-14 18:55 | XMS_ITS | Encounter Summary ---
Author Organization [facility] Address [address] [place] [address] Care Team Providers Care Baseball Glove Shaper Name Role Phone Carisa Velasco MD Primary Care Provider Yudith Miller MD Primary Care Provider [facility], Pcp Primary Care Provider Unavailabl e Reason for Visit * Reason Onset Date Comments Medication 01/06/2019 Encounter Details Date Type Department Care Team Description 01/06/2019 Telephone Adult [facility] [place] [address] [place] [address] Carisa Velasco MD Medication Social History Tobacco [...] unspecified documented in this encounter Care Teams Baseball Glove Shaper Relationship Specialty Start Date End Date Carisa Velasco MD PCP - General Internal Medicine 01/21/18 10/11/19 Yudith Medellin MD PCP - General Internal Medicine 10/12/1912/27 [facility], Pcp PCP - General Internal Medicine 12/28/21 documented as of this encounter
== END 2025-06-14 14:06 | disposition home or self-care (01) ==
LOC: HO.LNP 14:05
PROVIDERS: PCP Internal Medicine; Visit Provider Urology
DX: N20.0 Calculus of kidney (principal); N39.41 Urge incontinence; N32.81 Overactive bladder; Z85.51 Personal history of malignant neoplasm of bladder
CPT/HCPCS: 52000; 81003; 88112; 99212

== ENCOUNTER 2025-06-14 14:05 | Outpatient (AMB) | payer MEDICARE, SELFPAY ==
--- NOTE | 2025-06-14 14:50 | A.OFFVIS_ITS ---
Intake Visit Reasons: 6m cysto Intake Note: Patient is Present for Cystoscopy * 05/31 Renal Ultrasound Urology Med: Vitamin B6 Antibiotic Allergy: NONE Blood Thinner: NONE Nephrology Nurse Required: No Allergies aspartame Allergy (Severe, Verified 06/14/25 14:52) severe dehydration cyclobenzaprine (From Flexeril) Allergy (Severe, Verified 06/14/25 14:52) SOB nickel Adverse Reaction (Verified 06/14/25 14:52) Blister HPI Comments Details: 06/14/25--69-year-old female presenting with surveillance cystoscopy for bladder cancer follow-up. She initially underwent cystoscopy and TURBT on 12/25/2021 for superficial high-grade urothelial carcinoma. She is under ongoing surveillance for bladder cancer recurrence as part of a routine protocol. Her overactive bladder was previously managed with Mirabegron, which she discontinued. The patient denies new symptoms such as hematuria or urinary incontinence. She also has a history of bilateral nephrolithiasis, reviewed follow-up renal ultrasound May 31, 2025 bilateral kidney stones stable. Cystoscopy findings-bladder wall thickening no recurrent bladder lesions visualized. We will continue six-month surveillance cystoscopy, urine for cytology. Conservative management of kidney stones at this time we will continue to monitor. 12/14/24-- 69-year-old female presenting with surveillance cystoscopy for bladder cancer follow-up. She initially underwent cystoscopy and TURBT on 12/25/2021 for superficial high-grade urothelial carcinoma. She is under ongoing surveillance for bladder cancer recurrence as part of a routine protocol. Her overactive bladder was previously managed with Mirabegron, which she discontinued. The patient denies new symptoms such as hematuria or urinary incontinence. She also has a history of bilateral nephrolithiasis, with stones documented as 5 mm on the right and 7 mm on the left from prior imaging. The next steps include a renal ultrasound to monitor nephrolithiasis, as discussed during the current visit. Current medication includes vitamin B6. Urinary Symptoms Review - Denies hematuria - Denies urinary incontinence - Discontinued Mirabegron - Continues on vitamin B6 Results - Tests: Prior cystoscopy TURBT on 12/25/2021 with pathology showing superficial high-grade urothelial carcinoma 06/16/24-- Here for surveillance cystoscopy. Sudha is treated with myrberiq for OAB symptoms, also followed for bilateral renal stones. She denies any new urinary symptoms, denies hematuria or dysuria. Cystoscopy findings: mild mucosal erythema, no suspicious bladder lesions visualized. Will cont to monitor kidneys, myrbetriq, cont surveillance cystoscopy, urine for cytology, fu in 6 months. Sudha is a 68-year-old female who presents today to the office for a cystoscopy procedure. She has OAB and was started on Myrbetriq which she states is helping, she is also followed for kidney stones 11/22/23- here for surveillance cystoscopy. Denies any new urinary symptoms Exam- Inner thigh- Hydraadenits, the patient states wound will leak fluid intermittently. She states she was referred to the wound clinic in the past. Cystoscopy findings: within normal limits; no suspicious bladder lesions were visualized. I reviewed CT scan 08/05/23 Right-sided nephrolithiasis measuring up to 5 mm without hydronephrosis. Left-sided nephrolithiasis measuring up to 7 mm 05/31/2023?Sudha is followed for history of bladder cancer and presents today for cystoscopy. She was last seen by me on 02/27/2023 for bilateral kidney stones. She was advised to continue vitamin B6 100 mg daily at that time. Left ESWL was discussed to be scheduled, and was advised to follow-up after 3 months for surveillance Cystoscopy at that time. She has a history of bladder cancer. She is a status post Cystoscopy/TURBT done on 12/25/2021. She is not taking any medications for bladder control. She states that she was diagnosed with bladder infection when she was a kid. She denies any hematuria. I needed to catheterize to obtain urine, as she was not able to collect urine specimen when she voided. Cystoscopy procedure: Cystoscopy findings: within normal limits; no suspicious bladder lesions were visualized. 02/27/2023?PMH - normal pressure hydrocephalus, prior shunt followed by neurologist. h/o Kidney stones. She is seen for h/o bladder cancer, s/p cysto/TURBT 12/25/2021; path: superficial high grade urothelial carcinoma, no muscularis propria identified. Last outpatient cystoscopy fulguration was with Dr. Kyle 08/06/2022, I reviewed operative note, gemcitabine was administered. The patient has right kidney stone about 4 mm and left kidney stone about 5 mm. Denies taking aspirin or any blood thinners. Evaluation today-- blood: negative, leukocytes: 15 Christina/uL. Consent to perform cystoscopy procedure was obtained. Cystoscopy findings-- Mild trabeculations. No suspicious bladder lesion visualized.? 01/03/2023--Sudha is a 67-year-old female who presents to the clinic for discussion of KUB and renal US results ordered for kidney stones. ?-----Office visit?11/22/2022-- here for surveillance office cystoscopy.? Findings:? no recurrent bladder lesions visualized. Previous Interventions: 12/25/21? cysto-TURBT high-grade T1, 08/06/22 bladder? fulguration with gemcitabine Immunotherapy Bladder instillations- 12/2021 induction 6 weeks; - Boost 03/2022. Renal US results reviewed?12/14/2022-- Bilateral nonobstructing nephrolithiasis. Right kidney: largest stone is of 4 mm, Left kidney: largest stone is of 5 mm. Kidneys: WNL. [facility] Medical History Diverticulosis Constipation Sleep apnea Abscess Bladder cancer Obesity (BMI 30-39.9) Traylor's palsy Neuropathy GERD without esophagitis Chronic neck pain Scoliosis of thoracolumbar spine Arthritis Back pain Hx of spinal stenosis Peptic ulcer Fibromyalgia Hydrocephalus in adult History of traumatic head injury Nephrolithiasis Surgical History Hx of cystoscopy History of cervical spinal surgery History of adenoidectomy Hx of lithotripsy Hx of tubal ligation Hx of excision of lamina of cervical vertebra for decompression of spinal cord Hx of cholecystectomy H/O colonoscopy Hx of gastric bypass CLINICAL DOCUMENTATION IMPROVEMENT SPECIALIST (ventriculoperitoneal) shunt status Family History Father Cancer Mother Stroke Brother No problems noted. Brother No problems noted. Sister No problems noted. Son No problems noted. Daughter No problems noted. Paternal Grandmother Colon cancer Social History Housing: Assisted Living Facility Are you a primary foster care therapist to a significant other at home: No Do you presently have visiting nurse or other home services: No Alcohol intake: never Patient Tobacco Use Status: Former Tobacco user Tobacco use type: Cigarette e-Cigarette/Vaping Use: Never Used Second Hand Smoke Exposure: Yes Advance Directives Date on File: 06/04/23 service: No Current occupational status: retired and disabled Cognitive needs: Yes (cane) Hearing needs: Yes (hearing aide) Vision needs: Yes (glasses) Female Reproductive History Menstrual Age of Menarche: 15 Review of Systems Const All systems reviewed & are unremarkable except as noted in HPI and below Reports no additional complaints Eyes Reports no additional complaints ENT Reports no additional complaints Card Reports no additional complaints Resp Reports no additional complaints GI Reports no additional complaints Reports as per HPI Musc Reports no additional complaints Skin/Breast Reports system reviewed and no additional complaints, except as documented Neuro Reports no additional complaints Psych Reports no additional complaints Endo Reports no additional complaints Aleksandar/Lymph Reports no additional complaints Aller/Immun Reports no additional complaints Office Procedures Cystoscopy Consent Discussed risk and benefit or proposed procedure with the patient. Information consent for procedure given to the patient. Discussed technical aspects, risks, benefits and alternatives in full. Addressed all of the patient's questions and concerns regarding the procedure. The patient demonstrated knowledge and understanding. They wish to proceed with this procedure. Preparation The patient was prepped in the usual manner. A implementation specialist payroll was present and in the room. Genitalia was prepped with betadine solution in a sterile manner. Lidocaine Jelly 2% was placed into the urethra and 16Fr flexible Olympus cystoscope was inserted into the meatus after adequate lubrication. [id number] DISPOSABLE SCOPE URO-G FLEXIBLE SCOPE Procedure code (CPT) selection complete Office Meds lidocaine HCl 2 % mucosal jelly in applicator Performing Provider: Jamie Garcia MD [facility] Administered by: Viji Chowdhury RN on 06/14/25 15:10 Dose Route Admin Location Dispensed Lot Number Expiration Date [facility] Manager Float 10 mL intra-urethral 20 mL ciprofloxacin HCl 500 mg tablet Performing Provider: Jamie Garcia MD Performing Location[facility] Administered by: Viji Chowdhury RN on 06/14/25 15:10 Dose Route Admin Location Dispensed Lot Number Expiration Date [facility] Manager Float 500 mg PO 1 tab phenazopyridine 200 mg tablet Performing Provider: Jamie Garcia MD Performing Location: [facility] Administered by: Viji Chowdhury RN on 06/14/25 15:10 Dose Route Admin Location Dispensed Lot Number Expiration Date [employer] Manager Float 200 mg PO 1 tab Results Reviewed Results Reviewed: Date of Service: 05/31/25 EXAMINATION: US KIDNEY BILATERAL HISTORY: N32.81 - Overactive bladder TECHNIQUE: Real-time grayscale ultrasound imaging of the kidneys was performed and images were reviewed. COMPARISON: Comparison is made with the prior examination dated 12/14/2022. FINDINGS: Right kidney: The right kidney measures 9.3 x 3.2 x 4.5 cm. Renal parenchymal echotexture and thickness are normal. There are no masses. Multiple nonobstructing calculi are identified including a 4 x 3 x 3 mm calculus in the interpolar region and multiple calculi at the lower pole measuring 5 x 3 x 9 mm, 5 x 4 x 3 mm, and 8 x 5 x 3 mm. There is no hydronephrosis. Left Kidney: The left kidney measures 10.2 x 5.6 x 4.4 cm. Renal parenchymal echotexture and thickness are normal. There is a 2.1 x 1.3 x 1.7 cm upper pole cyst. Multiple nonobstructing calculi are noted including an 11 x 4 x 7 mm upper pole calculus, an 8 x 8 x 5 mm calculus in the interpolar region, and a 4 x 3 x 3 mm calculus at the lower pole. There is no hydronephrosis. IMPRESSION: Bilateral nephrolithiasis as described. No hydronephrosis. Date of Service: 08/05/23 EXAMINATION: CT ABDOMEN AND PELVIS WITHOUT CONTRAST CLINICAL INFORMATION: Malignant neoplasm of bladder COMPARISON: CT abdomen from 10/25/2021 TECHNIQUE: Multidetector volumetric imaging was performed from the superior aspect of the liver through the pubic symphysis. Sagittal and coronal reformatted images were obtained on the technologist's workstation. This CT examination was performed using dose optimization techniques as appropriate, variously including the following: *Automated exposure control *Adjustment of mA and/or kV according to patient size (this includes techniques or standardized protocols for targeted exams where dose is matched to indication/reason for exam; i.e. extremities or head) *Use of iterative reconstruction technique DLP: 572 mGy-cm FINDINGS: LUNG BASES: The visualized lung bases are unremarkable. LIVER, GALLBLADDER, AND BILIARY TREE: The liver is normal in size, shape, and attenuation. No focal hepatic lesion or biliary ductal dilatation is present. The gallbladder is surgically absent PANCREAS: Mild atrophy of the pancreas. SPLEEN: Unremarkable. ADRENAL GLANDS: Redemonstration of fat attenuating nodular focus in the right adrenal glands measuring up to 1.6 cm, stable. Nodular focus in the lateral limb of the left adrenal gland demonstrating fat attenuation measuring up to 1.2 cm. Adrenal nodules of any size exhibiting a CT density of =<10 HU are overwhelmingly likely to represent lipid rich benign adenomas for which no follow-up imaging is recommended. KIDNEYS AND URETERS: Right-sided nephrolithiasis measuring up to 5 mm without hydronephrosis. Left-sided nephrolithiasis measuring up to 7 mm without hydronephrosis. Left renal cystic focus along the anterior aspect of the interpolar/upper pole region measuring up to 1.7 cm, not requiring follow-up. BLADDER: Urinary bladder is decompressed. Previously identified soft tissue mass along the right intraluminal urinary bladder is not definitively visualized though evaluation is limited without intravenous contrast. GASTROINTESTINAL TRACT: Small to moderate hiatal hernia with postsurgical changes of the gastroesophageal junction and stomach. The small and large bowel are unremarkable. The appendix is unremarkable. ABDOMINAL WALL: No significant hernia is appreciated. Ventriculoperitoneal shunt catheter redemonstrated. LYMPH NODES: Normal. VASCULAR: Unremarkable. PELVIC VISCERA: Unremarkable. Trace free fluid in the pelvis potentially secondary to CLINICAL DOCUMENTATION IMPROVEMENT SPECIALIST shunt catheter. OSSEOUS STRUCTURES: S-shaped rotatory curvature of the thoracolumbar spine. Osteopenia. Multilevel degenerative changes of the thoracolumbar spine. IMPRESSION: 1. No acute process of the abdomen or pelvis identified. 2. Previously identified soft tissue mass along the right intraluminal urinary bladder is not definitively visualized though evaluation is limited without intravenous contrast. 3. Redemonstration of fat attenuating nodular focus in the right adrenal gland measuring up to 1.6 cm, stable. Nodular focus in the lateral limb of the left adrenal gland demonstrating fat attenuation measuring up to 1.2 cm. Adrenal nodules of any size exhibiting a CT density of = <10 HU are overwhelmingly likely to represent lipid rich benign adenomas for which no follow-up imaging is recommended. 4. Bilateral nephrolithiasis without hydronephrosis. 5. Small to moderate hiatal hernia with postsurgical changes of the gastroesophageal junction and stomach. 6. Osteopenia. Assessment & Plan Assessment & Plan (1) Bilateral kidney stones: Code(s): N20.0 - Calculus of kidney Category: Medical (2) Urge incontinence of urine: Code(s): N39.41 - Urge incontinence Category: Medical (3) Personal history of bladder cancer: Code(s): Z85.51 - Personal history of malignant neoplasm of bladder Category: Medical (4) Overactive bladder: Code(s): N32.81 - Overactive bladder Category: Medical Plan Overactive bladder symptoms-stable. Pads PRN. Timed voiding Cystoscopy findings-bladder wall thickening no recurrent bladder lesions visualized. We will continue six-month surveillance cystoscopy, urine for cytology. Conservative management of kidney stones at this time we will continue to monitor. Orders: Orders AMB Cystoscopy Today N20.0 - Calculus of kidney Patient Instructions: The patient had an opportunity to ask questions regarding treatment plan. The patient expressed understanding and agreement with the above treatment plan. The patient is aware they should contact our office by phone for worsening of their current condition or the appearance of new symptoms. Compliance is encouraged with any medications and followup testing that is ordered. It is a privilege to be allowed the opportunity to participate in the urologic care of your patient. If you have any questions or concerns regarding treatment for the above conditions please do not hesitate to contact me. The office telephone contact is [phone]. This note is constructed in part using voice recognition software. While every effort has been made to ensure accuracy stripper and taper errors may have been incl uded. Yours sincerely, Jamie Garcia MD Coding Level of Care Code Est Pt Level 3 (32904) Complex EM visit Add On G2211 Diagnoses Bilateral kidney stones N20.0 Urge incontinence of urine N39.41 Personal history of bladder cancer Z85.51 Overactive bladder N32.81 CPT Codes Cystoscopy - CPT: 02651-Ekczjxphgk ([id number])
--- OUTSIDE RECORDS SUMMARY | 2025-06-14 16:27 | XMS_ITS | Patient Health Record ---
[facility] Address [address] [place] [address] Care Team Providers Care Bushel Worker Name Role Phone Parul PIZARRO, Rock Primary Care Provider Sony Chavez Unavailable [phone] Allergies Allergen (clinical drug ingredient) Drug/Non Drug [...] Status W/U Status Risk Notes Problem Onychomycosis (028903150) Onychomycosis (110.1) Active confirmed Problem Pain in limb (73040835) Pain in Limb (729.5) Active confirmed Problem Congenital pes planus (47588111) Flat Foot, Congenital (754.61) Active confirmed Problem Neurologic disorder associated with type II diabetes mellitus (236774040) Diabetic - NIDDM/Neuropathy (250.60) Active confirmed Problem Ingrowing nail (097810137) Ingrowing Nail (703.0) Active confirmed Plan Of Treatment Pending Test Test Name Order Date Glucose Fasting 12/28/2014 [id number] NAIL, 6 OR MORE 12/28/2014 [id number] SKIN LESIONS, OVER 4 12/29/19 15 Insurance Providers Payer Name Payer Address Payer Phone Subscriber Number Group Number Insured Name Patient Relationship to Insured Coverage Start Date Coverage End Date [facility] [address] [place] [phone] [id number] Sudha Lyman Self - patient is the [...]
--- OUTSIDE RECORDS SUMMARY | 2025-06-14 16:27 | XMS_ITS | Clinical Summary ---
Author Organization [facility] Address [address] [place] [address] Care Team Providers Care Rounding Machine Tender Name Role Phone Gregory Gaming MD Primary Care Provider [phone] Allergies Active Allergy Reactions Criticality Noted Date [...] age to complete this topic Care Teams Rounding Machine Tender Relationship Specialty Start Date End Date Gregory Gaming MD [address] [place] [address] [place] [address] PCP - General Internal Medicine 07/13/22
--- OUTSIDE RECORDS SUMMARY | 2025-06-14 16:27 | XMS_ITS | Clinical Summary ---
Author Organization [employer] [facility] it Address [address] [place] [address] Care Team Providers Care Mattress Spring Encaser Name Role Phone Gregory Gaming MD Primary Care Provider Surgical History Surgery Date Site/Laterality Comments TONSILLECTOMY 1960 PROCEDURE: HISTORICAL TONSILLECTOMY CYSTOSCOPY 1963 PROCEDURE: ME CYSTOURETHROSCOPY BLADDER SURGERY 1990 PROCEDURE: HISTORICAL BLADDER SURGERY TUBAL LIGATION 1991 PROCEDURE: HISTORICAL TUBAL LIGATION OTHER SURGICAL HISTORY 1994 and 1999 PROCEDURE: ME VENTRICULOCISTERNOSTOMY; COMMENT: ? excessive CSF COLONOSCOPY 2011 [...] COMMENT: Moderate, 04/24/2011 Polysomnogram, Total Sleep at [facility] History of stomach ulcers 04/22/2019 DX:His tory of stomach ulcers; COMMENT: Stomach pouch-Ulcer 02/23/2015 Type 2 diabetes mellitus wit hout complication ([facility] V24, [facility] V28) 08/01/2018 DX:Type 2 diab etes mellitus without complication (HCC) Hypercholesteremia 04/22/2019 DX:Hyperchole steremia Tinnitus 04/22/2019 DX:Tinnitus; COM MENT: Since childhood. [facility] 04/2013 Vertigo 04/22/2019 DX:Vertigo; COMM ENT: Dr. 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 Hx of L skull base injury 1974. [facility] note 04/29/2013 Meniere's disease [...] 09/08/2022 Social Influencers of Health Screening 09/08/2022 Depression Screening 10/07/2024 COVID-19 Vaccine ( season) 2025 Influenza Vaccine (#1) 2025 9, 08/05/2018, 08/19/2017, [...] Recently Relevant to Health Maintenance Results * [facility] SCREENING DIGITAL (04/15/2020 5:06 PM EDT) Anatomical Region Laterality Modality Mammography 04/15/2020 3:31 PM EDT Narrative 04/15/2020 5:06 PM EDT [facility] Diagnostic Imaging Department [address] [place] [id number] Patient: MACIEL RAZOO.B./Age/Sex: 1955 - 65 - F Unit#: [id number] Location/Status: [facility] CLI Mnemonic/Ordering Site: [facility] Ordering Physician: ARIADNE STEELE NP [facility] Screening Digital - 04/15/20 - 1548 EXAM: [facility] Screening Digital EXAM DATE AND TIME: 04/15/2020 3:49 PM HISTORY: Screening. COMPARISON: 09/06/15, 08/20/14, 08/27/13 TECHNIQUE: CC and MLO views of both breasts were obtained using full field digital mammography. Bilateral digital breast tomosynthesis was performed in the MLO projection. Computer aided detection with the Comfyware 7.2-H was employed. TISSUE DENSITY: b. There [...] Routine screening mammogram BILATERAL in 1 year. 90779, 77566 3342F, 7025F Dictating Physician: NELLY LOYD MD Electronically Signed by: NELLY LOYD MD Dic Date/Time: 04/15/201703 Sign date/Time: 04/15/201705 Procedure Note Nelly Loyd MD - 09/26/2022 [facility] Diagnostic Imaging Department [address] [place] [address] Patient: MACIEL RAZO /Age/Sex: 1955 - 65 - F Unit#: [id number] Location/Status: [facility] Mnemonic/Ordering Site: [facility] Ordering Physician: ARIADNE STEELE RETAIL SALES REPRESENTATIVE [facility] Screening Digital - 04/15/20 - 1548 EXAM: [facility] Screening Digital EXAM DATE AND TIME: 04/15/2020 3:49 PM HISTORY: Screening. COMPARISON: 09/06/15, 08/20/14, 08/27/13 TECHNIQUE: CC and MLO views of both breasts were obtained using fullfield digital mammography. Bilateral digital breast tomosynthesis was performedin the MLO projection. Computer aided detection with the Neocis.2-Venuelabsas employed. TISSUE DENSITY: b. There are scattered [...] Routine screening mammogram BILATERAL in 1 year. 15337, 91179 3342F, 7025F Dictating Physician: NELLY LOYD MD Electronically Signed by: NELLY LOYD MD Dic Date/Time: 04/15/201703 Sign date/Time: 04/15/201705 us Ariadne Steele RETAIL SALES REPRESENTATIVE IMG BI PROCEDURES Final Res ult from Last 3 Months or Most Recently Relevant to Health Maintenance Care Teams Mattress Spring Encaser Relationship Specialty Start Date End Date Gregory Gaming MD [address] [place] [address] Dr [address] [place], [place] PCP - General Internal Medicine 07/13/22
== END 2025-06-14 15:40 | disposition home or self-care (01) ==
LOC: HO.HUSH 14:05
PROVIDERS: PCP Internal Medicine; Visit Provider Urology
DX: N20.0 Calculus of kidney (principal); N39.41 Urge incontinence; Z85.51 Personal history of malignant neoplasm of bladder; N32.81 Overactive bladder; Z13.9 Encounter for screening, unspecified
CPT/HCPCS: 52000; 99213

== ENCOUNTER 2025-07-20 12:06 | Outpatient (REF) | payer MEDICARE, SELFPAY ==
--- OUTSIDE RECORDS SUMMARY | 2025-07-20 14:47 | XMS_ITS | Patient Health Record ---
Author Organization [facility] Address [address] [place] [address] Care Team Providers Care Gang Hemstitching Machine Operator Name Role Phone Rock Teran MD Primary Care Provider Sony Cheung Unavailable [phone] Allergies Allergen (clinical drug ingredient) Drug/Non Drug [...] Status W/U Status Risk Notes Problem Onychomycosis (793672850) Onychomycosis (110.1) Active confirmed Problem Pain in limb (82280724) Pain in Limb (729.5) Active confirmed Problem Congenital pes planus (97272345) Flat Foot, Congenital (754.61) Active confirmed Problem Neurologic disorder associated with type II diabetes mellitus (055536736) Diabetic - NIDDM/Neuropathy (250.60) Active confirmed Problem Ingrowing nail (455215799) Ingrowing Nail (703.0) Active confirmed Plan Of Treatment Pending Test Test Name Order Date Glucose Fasting 12/28/2014 [id number] NAIL, 6 OR MORE 12/28/2014 [id number] SKIN LESIONS, OVER 4 12/29/19 15 Insurance Providers Payer Name Payer Address Payer Phone Subscriber Number Group Number Insured Name Patient Relationship to Insured Coverage Start Date Coverage End Date [facility] [address] [place] [phone] [id number] Sudha Lyman Self - patient is the insured Medical (General) History Medical History History ICD Code Back,Hip,and Knee pain Diabetic Fibromyalgia Gall bladder problems Menieres disease Measles Mumps Chicken pox Surgical History Surgery Date(Month/Year) tonsillectomy 1961 cystostofy 1964 gall bladder removed 1990 tubal ligation 1991 brain fluid 1994 brain shunt 1999 adenoid removal 2005 colonoscopy 2006, 11/19/11 gastric bypass 04/20/14 sweat glands 05/17/11 Hospitalization History Reason Date(Month/Year) Weight loss surgery 04/19
--- OUTSIDE RECORDS SUMMARY | 2025-07-20 14:47 | XMS_ITS | Clinical Summary ---
Author Organization [facility] [place] [address] Care Team Providers Care Business Analyst Project Manager Name Role Phone Gregory Gaming MD Primary [...] COMMENT: Moderate, 04/24/2011 Polysomnogram, Total Sleep at [facility] History of stomach ulcers 04/22/2019 DX:His tory of stomach ulcers; COMMENT: Stomach pouch-Ulcer 02/23/2015 Type 2 diabetes mellitus wit hout complication 08/01/2018 DX:Type 2 diabetes mellitus without complication (HCC) Hypercholesteremia 04/22/2019 DX:Hyperchole steremia Tinnitus 04/22/2019 DX:Tinnitus; COM MENT: Since childhood. [facility] 04/2013 Vertigo 04/22/2019 DX:Vertigo; COMM ENT: Dr. Shearer 02/2013 History of brain shunt 04/22/2019 DX:Histor y of brain shunt; COMMENT: FRONT OFFICE SPEC shunt, R hemisphere. Hx of L skull base injury 1974. [facility] note 04/29/2013 Meniere's disease [...] Health Maintenance Due Date Last Done Comments Colorectal Cancer Screening: Colonoscopy 1955 DTaP,Tdap,and Td Vaccines (1 - Tdap) 1975 Pneumococcal Vaccine: 50+ Years (1 of 1 - PCV) 2006 Zoster Vaccines (1 of 2) 2006 Breast Cancer Screening 04/15/2022 04/15/20 20, 01/12/2019, 01/08/2018 Cholesterol Screening (Lipid Panel) 09/08/2022 Falls Risk Assessment 09/08/2022 Hepatitis C [...] Recently Relevant to Health Maintenance Results * [facility] SCREENING DIGITAL (04/15/2020 5:06 PM EDT) Anatomical Region Laterality Modality Mammography 04/15/2020 3:31 PM EDT Narrative 04/15/2020 5:06 PM EDT [facility] Diagnostic Imaging Department [address] [place] [address] Patient: MACIEL RAZO Chevy Hawley/Age/Sex: 1955 - 65 - F Unit#: [id number] Location/Status: [facility] CLI Mnemonic/Ordering Site: [facility] Ordering Physician: ARIADNE STEELE BREAKER MECHANIC [facility] Screening Digital - 04/15/20 - 1548 EXAM: [facility] Screening Digital EXAM DATE AND TIME: 04/15/2020 3:49 PM HISTORY: Screening. COMPARISON: 09/06/15, 08/20/14, 08/27/13 TECHNIQUE: CC and MLO views of both breasts were obtained using full field digital mammography. Bilateral digital breast tomosynthesis was performed in the MLO projection. Computer aided detection with the [employer] 7.2-H was employed. TISSUE DENSITY: b. There [...] Routine screening mammogram BILATERAL in 1 year. 96911, 67188 3342F, 7025F Dictating Physician: NELLY LOYD MD Electronically Signed by: NELLY LOYD MD Dic Date/Time: 04/15/201703 Sign date/Time: 04/15/201705 Procedure Note Nelly Loyd MD - 09/26/2022 [facility] Diagnostic Imaging Department [address] [place] [address] Patient: MACIEL RAZO Chevy Wilson/Age/Sex: 1955 - 65 - F Unit#: [id number] Location/Status: [facility] CLI Mnemonic/Ordering Site: [facility] Ordering Physician: ARIADNE STEELE BREAKER MECHANIC [facility] Screening Digital - 04/15/20 - 1548 EXAM: [facility] Screening Digital EXAM DATE AND TIME: 04/15/2020 3:49 PM HISTORY: Screening. COMPARISON: 09/06/15, 08/20/14, 08/27/13 TECHNIQUE: CC and MLO views of both breasts were obtained using fullfield digital mammography. Bilateral digital breast tomosynthesis was performedin the MLO projection. Computer aided detection with the [employer] employed. TISSUE DENSITY: b. There are scattered [...] Routine screening mammogram BILATERAL in 1 year. 05785, 65636 3342F, 7025F Dictating Physician: NELLY LOYD MD Electronically Signed by: NELLY LOYD MD Dic Date/Time: 04/15/20 1704 Sign date/Time: 04/15/20 170 us Ariadne Steele BREAKER MECHANIC IMG BI PROCEDURES Final Res ult from Last 3 Months or Most Recently Relevant to Health Maintenance Care Teams Business Analyst Project Manager Relationship Specialty Start Date End Date Gregory Gaming MD [address] [place] [address] [address] MIKI Hollingsworth PCP - General Internal Medicine 07/13/22
--- OUTSIDE RECORDS SUMMARY | 2025-07-20 14:47 | XMS_ITS | Clinical Summary ---
Author Organization [facility] Address [address] [place] [address] Care Team Providers Care Marinator Name Role Phone Gregory Gaming MD Primary Care Provider [phone] Allergies Active Allergy Reactions Criticality Noted Date [...] age to complete this topic Care Teams Marinator Relationship Specialty Start Date End Date Gregory Gaming MD [address] [place] [address] [place] [address] PCP - General Internal Medicine 07/13/22
== END 2025-07-20 12:07 | disposition home or self-care (01) ==
LOC: HO.MAMMO 12:06
PROVIDERS: PCP Internal Medicine; Visit Provider Internal Medicine
DX: Z12.31 Encounter for screening mammogram for malignant neoplasm of breast (principal)
CPT/HCPCS: 77063; 77067

== ENCOUNTER 2025-07-20 12:45 | Outpatient (AMB) | payer MEDICARE, SELFPAY ==
[2025-07-20 12:48] VITALS: BP 130/82; PULSE 97; O2SAT 97; BMI 28.2
--- NOTE | 2025-07-20 12:48 | MHC.PC.OV ---
Vital Signs 07/20/25 12:48 Height 5 ft 2 in Weight 154 lb BMI 28.2 BP 130/82 Blood Pressure Location Lt brachial Position Sitting Pulse 97 Pulse Source Pulse Oximeter Pulse Oximetry (%) 97 Oxygen Delivery Method Room Air Intake Visit Reasons: Reschedule HLD/Lumbar pain - see comments Ob/Gyn Required: No Accompanied by: Self / Same As Patient Allergies aspartame Allergy (Severe, Verified 07/25/25 22:17) severe dehydration cyclobenzaprine (From Flexeril) Allergy (Severe, Verified 07/25/25 22:17) SOB nickel Adverse Reaction (Verified 07/25/25 22:17) Blister Medication List - Last Reconciled 07/25/25 by Gregory Gaming MD alendronate 70 mg PO QWEEK back brace As directed calcium carbonate-vitamin D3 600 mg-20 mcg (800 unit) (Caltrate plus D) 1 tab PO BID celecoxib 200 mg PO DAILY 90 days cholecalciferol (vitamin D3) 50 mcg PO DAILY 90 days Donut pillow As directed duloxetine 30 mg PO BID fluticasone propionate 50 mcg/actuation 1 spray intranasal BID mecobalamin (vitamin B12) 1,000 mcg sublingual DAILY multivitamin 1 tab PO DAILY omeprazole magnesium (Prilosec OTC) 20 mg PO BEDTIME 30 days pregabalin 50 mg PO TID 30 days pyridoxine (vitamin B6) 100 mg PO DAILY [shower head As directed] trazodone 100 mg PO BEDTIME PRN 30 days Tobacco use date assessed: 07/20/25 Fall risk assessment: 1 Fall in past year Last assessed Fall Risk: 07/20/25 Dental Screening Dental Screen Date: 07/20/25 Did you have a dental visit in the last 12 months?: Yes Did you have a dental problem in the last 6 months where you did not have access to dental care?: No Was dental information given to patient?: Patient has dentist HPI Reschedule HLD/Lumbar pain - see comments HPI Details Patient comes in today for her follow up visit - was last seen by me almost a year ago in August 2024 States that she feels okay She denies any headaches or dizziness Denies any chest pains, no increased shortness of breath No nausea/vomiting, no abdominal pain No change in bowel habits noted States that her chronic low back pain remains adequately controlled on her current medications and would like to get her prescription for Celebrex refilled She does not have any follow-up labs done recently [facility] Medical History Diverticulosis Constipation Sleep apnea Abscess Bladder cancer Obesity (BMI 30-39.9) Traylor's palsy Neuropathy GERD without esophagitis Chronic neck pain Scoliosis of thoracolumbar spine Arthritis Back pain Hx of spinal stenosis Peptic ulcer Fibromyalgia Hydrocephalus in adult History of traumatic head injury Nephrolithiasis Surgical History Hx of cystoscopy History of cervical spinal surgery History of adenoidectomy Hx of lithotripsy Hx of tubal ligation Hx of excision of lamina of cervical vertebra for decompression of spinal cord Hx of cholecystectomy H/O colonoscopy Hx of gastric bypass ACCOUNTS PAYABLE COORDINATOR (ventriculoperitoneal) shunt status Family History Father Cancer Mother Stroke Brother No problems noted. Brother No problems noted. Sister No problems noted. Son No problems noted. Daughter No problems noted. Paternal Grandmother Colon cancer Social History Housing: Assisted Living Facility Are you a primary child care attendant to a significant other at home: No Do you presently have visiting nurse or other home services: No Alcohol intake: never Patient Tobacco Use Status: Former Tobacco user Tobacco use type: Cigarette e-Cigarette/Vaping Use: Never Used Second Hand Smoke Exposure: Yes Advance Directives Date on File: 06/04/23 service: No Current occupational status: retired and disabled Cognitive needs: Yes (cane) Hearing needs: Yes (hearing aide) Vision needs: Yes (glasses) Female Reproductive History Menstrual Age of Menarche: 15 Questionnaire PHQ-9 Over the last 2 weeks, how often have you been bothered by any of the following problems? Depression Screening Interpretation: Negative Depression Screening Done: Yes Source: Developed by Drs. Moe Arnold, Vernell Martinez, Skyler Moyer and colleagues, with an educational kindra from [employer]. Thrive Questionnaire Date Thrive assessed: 07/06/25 I am a: Patient What is your living situation today?: I have a steady place to live Within the past 12 months, did the food you bought not last and you didn't have the money to get more?: Never true Within the past 12 months, did you worry whether your food would run out before you got money to buy more?: Never true Do you have trouble paying for medicines?: No Do you have trouble getting transportation to medical appointments?: No Do you have trouble paying your heating and electricity bill?: No Do you have trouble taking care of your child, family member or friend?: No Do you have trouble with day-to-day activities such as bathing, preparing meals, shopping, managing finances, etc.?: Yes Are you currently unemployed and looking for a job?: No Are you interested in more education?: No Please select the resources that you would like help with: None Currently or been in a relationship where the following occur: I choose not to answer THRIVE Score: 0 AUDIT C Alcohol Use Questionnaire (AUDIT-C) 1. How often do you have a drink containing alcohol?: Never 3. How often do you have six or more drinks on one occasion?: Never Total Score: 0 Score Reviewed/Action Taken: Yes ALEX-7 AMB Questionnaire ALEX-7 Date ALEX - 7 assessed: 12/17/24 Source: Developed by Drs. Moe Arnold, Vernell Martinez, Skyler Moyer and colleagues, with an educational kindra from [employer]. Review of Systems Const Denies chills, Reports fatigue, Denies fever(s) and Denies headache(s) ENT Denies dysphagia, Denies dizziness, Denies otalgia, Denies headache(s), Reports neck pain (chronic), Denies odynophagia and Denies sore throat Card Denies chest pain, Denies palpitations and Denies dyspnea Resp Denies cough and Denies dyspnea GI Denies abdominal pain, Denies constipation, Denies dysphagia, Denies heartburn, Denies diarrhea, Denies nausea, Denies odynophagia and Denies vomiting Denies hematuria, Denies difficulty voiding, Denies nocturia, Denies dysuria and Reports urinary urgency (at times) Musc Reports back pain (over the lower back - chronic) and Reports neck pain (chronic) Skin/Breast Denies rash Neuro Denies dizziness and Denies headache(s) Endo Reports fatigue and Denies palpitations Physical exam (Primary Care) Vital Signs: Last Vital Signs Pulse 97 07/20/25 12:48 BP 130/82 07/20/25 12:48 Pulse Ox 97 07/20/25 12:48 Oxygen Delivery Method Room Air 07/20/25 12:48 BMI result Body Mass Index 28.2 Tobacco/Smoking Status: Tobacco use Status Tobacco use date assessed 07/20/25 07/20/25 12:51 Patient Tobacco Use Status Former Tobacco user 07/20/25 12:51 Tobacco use type Cigarette 07/20/25 12:51 e-Cigarette/Vaping Use Never Used 07/20/25 12:51 Depression Screening Interpretation: Negative Thrive Assessment: Date of Thrive Assessment Date Thrive assessed 07/06/25 07/20/25 12:51 Currently or been in a relationship where the following occur: I choose not to answer Const General: no acute distress and alert Limitations: ambulation with walker HENMT Ears: TM's normal bilaterally and EAC's normal Throat: Yes posterior oropharynx normal and Yes tonsils normal (no TP congestion) Neck Neck: Yes no lymphadenopathy Thyroid: Thyroid normal Resp Auscultation: clear to auscultation bilaterally, no rales and no wheezes Cardio Rate: regular rate Rhythm: regular rhythm Heart sounds: no murmurs GI Palpation (GI): Soft to palpation and nontender Auscultation: normal bowel sounds General: Yes no CVA tenderness Back/Spine/Pelvis Back: no CVA tenderness Cervical Spine: Cervical spine tenderness Thoracic/Lumbar Spine: lumbar spinal tenderness Skin Rashes: no rashes Extrem General: Yes no clubbing, cyanosis or edema Coding Level of Care Code Est Pt Level 4 (48038) Diagnoses Lumbar spondylosis M47.816 Chronic neck pain M54.2; G89.29 Malignant neoplasm of urinary bladder, unspecified site C67.9 Bladder location: unspecified site Scoliosis of thoracolumbar spine, unspecified scoliosis type M41.9 Scoliosis type: unspecified scoliosis Mixed hypercholesterolemia and hypertriglyceridemia E78.2 Fibromyalgia M79.7 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 Assessment & Plan Assessment & Plan (1) Lumbar spondylosis: Code(s): M47.816 - Spondylosis without myelopathy or radiculopathy, lumbar region Category: Medical Plan: Reinforced activity and weight-lifting restrictions Continue Gabapentin 300 mg TID Follow up with pain management as scheduled Due to her increasing low back pain lately, she was referred to neurosurgery for further evaluation and management She was seen by Dr. Sy in late 2023 and was advised that due to her comrbidities, she is not a good surgical candidate (2) Chronic neck pain: Comment: S/P TBI and whiplash injury in the early ; Tx w/fluid drainage in 1993 & ACCOUNTS PAYABLE COORDINATOR shunt in 1998 Code(s): M54.2 - Cervicalgia; G89.29 - Other chronic pain Category: Medical Plan: Patient continues to experience chronic neck pain - was reportedly advised by neurosurgery a couple of years ago that there is nothing else to offer her in terms of surgical Tx or management Cervical spine MRI done in 09/2024 revealed (+) moderate to advanced multilevel degenerative spondyloarthropathy of the cervical spine as described in detail above. Most notably, there is mild spinal canal stenosis at C5-C6. Moderate to severe neural foraminal stenoses from C3-C6. Chronic mild deformity of the upper cervical spinal cord at the level of C1-C2. Chronic myelomalacia within the spinal cord at the level of C4-C5 Follow up with pain management as scheduled (3) Bladder cancer: Code(s): C67.9 - Malignant neoplasm of bladder, unspecified Category: Medical Qualifiers: Bladder location: unspecified site Qualified Code(s): C67.9 - Malignant neoplasm of bladder, unspecified Plan: S/P repeat cystoscopy and biopsy with fulguration and intravesical Gemcitabine instillation on 08/06/2022, after cystoscopy done in 06/2022 revealed a poorly healing area with some evidence of superficial recurrence of bladder cancer on the right side bladder wall She is also S/P immunotherapy She had repeat cystoscopy done for surveillance most recently in November 2023 - procedure was negative Follow up with urology as scheduled for continuing surveillance (4) Scoliosis of thoracolumbar spine: Code(s): M41.9 - Scoliosis, unspecified Category: Medical Qualifiers: Scoliosis type: unspecified scoliosis Qualified Code(s): M41.9 - Scoliosis, unspecified Plan: Continue Celebrex 200 mg QD PRN (Rx refilled) - she used to take Naproxen in the past (5) Mixed hypercholesterolemia and hypertriglyceridemia: Code(s): E78.2 - Mixed hyperlipidemia Category: Medical Plan: Reinforced low-cholesterol diet She is reminded that her cholesterol levels were elevated when they were last checked almost a year ago in August 2024 Will send patient for follow-up labs and recheck her fasting lipids as well DEE (6) Fibromyalgia: Code(s): M79.7 - Fibromyalgia Category: Medical Plan: Continue Pregabalin 50 mg TID Follow up with [facility] as scheduled (7) Hydrocephalus: Code(s): G91.9 - Hydrocephalus, unspecified Category: Medical Qualifiers: Hydrocephalus type: post-traumatic Qualified Code(s): G91.3 - Post-traumatic hydrocephalus, unspecified Plan: S/P ACCOUNTS PAYABLE COORDINATOR shunting Follow up with neurology (Dr. Melendrez) as scheduled (8) Osteoporosis: Code(s): M81.0 - Age-related osteoporosis without current pathological fracture Category: Medical Qualifiers: Osteoporosis type: age-related Presence of current pathological fracture: without current pathological fracture Qualified Code(s): M81.0 - Age-related osteoporosis without current pathological fracture Plan: Her repeat BMD done on 06/23/2024 revealed (+) osteopenia based on the lowest T-score value of -2.1 in the femoral neck - she apparently had a 12% improvement in her BMD in the left femur and a 5.1% increase in BMD in the AP spine from her BMD done back in 06/2022, which represented her baseline exam as she has no other BMD available to compare it with Continue Alendronate 70 mg once a week Continue Caltrate 600 plus D BID Fall precautions reinforced Will continue to monitor her BMD regularly (9) GERD without esophagitis: Code(s): K21.9 - Gastro-esophageal reflux disease without esophagitis Category: Medical Plan: Dietary restrictions reinforced Continue Omeprazole 20 mg QD PRN (10) Constipation: Code(s): K59.00 - Constipation, unspecified Category: Medical Qualifiers: Constipation type: unspecified constipation type Qualified Code(s): K59.00 - Constipation, unspecified Plan: Reinforced increased oral fluids and dietary fiber Continue Miralax 17 gm QD (11) Renal calculi: Code(s): N20.0 - Calculus of kidney Category: Medical Plan: Follow up with urology as scheduled (12) Overactive bladder: Code(s): N32.81 - Overactive bladder Category: Medical Plan: Continue Myrbetriq ER 25 mg QD Follow up with urology as scheduled (13) Insomnia: Code(s): G47.00 - Insomnia, unspecified Category: Medical Qualifiers: Insomnia type: unspecified Qualified Code(s): G47.00 - Insomnia, unspecified Plan: Reinforced sleep hygiene Continue Trazodone 100 mg Q HS PRN (14) Obesity (BMI 30-39.9): Code(s): E66.9 - Obesity, unspecified Category: Medical Plan: Reinforced diet/lose weight; exercise is not realistic given her chronic pain - states that her activity tolerance is very limited Plan Follow-up in 4 months Orders: Orders Complete Blood Count Auto Diff 07/21/25 D64.9 - Anemia, unspecified TSH reflex Free T4 07/21/25 E78.00 - Pure hypercholesterolemia, unspecified XR hand LT min 3V 07/21/25 M79.642 - Pain in left hand Comprehensive [place]. Panel Fast 07/21/25 E78.00 - Pure hypercholesterolemia, unspecified Lipid Panel 07/21/25 E78.00 - Pure hypercholesterolemia, unspecified UA CC w/rflx Micro + Cult 07/21/25 R30.0 - Dysuria Vitamin D 25-OH Total 07/21/25 E55.9 - Vitamin D deficiency, unspecified Vitamin B12 and Folate 07/21/25 E53.8 - Deficiency of other specified B group vitamins Medications: Changed From celecoxib Take with food 200 mg PO DAILY 30 days 30 caps 2RF increased low back pain To celecoxib Take with food 200 mg PO DAILY 90 caps 1RF increased low back pain 90 days
== END 2025-07-20 14:04 | disposition home or self-care (01) ==
LOC: HO.HMCH 12:45
PROVIDERS: PCP Internal Medicine; Visit Provider Internal Medicine
DX: M47.816 Spondylosis without myelopathy or radiculopathy, lumbar region (principal); M54.2 Cervicalgia; G89.29 Other chronic pain; C67.9 Malignant neoplasm of bladder, unspecified; M41.9 Scoliosis, unspecified; E78.2 Mixed hyperlipidemia; M79.7 Fibromyalgia; G91.3 Post-traumatic hydrocephalus, unspecified; M81.0 Age-related osteoporosis without current pathological fracture; K21.9 Gastro-esophageal reflux disease without esophagitis; K59.00 Constipation, unspecified; N20.0 Calculus of kidney; N32.81 Overactive bladder; G47.00 Insomnia, unspecified; E66.9 Obesity, unspecified

== ENCOUNTER → 2025-07-20 12:45 | Outpatient (BNV) | payer MEDICARE, SELFPAY | PROVIDERS: PCP Internal Medicine; Visit Provider Radiology Body Imaging | DX: Z12.31 Encounter for screening mammogram for malignant neoplasm of breast (principal) | CPT/HCPCS: 77063; 77067 ==

== ENCOUNTER 2025-07-21 07:38 | Outpatient (REF) | payer MEDICARE, SELFPAY ==
--- NOTE | ~2025-07-21 | XR_ITS ---
EXAMINATION: XR HAND, LEFT CLINICAL INFORMATION: M79.642 - Pain in left hand COMPARISON: None available. TECHNIQUE: PA, lateral, and oblique views of the left hand. FINDINGS: Bone mineralization is decreased. No evidence of acute fracture or dislocation. Severe first CMC arthritis. Mild narrowing of some of the IP and DIP joints. No erosions. No abnormal soft tissue calcification. No radiopaque foreign body or air is seen. XR/XR hand LT min 3V IMPRESSION: Multifocal arthritis. Severe first CMC arthritis. Electronically signed by: Mason Mccormack MD 07/21/2025 08:20 AM EDT
--- OUTSIDE RECORDS SUMMARY | 2025-07-21 07:42 | XMS_ITS | Clinical Summary ---
Author Organization [employer] [facility] it Address [address] [place] [address] Care Team Providers Care Perch Machine Inspector Name Role Phone Gregory Gaming MD Primary Care Provider [phone] Surgical History Surgery Date Site/Laterality Comments TONSILLECTOMY 1960 PROCEDURE: HISTORICAL TONSILLECTOMY CYSTOSCOPY 1963 PROCEDURE: MO CYSTOURETHROSCOPY BLADDER SURGERY 1990 PROCEDURE: HISTORICAL BLADDER SURGERY TUBAL LIGATION 1991 PROCEDURE: HISTORICAL TUBAL LIGATION OTHER SURGICAL HISTORY 1994 and 1999 PROCEDURE: MO VENTRICULOCISTERNOSTOMY; COMMENT: ? excessive CSF COLONOSCOPY 2011 [...] COMMENT: Moderate, 04/24/2011 Polysomnogram, Total Sleep at [facility] History of stomach ulcers 04/22/2019 DX:His tory of stomach ulcers; COMMENT: Stomach pouch-Ulcer 02/23/2015 Type 2 diabetes mellitus wit hout complication 08/01/2018 DX:Type 2 diabetes mellitus without complication (HCC) Hypercholesteremia 04/22/2019 DX:Hyperchole steremia Tinnitus 04/22/2019 DX:Tinnitus; COM MENT: Since childhood. [facility] 04/2013 Vertigo 04/22/2019 DX:Vertigo; COMM ENT: Dr. 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 Hx of L skull base injury 1974. [facility] note 04/29/2013 Meniere's disease [...] Recently Relevant to Health Maintenance Results * [facility] SCREENING DIGITAL (04/15/2020 5:06 PM EDT) Anatomical Region Laterality Modality Mammography 04/15/2020 3:31 PM EDT Narrative 04/15/2020 5:[address] [facility] Diagnostic Imaging Department [address] [place] [address] Patient: MACIEL RAZO Chevy Hawley/Age/Sex: 1955 - 65 - F Unit#: [id number] Location/Status: [facility] CLI Mnemonic/Ordering Site: [facility] Ordering Physician: ARIADNE STEELE HARDWARE TRAINER [facility] Screening Digital - 04/15/20 - 1548 EXAM: [facility] Screening Digital EXAM DATE AND TIME: 04/15/2020 3:49 PM HISTORY: Screening. COMPARISON: 09/06/15, 08/20/14, 08/27/13 TECHNIQUE: CC and MLO views of both breasts were obtained using full field digital mammography. Bilateral digital breast tomosynthesis was performed in the MLO projection. Computer aided detection with the [employer] 7.2-H was employed. TISSUE DENSITY: b. There [...] Routine screening mammogram BILATERAL in 1 year. 91699, 55180 3342F, 7025F Dictating Physician: NELLY LOYD MD Electronically Signed by: NELLY LOYD MD Dic Date/Time: 04/15/201703 Sign date/Time: 04/15/201705 Procedure Note Nelly Loyd MD - 09/26/2022 [facility] Diagnostic Imaging Department [address] [place] [address] Patient: MACIEL RAZO Chevy Wilson/Age/Sex: 1955 - 65 - F Unit#: [id number] Location/Status: [facility] CLI Mnemonic/Ordering Site: [facility] Ordering Physician: ARIADNE STEELE HARDWARE TRAINER [facility] Screening Digital - 04/15/20 - 1548 EXAM: [facility] Screening Digital EXAM DATE AND TIME: 04/15/2020 3:49 PM HISTORY: Screening. COMPARISON: 09/06/15, 08/20/14, 08/27/13 TECHNIQUE: CC and MLO views of both breasts were obtained using fullfield digital mammography. Bilateral digital breast tomosynthesis was performedin the MLO projection. Computer aided detection with the [employer] employed. TISSUE DENSITY: b. There are scattered [...] Routine screening mammogram BILATERAL in 1 year. 29744, 05889 3342F, 7025F Dictating Physician: NELLY LOYD MD Electronically Signed by: NELLY LOYD MD Dic Date/Time: 04/15/20 1704 Sign date/Time: 04/15/20 170 us Ariadne Steele HARDWARE TRAINER IMG BI PROCEDURES Final Res ult from Last 3 Months or Most Recently Relevant to Health Maintenance Care Teams Perch Machine Inspector Relationship Specialty Start Date End Date Gregory Gaming MD [address] [place] [address] [address] MIKI Hollingsworth PCP - General Internal Medicine 07/13/22
--- OUTSIDE RECORDS SUMMARY | 2025-07-21 07:42 | XMS_ITS | Clinical Summary ---
Author Organization [facility] Address [address] [place] [address] Care Team Providers Care Reeling Machine Operator Name Role Phone Gregory Gaming MD Primary Care Provider [phone] Allergies Active Allergy Reactions Criticality Noted Date [...] age to complete this topic Care Teams Reeling Machine Operator Relationship Specialty Start Date End Date Gregory Gaming MD [address] [place] [address] [place] [address] PCP - General Internal Medicine 07/13/22
--- OUTSIDE RECORDS SUMMARY | 2025-07-21 07:42 | XMS_ITS | Patient Health Record ---
Author Organization [facility] Address [address] [place] [address] Care Team Providers Care Solar Systems Designer Name Role Phone Rock Teran MD Primary Care Provider Sony Cheung Unavailable [phone] Allergies Allergen (clinical drug ingredient) Drug/Non Drug [...] Status W/U Status Risk Notes Problem Onychomycosis (725145337) Onychomycosis (110.1) Active confirmed Problem Pain in limb (01603148) Pain in Limb (729.5) Active confirmed Problem Congenital pes planus (79615543) Flat Foot, Congenital (754.61) Active confirmed Problem Neurologic disorder associated with type II diabetes mellitus (067435851) Diabetic - NIDDM/Neuropathy (250.60) Active confirmed Problem Ingrowing nail (268974196) Ingrowing Nail (703.0) Active confirmed Plan Of Treatment Pending Test Test Name Order Date Glucose Fasting 12/28/2014 [id number] NAIL, 6 OR MORE 12/28/2014 [id number] SKIN LESIONS, OVER 4 12/29/19 15 Insurance Providers Payer Name Payer Address Payer Phone Subscriber Number Group Number Insured Name Patient Relationship to Insured Coverage Start Date Coverage End Date [facility] [address] [place] [phone] [id number] Sudha Lyman Self - patient is the [...]
[2025-07-21 07:55] LABS: MANUAL DIFF FLAG NO
[2025-07-21 08:18] LABS: Red Blood Count 4.67 X10*6/uL (4.20-5.50); White Blood Count 9.4 X10*3/uL (4.8-10.8)
[2025-07-21 08:19] LABS: Hematocrit 43.9 % (37.0-47.0); Hemoglobin 14.3 g/dl (12.0-16.0); Imm Gran Abs Auto 0.06 X10*3/uL (0.00-0.03); Imm Gran Pct Auto 0.6 % (0.0-0.4); Lymphocytes Absolute Auto 3.1 X10*3/uL (1.2-4.9); Mean Corpuscular HGB Conc 32.6 g/dl (31.0-35.0); Mean Corpuscular Hemoglobin 30.6 pg (27.0-33.0); Mean Corpuscular Volume 94.0 fL (80.0-98.0); NRBC Abs Auto 0.000 X10*3/uL (0.0-0.012); NRBC Pct Auto 0.0 /100WBC (0.0-0.2); Platelet Count 421 X10*3/uL (160-400)
[2025-07-21 08:28] LABS: Appearance Urine Cloudy; Glucose Urine UA Negative (Negative); PH 5.5 (5.0-9.0); Specific Gravity - Urine 1.015 (1.005-1.025); UMIC TRIGGER UACC YES
[2025-07-21 08:30] LABS: UACC Culture Trigger YES
[2025-07-21 09:22] LABS: Alanine Aminotransferase 10 U/L (0-31); Albumin Level 4.2 g/dL (3.5-5.0); Alkaline Phosphatase 58 U/L (39-117); Anion Gap 17 (12-20); Aspartate Amino Transferase 16 U/L (5-31); Blood Urea Nitrogen 7 mg/dL (9-16); Calcium 9.7 mg/dL (8.4-10.2); Carbon Dioxide 23 mmol/L (22-29); Chloride 109 mmol/L (96-108); Cholesterol 215 mg/dL (<200); Estimated Glomerular Filt Rate > 60; HDL Cholesterol 55 mg/dL (>40); Potassium 4.2 mmol/L (3.3-5.1); Sodium 145 mmol/L (135-145); Total Protein 7.0 g/dL (6.5-8.0); Triglycerides 168 mg/dL (<150)
[2025-07-21 09:36] LABS: Folate 17.1 ng/mL (> or = 4.0); Vitamin B12 564 pg/mL (200-900)
== END 2025-07-21 07:39 | disposition home or self-care (01) ==
LOC: HO.LAB 07:38
PROVIDERS: PCP Internal Medicine; Visit Provider Internal Medicine
DX: M79.642 Pain in left hand (principal); E55.9 Vitamin D deficiency, unspecified; E53.8 Deficiency of other specified B group vitamins; R30.0 Dysuria; E78.00 Pure hypercholesterolemia, unspecified; D64.9 Anemia, unspecified
CPT/HCPCS: 36415; 73130; 80053; 80061; 81001; 82306; 82607; 82746; 84443; 85025; 87086

== ENCOUNTER → 2025-07-21 08:00 | Outpatient (BNV) | payer MEDICARE, SELFPAY | PROVIDERS: PCP Internal Medicine; Visit Provider Radiology Diagnostic Ultrasound | DX: M18.12 Unilateral primary osteoarthritis of first carpometacarpal joint, left hand (principal) | CPT/HCPCS: 73130 ==

== ENCOUNTER 2025-09-21 12:34 | Outpatient (AMB) | payer MEDICARE, SELFPAY ==
--- NOTE | 2025-09-21 13:06 | A.OFFVIS_ITS ---
Vital Signs 09/21/25 13:08 Height 5 ft 2 in Weight 154 lb BMI 28.2 Intake Visit Reasons: AQUACULTURIST- Left hand Contracture Intake Note: Sudha is a 70 year old right hand dominant female who presents today with complaints of Left Hand Contracture. Patient reports that she has had contracture of the left Small and Ring Fingers, she explains that this has been progressively worsening since the begining of 2024. At the beginning of this month is when she was unable to extend the fingers at all. She explains that she has some numbness and pain in the ulnar aspect of the left hand. Allergies aspartame Allergy (Severe, Verified 09/21/25 13:12) severe dehydration cyclobenzaprine (From Flexeril) Allergy (Severe, Verified 09/21/25 13:12) SOB nickel Adverse Reaction (Verified 09/21/25 13:12) Blister HPI HPI AQUACULTURIST- Left hand Contracture: Details: Sudha is a 70 year old right hand dominant woman who presents with complaints of left hand contracture. She complains of painful contractures of her left ring & small fingers, which she says has been worsening for the last few months. She is unable to get her fingers fully extended due to pain. She says she has been seen by sports medicine in the past, with limited relief. She claims that her insurance limited her from seeing an adoption specialist in the past. She has also been seen by Dr. Melendrez in the past, without any improvement in her symptoms She also complains of numbness in all her digits. She says this is intermittent but she has numbness right now. She has a Hx of Fibromyalgia [facility] Medical History Diverticulosis Constipation Sleep apnea Abscess Bladder cancer Obesity (BMI 30-39.9) Traylor's palsy Neuropathy GERD without esophagitis Chronic neck pain Scoliosis of thoracolumbar spine Arthritis Back pain Hx of spinal stenosis Peptic ulcer Fibromyalgia Hydrocephalus in adult History of traumatic head injury Nephrolithiasis Surgical History Hx of cystoscopy History of cervical spinal surgery History of adenoidectomy Hx of lithotripsy Hx of tubal ligation Hx of excision of lamina of cervical vertebra for decompression of spinal cord Hx of cholecystectomy H/O colonoscopy Hx of gastric bypass BAND MANAGER (ventriculoperitoneal) shunt status Family History Father Cancer Mother Stroke Brother No problems noted. Brother No problems noted. Sister No problems noted. Son No problems noted. Daughter No problems noted. Paternal Grandmother Colon cancer Social History Housing: Assisted Living Facility Are you a primary respiratory care program director to a significant other at home: No Do you presently have visiting nurse or other home services: No Alcohol intake: never Patient Tobacco Use Status: Former Tobacco user Tobacco use type: Cigarette e-Cigarette/Vaping Use: Never Used Second Hand Smoke Exposure: Yes Advance Directives Date on File: 06/04/23 service: No Current occupational status: retired and disabled Cognitive needs: Yes (cane) Hearing needs: Yes (hearing aide) Vision needs: Yes (glasses) Female Reproductive History Menstrual Age of Menarche: 15 Review of Systems Const All systems reviewed & are unremarkable except as noted in HPI and below Physical Exam Vital Signs: BMI result Body Mass Index 28.2 Const General: cooperative, healthy appearing and no acute distress Orientation/consciousness: patient oriented x3 HEENT Head: Yes normocephalic and Yes atraumatic Eyes EOM: EOMs intact bilaterally Resp Effort & Inspection: normal respiratory effort and able to speak in complete sentences Cardio Jugular venous distension: no JVD Skin General skin exam: turgor normal Rashes: no rashes Neuro General: patient oriented x3 Extrem Other: Evaluation of Left Upper Extremity: The patient is alert, oriented, and in no acute distress ROM: Initially her ring & small figners were closed into a tight fist, and she would not extend these secondary to pain We worked on ROM exercises today in clinic for 15+ minutes Before leaving clinic she could extend her ring & small finger MCP joints to ~70 degrees, PIP ~40 degrees, and DIP ~20 degrees These do not appear to be trigger fingers She has some hyperextension at the PIP joints She has some spasticity of the FDP & possibly FDS tendons of the small & ring figners Skin: No lacerations or abrasions. General: No Ecchymosis. No Erythema or evidence of infection. Radiographs: 3 views of the left hand from 10/15/25 were reviewed by me today in clinic. They show severe basal joint arthritis with joint space narrowing, subchondral sclerosis, and osteophyte formation. Psych Appearance: grossly normal Affect: normal affect Attitude: cooperative Assessment & Plan Assessment & Plan (1) Muscle spasm: Comment: L hand Code(s): M62.838 - Other muscle spasm Category: Medical (2) Muscle spasticity: Code(s): M62.838 - Other muscle spasm Category: Medical (3) Fibromyalgia: Code(s): M79.7 - Fibromyalgia Category: Medical (4) Contracture of hand: Code(s): M24.549 - Contracture, unspecified hand Category: Medical Plan Assessment & Plan: 1. Left hand stiffness Secondary to disuse 2. Left hand spasticity FDP and possibly FDS muscle bellies to the small and ring fingers We will contribute to contractures if not relieved 3. Left hand numbness In all digits Subjective numbness per patient I educated her about these conditions I discussed operative and non-operative treatment options. No operative indications at this time. I believe the hector here is to work to identify the etiology of this condition, and to proceed with splinting and OT to avoid developing fixed flexion contractures and then needing surgery. I ordered OT hand therapy to work on stretching, strengthening, and normalizing function OT hand therapy will also make her a custom hand splint which holds her ring & small fingers in some extension. OT can determine utilization schedule. She should work on ROM exercises I also referred her to Dr. Ball for assessment of her spasticity, and reported numbness. She should have an appointment within the next 4 weeks. She will follow up prn 4. Left basal joint arthritis Seen on radiographs, no complaints today Scribed for Aura Fuentes MD by Michael Villalobos medical technical writer, on 09/21/25 at 1:45 PM, EST. Orders: Orders OT Evaluation and Treatment Today M24.549 - Contracture, unspecified hand, M62.838 - Other muscle spasm Coding Level of Care Code New Pt Level 4 (03280) Diagnoses Muscle spasm M62.838 Muscle spasticity M62.838 Fibromyalgia M79.7 Contracture of hand M24.549
[2025-09-21 13:08] VITALS: BMI 28.2
--- OUTSIDE RECORDS SUMMARY | 2025-09-21 16:21 | XMS_ITS | Clinical Summary ---
Author Organization [employer] [facility] it Address [address] [place] [address] Care Team Providers Care Accounting Software Specialist Name Role Phone Gregory Gaming MD Primary Care Provider [phone] Surgical History Surgery Date Site/Laterality Comments TONSILLECTOMY 1960 PROCEDURE: HISTORICAL TONSILLECTOMY CYSTOSCOPY 1963 PROCEDURE: [place] CYSTOURETHROSCOPY BLADDER SURGERY 1990 PROCEDURE: HISTORICAL BLADDER SURGERY TUBAL LIGATION 1991 PROCEDURE: HISTORICAL TUBAL LIGATION OTHER SURGICAL HISTORY 1994 and 1999 PROCEDURE: TN VENTRICULOCISTERNOSTOMY; COMMENT: ? 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 Hx of L skull [...] Recently Relevant to Health Maintenance Results * [facility] SCREENING DIGITAL (04/15/2020 5:06 PM EDT) Anatomical Region Laterality Modality Mammography 04/15/2020 3:31 PM EDT Narrative 04/15/2020 5:06 PM EDT [facility] Diagnostic Imaging Department [address] [place] [address] Patient: MACIEL RAZO Chevy Hawley/Age/Sex: 1955 - 65 - F Unit#: [id number] Location/Status: [facility] CLI Mnemonic/Ordering Site: [facility] Ordering Physician: ARIADNE STEELE FORKLIFT WHEEL LOADER [facility] Screening Digital - 04/15/20 - 1548 EXAM: [facility] Screening Digital EXAM DATE AND TIME: 04/15/2020 3:49 PM HISTORY: Screening. COMPARISON: 09/06/15, 08/20/14, 08/27/13 TECHNIQUE: CC and MLO views of both breasts were obtained using full field digital mammography. Bilateral digital breast tomosynthesis was performed in the MLO projection. Computer aided detection with the [employer] 7.2-H was employed. TISSUE DENSITY: b. There [...] Routine screening mammogram BILATERAL in 1 year. 01225, 27546 3342F, 7025F Dictating Physician: NELLY LOYD MD Electronically Signed by: NELLY LOYD MD Dic Date/Time: 04/15/201703 Sign date/Time: 04/15/201705 Procedure Note Nelly Loyd MD - 09/26/2022 [facility] Diagnostic Imaging Department [address] [place] [address] Patient: DANNIMACIELO.B./Age/Sex: 1955 - 65 - F Unit#: [id number] [facility] [place] Ordering Physician: ARIADNE STEELE FORKLIFT WHEEL LOADER [facility] Screening Digital - 04/15/20 - 1548 EXAM: [facility] Screening Digital EXAM DATE AND TIME: 04/15/2020 3:49 PM HISTORY: Screening. COMPARISON: 09/06/15, 08/20/14, 08/27/13 TECHNIQUE: CC and MLO views of both breasts were obtained using fullfield digital mammography. Bilateral digital breast tomosynthesis was performedin the MLO projection. Computer aided detection with the [employer]as employed. TISSUE DENSITY: b. There are scattered [...] Routine screening mammogram BILATERAL in 1 year. 97309, 04762 3342F, 7025F Dictating Physician: NELLY LOYD MD Electronically Signed by: NELLY LOYD MD Dic Date/Time: 04/15/20 1704 Sign date/Time: 04/15/20 170 us Ariadne Steele FORKLIFT WHEEL LOADER IMG BI PROCEDURES Final Res ult from Last 3 Months or Most Recently Relevant to Health Maintenance Care Teams Accounting Software Specialist Relationship Specialty Start Date End Date Gregory Gaming MD [address] [place] [address] [address] [place] PCP - General Internal Medicine 07/13/22
--- OUTSIDE RECORDS SUMMARY | 2025-09-21 16:21 | XMS_ITS | Encounter Summary ---
Author Organization [employer] [facility] Prior to 08/07/[address] [place] [address] Care Team Providers Care Gum Remover Name Role Phone Yudith Medellin MD Primary Care Provider jose [facility], Pcp Primary Care Provider Unavailabl e Reason for Visit * Reason Comments E-prescribe Rx Request Encounter Details Date Type Department Care Team Description 11/13/2019 Refill Physiatry - [place] [address] [place] [address] Ramin Singh PA-C E-prescribe Rx Request Social [...] on filedocumented in this encounter Care Teams Gum Remover Relationship Specialty Start Date End Date Yudith Medellin MD PCP - General Internal Medicine 10/12/1912/27 [facility], Pcp PCP - General Internal Medicine 12/28/21 documented as of this encounter
--- OUTSIDE RECORDS SUMMARY | 2025-09-21 16:21 | XMS_ITS | Encounter Summary ---
Author Organization [employer] [facility] Prior to 08/07/[address] [place] [address] Care Team Providers Care Headlight Assembler Name Role Phone Carisa Velasco MD Primary Care Provider Yudith Miller MD [facility] Primary Care Provider [facility] e Encounter Details Date Type Department Care Team Description 10/16/2018 Orders Only Medical Records [address] [place] [address] Abstract, Provider Social History Tobacco Use Types [...] on filedocumented in this encounter Care Teams Headlight Assembler Relationship Specialty Start Date End Date Carisa Velasco MD PCP - General Internal Medicine 01/21/18 10/11/19 Yudith Medellin MD PCP - General Internal Medicine 10/12/1912/27 [facility], Pcp PCP - General Internal Medicine 12/28/21 documented as of this encounter
--- OUTSIDE RECORDS SUMMARY | 2025-09-21 16:21 | XMS_ITS | Encounter Summary ---
Author Organization [facility] Prior to 08/07/[address] [place] [address] Care Team Providers Care Batcher Operator Name Role Phone Carisa Velasco MD Primary Care Provider Yudith Miller MD [facility] Primary Care Provider Chip penaloza Encounter Details Date Type Department Care Team Description 09/22/2019 [facility] Medical Records [address] [place] [address] Abstract, Provider Social History Tobacco Use Types [...] on filedocumented in this encounter Care Teams Batcher Operator Relationship Specialty Start Date End Date Carisa Velasco MD PCP - General Internal Medicine 01/21/18 10/11/19 Yudith Medellin MD PCP - General Internal Medicine 10/12/1912/27 [facility], Pcp PCP - General Internal Medicine 12/28/21 documented as of this encounter
--- OUTSIDE RECORDS SUMMARY | 2025-09-21 16:21 | XMS_ITS | Encounter Summary ---
Author Organization [facility] Prior to 08/07/2024 Address [address] [place] [address] Care Team Providers Care Felt Cementer Name Role Phone Carisa Velasco MD Primary Care Provider Yudith Miller MD Primary Care Provider [facility], Pcp Primary Care Provider [facility] e Encounter Details Date Type Department Care Team Description 09/21/2019 Telephone Adult Medicine [address] [address] Yudith Medellin MD Social History Tobacco Use [...] on filedocumented in this encounter Care Teams Felt Cementer Relationship Specialty Start Date End Date Carisa Velasco MD PCP - General Internal Medicine 01/21/18 10/11/19 Yudith Medellin MD PCP - General Internal Medicine 10/12/1912/27 [facility], Pcp PCP - General Internal Medicine 12/28/21 documented as of this encounter
--- OUTSIDE RECORDS SUMMARY | 2025-09-21 16:21 | XMS_ITS | Encounter Summary ---
Author Organization [email or web address] [facility] Prior to 08/07/2024 Address [address] [place] [address] Care Team Providers Care Police Captain Name Role Phone Rock Teran MD Primary Care Provider Un available Carisa Velasco MD Primary Care Provider Yudith Miller MD Primary Care Provider [facility], Pcp Primary Care Provider Unavailabl e Encounter Details Date Type Department Care Team Description 06/12/2016 Release of Information Medical Records [address] [place] [address] Abstract, Provider Social History Tobacco Use Types [...] on filedocumented in this encounter Care Teams Police Captain Relationship Specialty Start Date End Date Rock Teran MD PCP - General Pediatrics 11/13/13 01/20/18 Carisa Velasco MD PCP - General Internal Medicine 01/21/18 10/11/19 Yudith Medellin MD PCP - General Internal Medicine 10/12/1912/27 [facility] PCP - General Internal Medicine 12/28/21 documented as of this encounter
--- OUTSIDE RECORDS SUMMARY | 2025-09-21 16:21 | XMS_ITS | Encounter Summary ---
Author Organization [employer] [facility] Prior to 08/07/[address] [place] [address] Care Team Providers Care Histology Manager Name Role Phone Rock Teran MD Primary Care Provider Un available Carisa Velasco MD Primary Care Provider Yudith Miller MD Primary Care Provider [facility], Pcp Primary Care Provider Unavailabl e Encounter Details Date Type Department Care Team Description 12/17/2017 Water Technician Report Medical Records [address] [place] [address] Carisa Velasco MD Social History Tobacco Use Types Packs/Day [...] on filedocumented in this encounter Care Teams Histology Manager Relationship Specialty Start Date End Date Rock Teran MD PCP - General Pediatrics 11/13/13 01/20/18 Carisa Velasco MD PCP - General Internal Medicine 01/21/18 10/11/19 Yudith Medellin MD PCP - General Internal Medicine 10/12/1912/27 [facility], Pcp PCP - General Internal Medicine 12/28/21 documented as of this encounter
--- OUTSIDE RECORDS SUMMARY | 2025-09-21 16:21 | XMS_ITS | Encounter Summary ---
Author Organization [facility] Prior to 08/07/[address] [place] [address] Care Team Providers Care Supervisor Film Processing Name Role Phone Yudith Medlelin MD Primary Care Provider jose [facility], Pcp Primary Care Provider Unavailabl e Reason for Visit * Reason Comments E-prescribe Rx Request Encounter Details Date Type Department Care Team Description 10/19/2019 Refill Physiatry - [address] [address] Ramin Singh PA-C E-prescribe Rx Request Social [...] Telephone Encounter - Yoanna Cosme M.A. - 10/19/2019 8:22 AM EST Last ov 09/22/19/ injection scheduled for today Last refill 08/27/19 Next ov 11/09/19 documented in this encounter Plan of Treatment Not on file documented as of this encounter Visit Diagnoses Not on filedocumented in this encounter Care Teams Supervisor Film Processing Relationship Specialty Start Date End Date Yudith Medellin MD PCP - General Internal Medicine 10/12/1912/27 [facility], Pcp PCP - General Internal Medicine 12/28/21 documented as of this encounter
--- OUTSIDE RECORDS SUMMARY | 2025-09-21 16:21 | XMS_ITS | Encounter Summary ---
Author Organization [facility] [facility] Prior to 08/07/[address] [place] [address] Care Team Providers Care Employment Office Clerk Name Role Phone Carisa Velasco MD Primary Care Provider Yudith Miller MD Primary Care Provider [facility], Pcp Primary Care Provider Chip penaloza Encounter Details Date Type Department Care Team Description 08/26/2019 Pharmacy Messenger Report Medical Records [address] [place] [address] Moe Restrepo MD Social History Tobacco Use Types Packs/Day [...] on filedocumented in this encounter Care Teams Employment Office Clerk Relationship Specialty Start Date End Date Carisa Velasco MD PCP - General Internal Medicine 01/21/18 10/11/19 Yudith Medellin MD PCP - General Internal Medicine 10/12/1912/27 [facility], Pcp PCP - General Internal Medicine 12/28/21 documented as of this encounter
--- OUTSIDE RECORDS SUMMARY | 2025-09-21 16:21 | XMS_ITS | Encounter Summary ---
Author Organization [facility] Prior to 08/07/2024 Address [address] [place] [address] Care Team Providers Care Bunch Maker Hand Name Role Phone Carisa Velasco MD Primary Care Provider Yudith Miller MD Primary Care Provider [facility], Pcp Primary Care Provider Unavailabl e Reason for Referral * EXTERNAL (Routine) - Authorized/Booked Specialty Diagnoses / Procedures Referred By Caleb buchanan Referred To Contact Mental Health Procedures REFERRAL TO BEHAVIORAL HEALTH Carisa Velasco MD [address] [place] [address] External B/Health Referral ID Status Reason Start Date Expiration Date V isits Requested Visits Authorized SEE NOTE Authorized/B ooked 01/23/2019 04/24/2019 1 1 Reason for Visit * Reason Onset Date Comments REFERRAL 01/23/2019 Encounter Details Date Type Department Care Team Description 01/23/2019 Telephone Adult [facility] [address] [place] [address] Carisa Velasco MD REFERRAL Social History Tobacco [...] insurance must be obtained and registered in [facility] or their referral can not be [...] Is this visit:Initial Visit Address of Specialist: [facility] [address], [place], [place] Phone # of Specialist: [phone] Fax #: (if applicable): Does patient have an appointment scheduled?: no Date of appointment- (including a retro-request): Is this appointment related to: Not MVA, WC or Surgery related documented in this encounter Plan of Treatment Not on file documented as of this encounter Visit Diagnoses Not on filedocumented in this encounter Care Teams Bunch Maker Hand Relationship Specialty Start Date End Date Carisa Velasco MD PCP - General Internal Medicine 01/21/18 10/11/19 Yudith Medellin MD PCP - General Internal Medicine 10/12/1912/27 [facility], Pcp PCP - General Internal Medicine 12/28/21 documented as of this encounter
--- OUTSIDE RECORDS SUMMARY | 2025-09-21 16:21 | XMS_ITS | Encounter Summary ---
Author Organization [facility] [employer] [facility] Prior to 08/07/[address] [place] [address] Care Team Providers Care Bone Process Operator Name Role Phone Carisa Velasco MD Primary Care Provider Yudith Miller MD [facility] Primary Care Provider Chip penaloza Encounter Details Date Type Department Care Team Description 12/10/2018 Orders Only Medical Records [address] [place] [address] Abstract, Provider Social History Tobacco Use Types [...] on filedocumented in this encounter Care Teams Bone Process Operator Relationship Specialty Start Date End Date Carisa Velasco MD PCP - General Internal Medicine 01/21/18 10/11/19 Yudith Medellin MD PCP - General Internal Medicine 10/12/1912/27 [facility], Pcp PCP - General Internal Medicine 12/28/21 documented as of this encounter
--- OUTSIDE RECORDS SUMMARY | 2025-09-21 16:21 | XMS_ITS | Encounter Summary ---
Author Organization [facility] Prior to 08/07/[address] [place] [address] Care Team Providers Care Dependency Director Name Role Phone Yudith Medellin MD Primary Care Provider [facility], Pcp Primary Care Provider Chip penaloza Encounter Details Date Type Department Care Team Description 12/22/2020 Old Medical Records Medical Records [address] [place] [address] Abstract, Provider Social History Tobacco Use Types [...] on filedocumented in this encounter Care Teams Dependency Director Relationship Specialty Start Date End Date Yudith Medellin MD PCP - General Internal Medicine 10/12/1912/27 [facility], Pcp PCP - General Internal Medicine 12/28/21 documented as of this encounter
--- OUTSIDE RECORDS SUMMARY | 2025-09-21 16:21 | XMS_ITS | Encounter Summary ---
Author Organization [facility] [employer] [facility] Prior to 08/07/[address] [place] [address] Care Team Providers Care Pourer Name Role Phone Yudith Medellin MD Primary Care Provider Mi[facility], Pcp Primary Care Provider Chip penaloza Encounter Details Date Type Department Care Team Description 12/17/2019 Transfer Records Medical Records [address] [place] [address] Abstract, Provider Social History Tobacco Use Types [...] on filedocumented in this encounter Care Teams Pourer Relationship Specialty Start Date End Date Yudith Medellin MD PCP - General Internal Medicine 10/12/1912/27 [facility], Pcp PCP - General Internal Medicine 12/28/21 documented as of this encounter
--- OUTSIDE RECORDS SUMMARY | 2025-09-21 16:21 | XMS_ITS | Encounter Summary ---
Author Organization [facility] Prior to 08/07/[address] [place] [address] Care Team Providers Care Birth Attendant Name Role Phone Rock Teran MD Primary Care Provider Un available Carisa Velasco MD Primary Care Provider Yudith Miller MD Primary Care Provider [facility], Pcp Primary Care Provider Unavailabl e Encounter Details Date Type Department Care Team Description 05/17/2011 [facility] Medical Records [address] [place] [address] Chung Valentine MD [address] [place] [id number] Social History Tobacco Use Types Packs/Day [...] on filedocumented in this encounter Care Teams Birth Attendant Relationship Specialty Start Date End Date Rock Teran MD PCP - General Pediatrics 11/13/13 01/20/18 Carisa Velasco MD PCP - General Internal Medicine 01/21/18 10/11/19 Yudith Medellin MD PCP - General Internal Medicine 10/12/1912/27 [facility], Pcp PCP - General Internal Medicine 12/28/21 documented as of this encounter
--- OUTSIDE RECORDS SUMMARY | 2025-09-21 16:21 | XMS_ITS | Encounter Summary ---
Author Organization [facility] Prior to 08/07/2024 Address [address] [place] [address] Care Team Providers Care Injection Mold Tooling Technician Name Role Phone Carisa Velasco MD Primary Care Provider Yudith Miller MD Primary Care Provider [facility], Pcp Primary Care Provider Unavailabl e Reason for Visit * Reason Comments E-prescribe Rx Request Encounter Details Date Type Department Care Team Description 10/01/2019 Refill Adult Med - [place] [address] [place] [address] Carisa Velasco MD E-prescribe Rx Request Social [...] PAINCANNABIN, URMARIJUANA * Telephone Encounter - Luda Eatonard - 10/01/2019 8:51 AM EST Patient would [...] N/A Patients current insurance carrier is: [place] / Plan: [facility] MDCR-ADV PPO $20/$40 [place] / Product Type: MEDICARE [id number] documented in this encounter Plan of Treatment Not on file documented as of this encounter Visit Diagnoses Not on filedocumented in this encounter Care Teams Injection Mold Tooling Technician Relationship Specialty Start Date End Date Carisa Velasco MD PCP - General Internal Medicine 01/21/18 10/11/19 Yudith Medellin MD PCP - General Internal Medicine 10/12/1912/27 [facility], Pcp PCP - General Internal Medicine 12/28/21 documented as of this encounter
--- OUTSIDE RECORDS SUMMARY | 2025-09-21 16:22 | XMS_ITS | Clinical Summary ---
Author Organization [facility] Prior to 03/06/25 Address [address] [place] [address] Care Team Providers Care Irrigation District Manager Name Role Phone Gregory Gaming MD Primary Care Provider [phone] Allergies Active Allergy Reactions Criticality Noted Date [...] age to complete this topic Care Teams Irrigation District Manager Relationship Specialty Start Date End Date Gregory Gaming MD [address] [place] [address] [place] [address] PCP - General Internal Medicine 07/13/22
--- OUTSIDE RECORDS SUMMARY | 2025-09-21 16:22 | XMS_ITS | Encounter Summary ---
Author Organization [facility] Prior to 08/07/[address] [place] [address] Care Team Providers Care Tarp Repairer Name Role Phone Carisa Velasco MD Primary Care Provider Yudith Miller MD Primary Care Provider [facility], Pcp Primary Care Provider Chip penaloza Encounter Details Date Type Department Care Team Description 09/03/2019 Manager Regional Sales Report Medical Records [address] [place] [address] Clint Cintron MD Social History Tobacco Use [...] on filedocumented in this encounter Care Teams Tarp Repairer Relationship Specialty Start Date End Date Carisa Velasco MD PCP - General Internal Medicine 01/21/18 10/11/19 Yudith Medellin MD PCP - General Internal Medicine 10/12/1912/27 [facility], Pcp PCP - General Internal Medicine 12/28/21 documented as of this encounter
--- OUTSIDE RECORDS SUMMARY | 2025-09-21 16:22 | XMS_ITS | Clinical Summary ---
Author Organization [facility] Prior to 08/07/2024 Address [address] [place] [address] Care Team Providers Care Big Data Admin Name Role Phone [facility], Pcp Primary Care Provider Unavailabl e Allergies Active Allergy Reactions Severity Noted Date Comments Aspartame 07/25/2018 Cyclobenzaprine Hcl 06/07/2016 Nickel/Metal Itching/Pruritus 11/09/2019 Non treva metal blistering Seafood 09/11/2016 Medications Medication Sig Dispensed Refills Start Date End Date Status Omeprazole 20 MG Tab EC Take 1 Tab by mouth daily. 0 Active cyanocobalamin ([facility] VITAMIN B12) 1000 MCG tablet Take 1 tablet by mouth daily. 0 10/18/2016 Active Calcium Carb-Cholecalciferol (CALCIUM-VITAMIN D3) 600-400 MG-UNIT Tab Take 1 tablet by mouth 2 times daily. 0 07/12/2016 Active Calcium Polycarbophil (FIBER) 625 MG Tab Take 625 mg by mouth daily. 0 10/18/2016 Active Ferrous Sulfate (IRON) 325 (65 FE) MG Tab Take 1 tablet by mouth 2 times daily. 0 10/18/2016 Active Multiple Vitamins Tab Take 1 tablet by mouth daily. 0 07/12/2016 Active ketoconazole (NIZORAL) 2 % cream Apply topically 2 times daily. 0 Active Doxycycline Monohydrate (ADOXA) 100 MG tablet Take 1 Tablet by mouth 2 times daily. 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 [facility] 04/2013 Vertigo 04/22/2019 Overview: Dr. Shearer 02/2013 History of brain shunt 04/22/2019 Overview: LEGAL SECRETARY shunt, R hemisphere. Hx of L skull base injury 1974. [facility] note 04/29/2013 Meniere's disease 04/22/2019 Overview: Dr. Shearer. Chronic low back pain 03/31/2019 History of gastric bypass 08/01/2018 Fibromyalgia 12/24/2017 Lumbar spinal stenosis 12/17/2017 Cervical spondylosis 12/04/2016 Esophageal reflux 08/09/2016 Dermatitis 06/07/2016 Seasonal allergies 10/03/2015 Obesity (BMI 30.0-34.9) Resolved Problems Problem Noted Date Resolved Date Type 2 diabetes mellitus without complication 08/25/2019 Abrasion of groin, infected 05/07/201707/08 Vaginal yeast infection 06/08/2016 08/01/20 18 Immunizations Name Administration Dates Next Due Flu Vaccine 3 Yrs> Im 08/19/2017 Influenza (>6 Months) Split Preservative Free Influenza Vaccine-preservati ve Free-quadrivalent 4 Years 08/14/2019 Influenza Vaccine-quadrivalent 4 Years Plus 07/09 Family History Medical History Relation Name Comments Bipolar Disorder Brother 1 No Known Problems Brother 2 Cancer of the Lung Father Brain can cer, at 57. Cancer, Other Maternal Grandfather larynx Cancer of the Lung Maternal Grandmother Stroke Mother at 68. CA Breast Other m gr aunt 70s CAD Paternal Grandfather Cancer of the Colon Paternal Grandmother Diabetes Sister Relation Name Status Comments Brother 1 Alive Brother 2 Alive Father Maternal Grandfather Maternal Grandmother Mother Other m gr aunt 70s Paternal Grandfather Paternal Grandmother Sister Social History Tobacco Use Types Packs/Day Years Used Date Smoking Tobacco: Former Cigarettes 1 20 0 1969 - 10/07/2011 Smokeless Tobacco: Never Tobacco Cessation:Counseling Given: Not Answered Alcohol Use Standard Drinks/Week Comments Yes 0 (1 standard drink = 0.6 oz pur e alcohol) 3-4 glasses wine per week Sex Assigned at Date Recorded Not on file Last Filed Vital Signs Vital Sign Reading Time Taken Comments Blood Pressure 126/78 09/14/2022 9:41 AM EST Pulse 70 09/14/2022 9:41 AM EST Temperature 37.3 C (99.2 F) 09/25/2019 2:08 PM EST Respiratory Rate 16 11/09/2019 9:10 AM EST Oxygen Saturation 98% 05/20/2018 10:23 AM EDT Inhaled Oxygen Concentration - - Weight 50.6 kg (111 lb 8 oz) 09/14/2022 9:41 AM EST Height 162.6 cm (5' 4 ) 09/14/2022 9:41 AM EST Body Mass Index 19.14 09/14/2022 9:41 AM EST Plan of Treatment Health Maintenance Due Date Last Done Comments Covid-19 Vaccine (#1) 1956 DEPRESSION SCREEN 1968 DIABETES/HEART DISEASE: TANYA AL CHOLESTEROL (LDL) 1974 DIABETES: ANNUAL EYE EXAM 1974 DIABETES: ANNUAL FOOT EXAM 1974 DIABETES: ANNUAL URINE PROTE IN TEST (MICROALBUMIN) 1974 DIABETES: BLOOD SUGAR CONTRO L TEST (HGBA1C) 1974 HEPATITIS C SCREENING 1974 DTAP/TDAP/TD (1 - Tdap) 1975 SHINGLES VACCINE (1 of 2) 2006 MAMMOGRAM 01/13/2020 01/12/2019, 01/2018, 10/25/2016 BONE DENSITY SCREENING 2021 PNEUMOCOCCAL VACCINE (1 - PCV) 2021 COLON CANCER SCREENING 02/23/2025 5, 11/19/2011 (Completed) INFLUENZA (#1) 2025 08/14/2019, 07/09, 08/19/2017, Additional history exists Advance Directives For more information, please contact: [phone] Documents on File Type Date Recorded Patient Manager Clinical Expl anation Health Care Proxy 09/17/2018 12:42 PM PRO XY Care Teams Big Data Admin Relationship Specialty Start Date End Date [facility], Pcp PCP - General Internal Medicine 12/28/21
--- OUTSIDE RECORDS SUMMARY | 2025-09-21 16:22 | XMS_ITS | Patient Health Record ---
Author Organization [facility] Address [address] [place] [address] Care Team Providers Care Hairmasters Manager Name Role Phone Rock Teran MD Primary Care Provider Sony Cheung Unavailable [phone] Allergies Allergen (clinical drug ingredient) Drug/Non Drug [...] Status W/U Status Risk Notes Problem Onychomycosis (464870333) Onychomycosis (110.1) Active confirmed Problem Pain in limb (41318613) Pain in Limb (729.5) Active confirmed Problem Congenital pes planus (77716126) Flat Foot, Congenital (754.61) Active confirmed Problem Neurologic disorder associated with type II diabetes mellitus (334393269) Diabetic - NIDDM/Neuropathy (250.60) Active confirmed Problem Ingrowing nail (290619223) Ingrowing Nail (703.0) Active confirmed Plan Of Treatment Pending Test Test Name Order Date Glucose Fasting 12/28/2014 [id number] NAIL, 6 OR MORE 12/28/2014 [id number] SKIN LESIONS, OVER 4 12/29/19 15 Insurance Providers Payer Name Payer Address Payer Phone Subscriber Number Group Number Insured Name Patient Relationship to Insured Coverage Start Date Coverage End Date [facility] [address] [place] [phone] [id number] Sudha Lyman Self - patient is the [...]
--- OUTSIDE RECORDS SUMMARY | 2025-09-21 16:22 | XMS_ITS | Encounter Summary ---
Author Organization [facility] [employer] [facility] Prior to 08/07/[address] [place] [address] Care Team Providers Care Group Home Manager Name Role Phone Carisa Velasco MD Primary Care Provider Yudith Miller MD [facility] Primary Care Provider Chip penaloza Encounter Details Date Type Department Care Team Description 09/09/2019 Billiard Table Repairer Report Medical Records [address] [place] [address] Carmen Solorzano MD Social History Tobacco Use [...] on filedocumented in this encounter Care Teams Group Home Manager Relationship Specialty Start Date End Date Carisa Velasco MD PCP - General Internal Medicine 01/21/18 10/11/19 Yudith Medellin MD PCP - General Internal Medicine 10/12/1912/27 Pending Sale To [facility], Pcp PCP - General Internal Medicine 12/28/21 documented as of this encounter
--- OUTSIDE RECORDS SUMMARY | 2025-09-21 16:22 | XMS_ITS | Encounter Summary ---
Author Organization [facility] [employer] [facility] Prior to 08/07/[address] [place] [address] Care Team Providers Care Police Lieutenant Name Role Phone Carisa Velasco MD Primary Care Provider Yudith Miller MD [facility] Primary Care Provider Chip penaloza Encounter Details Date Type Department Care Team Description 08/27/2019 [facility] Medical Records [address] [place] [address] Abstract, Provider Social History Tobacco Use Types [...] filedocumented in this encounter Care Teams Police Lieutenant Relationship Specialty Start Date End Date Carisa Velasco MD PCP - General Internal Medicine 01/21/18 10/11/19 Yudith Medellin MD PCP - General Internal Medicine 10/12/1912/27 [facility], Pcp PCP - General Internal Medicine 12/28/21 documented as of this encounter
== END 2025-09-21 14:07 | disposition home or self-care (01) ==
LOC: HO.HOS 12:35
PROVIDERS: PCP Internal Medicine; Visit Provider Orthopaedic Surgery
DX: M62.838 Other muscle spasm (principal); M79.7 Fibromyalgia; M24.542 Contracture, left hand
CPT/HCPCS: 99204

== ENCOUNTER → 2025-09-21 12:34 | Outpatient (BNVA) | payer MEDICARE, SELFPAY | PROVIDERS: PCP Internal Medicine; Visit Provider Orthopaedic Surgery | DX: M79.7 Fibromyalgia (principal); M62.838 Other muscle spasm; M24.542 Contracture, left hand; R20.0 Anesthesia of skin | CPT/HCPCS: 99202 ==

== ENCOUNTER 2025-09-28 12:58 | Outpatient (AMB) | payer MEDICARE, SELFPAY ==
--- NOTE | 2025-09-28 13:01 | MHC.OFFVIS ---
Vital Signs 09/28/25 13:02 Height 5 ft 2 in Weight 148 lb BMI 27.1 BP 102/60 Intake Visit Reasons: Annual/do not shadia Family Psychologist Required: No Information Interpreted: non-clinical & clinical Allergies aspartame Allergy (Severe, Verified 09/28/25 13:06) severe dehydration cyclobenzaprine (From Flexeril) Allergy (Severe, Verified 09/28/25 13:06) SOB nickel Adverse Reaction (Verified 09/28/25 13:06) Blister Post menopausal: Yes HPI Comments Details: Presenting for annual exam. No complaints. Last Pap/HPV was negative in 05/29 Last Mammogram was BI-RADS 1 in 07/31 Last Colonoscopy was in 12/28, the recommendation was to repeat in 3 years Last DEXA scan was done in 06/30, the patient is on alendronate [facility] Medical History Diverticulosis Constipation Sleep apnea Abscess Bladder cancer Obesity (BMI 30-39.9) Traylor's palsy Neuropathy GERD without esophagitis Chronic neck pain Scoliosis of thoracolumbar spine Arthritis Back pain Hx of spinal stenosis Peptic ulcer Fibromyalgia Hydrocephalus in adult History of traumatic head injury Nephrolithiasis Surgical History Hx of cystoscopy History of cervical spinal surgery History of adenoidectomy Hx of lithotripsy Hx of tubal ligation Hx of excision of lamina of cervical vertebra for decompression of spinal cord Hx of cholecystectomy H/O colonoscopy Hx of gastric bypass RETAIL ASSET PROTECTION SPECIALIST (ventriculoperitoneal) shunt status Family History Father Cancer Mother Stroke Brother No problems noted. Brother No problems noted. Sister No problems noted. Son No problems noted. Daughter No problems noted. Paternal Grandmother Colon cancer Social History Housing: Assisted Living Facility Are you a primary rental boats caretaker to a significant other at home: No Do you presently have visiting nurse or other home services: No Alcohol intake: never Patient Tobacco Use Status: Former Tobacco user Tobacco use type: Cigarette Years Smoked: 30 e-Cigarette/Vaping Use: Never Used Second Hand Smoke Exposure: Yes Advance Directives Date on File: 06/04/23 service: No Current occupational status: retired and disabled Cognitive needs: Yes (cane) Hearing needs: Yes (hearing aide) Vision needs: Yes (glasses) Female Reproductive History Menstrual Age of Menarche: 15 Date of last pap smear: 05/08/23 Date of Mammogram: 07/20/25 Date of last Bone Density Screenin06/23/24 Review of Systems Const All systems reviewed & are unremarkable except as noted in HPI and below Card Reports as per HPI Resp Reports as per HPI GI Reports as per HPI and Reports no additional complaints Reports as per HPI Physical Exam Vital Signs: Last Vital Signs BP 102/60 09/28/25 13:02 BMI result Body Mass Index 27.1 Const General: cooperative, healthy appearing and comfortable Chest Chest palpation & inspection: normal inspection of the chest and normal palpation of entire chest wall Breast/axilla inspection: normal inspection of the breasts and normal inspection of the axillae Breast/axilla palpation: normal palpation of the breasts, normal palpation of the axillae and no axillary lymphadenopathy Resp Effort & Inspection: normal respiratory effort Auscultation: clear to auscultation bilaterally Percussion: percussion normal Cardio Palpation: normal PMI Rate: regular rate Rhythm: regular rhythm Heart sounds: no murmurs and no rubs Peripheral pulses: Peripheral pulses 2+ throughout GI Inspection: Yes normal to inspection Palpation (GI): Soft to palpation, nontender, no guarding, not rigid and No hepatosplenomegaly present Percussion: Yes normal to percussion Auscultation: normal bowel sounds Rectal Exam - Female: deferred General: Yes bladder normal to palpation External Female Exam: No lesion Speculum Exam - Vagina: normal appearance of the vagina, normal palpation, normal vaginal discharge and not erythematous Speculum Exam - Cervix: normal appearance of the cervix and normal palpation Bimanual exam- vagina & uterus: normal bimanual exam, normal palpation, uterine size normal, bladder normal to palpation, consistency normal and normal palpation Bimanual Exam- Adnexa, other: normal adnexae, no masses and no tenderness Assessment & Plan Assessment & Plan (1) Well woman exam: Code(s): Z01.419 - Encounter for gynecological examination (general) (routine) without abnormal findings Category: Medical Plan: Co testing not indicated. Counseled the patient about the recommended dietary allowance of 1200 mg of Calcium & 800 IU of vitamin D. Instructions given to the patient to schedule next screening Mammogram in 08/01 The patient was instructed to perform monthly self-breast exams and to schedule an annual exam in a year; All questions answered and the patient verbalized understanding. Coding Level of Care Code Est Pt Prev Care >65y(03726) Diagnoses Well woman exam Z01.419
[2025-09-28 13:02] VITALS: BP 102/60; BMI 27.1
--- OUTSIDE RECORDS SUMMARY | 2025-09-28 14:02 | XMS_ITS | Patient Health Record ---
Author Organization [facility] Address [address] [place] [address] Care Team Providers Care Carroter Name Role Phone Rock Teran MD Primary Care Provider Sony Cheung Unavailable [phone] Allergies Allergen (clinical drug ingredient) Drug/Non Drug [...] Status W/U Status Risk Notes Problem Onychomycosis (143398228) Onychomycosis (110.1) Active confirmed Problem Pain in limb (79261885) Pain in Limb (729.5) Active confirmed Problem Congenital pes planus (56358780) Flat Foot, Congenital (754.61) Active confirmed Problem Neurologic disorder associated with type II diabetes mellitus (927354091) Diabetic - NIDDM/Neuropathy (250.60) Active confirmed Problem Ingrowing nail (824613462) Ingrowing Nail (703.0) Active confirmed Plan Of Treatment Pending Test Test Name Order Date Glucose Fasting 12/28/2014 [id number] NAIL, 6 OR MORE 12/28/2014 [id number] SKIN LESIONS, OVER 4 12/29/19 15 Insurance Providers Payer Name Payer Address Payer Phone Subscriber Number Group Number Insured Name Patient Relationship to Insured Coverage Start Date Coverage End Date [facility] [address] [place] [phone] [id number] Sudha Lyman Self - patient is the [...]
--- OUTSIDE RECORDS SUMMARY | 2025-09-28 14:02 | XMS_ITS | Clinical Summary ---
Author Organization [facility] Prior to 03/06/25 Address [address] [place] [address] Care Team Providers Care Business Account Specialist Name Role Phone Gregory Gaming MD Primary Care Provider [phone] Allergies Active Allergy Reactions Criticality Noted Date [...] age to complete this topic Care Teams Business Account Specialist Relationship Specialty Start Date End Date Gregory Gaming MD [address] [place] [address] [place] [address] PCP - General Internal Medicine 07/13/22
--- OUTSIDE RECORDS SUMMARY | 2025-09-28 14:02 | XMS_ITS | Clinical Summary ---
Author Organization [facility] [facility] [place] [address] Care Team Providers Care Director Intelligence Analysis Programs Name Role Phone Gregory Gaming MD Primary Care Provider Surgical History Surgery Date Site/Laterality Comments TONSILLECTOMY 1960 PROCEDURE: HISTORICAL TONSILLECTOMY CYSTOSCOPY 1963 PROCEDURE: CO CYSTOURETHROSCOPY BLADDER SURGERY 1990 PROCEDURE: HISTORICAL BLADDER SURGERY TUBAL LIGATION 1991 PROCEDURE: HISTORICAL TUBAL LIGATION OTHER SURGICAL HISTORY 1994 and 1999 PROCEDURE: CO VENTRICULOCISTERNOSTOMY; COMMENT: ? excessive CSF COLONOSCOPY 2011 [...] Tinnitus 04/22/2019 DX:Tinnitus; COM MENT: Since childhood. [facility] 04/2013 Vertigo 04/22/2019 DX:Vertigo; COMM ENT: Dr. 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 Hx of L skull base injury 1974. [facility] note 04/29/2013 Meniere's [...] Recently Relevant to Health Maintenance Results * [facility] SCREENING DIGITAL (04/15/2020 5:06 PM EDT) Anatomical Region Laterality Modality Mammography 04/15/2020 3:31 PM EDT Narrative 04/15/2020 5:06 PM EDT [facility] Diagnostic Imaging Department [address] [place] [id number] Patient: MACIEL RAZO Chevy Hawley/Age/Sex: 1955 - 65 - F Unit#: [id number] Location/Status: [facility] CLI Mnemonic/Ordering Site: [facility] Ordering Physician: ARIADNE STEELE FINANCIAL MANAGER [facility] Screening Digital - 04/15/20 - 1548 EXAM: [facility] Screening Digital EXAM DATE AND TIME: 04/15/2020 3:49 PM HISTORY: Screening. COMPARISON: 09/06/15, 08/20/14, 08/27/13 TECHNIQUE: CC and MLO views of both breasts were obtained using full field digital mammography. Bilateral digital breast tomosynthesis was performed in the MLO projection. Computer aided detection with the [employer] 7.2-H was employed. TISSUE DENSITY: b. There [...] Routine screening mammogram BILATERAL in 1 year. 44273, 45503 3342F, 7025F Dictating Physician: NELLY LOYD MD Electronically Signed by: NELLY LOYD MD Dic Date/Time: 04/15/201703 Sign date/Time: 04/15/201705 Procedure Note Nelly Loyd MD - 09/26/2022 [facility] Diagnostic Imaging Department [address] [place] [address] Patient: DANNIMACIELO.B./Age/Sex: 1955 - 65 - F Unit#: [id number] [facility]Ordering Site: [facility] Ordering Physician: ARIADNE STEELE FINANCIAL MANAGER [facility] Screening Digital - 04/15/20 - 1548 EXAM: [facility] Screening Digital EXAM DATE AND TIME: 04/15/2020 3:49 PM HISTORY: Screening. COMPARISON: 09/06/15, 08/20/14, 08/27/13 TECHNIQUE: CC and MLO views of both breasts were obtained using fullfield digital mammography. Bilateral digital breast tomosynthesis was performedin the MLO projection. Computer aided detection with the [employer] Connections[employer] employed. TISSUE DENSITY: b. There are scattered [...] Routine screening mammogram BILATERAL in 1 year. 13349, 31108 3342F, 7025F Dictating Physician: NELLY LOYD MD Electronically Signed by: NELLY LOYD MD Dic Date/Time: 04/15/20 1704 Sign date/Time: 04/15/20 170 us Ariadne Steele FINANCIAL MANAGER IMG BI PROCEDURES Final Res ult from Last 3 Months or Most Recently Relevant to Health Maintenance Care Teams Director Intelligence Analysis Programs Relationship Specialty Start Date End Date Gregory Gaming MD [address] [place] [address] [address] [place] PCP - General Internal Medicine 07/13/22
== END 2025-09-28 13:36 | disposition home or self-care (01) ==
LOC: HO.HWS 12:58
PROVIDERS: PCP Internal Medicine; Visit Provider Obstetrics & Gynecology
DX: Z01.419 Encounter for gynecological examination (general) (routine) without abnormal findings (principal)
CPT/HCPCS: 99397; 99459

== ENCOUNTER → 2025-09-28 12:58 | Outpatient (BNVA) | payer MEDICARE, SELFPAY | PROVIDERS: PCP Internal Medicine; Visit Provider Obstetrics & Gynecology | DX: Z01.419 Encounter for gynecological examination (general) (routine) without abnormal findings (principal) | CPT/HCPCS: 99397 ==